=== PATIENT | male | born 1965 | race Caucasian/White ===

== ENCOUNTER 2023-07-11 14:38 | Inpatient (IN) | payer MEDICAID, SELFPAY ==
[2023-07-11] VITALS (12 sets, daily range): BP systolic 117–169; BP diastolic 73–94; BMI 22.8; BMI 22.2
--- NOTE | 2023-07-11 11:27 | ED.GENMED ---
History of Present Illness
General
Chief Complaint: Seizure
Time Seen by Provider: 07/11/23 11:26
Travel History
Have you had any contact with someone who has COVID-19?: No
Do you have any symptoms of coronavirus? Fever > 100 degrees, chills, cough, shortness of breath, sore throat, loss of taste or smell, muscle aches, or headache?: No
History of Present Illness
History of Present Illness:
HPI: The patient presents with a witnessed seizure. He came in by ambulance. He does have a history of seizure and has had left MCA stroke in the past. He is currently a very unreliable historian. I am told by the ER nurse who spoke to EMS that
the patient's white found him to have a grand mal seizure for 1 to 2 minutes.
EXAM:
GENERAL: The patient appears confused/postictal
HEENT: Moist oral mucosa
CARDIOVASCULAR: No murmurs, tachycardic heart rate with regular rhythm, No chest wall tenderness
PULMONARY: No respiratory distress, breath sounds are clear and equal
ABDOMEN: Soft with no peritoneal signs, no tenderness
NEUROLOGIC: Good strength all extremities, mild tremor noted, mild coordination deficits noted
PSYCHIATRIC: The patient appears confused with limited insight and judgment and appears to be an unreliable historian, he does not know that he is at [facility]
EXTREMITIES: Nontender, no edema, moves all extremities equally
SKIN: No rash, no lesions
ED COURSE:
11:35 AM: I initially evaluated patient; I called the listed phone number for the but there was no answer at 11:40 AM
NUMBER AND COMPLEXITY OF PROBLEMS ADDRESSED AT THE ENCOUNTER
� Chronic conditions affecting care: Factor V Leiden, left MCA stroke, seizures, Warnicke Korsakoff syndrome, has had intracranial bleed in the past, alcohol use disorder
� Acute Exacerbation and/or Progression of Chronic Illness: This is an acute exacerbation of chronic seizure disorder
� Differential Diagnosis includes: Recurrent seizure, alcohol withdrawal seizure, medication noncompliance, intracranial hemorrhage from possible trauma
AMOUNT AND/OR COMPLEXITY OF DATA TO BE REVIEWED AND ANALYZED
� I performed an independent evaluation of and my interpretation is:
EKG:
CT: CT brain personally viewed and shows no acute abnormality
X-rays:
Laboratory Studies: CBC, chemistries, B12 unremarkable. Head CT is unremarkable
Other:
� Review of other/old records: The patient was admitted here with seizures last month and stayed for over 3 weeks. Seizures were likely related to alcohol withdrawal and was initially admitted to ICU. There were no beds
available for inpatient alcohol rehab
� Clinical information was obtained by an independent historian: I tried calling the twice but there was no answer, I did speak to the brother who was not aware that the patient was here
� Prescriptions/Medications Considered but not given:
� Further testing considered but not performed:
RISK OF COMPLICATIONS AND/OR MORBIDITY OR MORTALITY OF PATIENT MANAGEMENT
� Social determinants of health affecting care: Lives at home with
� Discussion with other providers: Hospitalist for admission at 1:45 PM
� Escalation of care including admission/observation vs risk of discharge considered: The patient appears encephalopathic but based on the records from last admission this does not appear to be new. The patient had a seizure
reportedly earlier today. The patient has been seizure-free in the ED however I did give him a dose of 2 g of IV Keppra as patient states that he did not take his meds this morning. However, the patient appears fairly unreliable. I do not feel
that he can be at this time.
Past History
Past History
ED Past Medical History: CVA, HTN, Seizures, Other (subarachnoid hemorrhage 2004), Other (gout; alcohol abuse with alcohol withdrawal seizures, alcohol withdrawal delirium) and Other (factor V Leiden; chronic anemia; abnormal head imaging with left
temporal encephalomalacia)
ED Past Surgical History: Orthopedic (left knee arthroscopy)
Social History
Tobacco: Former smoker
Alcohol: Chronic alcoholic
Drug: None
Personal:
Living: with family
Employment: Other
Family History
Family History: Other (He has a father and a brother that had strokes)
Phy Exam
Physical Exam
Physical Exam:
See HPI
Course
Orders/Labs/Results
Orders:
Orders
07/11/23 11:40
CT Head W/o Iv Contrast Urgent
Comment:
Reason For Exam: seizure confused ?head trauma; on DAPT
Levetiracetam Injectable [Keppra] 2,000 mg IV NOW STA
07/11/23 11:41
Alcohol Urgent
Complete Blood Count/With Diff Urgent
Comprehensive Metabolic Panel Urgent
Vitamin B12 Urgent
Abnormal Lab Results
07/11/23
11:41
RBC 4.05 L 10^6/uL
(4.70-6.10)
MCV 98.0 H fL
(80.0-94.0)
MCH 34.3 H pg
(27.0-31.0)
07/11/23 11:41
07/11/23 11:41
Vital Signs
Initial and Last Documented VS:
Initial Vital Signs
Pulse Resp BP Pulse Ox
87 15 141/94 94
07/11/23 10:57 07/11/23 10:57 07/11/23 10:57 07/11/23 10:57
Last Documented Vital Signs
Temp Pulse Resp BP Pulse Ox
98.6 F 70 19 129/83 100
07/11/23 11:02 07/11/23 13:30 07/11/23 13:30 07/11/23 13:22 07/11/23 11:33
*Critical Care Note
Total Time (30-74mins, 75-104mins- exclusive of procedures): Not Applicable
ED Attending Note
-
Portions of this chart may have been created with voice recognition software.� Occasional wrong word or��sound alike� substitutions may have occurred due to the inherent limitations of voice recognition software.
Discharge Plan
Departure
Patient Disposition: Admit
Date of Disposition: 07/11/23
Time of Disposition: 13:24
Presentation/result/management discussed w/ accepting MD/DO: Hospitalist
Discharge Problem:
Seizure
Prescriptions:
No Action
thiamine HCl (vitamin B1) 100 mg Tablet
100 mg PO DAILY
clopidogrel 75 mg Tablet
75 mg PO DAILY
diltiazem HCl 120 mg Capsule,Extended Release 24 Hr
120 mg PO DAILY
levetiracetam 1,000 mg Tablet
2,000 mg PO BID
Referrals:
UNKNOWN - PT DOES,NOT KNOW [Family Provider] -
Interventions
Interventions:
*Risk Screen - Suicide Last Done: 07/11/23 11:02
*General Assessment Last Done: 07/11/23 11:02
*Neglect/Abuse Screening Last Done: 07/11/23 11:02
ED- Fall Risk Assessment Last Done: 07/11/23 11:33
*ED COVID-19 Vaccine History Last Done: 07/11/23 11:02
ED- Cardiac Assessment Last Done: 07/11/23 11:33
ED- Neurological Assessment Last Done: 07/11/23 11:33
ED- Pulmonary Assessment Last Done: 07/11/23 11:33
--- NOTE | 2023-07-11 11:30 | EDRN ---
Received patient from home s/p witnessed grand mal seizure by . told EMS that the seizure lasted about 1-2 minutes. Patient lethargic on arrival. Aroused easily to touch and sound. Patient with confused conversation. Patient denies any ETOH
use.
[2023-07-11] MEDS: KEPPRA 2000 MG IV (11:48)
[2023-07-11 12:03] LABS: % Basophils 0.4 % (0-2); % Eosinophils 0.8 % (0-6); % Lymphocytes 34.7 % (20.5-51.1); % Monocytes 6.7 % (1.7-9.3); % Neutrophils 57.4 % (42.2-75.2); Absolute Lymphocytes 1.7 10^3/uL (1.2-3.4); Absolute Monocytes 0.3 10^3/uL (0.1-0.6); Absolute Neutrophils 2.8 10^3/uL (1.4-6.5); Hematocrit 39.7 % (39.0-52.0); Hemoglobin 13.9 g/dL (13.0-18.0); Mean Corpuscular Hgb 34.3 pg (27.0-31.0); Mean Platelet Volume 9.7 fL (7.4-10.4); Nucleated Red Blood Cells % 0 % (-); Platelet Count 277 10^3/uL (130-400); Red Blood Cell Count 4.05 10^6/uL (4.70-6.10); Red Cell Dist. Width 12.4 % (11.5-14.5); White Blood Cell Count 4.8 10^3/uL (4.8-10.8)
[2023-07-11 12:36] LABS: ALT (SGPT) 33 U/L (0-50); AST (SGOT) 44 U/L (17-59); Albumin 4.7 g/dl (3.5-5.0); Alcohol 218 mg/dl; Alkaline Phosphatase 73 U/L (38-126); Blood Urea Nitrogen 11 mg/dl (9-20); Calcium 8.8 mg/dl (8.4-10.2); Carbon Dioxide 24 mmol/L (22-30); Chloride 106 mmol/L (98-107); Estimated Creatinine Clearance 99 ml/min; Glucose 89 mg/dl (70-99); Potassium 3.9 mmol/L (3.5-5.1); Sodium 142 mmol/L (135-145); Total Bilirubin 0.5 mg/dl (0.2-1.3); Total Protein 8.2 g/dl (6.3-8.2); eGFR > 60.00
[2023-07-11 13:13] LABS: Vitamin B12 308 pg/ml (239-931)
--- NOTE | 2023-07-11 13:53 | HPS.HSE ---
Addendum entered and electronically signed by Omar Matias MD 07/11/23 15:45:
Seen and examined by me independently in collaboration with the nurse practitioner Layla.
Past medical history/social history/medication/allergies reviewed.
Lab data and imaging data reviewed.
Patient with longstanding history of alcohol abuse including dependence and withdrawal seizures presents with a 1 to 2 minutes of grand mal seizure witnessed by the . He has a seizure when he is intoxicated with alcohol. His levels were 218
when he presented to the hospital. Further discussion with the patient about complaints of Keppra suggest that he was not taking his Keppra. He forgets about medication when he is intoxicated with alcohol.
Currently alert and oriented. No signs of alcohol withdrawal.
Lab work is okay.
I suspect this is more seizure from noncompliance with Keppra.
Patient received Keppra in the ER.
Admit the to observe for any recurrent seizure. Continue with his Keppra. Hydrated with fluids to help with his increased alcohol levels.
Patient is declining any help with alcohol withdrawal programs
Continue the diet. If no further seizures we will discharge him in a.m.
Original Note:
Family Physician
-
Family Physician: NOT KNOW UNKNOWN - PT DOES
Chief Complaint
-
Seizure, confusion, alcohol intoxication
History of Present Illness
58-year-old male arrives by ambulance whose reported to EMS she found him having a grand mal seizure lasting approximately 1 to 2 minutes. Has history of alcohol withdrawal seizures and prior history of a left MCA stroke. In the ER he is
confused. The patient is currently awake and alert does not have current memory of the past couple days. He reports this happens after he has a seizure. He does state that he remembers going to an AA meeting with his brother Son but he has
been drinking wine approximately 1.5 L daily since his discharge 11 days ago. He does not recall whether or not he has been taking his Keppra as when he gets intoxicated he forgets. He lives with his who is also an alcoholic. He is not
interested in inpatient treatment as he states he was denied in the past due to his history of seizures and CVA. He denies current headache, fever, chills, chest pain, palpitations, shortness of breath, cough, abdominal pain, nausea, vomiting,
diarrhea
He was recently admitted 06/10-07/03/2023 for alcohol intoxication/withdrawal seizure, TME, COVID-19 he developed during his admission he refused antiviral treatment at that time. He was waiting for an inpatient alcohol drug rehab for many days but
there were no beds available and he was recommended to go home with outpatient rehab. His other past medical history includes factor V Leiden, anemia, intracranial bleed left MCA /CVA 2004, TIA, HLD, gout, alcohol abuse, alcohol withdrawal
seizures, Paroxysmal A-fib/SVT, hypomagnesemia.
Medical History
Past Medical History
Past Medical History: Reports Other
Additional Past Medical History:
COVID-19 infection June 2023
ASCVD with Prior CVA
History of seizures
Subarachnoid hemorrhage in 2004
Essential hypertension
Gout
Alcohol use disorder with withdrawal seizures and withdrawal delirium
Factor V Leiden deficiency
Anemia of chronic disease
Past Surgical History: Reports Other
Additional Past Surgical History:
Knee Arthroscopy
Colonoscopy age 40s normal
Social History
Tobacco: Former Smoker (Per record. Unsure of total use / quit date.)
Alcohol: Daily
Personal:
Living: With Family ()
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
Family History
Family History: Other (Mother colon cancer, 1 brother colon cancer, father and multiple brothers alcohol abuse)
Allergies / Home Medications
Allergies reflects when Allergies were last updated in [email or web address].
Home Medications with original date entered in [email or web address]
Allergy/Medication List:
Allergies
Allergy/AdvReac Type Severity Reaction Status Date / Time
erythromycin base Allergy Unknown Verified 07/11/23 11:07
[Erythromycin Base]
diazepam AdvReac paradoxical Verified 07/11/23 11:07
rxn/agitation,
required
upgrade
IMU>ICU
03/27/22
lorazepam [From Ativan] AdvReac Agitation Verified 07/11/23 11:07
phenytoin sodium AdvReac Unknown- Verified 07/11/23 11:07
[From Dilantin] tolerated
phenobarbital
Home Medications
clopidogrel 75 mg tablet 75 mg PO DAILY 07/11/23
diltiazem HCl 120 mg capsule,24 hr,extended release 120 mg PO DAILY 07/11/23
levetiracetam 1,000 mg tablet 2,000 mg PO BID 07/11/23
thiamine HCl (vitamin B1) 100 mg tablet 100 mg PO DAILY 07/11/23
Review of Systems
-
History Source: Patient
Constitutional: Reports Other (Slight confusion/recall of recent events); Denies Fever
EENT: Denies Sore Throat or Runny Nose
Respiratory: Denies Cough or Trouble Breathing
Cardiac: Denies Chest Pain, Diaphoresis, Palpitations or Syncope
Abdomen/GI: Denies Abdominal Pain, Nausea, Vomiting, Diarrhea, Constipated, Bloody Stools or Black Stools
: Denies Dysuria, Frequency, Flank Pain, Incontinence or Difficulty Voiding
Musculoskeletal: Denies Joint Pain or Edema
Skin: Denies Itching or Rash
Neurological: Denies Dizzy, Headache or Weakness
Endocrine: Reports No Symptoms
Hematologic/Lymphatic: Reports No Symptoms
Psych: Reports Calm
Physical Exam
Vital Signs
Vital Signs
Temp Pulse Resp BP Pulse Ox
98.6 F 70 19 129/83 100
07/11/23 11:02 07/11/23 13:30 07/11/23 13:30 07/11/23 13:22 07/11/23 11:33
Physical Exam
General: Comfortable, Conversant and Other (Intoxicated slight impairment in recall of recent events over the past several days unsure if taking Keppra unsure last alcoholic drink)
HEENT: NormoCephalic, Anicteric, Moist mucous membranes, Atraumatic, PERRLA, [place] Conjunctivae and No Ptosis
Respiratory: Clear; No Wheezes, Rales or Rhonchi
Cardiac: S1/S2 and Regular Rhythm; No Murmur, Rub, Gallop or Peripheral Edema
Breast: Deferred by me
GI: Soft, Non Tender, Non Distended, Normal Bowel Sounds and No Hepatosplenomegaly
Rectal: Deferred by Provider
Genito-urinary: Deferred by me
Musculoskeletal: No Clubbing, No Cyanosis and No Edema
Skin: Warm and Dry; No Rash
Neuro: AO x 3 (Impairment in recent events as far as last alcoholic drink last dose of Keppra), Cranial Nerves Intact and No Sensory Deficits; No Slurred Speech, Facial Droop or Tremors
Psych: Calm
Laboratory Results
-
07/11/23 11:41
07/11/23 11:41
Laboratory Results
Total Bilirubin 0.5 mg/dl (0.2-1.3) 07/11/23 11:41
AST 44 U/L (17-59) 07/11/23 11:41
ALT 33 U/L (0-50) 07/11/23 11:41
Alkaline Phosphatase 73 U/L (38-126) 07/11/23 11:41
Impression/Plan
-
Impression/plan:
Admit to IMU
#Seizure likely missed Keppra dose due to alcohol intoxication
-Resume Keppra 2000 mg twice daily
-neurology May consult if ongoing persistent seizures with keppra and phenobarb
-Seizure precautions
-PT/OT/case management eval
Patient refused inpatient rehab
#TME 2/2 Alcohol intoxication
EtOH 218
MSAs screen with protocol
NO Ativan, Valium due to history of agitation
-IV thiamine, IV folate
-Phenobarb for alcohol withdrawal
-IV NSS
CT head: No intracranial abnormality. Encephalomalacia left temporal lobe unchanged. Mild volume loss
#Paroxysmal A-fib
-Check EKG
cont -Diltiazem 120 mg daily
#Hx TIA multiple
-Continue Plavix
#Hx left MCA infarct/hemorrhage subarachnoid 2004
#HTN�benign
129/83
#Factor V Leiden Hx
#Gout
-No current medication
DVT prophylaxis
SCDs
Full code
[2023-07-11] MEDS: PHENOBARBITAL 104 MG IV (16:55)
[2023-07-11 17:10] LABS: INR 0.98; PT 12.8 Sec (11.4-14.6)
[2023-07-11 17:11] LABS: APTT 26.4 Sec (23.4-35.0)
[2023-07-11] MEDS: NSS 1000 IV (17:26)
[2023-07-11] MEDS: THIAMINE INJECTION 200 MG IV ×2 (17:26→23:20)
[2023-07-11 17:28] LABS: GGTP 50 U/L (15-73); Magnesium 1.4 mg/dl (1.6-2.3); Phosphorus 4.4 mg/dl (2.5-4.5)
[2023-07-11 17:35] LABS: B-Hydroxybutyrate 0.24 mmol/L (0.02-0.27)
[2023-07-11] MEDS: KEPPRA 2000 MG PO (19:51)
[2023-07-11] MEDS: LUMINAL 97.2000000000000028 MG PO (21:31)
[2023-07-11 21:58] LABS: Urine Albumin Negative (Neg - Trace); Urine Bilirubin Negative (Negative); Urine Character Clear (Clear); Urine Color Yellow; Urine Glucose Negative (Negative); Urine Ketone Negative (Negative); Urine Leukocyte Negative (Negative); Urine Nitrite Negative (Negative); Urine Occult Blood Negative (Negative); Urine Specific Gravity 1.015 (<1.030); Urine Urobilinogen Negative (Neg - 1+)
[2023-07-11 22:06] LABS: Amphetamines Negative (Negative); Barbiturates Positive (Negative); Benzodiazepines Negative (Negative); Buprenorphine Negative (Negative); Cocaine Negative (Negative); Marijuana Negative (Negative); Methadone Negative (Negative); Methamphetamines Negative (Negative); Opiates Negative (Negative); Phencyclidine Negative (Negative); Tricyclic Antidepressants Negative (Negative)
[2023-07-12 03:41] VITALS: BP 110/77
[2023-07-12] MEDS: NSS 1000 IV (05:29)
[2023-07-12 06:00] VITALS: BMI 22.2
[2023-07-12 07:00] VITALS: BP 137/79
[2023-07-12] MEDS: CARDIZEM CD 120 MG PO (08:17)
[2023-07-12] MEDS: KEPPRA 2000 MG PO (08:17)
[2023-07-12] MEDS: FOLVITE 1 MG PO (08:18)
[2023-07-12] MEDS: THIAMINE INJECTION 200 MG IV (08:18)
[2023-07-12] MEDS: PLAVIX 75 MG PO (08:18)
[2023-07-12] MEDS: LUMINAL 97.2000000000000028 MG PO ×2 (08:18→15:52)
[2023-07-12 08:29] LABS: % Basophils 0.7 % (0-2); % Eosinophils 0.7 % (0-6); % Immature Granulocytes 0.2 % (0-0.5); % Lymphocytes 33.6 % (20.5-51.1); % Monocytes 11.8 % (1.7-9.3); Absolute Lymphocytes 1.4 10^3/uL (1.2-3.4); Absolute Monocytes 0.5 10^3/uL (0.1-0.6); Absolute Neutrophils 2.2 10^3/uL (1.4-6.5); Hematocrit 34.5 % (39.0-52.0); Hemoglobin 12.4 g/dL (13.0-18.0); Mean Corp Hgb Conc. 35.9 g/dL (33.0-37.0); Mean Corpuscular Hgb 34.5 pg (27.0-31.0); Mean Corpuscular Volume 96.1 fL (80.0-94.0); Nucleated Red Blood Cells % 0 % (-); Red Blood Cell Count 3.59 10^6/uL (4.70-6.10); Red Cell Dist. Width 12.1 % (11.5-14.5); White Blood Cell Count 4.1 10^3/uL (4.8-10.8)
[2023-07-12 08:46] LABS: Blood Urea Nitrogen 13 mg/dl (9-20); Calcium 8.6 mg/dl (8.4-10.2); Carbon Dioxide 22 mmol/L (22-30); Chloride 102 mmol/L (98-107); Estimated Creatinine Clearance 108 ml/min; Glucose 82 mg/dl (70-99); Potassium 4.6 mmol/L (3.5-5.1); Sodium 137 mmol/L (135-145); eGFR > 60.00
[2023-07-12 09:01] LABS: Mean Platelet Volume 10.3 fL (7.4-10.4); Platelet Count 194 10^3/uL (130-400)
--- NOTE | 2023-07-12 09:47 | W.PN.HOSP.TC ---
Today's Communication/Plan
-
dc
Assessment / Plan
Assessment / Plan
# Breakthrough seizure likely missed Keppra dose due to alcohol intoxication
-Resumed Keppra 2000 mg twice daily
-No further seizures
-Stressed again importance of Keppra compliance to prevent seizures and also alcohol abstinence to help with his seizure. He knows its importance.
#TME� 2/2 Alcohol intoxication
EtOH 218
Currently no encephalopathy
Alert and oriented without overt sympathetic activity withdrawal.
# Alcohol use disorder with prior history of alcohol withdrawal including seizures.
This a.m. no signs of overt sympathetic activity or alcohol withdrawal symptoms.
NO Ativan, Valium due to history of agitation
He tells me today that he is keen to stay away from alcohol and has no plans to go home and drink again. In view of his plans for abstinence viral discharge him on phenobarb taper .
He wants to see case management prior to discharge regarding alcohol rehab programs
# Hypomagnesemia-replete
� ���
#Paroxysmal A-fib
In SR on monitor
�cont -Diltiazem 120 mg daily
#Hx TIA multiple
-Continue Plavix
#Hx left MCA infarct/hemorrhage subarachnoid 2004
#HTN�benign
stable
DVT prophylaxis
SCDs
Full code
DC home after IV magnesium infusion and seen by case management
Anticipated Discharge: Today
Subjective/Interval History
-
Date of Service: July 12, 2023
Slept okay. No further seizures.
Today denies feeling anxious or tremulous. No nausea vomiting. Tolerating diet.
He wants to see case management regarding alcohol rehab programs.
He is having difficulty to abstain from alcohol and one of the factor he attributes to is his also drinks at home. He was recently here with alcohol withdrawal syndrome and initially was planned to go to inpatient rehab which did not work out
so was referred to outpatient rehab and he states he is doing it daily along with his brother but still had high alcohol levels in blood on admission.
He does admit to missing Keppra. He was again stressed the importance of being on Keppra to prevent any breakthrough seizures. He was also advised abstinence of alcohol would help his seizure issues as well.
Objective Data
-
Labs:
Laboratory Results
07/12/23
07:45
WBC 4.1 L
Hgb 12.4 L
Hct 34.5 L
Plt Count 194 D
Sodium 137
Potassium 4.6
Chloride 102
Carbon Dioxide 22
BUN 13
Creatinine 0.8
Glucose 82
Calcium 8.6
Vital Signs:
Vital Signs
Temp Pulse Resp BP Pulse Ox
98.2 F 68 18 137/79 100
07/12/23 07:00 07/12/23 07:00 07/12/23 07:00 07/12/23 08:17 07/12/23 07:00
I&O
07/11/23 07/12/23 07/13/23
06:59 06:59 06:59
Intake Total 0 / 1920
Output Total 700 / 700
Balance 1220 / 1220
Review of Systems
-
Constitutional: Denies Fever
EENT: Denies Sore Throat
Respiratory: Denies Cough or Trouble Breathing
Cardiac: Denies Chest Pain
Abdomen/GI: Denies Abdominal Pain, Nausea or Vomiting
Neuro: Denies Dizzy
Physical Exam
-
General: No Apparent Distress
HEENT: Moist Mucous Membranes
Respiratory: Clear to Auscultation
Cardiac: Regular Rhythm and S1/S2; Negative Tachycardic
GI: Soft
Neuro: AO x 3 and No Motor Deficits; Negative Tremors
Psych: Calm; Negative Confused or Agitated
Data Reviewed
-
Labs: Labs Reviewed by me
[2023-07-12] MEDS: MAGNESIUM SULFATE 102 GRAMS IV (09:54)
[2023-07-12 10:15] VITALS: BP 167/94; PULSE 103; O2SAT 99
[2023-07-12 10:16] VITALS: BP 167/94; PULSE 103; O2SAT 99
--- NOTE | 2023-07-12 10:24 | PTOTSP ---
Patient with good insight into safety and demonstrates independence with transfers, ambulation and elevations.
Does not demonstrate continued need for skilled therapy and will be discharged at this time. If needs change, please re-consult.
[2023-07-12 11:00] VITALS: BP 134/77
--- NOTE | 2023-07-12 14:29 | CM ---
CM following re: d/c planning
Chart reviewed
CM met with the patient at bedside; IA completed
Pt has had several hospitalizations over the past few months and is also familiar with [facility] secondary to ETOH abuse
Pt sates he resides with his spouse in a 3SH with 1STE
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
Pt has no past hx of VN/SNF/DME however has been to inpatient tx facilities r/t to ETOH abuse
Pt does confirm prescription coverage and rx's are filled at [facility] on [address] [place]
Pt PCP-Shivam Hernadez
CM called and spoke with Xuan at [facility] who states she too will speak with patient prior to d/c to see if there are any additional resources to provide to the patient
Pt states his spouse or brother will transport him home at time of d/c
Pt informed this bond writer that he attends AA meetings, [facility] meetings on Mondays at [facility] tx in [place]
Pt is medically stable for d/c and disposition goal is to continue with outpatient treatment
No additional d/c needs noted
PLAN; d/c home with outpatient ETOH tx
--- NOTE | 2023-07-12 14:32 | W.DS.TRANS ---
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
-
Discharge Instructions:
Discharge Diagnosis/Procedures Breakthrough seizures; alcohol use disorder
Diet Regular
Activity As tolerated
Driving Restrictions No driving
Bathing Restrictions None
Instructions:
Stand-Alone Forms:
Changes to Home Medications: Yes
Discharge Medications:
DC Medications w/original date entered in [facility]
clopidogrel 75 mg tablet 75 mg PO DAILY Blood Clot Prevention/Tx 07/11/23
diltiazem HCl 120 mg capsule,24 hr,extended release 120 mg PO DAILY Heart Disease/Condition 07/11/23
levetiracetam 1,000 mg tablet 2,000 mg PO BID Seizures 07/11/23
thiamine HCl (vitamin B1) 100 mg tablet 100 mg PO DAILY Supplement 07/11/23
folic acid 1 mg tablet 1 mg PO DAILY #30 tabs 07/12/23
phenobarbital 32.4 mg tablet 32.4 mg PO TID #6 tabs 07/12/23
phenobarbital 64.8 mg tablet 64.8 mg PO TID #6 tabs 07/12/23
thiamine HCl (vitamin B1) 100 mg tablet 100 mg PO BID #60 tabs 07/12/23
Home Medication Changes
New medication - Phenobarb taper , thiamine hcl, folic acid
Pending Results: No
--- NOTE | 2023-07-12 14:34 | W.DCSUMMARY ---
Discharge Summary
Discharge Data
Date of Admission: 07/11/23
Date of Discharge: 07/12/23
-
Pending Results: No
Hospital Course
Primary diagnosis:
Breakthrough seizures
Alcohol use disorder
Secondary diagnosis:
History of paroxysmal atrial fibrillation
History of intracranial hemorrhage
Seizure disorder
Hospital course:
Patient with alcohol use disorder and ongoing alcohol abuse was noted to have a brief tonic-clonic seizure witnessed by the lasting 1 to 2 minutes. He was elaborated with alcohol level of 218 on presentation. He claims that he is going to AA
meetings every day in fact on the day of admission 2. He did admit to missing Keppra doses. He was loaded with Keppra. No new neurological symptoms. He was advised with complaints of Keppra and discharged home back on Keppra.
With regards to alcohol use disorder ,saw case management and agrees to see [facility]. He also agrees to continue with outpatient alcohol rehab program as before. He stated to me that he was going to go sober so he was discharged home on a phenobarb
taper after initial loading. He is aware not to mix with alcohol. Is not currently driving because of seizure disorder
Discharge Plan
-
Patient Disposition: Home (Routine Discharge)
Discharge Diagnosis/Procedures: Breakthrough seizures; alcohol use disorder
Diet: Regular
Activity: As tolerated
Driving Restrictions: No driving
Bathing Restrictions: None
Referrals:
Shivam Hernadez MD [Family Provider] - in less than 1 week
Prescriptions:
New
folic acid 1 mg Tablet
1 mg PO DAILY Qty: 30 0RF
phenobarbital 32.4 mg Tablet
32.4 mg PO TID Qty: 6 0RF
Rx Instructions:
start after your done with 64.8 mg dose. Dont drink alcohol while on this mediciation.
thiamine HCl (vitamin B1) 100 mg Tablet
100 mg PO BID Qty: 60 0RF
phenobarbital 64.8 mg tablet
64.8 mg PO TID Qty: 6 0RF
Rx Instructions:
starting tomorrow. dont use alcohol while on it
Continued
thiamine HCl (vitamin B1) 100 mg Tablet
100 mg PO DAILY
clopidogrel 75 mg Tablet
75 mg PO DAILY
diltiazem HCl 120 mg Capsule,Extended Release 24 Hr
120 mg PO DAILY
levetiracetam 1,000 mg Tablet
2,000 mg PO BID
Discharge Orders:
Discharge Patient (As Directed); Ordered 07/12/23
Ordered By: Omar Matias
== END 2023-07-12 17:15 | disposition home or self-care (01) | DRG 101 ==
LOC: 4 EAST ACU 14:38
PROVIDERS: Clinical Nurse Specialist Family Health; ADMITTING PHYSICIAN Internal Medicine; EMERGENCY PHYSICIAN Emergency Medicine; FAMILY PHYSICIAN Family Medicine
DX: G40.409 Other generalized epilepsy and epileptic syndromes, not intractable, without status epilepticus (principal); F10.231 Alcohol dependence with withdrawal delirium; D68.51 Activated protein C resistance; Z86.73 Personal history of transient ischemic attack (TIA), and cerebral infarction without residual deficits; Z87.891 Personal history of nicotine dependence; Y90.7 Blood alcohol level of 200-239 mg/100 ml; F10.229 Alcohol dependence with intoxication, unspecified; Z91.148 Patient's other noncompliance with medication regimen for other reason; I25.10 Atherosclerotic heart disease of native coronary artery without angina pectoris; I10 Essential (primary) hypertension; M10.9 Gout, unspecified; D63.8 Anemia in other chronic diseases classified elsewhere; I48.0 Paroxysmal atrial fibrillation; G93.89 Other specified disorders of brain; E83.42 Hypomagnesemia
CPT/HCPCS: 70450; 80048; 80053; 80306; 81003; 82010; 82077; 82607; 82977; 83735; 84100; 85025; 85610; 85730; 96365; 97116; 97162; 97166; 99285

== ENCOUNTER 2023-08-27 03:34 | Inpatient (IN) | payer OTHER, SELFPAY ==
[2023-08-27] VITALS (15 sets, daily range): BP systolic 107–160; BP diastolic 72–97; BMI 23.3
[2023-08-27] MEDS: KEPPRA 500 MG IV (00:05)
[2023-08-27] MEDS: ATIVAN 1 MG IV (00:06)
[2023-08-27 00:10] LABS: Glucose - Point of Care 131 mg/dl (70-99)
--- NOTE | 2023-08-27 00:12 | ED.GENMED ---
History of Present Illness
General
Chief Complaint: Seizure
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
Exam Limitations: altered mental status
Time Seen by Provider: 08/26/23 23:56
Nursing documentation reviewed up to this point in time: agreed with
Travel History
Have you had any contact with someone who has COVID-19?: No
Do you have any symptoms of coronavirus? Fever > 100 degrees, chills, cough, shortness of breath, sore throat, loss of taste or smell, muscle aches, or headache?: No
History of Present Illness
History of Present Illness:
This is a 58-year-old gentleman with longstanding history of alcohol abuse, history of alcohol withdrawal seizures with multiple previous hospitalizations here for recurrent seizures, most recently July of this year.
He is chronically maintained on Keppra 2000 mg twice daily but there has been issues with medication compliance.
called 911 tonight after witnessing a tonic-clonic seizure. There was no report of injury.
According to EMS and report from patient stopped heavy drinking perhaps 3 to 4 days ago.
He was initially quite obtunded appeared to be in postictal state, slowly improving during transport to the ED. Initial EKG showed atrial fibrillation with rapid ventricular response. He has reportedly remained hemodynamically stable throughout
transport.
Prior records reveal previous episodes of PAF and patient is chronically maintained on diltiazem 120 mg daily.
He has prior history of hyperlipidemia, seizures, gout, factor V Leyden deficiency, anemia, history of spontaneous subarachnoid hemorrhage thus not on systemic anticoagulation however has previously been prescribed aspirin and Plavix due to PAF and
previous concern for TIA.
Upon arrival to the ED patient awake, very minimally drowsy, following some simple commands but then noted to briefly grind his teeth which progressed to tonic-clonic grand mal seizure that lasted approximately 60 seconds and resolved just as 1 mg
IV Ativan was administered.
Due to concern for poor compliance with Keppra, an IV dose of Keppra 500 mg has been ordered.
Patient is now drowsy.
Past History
Past History
ED Past Medical History: Arrthythmia (Paroxysmal atrial fibrillation), CVA (Possible TIA), HTN, Hypercholesterolemia, Seizures, Other (Spontaneous subarachnoid hemorrhage 2004), Other (gout; alcohol abuse with alcohol withdrawal seizures, alcohol
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
ED Past Surgical History: Orthopedic (left knee arthroscopy)
Social History
Tobacco: Former smoker
Alcohol: Chronic alcoholic
Drug: None
Personal:
Living: with family
Employment: Not employed
Family History
Family History: Other (He has a father and a brother that had strokes)
Phy Exam
Physical Exam
Physical Exam:
GENERAL: 58-year-old gentleman appears older than stated age, after 1 minute tonic-clonic seizure he is now significantly drowsy. He does briefly look to the examiner but is nonverbal.
EYE: pupils equal and reactive. anicteric
NECK: Supple, nontender, no meningismus, no significant adenopathy.
ENT: posterior pharynx is clear, oral mucosa is moist. No tongue abrasion, no bleeding. TM clear b/l, nares patent.
CARDIAC: Irregularly irregular, tachycardic, no murmur.
LUNGS: Clear breath sounds bilaterally, no acute respiratory distress, no wheezes/rales/rhonchi
ABDOMEN: Soft, nondistended, without focal tenderness, no r/g, no cvat. normoactive BS.
NEUROLOGICAL: Obtunded, opens eyes briefly to verbal stimuli. No focal neuro deficits.
SKIN: Warm and dry, normal color, skin intact. No rash.
MUSCULOSKELETAL: No C/C/E. peripheral pulses are full and equal b/l. No palpable tenderness.
PSYCH: Obtunded.
Course
Orders/Labs/Results
Orders:
Orders
08/26/23 23:49
EKG [Electrocardiogram (*1)] Urgent
Reason for Study: Tachycardia
EKG- Treatment ONCE
08/26/23 23:54
Cardiac Monitoring- Treatment ONCE
Alcohol Urgent
CMP [Comprehensive Metabolic Panel] Urgent
Complete Blood Count/With Diff Urgent
08/26/23 23:57
Lorazepam [Ativan] 2 mg .ROUTE .STK-MED ONE
08/27/23 00:04
CPK [Creatine Phosphokinase] Urgent
Magnesium Urgent
Levetiracetam Injectable [Keppra] 500 mg IV NOW STA
08/27/23 00:05
Lorazepam [Ativan] 1 mg IV NOW STA
08/27/23 00:07
Keppra (Levetiracetam) [S] Urgent
08/27/23 00:11
EKG [Electrocardiogram (*1)] Urgent
Reason for Study: Tachycardia
08/27/23 00:12
EKG- Treatment ONCE
08/27/23 00:30
CT Head W/o Iv Contrast Urgent
Comment:
Reason For Exam: recurrent seizures, confusion, (?)trauma
CR Chest - 2 Views Urgent
Comment:
Reason For Exam: recurrent seizures, cough
08/27/23 01:00
0.9% Sodium Chloride 1000 ml [Nss] 1,000 ml Mvi, Adult [Multivitamin] 10 ml Thiamine Injection 100 mg IV 1,000 mls/hr
08/27/23 01:06
CR Chest Portable - 1 View Urgent
Comment:
Reason For Exam: recurrent seizures, episode of vomiting
Reason Study Needs to be Portable: Patient Unstable
08/27/23 01:11
0.9% Sodium Chloride 1000 ml [Nss] 1,000 ml IV BOLUS
08/27/23 01:14
Ondansetron Injectable [Zofran] 4 mg .ROUTE .STK-MED ONE
Pantoprazole [Protonix IV] 40 mg .ROUTE .STK-MED ONE
08/27/23 01:19
Ondansetron Injectable [Zofran] 4 mg IV NOW STA
08/27/23 01:21
Pantoprazole [Protonix IV] 40 mg IV NOW STA
Abnormal Lab Results
08/27/23 08/27/23
00:04 00:08
RBC 3.93 L 10^6/uL
(4.70-6.10)
Hct 37.3 L %
(39.0-52.0)
MCV 94.9 H fL
(80.0-94.0)
MCH 33.3 H pg
(27.0-31.0)
Abs Immat Gran (auto) 0.1 H 10^3/uL
(0-0.05)
Absolute Lymphs (auto) 0.9 L 10^3/uL
(1.2-3.4)
Immature Gran % 0.7 H %
(0-0.5)
Neutrophils % 77.5 H %
(42.2-75.2)
Lymphocytes % 11.0 L %
(20.5-51.1)
Sodium 134 L mmol/L
(135-145)
Chloride 97 L mmol/L
(98-107)
Carbon Dioxide 12 L* mmol/L
(22-30)
Glucose 140 H mg/dl
(70-99)
AST 65 H U/L
(17-59)
Creatine Kinase 396 H U/L
(55-170)
Albumin 5.1 H g/dl
(3.5-5.0)
POC Glucose 131 H mg/dl
(70-99)
08/27/23 00:04
08/27/23 00:04
Vital Signs
Initial and Last Documented VS:
Initial Vital Signs
Temp Pulse Resp Pulse Ox
97.9 F 159 20 95
08/26/23 23:50 08/26/23 23:50 08/26/23 23:50 08/26/23 23:50
Last Documented Vital Signs
Temp Pulse Resp BP Pulse Ox
97.9 F 108 11 139/90 97
08/26/23 23:50 08/27/23 01:07 08/27/23 01:07 08/27/23 01:00 08/27/23 01:07
MDM/Problems Addressed
Differential Diagnosis Includes:
Patient has suffered to brief seizures tonight with longstanding history of seizure disorder generated related to alcohol withdrawal as well as poor compliance with Keppra.
He has been given an IV dose of Ativan as well as an IV dose of Keppra 500 mg.
Initial EKG shows A-fib with rapid ventricular response.
Shortly after seizure subsided atrial fibrillation has spontaneously converted to sinus tachycardia.
Repeat EKG shows sinus tachycardia at 130.
Labs are pending including alcohol level. Will check CPK, magnesium.
Will send Keppra level.
Records reviewed. Patient has prior history of increased agitation with Ativan thus will try to avoid further benzodiazepines and if recurrent seizures occur we will trial IV phenobarbital.
Due to significant risk for recurrent seizures, along with risk of aspiration, cardiac instability, patient will require hospitalization
*Radiology
Radiology exam reviewed: radiology read reviewed (CT of the head shows no acute intracranial abnormalities and unchanged from previous July 11, 2023. Encephalomalacia anterior left temporal lobe, mild volume loss.)
*Pulse Oximetry
Patient hypoxic: no
*EKG
Interpreted by ED Provider?: Yes
Interpretation: abnormal
Comparison EKG: changes noted (Atrial fibrillation with rapid ventricular response is new compared to previous EKG June showing sinus tachycardia)
Rate: tachycardiac
Rhythm: a-fib
[place]: normal axis
Interval: normal QT interval
QRS Pattern: normal QRS
Ischemia: non-specific ST changes
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
Rate: tachycardiac
Interpretation: abnormal
Rhythm: a-fib
*Critical Care Note
Total Time (30-74mins, 75-104mins- exclusive of procedures): 30
comment:
Critical care statement: A total of 30 minutes of critical care time was provided for this patient. This includes management of unstable vital signs, evaluation of the patient at bedside, reviewing the patient's pertinent medical records, discussion
with consultants, review of old EKGs and review of pertinent medical records. This time with separate from time utilized to perform the aforementioned documented procedures
Update Note
Update Note:
08/27/2023 0111 AM
Patient is now awake and alert. He states he has been compliant with Keppra but only takes this once a day. According to our records it is prescribed twice a day.
He does admit to moderate daily alcohol consumption but stopped at least 2 days ago.
Labs show moderate metabolic acidosis likely related to seizure and alcohol use. Mildly elevated CPK of 396.
Alcohol level of 19.
He remains in sinus rhythm initially sinus tachycardia at 130, slowly improving, currently at 108. He remains hemodynamically stable.
IV banana bag infusing and will add IV normal saline.
ED Attending Note
-
Portions of this chart may have been created with voice recognition software.� Occasional wrong word or��sound alike� substitutions may have occurred due to the inherent limitations of voice recognition software.
Discharge Plan
Departure
Patient Disposition: Admit
Date of Disposition: 08/27/23
Time of Disposition: 01:09
Admit to: ICU
Admit to doctor: Alverto
Presentation/result/management discussed w/ accepting MD/DO: Hospitalist
Condition: Serious
Discharge Problem:
Recurrent seizures, Alcohol withdrawal seizure, Metabolic acidosis, PAF (paroxysmal atrial fibrillation)
Prescriptions:
No Action
thiamine HCl (vitamin B1) 100 mg Tablet
100 mg PO DAILY
clopidogrel 75 mg Tablet
75 mg PO DAILY
diltiazem HCl 120 mg Capsule,Extended Release 24 Hr
120 mg PO DAILY
levetiracetam 1,000 mg Tablet
2,000 mg PO BID
folic acid 1 mg Tablet
1 mg PO DAILY Qty: 30 0RF
phenobarbital 32.4 mg Tablet
32.4 mg PO TID Qty: 6 0RF
Rx Instructions:
start after your done with 64.8 mg dose. Dont drink alcohol while on this mediciation.
thiamine HCl (vitamin B1) 100 mg Tablet
100 mg PO BID Qty: 60 0RF
phenobarbital 64.8 mg tablet
64.8 mg PO TID Qty: 6 0RF
Rx Instructions:
starting tomorrow. dont use alcohol while on it
Referrals:
UNKNOWN - PT NOT,INTERVIEWE [Family Provider] -
Interventions
Interventions:
*Risk Screen - Suicide Last Done: 08/26/23 23:50
*General Assessment Last Done: 08/26/23 23:50
*Neglect/Abuse Screening Last Done: 08/26/23 23:50
ED- Cardiac Assessment Last Done: 08/27/23 00:07
ED- Neurological Assessment Last Done: 08/27/23 00:07
ED- Pulmonary Assessment Last Done: 08/27/23 00:07
[2023-08-27 00:13] LABS: % Basophils 0.4 % (0-2); % Eosinophils 3.7 % (0-6); % Immature Granulocytes 0.7 % (0-0.5); % Monocytes 6.7 % (1.7-9.3); % Neutrophils 77.5 % (42.2-75.2); Absolute Eosinophils 0.3 10^3/uL (0-0.7); Absolute Immature Granulocytes 0.1 10^3/uL (0-0.05); Absolute Lymphocytes 0.9 10^3/uL (1.2-3.4); Absolute Monocytes 0.5 10^3/uL (0.1-0.6); Absolute Neutrophils 6.2 10^3/uL (1.4-6.5); Hematocrit 37.3 % (39.0-52.0); Hemoglobin 13.1 g/dL (13.0-18.0); Mean Corp Hgb Conc. 35.1 g/dL (33.0-37.0); Mean Corpuscular Hgb 33.3 pg (27.0-31.0); Mean Corpuscular Volume 94.9 fL (80.0-94.0); Mean Platelet Volume 9.7 fL (7.4-10.4); Nucleated Red Blood Cells % 0 % (-); Platelet Count 260 10^3/uL (130-400); Red Blood Cell Count 3.93 10^6/uL (4.70-6.10); Red Cell Dist. Width 12.6 % (11.5-14.5)
--- NOTE | 2023-08-27 00:15 | EDRN ---
while being triaged patient had another seizure lasting approx 1 min-- Dr. Kidd at bedside --patient put on a non re-breather mask- post seizure patient placed on nasal canula on 4L sat 97%
--- NOTE | 2023-08-27 00:25 | EDRN ---
patient is slowly waking up -- postictal at this time -- still not answering questions appropriately. When he first arrived he knew where he was/year/and reason for coming just prior to second seizure starting
--- NOTE | 2023-08-27 00:31 | EDRN ---
patient not able to complete his med rec at this time -- states he does not remember if he did or did not take his medication today. He is now more awake and is answering orientation questions appropriately.
[2023-08-27] MEDS: MULTIVITAMIN 1011 MG IV (00:36)
[2023-08-27] MEDS: MULTIVITAMIN 1011 ML IV (00:36)
[2023-08-27 00:42] LABS: ALT (SGPT) 45 U/L (0-50); AST (SGOT) 65 U/L (17-59); Albumin 5.1 g/dl (3.5-5.0); Alcohol 19 mg/dl; Alkaline Phosphatase 90 U/L (38-126); Blood Urea Nitrogen 9 mg/dl (9-20); Calcium 9.2 mg/dl (8.4-10.2); Carbon Dioxide 12 mmol/L (22-30); Chloride 97 mmol/L (98-107); Creatine Phosphokinase 396 U/L (55-170); Estimated Creatinine Clearance 98 ml/min; Glucose 140 mg/dl (70-99); Magnesium 1.9 mg/dl (1.6-2.3); Potassium 3.7 mmol/L (3.5-5.1); Sodium 134 mmol/L (135-145); Total Bilirubin 0.7 mg/dl (0.2-1.3); Total Protein 8.2 g/dl (6.3-8.2); eGFR > 60.00
[2023-08-27] MEDS: ZOFRAN 4 MG IV (01:20)
[2023-08-27] MEDS: PROTONIX IV 40 MG IV ×2 (01:21→09:53)
[2023-08-27] MEDS: NSS 1000 IV ×3 (01:27→16:04)
[2023-08-27 02:11] LABS: Lactic Acid 8.5 mmol/L (0.7-2.0)
--- NOTE | 2023-08-27 02:47 | HPS.HSE ---
Family Physician
-
Family Physician: INTERVIEWE UNKNOWN - PT NOT
Chief Complaint
-
Seizure activity
History of Present Illness
Patient is a 58y M with PMH significant for alcohol use disorder, seizure disorder and prior CVA who presents to ED for evaluation after witnessed seizure disorder. Patient reportedly had witnessed seizure activity in bed by the . EMS was
called and patient transported to the ED for further evaluation. Patient had a second episode of witnessed seizure activity here in the ED. He has received 2mg of Ativan and 500mg IV Keppra and is currently awake and alert. He states that he
feels well. Patient has prior history of SAH (2004) and states that seizures are secondary to this. He also has history of alcohol use disorder which no doubt contributes to his issues.
Patient states that he is active in AA and notes that he is continuing to 'cut down'. He notes that his last drink was about 3 days ago. His alcohol level in the ED today is 19.
Patient indicates that he may not be 100% compliant with his Keppra and he suspects he has missed a few doses.
Patient denies any recent illness or issues. He denies any current complaints or concerns.
Patient had nausea and a few episodes of emesis here in the ED. Improved after ondansetron.
Medical History
Past Medical History
Past Medical History: Reports Other
Additional Past Medical History:
ASCVD with Prior CVA
History of seizures
Subarachnoid hemorrhage in 2004
Essential hypertension
Gout
Alcohol use disorder with withdrawal seizures and withdrawal delirium
Factor V Leiden deficiency
Anemia of chronic disease
Past Surgical History: Reports Other
Additional Past Surgical History:
Knee Arthroscopy
Social History
Tobacco: Former Smoker (Per record. Unsure of total use / quit date.)
Alcohol: Chronic Alcoholic (Patient reports intermittent alcohol use now. Last drink was 3-4 days ago.)
Personal:
Family History
Family History: Other (Mother colon cancer, 1 brother colon cancer, father and multiple brothers alcohol abuse)
Allergies / Home Medications
Allergies reflects when Allergies were last updated in [facility].
Home Medications with original date entered in [facility]
Allergy/Medication List:
Allergies
Allergy/AdvReac Type Severity Reaction Status Date / Time
erythromycin base Allergy Unknown Verified 08/26/23 23:56
[Erythromycin Base]
diazepam AdvReac paradoxical Verified 08/26/23 23:56
rxn/agitation,
required
upgrade
IMU>ICU
03/27/22
lorazepam [From Ativan] AdvReac Agitation Verified 08/26/23 23:56
phenytoin sodium AdvReac Unknown- Verified 08/26/23 23:56
[From Dilantin] tolerated
phenobarbital
Home Medications
clopidogrel 75 mg tablet 75 mg PO DAILY Blood Clot Prevention/Tx 07/11/23
diltiazem HCl 120 mg capsule,24 hr,extended release 120 mg PO DAILY Heart Disease/Condition 07/11/23
levetiracetam 1,000 mg tablet 2,000 mg PO BID Seizures 07/11/23
thiamine HCl (vitamin B1) 100 mg tablet 100 mg PO DAILY Supplement 07/11/23
folic acid 1 mg tablet 1 mg PO DAILY #30 tabs 07/12/23
phenobarbital 32.4 mg tablet 32.4 mg PO TID #6 tabs 07/12/23
phenobarbital 64.8 mg tablet 64.8 mg PO TID #6 tabs 07/12/23
thiamine HCl (vitamin B1) 100 mg tablet 100 mg PO BID #60 tabs 07/12/23
Review of Systems
-
History Source: Patient
A 12 point ROS was completed and negative except as noted: Yes
Constitutional: Denies Fever or Chills
Respiratory: Denies Cough or Trouble Breathing
Cardiac: Denies Chest Pain or Palpitations
Abdomen/GI: Reports Nausea and Vomiting; Denies Abdominal Pain, Diarrhea or Constipated
: Denies Dysuria or Frequency
Neurological: Reports Other (Seizures); Denies Dizzy or Headache
Psych: Denies Depression or Anxiety
Physical Exam
Vital Signs
Vital Signs
Temp Pulse Resp BP Pulse Ox
97.9 F 98 17 141/85 97
08/26/23 23:50 08/27/23 02:30 08/27/23 02:30 08/27/23 02:00 08/27/23 02:30
Physical Exam
General: Other (58y M in no acute distress.)
HEENT: Moist mucous membranes and PERRLA
Respiratory: Clear; No Wheezes, Rales or Rhonchi
Cardiac: S1/S2 and Regular Rhythm; No Murmur
GI: Soft, Non Tender, Non Distended and Normal Bowel Sounds
Musculoskeletal: No Clubbing, No Cyanosis and No Edema
Neuro: AO x 3 and Other (Positive asterixis. )
Laboratory Results
-
08/27/23 00:04
08/27/23 00:04
Laboratory Results
Lactic Acid 8.5 mmol/L (0.7-2.0) H* 08/27/23 01:30
Total Bilirubin 0.7 mg/dl (0.2-1.3) 08/27/23 00:04
AST 65 U/L (17-59) H 08/27/23 00:04
ALT 45 U/L (0-50) 08/27/23 00:04
Alkaline Phosphatase 90 U/L (38-126) 08/27/23 00:04
Impression/Plan
-
A/P: Patient is a 58y M with PMH significant for prior SAH, seizure disorder and chronic alcohol use disorder who presents to ED for evaluation after witnessed seizure activity.
Seizure
- Admit to IMU for further evaluation and treatment.
- Seizures are very likely multifactorial.
- Baseline seizure disorder s/p prior SAH and is maintained on Keppra - though ? compliance.
- Continued alcohol use / withdrawal certainly contributing to current presentation,.
- Continue Keppra 2000mg BID.
- Monitor for any further seizure activity.
- Ativan IV PRN for breakthrough seizures.
- Neuro evaluation for additional recommendations.
- Treat alcohol use / withdrawal as noted below.
Alcohol Use Disorder
Alcohol Withdrawal with Seizure
- Alcohol level today 19 and patient notes last drink 3-4 days ago.
- Suspect withdrawal prompted seizure activity.
- MSAS protocol with phenobarb taper given seizures / history of delirium.
- Monitor labs / lytes and replace as needed.
- Encourage formal treatment programs for sustained sobriety.
Lactic Acidosis
Anion Gap Metabolic Acidosis
- Likely secondary to seizure activity.
- Would expect rapid resolution. Repeat labs in AM.
- IVF support overnight.
Paroxysmal Atrial Fibrillation
- Stable. Noted to be in A-Fib with RVR per EMS.
- Converted to sinus rhythm here in the ED.
- Continue diltiazem for rate / rhythm control.
- Continue Plavix for stroke risk reduction (poor OAC candidate given prior SAH / seizures / etc)
- Monitor on telemetry.
DVT Prophylaxis: SCDs
Code Status: Full
[2023-08-27] MEDS: PHENOBARBITAL 104 MG IV (03:04)
[2023-08-27 06:20] LABS: Hematocrit 33.1 % (39.0-52.0); Hemoglobin 11.9 g/dL (13.0-18.0); Mean Corpuscular Hgb 33.6 pg (27.0-31.0); Mean Corpuscular Volume 93.5 fL (80.0-94.0); Mean Platelet Volume 9.5 fL (7.4-10.4); Platelet Count 210 10^3/uL (130-400); Red Blood Cell Count 3.54 10^6/uL (4.70-6.10); Red Cell Dist. Width 12.5 % (11.5-14.5); White Blood Cell Count 7.7 10^3/uL (4.8-10.8)
[2023-08-27 06:21] LABS: Urine Albumin Trace (Neg - Trace); Urine Bilirubin Negative (Negative); Urine Character Clear (Clear); Urine Color Yellow; Urine Glucose Negative (Negative); Urine Ketone 2+ (Negative); Urine Leukocyte Negative (Negative); Urine Nitrite Negative (Negative); Urine Occult Blood 2+ (Negative); Urine Specific Gravity 1.015 (<1.030); Urine Urobilinogen Negative (Neg - 1+)
[2023-08-27 06:38] LABS: Amphetamines Negative (Negative); Barbiturates Positive (Negative); Benzodiazepines Negative (Negative); Buprenorphine Negative (Negative); Lactic Acid 1.2 mmol/L (0.7-2.0); Urine Red Blood Cell 0-2 /HPF (0-2); Urine White Cell None Seen /HPF (0-5)
[2023-08-27 06:39] LABS: Cocaine Negative (Negative); Marijuana Negative (Negative); Methadone Negative (Negative); Methamphetamines Negative (Negative); Opiates Negative (Negative); Phencyclidine Negative (Negative); Tricyclic Antidepressants Negative (Negative)
[2023-08-27 06:44] LABS: ALT (SGPT) 41 U/L (0-50); AST (SGOT) 51 U/L (17-59); Albumin 4.2 g/dl (3.5-5.0); Alkaline Phosphatase 76 U/L (38-126); Blood Urea Nitrogen 10 mg/dl (9-20); Calcium 8.1 mg/dl (8.4-10.2); Carbon Dioxide 24 mmol/L (22-30); Chloride 97 mmol/L (98-107); Direct Bilirubin 0.1 mg/dl (0.0-0.4); Estimated Creatinine Clearance > 125 ml/min; Glucose 128 mg/dl (70-99); Phosphorus 3.6 mg/dl (2.5-4.5); Potassium 3.4 mmol/L (3.5-5.1); Sodium 134 mmol/L (135-145); Total Bilirubin 1.3 mg/dl (0.2-1.3); Total Protein 6.8 g/dl (6.3-8.2); eGFR > 60.00
[2023-08-27 06:51] LABS: Magnesium 1.6 mg/dl (1.6-2.3)
[2023-08-27] MEDS: TYLENOL 650 MG PO (07:03)
--- NOTE | 2023-08-27 08:08 | W.PN.HOSP.TC ---
Today's Communication/Plan
-
see A/P
Assessment / Plan
Assessment / Plan
58y M with PMH significant for alcohol use disorder, seizure disorder and prior CVA who presented to ED for evaluation after witnessed seizure disorder.� Patient reportedly had witnessed seizure activity in bed by the .� EMS was called and
patient transported to the ED for further evaluation.� Patient had a second episode of witnessed seizure activity in the ED.� He received 2mg of Ativan and 500mg IV Keppra and was awake and alert.�
Patient has prior history of SAH (2004) and states that seizures are secondary to this.� He also has history of alcohol use disorder which no doubt contributes to his issues.
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 His alcohol level in the ED was at 19.
Patient admits that he may not be 100% compliant with his Keppra and he suspects he has missed a few doses.
Patient denies any recent illness or issues. He denies any current complaints or concerns.
Patient had nausea and a few episodes of emesis in the ED.� Improved after ondansetron.
A/P:
# Seizure disorder, multifactorial.
Baseline seizure disorder s/p prior SAH and is maintained on Keppra - though ? compliance.
Continued alcohol use / withdrawal certainly contributing to current presentation,.
Continue Keppra 2000mg BID.
Monitor for any further seizure activity.
Ativan IV PRN for breakthrough seizures.
CT head: no acute intracranial process. Stable Encephalomalacia left temporal lobe
Neuro evaluation for additional recommendations.
Treat alcohol use / withdrawal as noted below.
Cont NPO for now, may consider starting diet if remain seizure free for another 24 hours
# Alcohol Use Disorder
# Alcohol Withdrawal with Seizure
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
Suspect withdrawal prompted seizure activity.
MSAS protocol with phenobarb taper given seizures / history of delirium.
Monitor labs / lytes and replace as needed.
Encourage formal treatment programs for sustained sobriety.
# Lactic Acidosis POA, resolved
# Anion Gap Metabolic Acidosis POA, resolved
Likely secondary to seizure activity.
rapid resolution after IVF
# Paroxysmal Atrial Fibrillation, Stable.�
Noted to be in A-Fib with RVR per EMS. Converted to sinus rhythm here in the ED.
Continue diltiazem for rate / rhythm control.
Continue Plavix for stroke risk reduction (poor OAC candidate given prior SAH / seizures / etc)
Monitor on telemetry.
# Fever noted on 08/26 , ddx include seizure d/o vs aspiration
Admission CXR looked unrevealing, follow formal report
Follow blood Cx
Empiric Zosyn started.
DVT Prophylaxis:� SCDs
Code Status:� Full
Anticipated Discharge: > 48 hours
Subjective/Interval History
-
Date of Service: August 27, 2023
Objective Data
-
Labs:
Laboratory Results
08/27/23 08/27/23
00:04 06:01
WBC 8.0 7.7
Hgb 13.1 11.9 L
Hct 37.3 L 33.1 L
Plt Count 260 210
Sodium 134 L 134 L
Potassium 3.7 3.4 L
Chloride 97 L 97 L
Carbon Dioxide 12 L* 24
BUN 9 10
Creatinine 0.9 0.7
Glucose 140 H 128 H
Calcium 9.2 8.1 L
Total Bilirubin 0.7 1.3
AST 65 H 51
ALT 45 41
Alkaline Phosphatase 90 76
Vital Signs:
Vital Signs
Temp Pulse Resp BP Pulse Ox
37.6 C 99 22 143/87 95
08/27/23 08:01 08/27/23 06:15 08/27/23 06:15 08/27/23 06:00 08/27/23 07:07
I&O
08/26/23 08/27/23 08/28/23
06:59 06:59 06:59
Output Total 625 / 625
Balance -625 / -625
Review of Systems
-
All other systems: Reviewed and negative
Physical Exam
-
General: Well Developed, Well Nourished, No Apparent Distress, Comfortable and Conversant
HEENT: Nose Appears Normal and Ears Appear Normal
Respiratory: Clear to Auscultation and Non Labored Respirations; Negative Accessory Resp Muscle Use
Cardiac: Regular Rhythm and S1/S2
GI: Soft, Nontender, Nondistended and Normal Bowel Sounds
Neuro: Awake and No Motor Deficits; Negative Tremors
Psych: Calm and Intact Judgement/Insight
Data Reviewed
-
Labs: Labs Reviewed by me
--- NOTE | 2023-08-27 09:05 | CON.NEURO ---
Consultation
Order
Date of Consultation: 08/27/23
Reason for Consult: seizure
HPI: This is a 58-year-old RH man who presented to [facility] on 08/26/2023 with fever and �witnessing a tonic-clonic seizure.
The patient reports no headaches, change in vision, strength. At base line the is ambulatory with no focal deficits
CT head wo contrast(08/27/2023)-chronic left temporal encephalomalacia; moderate diffuse cortical and cerebellar atrophy.
CXR-no acute cardiopulmonary process.
EKG-sinus tachycardia
Last seizure-June 2023
ER VS: 160/97,159, 39.0 C
PDMP: No recently prescribed medication
Labs: WBC normal WBCs, lactic acid�8.5, CO2�12, glucose�140, calcium�normal, AST�65, creatinine kinase�396, UA�positive for ketones, UA tox�positive for barbiturates, EtOH�20 mg/dL
�
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
PSH: L knee arthroscopy;
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
FH: one of 12 children; father-stroke;
All: Dilantin, lorazepam, erythromycin, diazepam
ROS: Positive for seizure, fever, negative for headache, chest pain, palpitations, new motor or sensory deficits
�
General: Well developed. Anxious, shivering
Cardio: irregular rate, tachy
Neuro:
Mental Status: Alert, follows complex request. Able to name all objects on stroke card.� Repetition and comprehension are intact No hemineglect.
Cranial Nerves:� Pupils are equally round and reactive to light.� EOMs full.� Visual durand full to confrontation.� No ptosis.� Face symmetric.� Normal hearing AU.� The palate elevated well.� SCMs and traps 5/5.� Tongue midline.� No dysarthria.
Motor:� � � � no PD or leg drift
Sensory: � Absent vibration at the toes and ankles and impaired at the knees
Coordination: No dysmetria
Gait: � � � � � deferred
Assessment and Plan:
I. Focal seizure, likely provoked. Recommend to base
II. History of R temporal hypertensive ICH(2004)
III. PA Fib
IV. 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 Likely etiology�toxic metabolic.
V. Vitamin B12 deficiency
�
-SIWA protocol
-D/c Plavix
-PT
-Please check vitamin B12, SPEP/IF
-Continue Keppra 2g BID IV
-Addiction psychiatry consult
-ID consult
-DVT prophylaxis.
-Please recall neurology services any questions or concerns
�
I personally reviewed all radiology and labs along with past medical records pertinent to current medical problems.
�
Thank you for allowing us to participate in the care of this patient. We will continue to follow.
Total time spent�60 minutes. Please do not hesitate to contact us with any questions or concerns.
�
Subjective/Objective
Subjective Data
Date of Service: August 27, 2023
Objective Data
Vital Signs
Temp Pulse Resp BP Pulse Ox
37.6 C 99 22 143/87 95
08/27/23 08:01 08/27/23 06:15 08/27/23 06:15 08/27/23 06:00 08/27/23 07:07
Lab Results
08/27/23 06:01
08/27/23 06:01
Sodium 134 mmol/L (135-145) L 08/27/23 06:01
Potassium 3.4 mmol/L (3.5-5.1) L 08/27/23 06:01
BUN 10 mg/dl (9-20) 08/27/23 06:01
Glucose 128 mg/dl (70-99) H 08/27/23 06:01
Calcium 8.1 mg/dl (8.4-10.2) L 08/27/23 06:01
Phosphorus 3.6 mg/dl (2.5-4.5) 08/27/23 06:01
Ur Buprenorphine Negative (Negative) 08/27/23 06:01
Patient Allergies
erythromycin base [Erythromycin Base] Allergy (Verified 08/26/23 23:56)
Unknown
diazepam Adverse Reaction (Verified 08/26/23 23:56)
paradoxical rxn/agitation, required upgrade IMU>ICU 03/27/22
lorazepam [From Ativan] Adverse Reaction (Verified 08/26/23 23:56)
Agitation
phenytoin sodium [From Dilantin] Adverse Reaction (Verified 08/26/23 23:56)
Unknown- tolerated phenobarbital
Medications
-
Active Medications
Generic Name Dose Route Start Last Admin
Trade Name Freq PRN Reason Stop Dose Admin
Acetaminophen 650 mg 08/27/23 03:36 08/27/23 07:03
Acetaminophen 325 Mg Tablet PO 09/24/23 03:35 650 mg
Q4HPRN PRN Administration
Mild Pain / Temp > 101
Clopidogrel Bisulfate 75 mg 08/27/23 08:00
Clopidogrel 75 Mg Tablet PO 09/24/23 07:59
DAILY ALEX
Diltiazem HCl 120 mg 08/27/23 08:00
Diltiazem 120 Mg Extended Release (24 H) Capsule PO 09/24/23 07:59
DAILY ALEX
Folic Acid 1 mg 08/27/23 08:00
Folic Acid 1 Mg Tablet PO 09/24/23 07:59
DAILY ALEX
Sodium Chloride 1,000 mls @ 125 mls/hr 08/27/23 03:36 08/27/23 04:10
Nss IV 1,000 mls
.Q8H ALEX Administration
Folic Acid 1 mg/ Sodium 50.2 mls @ 200.8 mls/hr 08/27/23 03:36
Chloride IV 09/24/23 03:35
DAILYPRN PRN
if NPO
Piperacillin Sod/Tazobactam Sod 3.375 gram in 50 mls @ 100 mls/hr 08/27/23 08:00
Zosyn IV
Q6H ALEX
Potassium Chloride 40 meq/ 270 mls @ 67.5 mls/hr 08/27/23 08:16
Dextrose IV 08/27/23 12:15
NOW STA
Magnesium Sulfate 2 gram in 50 mls @ 25 mls/hr 08/27/23 08:16
Magnesium Sulfate IV 08/27/23 10:15
NOW STA
Levetiracetam 2,000 mg 08/27/23 08:00
Levetiracetam 500 Mg Regular Release Tablet PO 09/24/23 07:59
BID ALEX
Lorazepam 1 mg 08/27/23 03:36
Lorazepam 1 Mg Tablet PO 09/24/23 03:35
Q2HPRN PRN
MSAS 5-7
Lorazepam 1 mg 08/27/23 03:36
Lorazepam 2 Mg/Ml Vial IV 09/24/23 03:35
Q1HPRN PRN
MSAS 8-11
Lorazepam 2 mg 08/27/23 03:36
Lorazepam 2 Mg/Ml Vial IV 09/24/23 03:35
Q1HPRN PRN
MSAS > 11
Ondansetron HCl 4 mg 08/27/23 03:36
Ondansetron 4 Mg/2 Ml Vial IV 09/24/23 03:35
Q6HPRN PRN
nausea and vomiting
Pantoprazole Sodium 40 mg 08/27/23 08:00
Pantoprazole Sodium 40 Mg/10 Ml Vial IV 09/24/23 07:59
DAILY ALEX
Phenobarbital Sodium 64.8 mg 08/29/23 08:00
Phenobarbital 32.4 Mg Tablet PO 08/30/23 22:01
TID ALEX
Phenobarbital Sodium 32.4 mg 08/31/23 08:00
Phenobarbital 32.4 Mg Tablet PO 09/01/23 22:01
TID ALEX
Phenobarbital Sodium 97.5 mg 08/27/23 08:00
Phenobarbital (65 Mg/Ml) 1 Ml Vial IV 08/28/23 22:01
TID ALEX
Sodium Chloride 0 ml 08/27/23 03:36
Sodium Chloride 0.9% (Preservative Free) 10 Ml Vial IV 09/24/23 03:35
PRN PRN
To dilute IV Ativan
Protocol
Sodium Chloride 0 flush 08/27/23 04:00
Sodium Chloride 0.9% (Flush) Syringe IV 09/24/23 03:59
PER PROTOCOL ALEX
Thiamine HCl 200 mg 08/27/23 08:00
Thiamine (100 Mg/Ml) 2 Ml Vial IV 08/30/23 00:01
Q8 ALEX
Thiamine HCl 100 mg 08/30/23 08:00
Thiamine 100 Mg Tablet PO 09/27/23 07:59
BID ALEX
Home Medications
Medication Instructions Recorded
clopidogrel 75 mg tablet 75 mg PO DAILY Blood Clot 07/11/23
Prevention/Tx
diltiazem HCl 120 mg capsule,24 120 mg PO DAILY Heart 07/11/23
hr,extended release Disease/Condition
levetiracetam 1,000 mg tablet 2,000 mg PO BID Seizures 07/11/23
thiamine HCl (vitamin B1) 100 mg 100 mg PO DAILY Supplement 07/11/23
tablet
folic acid 1 mg tablet 1 mg PO DAILY #30 tabs 07/12/23
phenobarbital 32.4 mg tablet 32.4 mg PO TID #6 tabs 07/12/23
phenobarbital 64.8 mg tablet 64.8 mg PO TID #6 tabs 07/12/23
thiamine HCl (vitamin B1) 100 mg 100 mg PO BID #60 tabs 07/12/23
tablet
Vital Signs and Labs
-
Vital Signs and Labs:
Vital Signs
Temp Pulse Resp BP Pulse Ox
37.6 C 99 22 143/87 95
08/27/23 08:01 08/27/23 06:15 08/27/23 06:15 08/27/23 06:00 08/27/23 07:07
Lab Results
08/27/23 06:01
08/27/23 06:01
Sodium 134 mmol/L (135-145) L 08/27/23 06:01
Potassium 3.4 mmol/L (3.5-5.1) L 08/27/23 06:01
BUN 10 mg/dl (9-20) 08/27/23 06:01
Glucose 128 mg/dl (70-99) H 08/27/23 06:01
Calcium 8.1 mg/dl (8.4-10.2) L 08/27/23 06:01
Phosphorus 3.6 mg/dl (2.5-4.5) 08/27/23 06:01
Ur Buprenorphine Negative (Negative) 08/27/23 06:01
Home Medications
-
Home Medications
clopidogrel 75 mg tablet 75 mg PO DAILY Blood Clot Prevention/Tx 07/11/23
diltiazem HCl 120 mg capsule,24 hr,extended release 120 mg PO DAILY Heart Disease/Condition 07/11/23
levetiracetam 1,000 mg tablet 2,000 mg PO BID Seizures 07/11/23
thiamine HCl (vitamin B1) 100 mg tablet 100 mg PO DAILY Supplement 07/11/23
folic acid 1 mg tablet 1 mg PO DAILY #30 tabs 07/12/23
phenobarbital 32.4 mg tablet 32.4 mg PO TID #6 tabs 07/12/23
phenobarbital 64.8 mg tablet 64.8 mg PO TID #6 tabs 07/12/23
thiamine HCl (vitamin B1) 100 mg tablet 100 mg PO BID #60 tabs 07/12/23
Medications
-
Medications:
Generic Name Dose Route Start Last Admin
Trade Name Freq PRN Reason Stop Dose Admin
Acetaminophen 650 mg 08/27/23 03:36 08/27/23 07:03
Acetaminophen 325 Mg Tablet PO 09/24/23 03:35 650 mg
Q4HPRN PRN Administration
Mild Pain / Temp > 101
Clopidogrel Bisulfate 75 mg 08/27/23 08:00
Clopidogrel 75 Mg Tablet PO 09/24/23 07:59
DAILY ALEX
Diltiazem HCl 120 mg 08/27/23 08:00
Diltiazem 120 Mg Extended Release (24 H) Capsule PO 09/24/23 07:59
DAILY ALEX
Folic Acid 1 mg 08/27/23 08:00
Folic Acid 1 Mg Tablet PO 09/24/23 07:59
DAILY ALEX
Sodium Chloride 1,000 mls @ 125 mls/hr 08/27/23 03:36 08/27/23 04:10
Nss IV 1,000 mls
.Q8H ALEX Administration
Folic Acid 1 mg/ Sodium 50.2 mls @ 200.8 mls/hr 08/27/23 03:36
Chloride IV 09/24/23 03:35
DAILYPRN PRN
if NPO
Piperacillin Sod/Tazobactam Sod 3.375 gram in 50 mls @ 100 mls/hr 08/27/23 08:00
Zosyn IV
Q6H ALEX
Potassium Chloride 40 meq/ 270 mls @ 67.5 mls/hr 08/27/23 08:16
Dextrose IV 08/27/23 12:15
NOW STA
Magnesium Sulfate 2 gram in 50 mls @ 25 mls/hr 08/27/23 08:16
Magnesium Sulfate IV 08/27/23 10:15
NOW STA
Levetiracetam 2,000 mg 08/27/23 08:00
Levetiracetam 500 Mg Regular Release Tablet PO 09/24/23 07:59
BID ALEX
Lorazepam 1 mg 08/27/23 03:36
Lorazepam 1 Mg Tablet PO 09/24/23 03:35
Q2HPRN PRN
MSAS 5-7
Lorazepam 1 mg 08/27/23 03:36
Lorazepam 2 Mg/Ml Vial IV 09/24/23 03:35
Q1HPRN PRN
MSAS 8-11
Lorazepam 2 mg 08/27/23 03:36
Lorazepam 2 Mg/Ml Vial IV 09/24/23 03:35
Q1HPRN PRN
MSAS > 11
Ondansetron HCl 4 mg 08/27/23 03:36
Ondansetron 4 Mg/2 Ml Vial IV 09/24/23 03:35
Q6HPRN PRN
nausea and vomiting
Pantoprazole Sodium 40 mg 08/27/23 08:00
Pantoprazole Sodium 40 Mg/10 Ml Vial IV 09/24/23 07:59
DAILY ALEX
Phenobarbital Sodium 64.8 mg 08/29/23 08:00
Phenobarbital 32.4 Mg Tablet PO 08/30/23 22:01
TID ALEX
Phenobarbital Sodium 32.4 mg 08/31/23 08:00
Phenobarbital 32.4 Mg Tablet PO 09/01/23 22:01
TID ALEX
Phenobarbital Sodium 97.5 mg 08/27/23 08:00
Phenobarbital (65 Mg/Ml) 1 Ml Vial IV 08/28/23 22:01
TID ALEX
Sodium Chloride 0 ml 08/27/23 03:36
Sodium Chloride 0.9% (Preservative Free) 10 Ml Vial IV 09/24/23 03:35
PRN PRN
To dilute IV Ativan
Protocol
Sodium Chloride 0 flush 08/27/23 04:00
Sodium Chloride 0.9% (Flush) Syringe IV 09/24/23 03:59
PER PROTOCOL ALEX
Thiamine HCl 200 mg 08/27/23 08:00
Thiamine (100 Mg/Ml) 2 Ml Vial IV 08/30/23 00:01
Q8 ALEX
Thiamine HCl 100 mg 08/30/23 08:00
Thiamine 100 Mg Tablet PO 09/27/23 07:59
BID ALEX
[2023-08-27] MEDS: MAGNESIUM SULFATE 50 IV (09:44)
[2023-08-27] MEDS: KEPPRA 2000 MG PO ×2 (09:48→21:06)
[2023-08-27] MEDS: CARDIZEM CD 120 MG PO (09:48)
[2023-08-27] MEDS: PLAVIX 75 MG PO (09:48)
[2023-08-27] MEDS: FOLVITE 1 MG PO (09:48)
[2023-08-27] MEDS: THIAMINE INJECTION 200 MG IV ×3 (09:53→23:09)
[2023-08-27] MEDS: PHENOBARBITAL 97.5 MG IV ×3 (09:53→21:53)
[2023-08-27] MEDS: KCL 270 MEQ IV (11:37)
[2023-08-27] MEDS: ZOSYN 50 IV ×3 (11:37→21:52)
--- NOTE | 2023-08-27 14:04 | CM ---
CM reviewed medical records. CM met with patient in room. Patient denies history of VN or SNF. No DME in the home. Patient is active with his PCP. Patient uses [facility] for medication services.
CM spoke with patient about [facility]. Patient is interested in [facility] resources. CM spoke with Juan at [facility]. He will follow up with patient on 08/27 to offered resources. Patient does report going to AA meetings Primarily in [place], [place]. He
does attend meetings at other locations. He reports at times going to meeting 3-4 times per week. He does not have a sponsor at this time. Patient is receptive to assistance.
PLAN: [facility] to follow up.
[2023-08-27 16:46] LABS: Vitamin B12 380 pg/ml (239-931)
[2023-08-28] VITALS (16 sets, daily range): BP systolic 104–144; BP diastolic 58–91; PULSE 93–94; O2SAT 96; BMI 23.8; BMI 23.9
[2023-08-28] MEDS: NSS 1000 IV (00:16)
[2023-08-28] MEDS: ZOSYN 50 IV ×2 (02:03→09:40)
[2023-08-28 05:35] LABS: % Basophils 0.3 % (0-2); % Eosinophils 0.3 % (0-6); % Immature Granulocytes 0.2 % (0-0.5); % Lymphocytes 12.9 % (20.5-51.1); % Monocytes 6.4 % (1.7-9.3); % Neutrophils 79.9 % (42.2-75.2); Absolute Lymphocytes 0.8 10^3/uL (1.2-3.4); Absolute Monocytes 0.4 10^3/uL (0.1-0.6); Absolute Neutrophils 4.8 10^3/uL (1.4-6.5); Hematocrit 32.1 % (39.0-52.0); Hemoglobin 11.1 g/dL (13.0-18.0); Mean Corp Hgb Conc. 34.6 g/dL (33.0-37.0); Mean Corpuscular Hgb 33.5 pg (27.0-31.0); Mean Platelet Volume 9.7 fL (7.4-10.4); Nucleated Red Blood Cells % 0 % (-); Platelet Count 163 10^3/uL (130-400); Red Blood Cell Count 3.31 10^6/uL (4.70-6.10); Red Cell Dist. Width 12.5 % (11.5-14.5)
--- NOTE | 2023-08-28 05:46 | PTCARENOTE ---
Received Pt from previous shift. Pt alert to person, place, and time. MSAS's maintained Q2. Pt maintained a score of 1 throughout the night. Pt makes needs known. Pt calm and agreeable to care. Pt maintained on seizure precautions. Pts left forarm
IV had complaints of burning and tenderness. IV was removed by this RN. Please see full nursing shift assessment for head to toe. no new orders at this time.
[2023-08-28 06:07] LABS: Blood Urea Nitrogen 6 mg/dl (9-20); Calcium 8.1 mg/dl (8.4-10.2); Carbon Dioxide 23 mmol/L (22-30); Chloride 99 mmol/L (98-107); Estimated Creatinine Clearance 110 ml/min; Glucose 76 mg/dl (70-99); Magnesium 1.8 mg/dl (1.6-2.3); Potassium 3.4 mmol/L (3.5-5.1); Sodium 132 mmol/L (135-145); eGFR > 60.00
[2023-08-28] MEDS: PHENOBARBITAL 97.5 MG IV ×3 (09:43→22:24)
[2023-08-28] MEDS: KEPPRA 2000 MG PO ×2 (09:47→20:25)
[2023-08-28] MEDS: CARDIZEM CD 120 MG PO (09:47)
[2023-08-28] MEDS: PLAVIX 75 MG PO (09:47)
[2023-08-28] MEDS: FOLVITE 1 MG PO (09:47)
[2023-08-28] MEDS: PROTONIX IV 40 MG IV (09:49)
[2023-08-28] MEDS: THIAMINE INJECTION 200 MG IV ×3 (09:49→23:40)
[2023-08-28] MEDS: KCL 270 MEQ IV (09:50)
--- NOTE | 2023-08-28 12:45 | W.PN.HOSP.TC ---
Today's Communication/Plan
-
tx to tele
replete kcl
stop IVF
Start diet
Assessment / Plan
Assessment / Plan
58y M with PMH significant for alcohol use disorder, seizure disorder and prior CVA who presented to ED for evaluation after witnessed seizure disorder.� Patient reportedly had witnessed seizure activity in bed by the .� EMS was called and
patient transported to the ED for further evaluation.� Patient had a second episode of witnessed seizure activity in the ED.� He received 2mg of Ativan and 500mg IV Keppra and was awake and alert.�
Patient has prior history of SAH (2004) and states that seizures are secondary to this.� He also has history of alcohol use disorder which no doubt contributes to his issues.
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 His alcohol level in the ED was at 19.
Patient admits that he may not be 100% compliant with his Keppra and he suspects he has missed a few doses.
Patient denies any recent illness or issues. He denies any current complaints or concerns.
Patient had nausea and a few episodes of emesis in the ED.� Improved after ondansetron.
A/P:
# Seizure disorder, multifactorial.
Baseline seizure disorder s/p prior SAH and is maintained on Keppra -
Hx of non compliance.
Continued alcohol use / withdrawal certainly contributing to current presentation,.
Continue Keppra 2000mg BID.
Monitor for any further seizure activity.
Ativan IV PRN for breakthrough seizures.
CT head: no acute intracranial process. Stable Encephalomalacia left temporal lobe
Neuro evaluation for additional recommendations.
Treat alcohol use / withdrawal as noted below.
Ran out of ALL MEDS and has not aggressively f/u with PCP-
# Alcohol Use Disorder
# Alcohol Withdrawal with Seizure
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
Suspect withdrawal prompted seizure activity.
MSAS protocol with phenobarb taper given seizures / history of delirium.
Monitor labs / lytes and replace as needed.
Encourage formal treatment programs for sustained sobriety.
# Lactic Acidosis POA, resolved
# Anion Gap Metabolic Acidosis POA, resolved
Likely secondary to seizure activity.
rapid resolution after IVF
# Paroxysmal Atrial Fibrillation, Stable.�
Noted to be in A-Fib with RVR per EMS. Converted to sinus rhythm here in the ED.
Continue diltiazem for rate / rhythm control.
Continue Plavix for stroke risk reduction (poor OAC candidate given prior SAH / seizures / etc)
Monitor on telemetry.
# Fever noted on 08/26 , ddx include seizure d/o
CXR noted.
Follow blood Cx
monitor off abx
wbc wnl.
#Hypokalemia
-replete
#Mild hyponatremia
-monitor
DVT Propylaxis:� start lovenox
Code Status:� Full
Anticipated Discharge: Within 24 hours
Subjective/Interval History
-
Date of Service: August 28, 2023
feeling better
hungry
no cough
on room air
1 episode of fever. No further temp spike
Objective Data
-
Labs:
Laboratory Results
08/28/23
05:26
WBC 6.0
Hgb 11.1 L
Hct 32.1 L
Plt Count 163 D
Sodium 132 L
Potassium 3.4 L
Chloride 99
Carbon Dioxide 23
BUN 6 L
Creatinine 0.8
Glucose 76
Calcium 8.1 L
Vital Signs:
Vital Signs
Temp Pulse Resp BP Pulse Ox
98 F 60 14 104/58 99
08/28/23 11:23 08/28/23 09:00 08/28/23 09:00 08/28/23 08:00 08/28/23 09:00
I&O
08/27/23 08/28/23 08/29/23
06:59 06:59 06:59
Intake Total 2530 / 2530
Output Total 625 / 625 1550 / 1550 800 / 800
Balance -625 / -625 -1550 / -1550 1730 / 1730
Physical Exam
-
General: Well Developed and No Apparent Distress
HEENT: Normocephalic, Atraumatic and Moist Mucous Membranes
Respiratory: Clear to Auscultation
Cardiac: Regular Rhythm and S1/S2; Negative Murmur, Rub or Gallop
GI: Soft, Nontender, Nondistended and Normal Bowel Sounds; Negative Organomegaly
Rectal: Deferred by Provider
Musculoskeletal: No Clubbing, No Cyanosis and No Edema
Skin: Negative Rash
Neuro: Awake, Alert, Oriented, AO x 3, No Motor Deficits and Nonfocal/Grossly Intact
Psych: Calm
--- NOTE | 2023-08-28 15:16 | CM ---
Patient with Dx Seizure disorder, Alcohol Use Disorder, Alcohol Withdrawal with Seizure. Room air. [facility] Protocol. Receiving IV Phenobarb.
Spoke with ANA LAURA Martinez; he met with the patient today who agrees to [facility]. He requested clinical info be sent to his fax [phone]---> sent via [employer].
Plan follow up with ANA LAURA re; acceptance by [facility].
[2023-08-28 15:52] LABS: Keppra (Levetiracetam) 40 ug/mL (10-40)
[2023-08-28] MEDS: NSS IV (17:12)
[2023-08-28] MEDS: LOVENOX 40 MG SC (18:20)
--- NOTE | 2023-08-28 20:28 | PTCARENOTE ---
Assumed care of Pt from day RN. Pt AAOX3 with pleasant demeanor. Pt being transferred to 4th floor report given to RN by day RN.
--- NOTE | 2023-08-28 23:48 | VATNOTE ---
RS IV DOCUMENTED FOR A DIFFUSE PHLEBITIS IN RFA. NO PALPABLE CORD AND PT WITH ONLY MINIMAL C/O DISCOMFORT. AREA SLIGHTLY WARM TO THE TOUCH. PCN AWARE AND TO APPLY WARM COMPRESS. VAT TO FOLLOW.
[2023-08-29 03:00] VITALS: BP 141/84
--- NOTE | 2023-08-29 04:00 | PTCARENOTE ---
Pt was seen ambulating the halls at 03:15. 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 Patient stated that he saw shadows in his room and felt his roommate's 'guest' was a nuisance.
Roommate did not have any guest since his admission. Patient also hallucinated that his roommate was . Pt was led back to his room and offered PO Ativan, but refused.
[2023-08-29 06:00] VITALS: BMI 23.5
[2023-08-29 07:35] VITALS: BP 146/83
[2023-08-29] MEDS: PROTONIX IV 40 MG IV (07:37)
[2023-08-29] MEDS: NSS (PRESERVATIVE FREE) 10 ML IV (07:37)
[2023-08-29] MEDS: PLAVIX 75 MG PO (07:38)
[2023-08-29] MEDS: LUMINAL 64.7999999999999972 MG PO ×3 (07:38→21:22)
[2023-08-29] MEDS: CARDIZEM CD 120 MG PO (07:38)
[2023-08-29] MEDS: KEPPRA 2000 MG PO ×2 (07:38→20:08)
[2023-08-29] MEDS: FOLVITE 1 MG PO (07:39)
[2023-08-29] MEDS: THIAMINE INJECTION 200 MG IV ×3 (07:39→23:25)
[2023-08-29 09:36] LABS: Blood Urea Nitrogen 9 mg/dl (9-20); Calcium 8.8 mg/dl (8.4-10.2); Carbon Dioxide 24 mmol/L (22-30); Chloride 99 mmol/L (98-107); Estimated Creatinine Clearance 110 ml/min; Glucose 123 mg/dl (70-99); Magnesium 1.4 mg/dl (1.6-2.3); Potassium 3.5 mmol/L (3.5-5.1); Sodium 135 mmol/L (135-145); eGFR > 60.00
--- NOTE | 2023-08-29 10:37 | PTCARENOTE ---
Received patient awake and alert, some difficulty with word finding, Speech is slow at times . Has had no confused conversation so far this shift. Able to be redirected.
--- NOTE | 2023-08-29 10:45 | VATNOTE ---
Diffuse phlebitis to right forearm resolving. Client states it is less tender to touch. Continues to not have a palpable cord. Area now pink and slightly tender.
[2023-08-29 11:35] VITALS: BP 130/80
--- NOTE | 2023-08-29 11:46 | W.PN.HOSP.TC ---
Today's Communication/Plan
-
monitor mentation
cont taper regimen-phenobarb
cont keppra
Assessment / Plan
Assessment / Plan
58y M with PMH significant for alcohol use disorder, seizure disorder and prior CVA who presented to ED for evaluation after witnessed seizure disorder.� Patient reportedly had witnessed seizure activity in bed by the .� EMS was called and
patient transported to the ED for further evaluation.� Patient had a second episode of witnessed seizure activity in the ED.� He received 2mg of Ativan and 500mg IV Keppra and was awake and alert.�
Patient has prior history of SAH (2004) and states that seizures are secondary to this.� He also has history of alcohol use disorder which no doubt contributes to his issues.
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 His alcohol level in the ED was at 19.
Patient admits that he may not be 100% compliant with his Keppra and he suspects he has missed a few doses.
Patient denies any recent illness or issues. He denies any current complaints or concerns.
Patient had nausea and a few episodes of emesis in the ED.� Improved after ondansetron.
A/P:
# Seizure disorder, multifactorial.
Baseline seizure disorder s/p prior SAH and is maintained on Keppra -
Hx of non compliance.
Continued alcohol use / withdrawal certainly contributing to current presentation,.
Continue Keppra 2000mg BID.
Monitor for any further seizure activity.
Ativan IV PRN for breakthrough seizures.
CT head: no acute intracranial process. Stable Encephalomalacia left temporal lobe
Neuro evaluation for additional recommendations.
Treat alcohol use / withdrawal as noted below.
Ran out of ALL MEDS 07/27/23 and has not aggressively f/u with PCP-
# Alcohol Use Disorder
# Alcohol Withdrawal with Seizure
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
Suspect withdrawal prompted seizure activity.
MSAS protocol with phenobarb taper given seizures / history of delirium.
Can probably stop phenobarb on dc.
Monitor labs / lytes and replace as needed.
Encourage formal treatment programs for sustained sobriety. CM/Bcares.
# Lactic Acidosis POA, resolved
# Anion Gap Metabolic Acidosis POA, resolved
Likely secondary to seizure activity.
rapid resolution after IVF
# Paroxysmal Atrial Fibrillation, Stable.�
Noted to be in A-Fib with RVR per EMS. Converted to sinus rhythm here in the ED.
Continue diltiazem for rate / rhythm control.
Continue Plavix for stroke risk reduction (poor OAC candidate given prior SAH / seizures / etc)
Monitor on telemetry.
# Fever noted on 08/26 , ddx include seizure d/o
CXR noted.
Follow blood Cx negative so far
monitor off abx and remains afebrile.
wbc wnl.
#Hypokalemia/hypomagnesemia
-replete/monitor
#Mild hyponatremia
-monitor
DVT Propylaxis:� start lovenox
Code Status:� Full
Anticipated Discharge: Within 24 hours
Subjective/Interval History
-
Date of Service: August 29, 2023
Overnight events noted
Pt with visual hallucinations/ambulating to PT.
no agitation
Objective Data
-
Labs:
Laboratory Results
08/29/23
08:40
Sodium 135
Potassium 3.5
Chloride 99
Carbon Dioxide 24
BUN 9
Creatinine 0.8
Glucose 123 H
Calcium 8.8
Vital Signs:
Vital Signs
Temp Pulse Resp BP Pulse Ox
98.9 F 73 16 146/83 99
08/29/23 07:35 08/29/23 07:35 08/29/23 07:35 08/29/23 07:35 08/29/23 07:35
I&O
08/28/23 08/29/23 08/30/23
06:59 06:59 06:59
Intake Total 2530 / 2530
Output Total 1550 / 1550 1500 / 1500
Balance -1550 / -1550 1030 / 1030
Physical Exam
-
General: Well Developed and No Apparent Distress
HEENT: Normocephalic, Atraumatic and Moist Mucous Membranes
Respiratory: Clear to Auscultation
Cardiac: Regular Rhythm and S1/S2; Negative Murmur, Rub or Gallop
GI: Soft, Nontender, Nondistended and Normal Bowel Sounds; Negative Organomegaly
Rectal: Deferred by Provider
Musculoskeletal: No Clubbing, No Cyanosis and No Edema
Skin: Negative Rash
Neuro: Awake, Alert, Oriented, AO x 3, No Motor Deficits and Nonfocal/Grossly Intact
Psych: Calm
[2023-08-29] MEDS: MAGNESIUM SULFATE 100 IV (12:43)
--- NOTE | 2023-08-29 14:26 | CM ---
Spoke with patient bedside.
Per patient possible inpatient ETOH tomorrow.
Chart reviewed
TC to Juan from [facility] [phone], possible bed at [facility].
Need additional info faxed to [phone] and [phone].
Clinicals faxed.
Juan will get back to today or tomorrow am.
Plan: ETOH rehab when medically stable.
[2023-08-29 15:50] VITALS: BP 144/84
[2023-08-29] MEDS: LOVENOX 40 MG SC (17:58)
[2023-08-29 20:27] VITALS: BP 139/87
[2023-08-29 23:52] VITALS: BP 138/84
--- NOTE | 2023-08-30 03:33 | DOWNTIME ---
There was a [employer] Client Electrocardiographic Technician Downtime on 08/30/2023 from 0100 to 08/30/2023 at 0322. Downtime documentation of patient's care, including medication administrations, has been reconciled in the electronic record per guidelines. Refer to the
patient's paper chart under the miscellaneous tab to see printed paper medication records and downtime forms.
[2023-08-30 03:38] VITALS: BP 131/81
[2023-08-30 05:42] VITALS: BMI 22.9
[2023-08-30 07:00] VITALS: BP 129/83
[2023-08-30] MEDS: CARDIZEM CD 120 MG PO (08:17)
[2023-08-30] MEDS: KEPPRA 2000 MG PO ×2 (08:17→20:53)
[2023-08-30] MEDS: FOLVITE 1 MG PO (08:17)
[2023-08-30] MEDS: VITAMIN B1 100 MG PO ×2 (08:18→20:53)
[2023-08-30] MEDS: PLAVIX 75 MG PO (08:18)
[2023-08-30] MEDS: LUMINAL 64.7999999999999972 MG PO ×3 (08:18→22:22)
[2023-08-30] MEDS: PROTONIX IV IV ×2 (08:18→09:10)
[2023-08-30] MEDS: NSS (PRESERVATIVE FREE) IV ×2 (08:18→09:10)
[2023-08-30 08:26] LABS: Blood Urea Nitrogen 7 mg/dl (9-20); Calcium 8.9 mg/dl (8.4-10.2); Carbon Dioxide 24 mmol/L (22-30); Chloride 104 mmol/L (98-107); Estimated Creatinine Clearance 109 ml/min; Glucose 93 mg/dl (70-99); Potassium 3.5 mmol/L (3.5-5.1); Sodium 135 mmol/L (135-145); eGFR > 60.00
[2023-08-30 08:34] LABS: Magnesium 1.8 mg/dl (1.6-2.3); Phosphorus 5.4 mg/dl (2.5-4.5)
[2023-08-30 08:45] VITALS: BP 150/95; BP 152/94; PULSE 80
--- NOTE | 2023-08-30 08:54 | VATNOTE ---
Patient with reported previous phlebitis of right forearm. Area remains red and warm to touch, tender to palpation per patient. No drainage, swelling, or cord noted. Patient reports using warm compresses at site.
--- NOTE | 2023-08-30 09:45 | CM ---
Addendum entered by Racquel Nazario 08/30/23 14:41:
CM spoke with Juan from [facility], [facility] can accept patient tomorrow. Patient seen, updated that [facility] can accept patient, patient very thankful. Hospitalist updated through TT. CM will continue to follow for discharge planning needs.
Plan; discharge tomorrow to [facility]
Addendum entered by Racquel Nazario 08/30/23 11:14:
CM faxed clinicals to [facility]put and [facility].
Original Note:
CM received call from Juan from [facility], [facility] and [facility] have denied patient. Juan will be meeting with patient this morning to complete a phone assessment for [facility], referral also sent to [place]. CM will continue to follow
for discharge planning needs.
Plan; inpatient rehab once bed found.
--- NOTE | 2023-08-30 10:48 | W.PN.HOSP.TC ---
Today's Communication/Plan
-
await placement
po ppi
Assessment / Plan
Assessment / Plan
58y M with PMH significant for alcohol use disorder, seizure disorder and prior CVA who presented to ED for evaluation after witnessed seizure disorder.� Patient reportedly had witnessed seizure activity in bed by the .� EMS was called and
patient transported to the ED for further evaluation.� Patient had a second episode of witnessed seizure activity in the ED.� He received 2mg of Ativan and 500mg IV Keppra and was awake and alert.�
Patient has prior history of SAH (2004) and states that seizures are secondary to this.� He also has history of alcohol use disorder which no doubt contributes to his issues.
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 His alcohol level in the ED was at 19.
Patient admits that he may not be 100% compliant with his Keppra and he suspects he has missed a few doses.
Patient denies any recent illness or issues. He denies any current complaints or concerns.
Patient had nausea and a few episodes of emesis in the ED.� Improved after ondansetron.
A/P:
# Seizure disorder, multifactorial.
Baseline seizure disorder s/p prior SAH and is maintained on Keppra -
Hx of non compliance.
Continued alcohol use / withdrawal certainly contributing to current presentation,.
Continue Keppra 2000mg BID.
Monitor for any further seizure activity.
Ativan IV PRN for breakthrough seizures.
CT head: no acute intracranial process. Stable Encephalomalacia left temporal lobe
Neuro evaluation for additional recommendations.
Treat alcohol use / withdrawal as noted below.
Ran out of [facility] 07/27/23 and has not aggressively f/u with PCP-
# Alcohol Use Disorder
# Alcohol Withdrawal with Seizure
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
Suspect withdrawal prompted seizure activity.
MSAS protocol with phenobarb taper given seizures / history of delirium.
Can probably stop phenobarb on dc.
Monitor labs / lytes and replace as needed.
Encourage formal treatment programs for sustained sobriety. CM/[facility].
# Lactic Acidosis POA, resolved
# Anion Gap Metabolic Acidosis POA, resolved
Likely secondary to seizure activity.
rapid resolution after IVF
# Paroxysmal Atrial Fibrillation, Stable.�
Noted to be in A-Fib with RVR per EMS. Converted to sinus rhythm here in the ED.
Continue diltiazem for rate / rhythm control.
Continue Plavix for stroke risk reduction (poor OAC candidate given prior SAH / seizures / etc)
Monitor on telemetry.
# Fever noted on 08/26 , ddx include seizure d/o
CXR noted.
Follow blood Cx negative so far
monitor off abx and remains afebrile.
wbc wnl.
#Hypokalemia/hypomagnesemia
-replete/monitor
#Mild hyponatremia
-monitor
DVT Propylaxis:� start lovenox
Code Status:� Full
CM/[facility] ongoing dispo efforts for inpatient detox rehab.
Anticipated Discharge: Within 24 hours
Subjective/Interval History
-
Date of Service: August 30, 2023
No overnight events
tolerating diet
no hallucinations
Objective Data
-
Labs:
Laboratory Results
08/30/23
07:11
Sodium 135
Potassium 3.5
Chloride 104
Carbon Dioxide 24
BUN 7 L
Creatinine 0.8
Glucose 93
Calcium 8.9
Vital Signs:
Vital Signs
Temp Pulse Resp BP Pulse Ox
98.7 F 76 18 129/83 98
08/30/23 07:00 08/30/23 07:00 08/30/23 07:00 08/30/23 07:00 08/30/23 08:35
I&O
08/29/23 08/30/23 08/31/23
06:59 06:59 06:59
Intake Total 2530 / 2530 1080 / 1080
Output Total 1500 / 1500
Balance 1030 / 1030 1080 / 1080
Physical Exam
-
General: Well Developed and No Apparent Distress
HEENT: Normocephalic, Atraumatic and Moist Mucous Membranes
Respiratory: Clear to Auscultation
Cardiac: Regular Rhythm and S1/S2; Negative Murmur, Rub or Gallop
GI: Soft, Nontender, Nondistended and Normal Bowel Sounds; Negative Organomegaly
Rectal: Deferred by Provider
Musculoskeletal: No Clubbing, No Cyanosis and No Edema
Skin: Negative Rash
Neuro: Awake, Alert, Oriented, AO x 3, No Motor Deficits and Nonfocal/Grossly Intact
Psych: Calm
[2023-08-30] MEDS: PROTONIX 40 MG PO (11:05)
[2023-08-30 15:00] VITALS: BP 118/74
[2023-08-30] MEDS: LOVENOX 40 MG SC (17:03)
[2023-08-30 23:00] VITALS: BP 134/88
[2023-08-31 05:24] VITALS: BMI 23.3
[2023-08-31] MEDS: CARDIZEM CD 120 MG PO (07:49)
[2023-08-31] MEDS: LUMINAL 32.3999999999999986 MG PO (07:50)
[2023-08-31] MEDS: KEPPRA 2000 MG PO (07:50)
[2023-08-31] MEDS: FOLVITE 1 MG PO (07:50)
[2023-08-31] MEDS: VITAMIN B1 100 MG PO (07:51)
[2023-08-31] MEDS: PLAVIX 75 MG PO (07:51)
[2023-08-31] MEDS: PROTONIX 40 MG PO (07:51)
[2023-08-31 07:52] VITALS: BP 133/89
[2023-08-31 08:33] LABS: Blood Urea Nitrogen 14 mg/dl (9-20); Carbon Dioxide 25 mmol/L (22-30); Chloride 103 mmol/L (98-107); Estimated Creatinine Clearance > 125 ml/min; Glucose 92 mg/dl (70-99); Potassium 3.8 mmol/L (3.5-5.1); Sodium 136 mmol/L (135-145); eGFR > 60.00
--- NOTE | 2023-08-31 11:14 | W.PN.HOSP.TC ---
Today's Communication/Plan
-
dc to detox rehab.
counseled on compliance
Assessment / Plan
Assessment / Plan
58y M with PMH significant for alcohol use disorder, seizure disorder and prior CVA who presented to ED for evaluation after witnessed seizure disorder.� Patient reportedly had witnessed seizure activity in bed by the .� EMS was called and
patient transported to the ED for further evaluation.� Patient had a second episode of witnessed seizure activity in the ED.� He received 2mg of Ativan and 500mg IV Keppra and was awake and alert.�
Patient has prior history of SAH (2004) and states that seizures are secondary to this.� He also has history of alcohol use disorder which no doubt contributes to his issues.
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 His alcohol level in the ED was at 19.
Patient admits that he may not be 100% compliant with his Keppra and he suspects he has missed a few doses.
Patient denies any recent illness or issues. He denies any current complaints or concerns.
Patient had nausea and a few episodes of emesis in the ED.� Improved after ondansetron.
A/P:
# Seizure disorder, multifactorial.
Baseline seizure disorder s/p prior SAH and is maintained on Keppra -
Hx of non compliance.
Continued alcohol use / withdrawal certainly contributing to current presentation,.
Continue Keppra 2000mg BID.
Monitor for any further seizure activity.
Ativan IV PRN for breakthrough seizures.
CT head: no acute intracranial process. Stable Encephalomalacia left temporal lobe
Neuro evaluation for additional recommendations.
Treat alcohol use / withdrawal as noted below.
Ran out of [facility] 2 and has not aggressively f/u with PCP-
# Alcohol Use Disorder
# Alcohol Withdrawal with Seizure
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
Suspect withdrawal prompted seizure activity.
MSAS protocol with phenobarb taper given seizures / history of delirium.
Can probably stop phenobarb on dc.
Monitor labs / lytes and replace as needed.
Encourage formal treatment programs for sustained sobriety. CM/[facility].
# Lactic Acidosis POA, resolved
# Anion Gap Metabolic Acidosis POA, resolved
Likely secondary to seizure activity.
rapid resolution after IVF
# Paroxysmal Atrial Fibrillation, Stable.�
Noted to be in A-Fib with RVR per EMS. Converted to sinus rhythm here in the ED.
Continue diltiazem for rate / rhythm control.
Continue Plavix for stroke risk reduction (poor OAC candidate given prior SAH / seizures / etc)
Monitor on telemetry.
# Fever noted on 08/26 , ddx include seizure d/o
CXR noted.
Follow blood Cx negative so far
monitor off abx and remains afebrile.
wbc wnl.
#Hypokalemia/hypomagnesemia
-replete/monitor
#Mild hyponatremia
-monitor
DVT Propylaxis:� start lovenox
Code Status:� Full
[facility] ongoing dispo efforts for inpatient detox rehab-[facility] today.
More than 30 minutes spent in discharge including
Final examination of the patient
Summarizing hospital stay
Instructions for continuing care to all relevant caregivers
Preparation of discharge records, prescriptions, and referral forms
Total time spent (in minutes): 45
Anticipated Discharge: Today
Subjective/Interval History
-
Date of Service: August 31, 2023
feeling better
tolerating diet
Objective Data
-
Labs:
Laboratory Results
08/31/23
07:16
Sodium 136
Potassium 3.8
Chloride 103
Carbon Dioxide 25
BUN 14
Creatinine 0.7
Glucose 92
Calcium 9.0
Vital Signs:
Vital Signs
Temp Pulse Resp BP Pulse Ox
98.0 F 68 17 133/89 97
08/31/23 07:52 08/31/23 07:52 08/31/23 07:52 08/31/23 07:52 08/31/23 07:55
I&O
08/30/23 08/31/23 09/01/23
06:59 06:59 06:59
Intake Total 1080 / 1080 1080 / 1080
Balance 1080 / 1080 1080 / 1080
Physical Exam
-
General: Well Developed and No Apparent Distress
HEENT: Normocephalic, Atraumatic and Moist Mucous Membranes
Respiratory: Clear to Auscultation
Cardiac: Regular Rhythm and S1/S2; Negative Murmur, Rub or Gallop
GI: Soft, Nontender, Nondistended and Normal Bowel Sounds; Negative Organomegaly
Rectal: Deferred by Provider
Musculoskeletal: No Clubbing, No Cyanosis and No Edema
Skin: Negative Rash
Neuro: Awake, Alert, Oriented, AO x 3, No Motor Deficits and Nonfocal/Grossly Intact
Psych: Calm
--- NOTE | 2023-08-31 11:17 | W.DCSUMMARY ---
Discharge Summary
Discharge Data
Date of Admission: 08/27/23
Date of Discharge: 08/31/23
-
Pending Results: No
Hospital Course
58y M with PMH significant for alcohol use disorder, seizure disorder and prior CVA who presented to ED for evaluation after witnessed seizure disorder.� Patient reportedly had witnessed seizure activity in bed by the .� EMS was called and
patient transported to the ED for further evaluation.� Patient had a second episode of witnessed seizure activity in the ED.�Patient has prior history of SAH (2004) and states that seizures are secondary to this.� He also has history of alcohol use
disorder which no doubt contributes to his issues. Patient also was not compliant with his Keppra and all his medication. Patient is a manage medication July 27 and since then has not been taking any medications. Patient was admitted to
medical IMU. CT of the head with no acute normality. Neurology was consulted and recommended acute alcohol withdrawal protocol. Patient finished course of phenobarbital taper. Patient was restarted on Keppra and no further seizure activity was
noted. Patient was tolerating diet. Patient with lactic acidosis and anion gap metabolic acidosis was resolved with IV fluid resuscitation. Patient was tolerating diet. Patient was counseled multiple times for complete alcohol cessation and to
be compliant with medication and to follow-up with primary doctor appropriately and regularly. Patient was eval by ANA LAURA with transition to inpatient detox rehab.
Discharge Plan
-
Patient Disposition: Other
Discharge Diagnosis/Procedures: Acute alcohol use disorder
Alcohol withdrawal with seizure
Seizure disorder
Noncompliance
Lactic acidosis
metabolic acidosis
fever likely central 2/2 seizures
Condition: Fair
Diet: Regular
Activity: With assistance and As tolerated
Driving Restrictions: No driving
Instructions: Alcohol Withdrawal (DC), Alcohol Use Disorder (DC)
Referrals:
UNKNOWN - PT NOT,INTERVIEWE [Family Provider] - in less than 1 week
Prescriptions:
Continued
thiamine HCl (vitamin B1) 100 mg Tablet
100 mg PO BID 30 Days Qty: 60 0RF
clopidogrel 75 mg Tablet
75 mg PO DAILY 30 Days Qty: 30 0RF
diltiazem HCl 120 mg Capsule,Extended Release 24 Hr
120 mg PO DAILY 30 Days Qty: 30 0RF
folic acid 1 mg Tablet
1 mg PO DAILY 30 Days Qty: 30 0RF
levetiracetam 1,000 mg Tablet
2,000 mg PO BID 30 Days Qty: 120 0RF
Discontinued
thiamine HCl (vitamin B1) 100 mg Tablet
100 mg PO DAILY
phenobarbital 32.4 mg Tablet
32.4 mg PO TID Qty: 6 0RF
Rx Instructions:
start after your done with 64.8 mg dose. Dont drink alcohol while on this mediciation.
phenobarbital 64.8 mg tablet
64.8 mg PO TID Qty: 6 0RF
Rx Instructions:
starting tomorrow. dont use alcohol while on it
Discharge Orders:
Discharge Patient (As Directed); Ordered 08/31/23
Ordered By: Dieter Llamas
Discharge Date and Time
Print Language: SWEDISH
[2023-08-31 13:00] VITALS: BP 124/83
--- NOTE | 2023-08-31 13:20 | CM ---
spoke with hay from [facility].patient has been accepted at [facility] and will transport via uber at 2pm.hay will obtain auth.tt sent to attending who confirmed patient could be dc today at 2pm.spoke with floor nurse vijay chacon to let her know
about transport.hay to call back with vehicle to [facility] patient.
patient to dc to [facility] today.
== END 2023-08-31 13:43 | disposition other institution (70) | DRG 101 ==
LOC: 4 WEST ACU 03:34
PROVIDERS: Internal Medicine; ADMITTING PHYSICIAN Hospitalist; ATTENDING PHYSICIAN Hospitalist; CONSULT PHYSICIAN Psychiatry & Neurology Neurology; EMERGENCY PHYSICIAN Emergency Medicine
DX: R56.9 Unspecified convulsions (principal); F10.239 Alcohol dependence with withdrawal, unspecified; E87.20 Acidosis, unspecified; E87.1 Hypo-osmolality and hyponatremia; Z87.891 Personal history of nicotine dependence; I48.0 Paroxysmal atrial fibrillation; F10.26 Alcohol dependence with alcohol-induced persisting amnestic disorder; Z79.02 Long term (current) use of antithrombotics/antiplatelets; E87.6 Hypokalemia; G62.9 Polyneuropathy, unspecified; I10 Essential (primary) hypertension; E53.8 Deficiency of other specified B group vitamins
CPT/HCPCS: 70450; 71045; 71046; 80048; 80053; 80177; 80306; 81003; 81015; 82077; 82248; 82550; 82607; 82962; 83605; 83735; 84100; 85025; 85027; 87040; 93005; 96361; 96365; 96375; 97116; 97163; 97166; 99291

== ENCOUNTER 2023-11-27 05:27 | Inpatient (IN) | payer OTHER, SELFPAY ==
[2023-11-27] VITALS (22 sets, daily range): BP systolic 124–149; BP diastolic 77–113; BMI 23.2; BMI 22.5
[2023-11-27 03:11] LABS: % Basophils 0.7 % (0-2); % Eosinophils 0.2 % (0-6); % Immature Granulocytes 0.2 % (0-0.5); % Lymphocytes 27.6 % (20.5-51.1); % Monocytes 8.3 % (1.7-9.3); Absolute Lymphocytes 1.2 10^3/uL (1.2-3.4); Absolute Monocytes 0.4 10^3/uL (0.1-0.6); Absolute Neutrophils 2.7 10^3/uL (1.4-6.5); Hemoglobin 14.3 g/dL (13.0-18.0); Mean Corp Hgb Conc. 36.7 g/dL (33.0-37.0); Mean Corpuscular Hgb 33.4 pg (27.0-31.0); Mean Corpuscular Volume 91.1 fL (80.0-94.0); Mean Platelet Volume 9.9 fL (7.4-10.4); Nucleated Red Blood Cells % 0 % (-); Platelet Count 117 10^3/uL (130-400); Red Blood Cell Count 4.28 10^6/uL (4.70-6.10); Red Cell Dist. Width 12.9 % (11.5-14.5); White Blood Cell Count 4.2 10^3/uL (4.8-10.8)
[2023-11-27 03:27] LABS: ALT (SGPT) 168 U/L (0-50); AST (SGOT) 274 U/L (17-59); Alkaline Phosphatase 76 U/L (38-126); Blood Urea Nitrogen 9 mg/dl (9-20); Calcium 9.1 mg/dl (8.4-10.2); Carbon Dioxide 22 mmol/L (22-30); Chloride 89 mmol/L (98-107); Estimated Creatinine Clearance > 125 ml/min; Glucose 90 mg/dl (70-99); Potassium 3.7 mmol/L (3.5-5.1); Sodium 132 mmol/L (135-145); Total Bilirubin 1.6 mg/dl (0.2-1.3); Total Protein 8.3 g/dl (6.3-8.2); eGFR > 60.00
--- NOTE | 2023-11-27 04:41 | ED.GENMED ---
History of Present Illness
General
Chief Complaint: Seizure
Source: patient and ambulance crew
Exam Limitations: none
Time Seen by Provider: 11/27/23 04:15
Nursing documentation reviewed up to this point in time: agreed with
History of Present Illness
History of Present Illness:
Pleasant 58-year-old male presents with seizures. Patient has been having seizures since 2004. He had a left MCA infarct at that time. He states that he typically has 1 or 2 seizures every couple of months. Patient states that his noted
that the last seizure was approximately 2 minutes in length. Patient has been getting seizures when he stops drinking alcohol. He does report trying to cut back. His last alcoholic beverage was 2 days ago. He states that he typically has
seizures on day 2 or day 3 after cessation of drinking. He came into the emergency department after called 911. Patient has a past medical history significant for seizures, stroke, anemia, gout, hyperlipidemia, factor V Leiden. Patient is
maintained on Keppra, though he has a history of noncompliance with that medication. Patient has a history of paroxysmal atrial fibrillation and is on diltiazem.
Past History
Past History
ED Past Medical History: Arrthythmia (Paroxysmal atrial fibrillation), CVA (Possible TIA), HTN, Hypercholesterolemia, Seizures, Other (Spontaneous subarachnoid hemorrhage 2004), Other (gout; alcohol abuse with alcohol withdrawal seizures, alcohol
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
ED Past Surgical History: Orthopedic (left knee arthroscopy)
Social History
Tobacco: Former smoker
Alcohol: Chronic alcoholic
Drug: None
Personal:
Living: with family
Employment: Not employed
Family History
Family History: Other (He has a father and a brother that had strokes)
Review of Systems
Review of Systems
Allergies reviewed?: Yes
All Other Systems: ROS reviewed and negative except as documented in HPI and ROS
Constitutional: Reports no symptoms
EENT: Reports no symptoms
Respiratory: Reports no symptoms
Cardiac: Reports no symptoms
ABD/GI: Reports no symptoms
: Reports no symptoms
Musculoskeletal: Reports no symptoms
Skin: Reports no symptoms
Neurological: Reports other (Seizure)
Endocrine: Reports no symptoms
Hematologic/Lymphatic: Reports no symptoms
Psychiatric: Reports anxiety
Phy Exam
General Physical Exam
General Presentation: well appearing and no apparent distress
General Skin: warm and dry
General Habitus: normal
General Mental: alert
General Hydration: appears well hydrated
ENT Exam
ENT Exam: EOMI, pharynx normal, neck supple and normocephalic
Eye Exam
Eye Exam: PERRL, cornea clear and conjunctiva normal
Cardiovascular Exam
Cardiovascular Exam: regular rate/rhythm, no edema, no murmur and normal peripheral pulses
Pulmonary Exam
Pulmonary Exam: lungs clear, no respiratory distress, no rales, no crackles, no rhonchi, no stridor, no wheezing and no cough
Gastrointestinal Exam
Gastrointestinal Exam: normal bowel sounds, non tender, soft, no organomegaly, no pulsatile mass and non distended
Neurological Exam
Neurological Exam: alert, oriented x3, no motor deficits and speech normal
Musculoskeletal Exam
Musculoskeletal Exam: full ROM and no edema
Skin Exam
Skin Exam: normal color, warm/dry, no rash and no petechia
Psychiatric Exam
Psychiatric Exam: normal mood/affect
Course
Orders/Labs/Results
Orders:
Orders
11/27/23 02:57
IV Insert/Care/Rem.- Treatment PRN
11/27/23 02:59
Alcohol Urgent
Complete Blood Count/With Diff Urgent
Comprehensive Metabolic Panel Urgent
Keppra (Levetiracetam) [S] Urgent
11/27/23 04:38
Levetiracetam Injectable [Keppra] 1,000 mg IV NOW STA
11/27/23 04:54
Add On- LAB Urgent
Tests Added?: alcohol level
11/27/23 04:57
Electrocardiogram (*1) Urgent
Reason for Study: QTc Monitoring
EKG- Treatment ONCE
11/27/23 05:00
0.9% Sodium Chloride 1000 ml [Nss] 1,000 ml Mvi, Adult [Multivitamin] 10 ml Thiamine Injection 100 mg IV 250 mls/hr
11/27/23 05:11
Admit/Transfer Patient As Directed
Co-Sign Provider:
Level of Care: Inpatient admission
Assign to:: IMU- Intermediate Care
Physician / Group: [email or web address]
Diagnosis: ETOH WD Sz
Reason for Hospitalization: ETOH WD Sz
Expected length of stay greater than two midnights?: Yes
ELOS- Estimated Length of Stay in days: 5
I certify the patient meets the requirements for IP care: Yes
11/27/23 05:14
Phenobarbital Sodium [Phenobarbital] 260 mg 0.9% Sodium Chloride 100 ml [Nss] 100 ml IV NOW
11/27/23 05:27
Phenobarbital Sodium [Phenobarbital] 260 mg 0.9% Sodium Chloride 100 ml [Nss] 100 ml IV NOW
11/27/23 06:00
Flush (0.9% Sodium Chloride) [Flush (Nss)] See Dose Instructions IV PER PROTOCOL
11/27/23 08:48
0.9% Sodium Chloride [Nss (Preservative Free)] See Protocol IV PRN PRN
FOLic ACID [Folvite] 1 mg PO DAILY
FOLic ACID [Folvite] 1 mg 0.9% Sodium Chloride 50 ml [Nss] 50 ml IV DAILYPRN
Thiamine Injection 200 mg IV Q8
11/27/23 08:48
Case Management Consult Once
Case Management Consult: Other
Comment: Substance abuse counseling
Consult Notification Routine
Specialty to Notify: Neurology
Date consulting provider notified: 11/27/23
Time consulting provider notified: 09:00
Notified:: Provider
Consult Notification Routine
Specialty to Notify: Psychiatry
Date consulting provider notified: 11/27/23
Time consulting provider notified: 09:14
Notified:: Provider
DIETARY CONSULT Routine
Reason for Consult: Nutrition support, possible refeeding guidelines
NEUROLOGY CONSULT Routine
Consulting Provider: Giorgio Wallace
Was physician already notified: No
Reason for consult: ETOH WD Sz, acute ETOH WDS
PSYCHIATRY CONSULT Routine
Consulting Provider: Cailin Madera
Was physician already notified: No
Reason for consult: ETOH WD Sz, acute ETOH WDS
Compression Sleeves [Pneumatic Compression Sleeves] As Directed
Type: Knee high
MSAS SCORE As Directed
MSAS Score 0-4: Repeat MSAS every 2 hours until 0-4 for three consecutive assessments, then every 4 hours x 48
hours.
MSAS Score 5-7: For MILD withdrawl symptoms. Repeat MSAS and RASS every 2 hours
MSAS Score 8-11: For MODERATE withdrawal symptoms. Repeat MSAS and RASS every 1 hour. Consider ICU or IMU
level of care.
MSAS Score > 11: For SEVERE withdrawal symptoms. Repeat MSAS and RASS every 1 hour. Notify provider, consider
ICU level of care.
MSAS Additional Instructions: If no improvement or no decrease in score from severe to moderate within 12
hours, consult psychiatry
MSAS Notify Provider: Notify provider if patient requires more than 10 mg of Lorazepam in eight hour period.
DX Deep Vein Thrombosis Video Routine
11/27/23 10:00
Levetiracetam [Keppra] 2,000 mg PO BID
11/27/23 16:00
Phenobarbital [Luminal] 97.2 mg PO TID
11/27/23 16:27
Urinalysis Routine
Date Specimen was Collected: 11/27/23
Time Specimen was Collected: 16:25
Urine Drug Abuse Screen Routine
Date Specimen was Collected: 11/27/23
Time Specimen was Collected: 16:25
11/29/23 16:00
Phenobarbital [Luminal] 64.8 mg PO TID
11/30/23 08:00
Thiamine HCl [Vitamin B1] 100 mg PO BID
12/01/23 16:00
Phenobarbital [Luminal] 32.4 mg PO TID
Abnormal Lab Results
11/27/23
02:59
WBC 4.2 L 10^3/uL
(4.8-10.8)
RBC 4.28 L 10^6/uL
(4.70-6.10)
MCH 33.4 H pg
(27.0-31.0)
Plt Count 117 L 10^3/uL
(130-400)
Sodium 132 L mmol/L
(135-145)
Chloride 89 L mmol/L
(98-107)
Total Bilirubin 1.6 H mg/dl
(0.2-1.3)
AST 274 H U/L
(17-59)
ALT 168 H U/L
(0-50)
Total Protein 8.3 H g/dl
(6.3-8.2)
Levetiracetam 129 H ug/mL
(10-40)
11/27/23 02:59
11/27/23 02:59
Vital Signs
Initial and Last Documented VS:
Initial Vital Signs
Temp Pulse Resp BP Pulse Ox
97.8 F 95 18 149/90 98
11/27/23 02:37 11/27/23 02:37 11/27/23 02:37 11/27/23 02:37 11/27/23 02:37
Last Documented Vital Signs
Temp Pulse Resp BP Pulse Ox
98.4 F 78 16 138/98 97
11/28/23 19:10 11/28/23 18:00 11/28/23 18:00 11/28/23 18:00 11/28/23 17:21
MDM/Problems Addressed
Differential Diagnosis Includes:
Alcohol withdrawal seizures. Grand mal seizures
MDM/Problems Addressed:
58-year-old male with seizures 2 days after alcohol sensation. Has a history of alcohol withdrawal seizures. Admits to drinking heavily.
*Critical Care Note
Total Time (30-74mins, 75-104mins- exclusive of procedures): Not Applicable
ED Attending Note
-
Portions of this chart may have been created with voice recognition software.� Occasional wrong word or��sound alike� substitutions may have occurred due to the inherent limitations of voice recognition software.
Discharge Plan
Departure
Patient Disposition: Admit
Date of Disposition: 11/27/23
Time of Disposition: 04:57
Admit to: Telemetry
Presentation/result/management discussed w/ accepting MD/DO: Hospitalist
Condition: Good
Discharge Problem:
Alcohol withdrawal seizure, History of CVA (cerebrovascular accident), Seizure
Interventions
Interventions:
*Risk Screen - Suicide Last Done: 11/27/23 09:00
*General Assessment Last Done: 11/27/23 02:37
*Neglect/Abuse Screening Last Done: 11/27/23 02:37
ED- Fall Risk Assessment Last Done: 11/27/23 02:37
*ED COVID-19 Vaccine History Last Done: 11/27/23 02:37
*Nursing Disposition Last Done: 11/27/23 07:48
ED- Cardiac Assessment Last Done: 11/27/23 02:46
ED- Neurological Assessment Last Done: 11/27/23 02:46
ED- Pulmonary Assessment Last Done: 11/27/23 02:46
Discharge Date and Time
Discharge Date/Time: 11/27/23 08:42
[2023-11-27] MEDS: KEPPRA 1000 MG IV (04:47)
--- NOTE | 2023-11-27 05:07 | HPS.HSE ---
Addendum entered and electronically signed by Ronnie Clinton MD 11/27/23 05:17:
Consult: Neuro and Psych
Original Note:
Family Physician
-
Family Physician: Shivam Hernadez
Chief Complaint
-
recurrent Sz
History of Present Illness
I could not get any information from the patient is pos ictal
Information gathered by chart review and speaking with the ER staff.
58M HX Prx AF on Diltiazem, Not on AC , HX SAH, seizure disorder and chronic ETOH use disorder, HX non compliance with meds, many admissions in the past with ETOH WD Szs was [facility] 911 called for Sz;
Recurrent Szs
- Current episode of Sz lasted 2 Mins
- He is cutting back ETOH in last few days
- Known HX ETOH WD Sz if he stop drinking for 2 - 3days
- Typically 1- 2 Sz every couple on months
At ER:
Received IV Keppra 1 gm
Medical History
Past Medical History
Past Medical History: Reports Other
Additional Past Medical History:
ASCVD with Prior CVA
History of seizures
Subarachnoid hemorrhage in 2004
Essential hypertension
Gout
Alcohol use disorder with withdrawal seizures and withdrawal delirium
Factor V Leiden deficiency
Anemia of chronic disease
Past Surgical History: Reports Other
Additional Past Surgical History:
Knee Arthroscopy
Social History
Tobacco: Former Smoker (Per record. Unsure of total use / quit date.)
Alcohol: Chronic Alcoholic (Patient reports intermittent alcohol use now. Last drink was 3-4 days ago.)
Personal:
Family History
Family History: Not pertinent and Other (Mother colon cancer, 1 brother colon cancer, father and multiple brothers alcohol abuse)
Allergies / Home Medications
Allergies reflects when Allergies were last updated in [facility].
Home Medications with original date entered in [facility]
Allergy/Medication List:
Allergies
Allergy/AdvReac Type Severity Reaction Status Date / Time
erythromycin base Allergy Unknown Verified 08/26/23 23:56
[Erythromycin Base]
diazepam AdvReac paradoxical Verified 08/26/23 23:56
rxn/agitation,
required
upgrade
IMU>ICU
03/27/22
lorazepam [From Ativan] AdvReac Agitation Verified 08/26/23 23:56
phenytoin sodium AdvReac Unknown- Verified 08/26/23 23:56
[From Dilantin] tolerated
phenobarbital
Home Medications
clopidogrel 75 mg tablet 75 mg PO DAILY Blood Clot Prevention/Tx 07/11/23
diltiazem HCl 120 mg capsule,24 hr,extended release 120 mg PO DAILY Heart Disease/Condition 07/11/23
levetiracetam 1,000 mg tablet 2,000 mg PO BID Seizures 07/11/23
thiamine HCl (vitamin B1) 100 mg tablet 100 mg PO DAILY Supplement 07/11/23
folic acid 1 mg tablet 1 mg PO DAILY #30 tabs 07/12/23
phenobarbital 32.4 mg tablet 32.4 mg PO TID #6 tabs 07/12/23
phenobarbital 64.8 mg tablet 64.8 mg PO TID #6 tabs 07/12/23
thiamine HCl (vitamin B1) 100 mg tablet 100 mg PO BID #60 tabs 07/12/23
Review of Systems
-
History Source: Patient
A 12 point ROS was completed and negative except as noted: Yes
Constitutional: Denies Fever or Chills
Respiratory: Denies Cough or Trouble Breathing
Cardiac: Denies Chest Pain or Palpitations
Abdomen/GI: Reports Nausea and Vomiting; Denies Abdominal Pain, Diarrhea or Constipated
: Denies Dysuria or Frequency
Neurological: Reports Other (Seizures); Denies Dizzy or Headache
Psych: Denies Depression or Anxiety
Physical Exam
Vital Signs
Vital Signs
Temp Pulse Resp BP Pulse Ox
97.8 F 95 18 149/90 96
11/27/23 02:37 11/27/23 02:37 11/27/23 02:37 11/27/23 02:37 11/27/23 02:46
Physical Exam
General: Other (58y M in no acute distress.)
HEENT: Moist mucous membranes and PERRLA
Respiratory: Clear; No Wheezes, Rales or Rhonchi
Cardiac: S1/S2 and Regular Rhythm; No Murmur
GI: Soft, Non Tender, Non Distended and Normal Bowel Sounds
Musculoskeletal: No Clubbing, No Cyanosis and No Edema
Neuro: AO x 3
Laboratory Results
-
11/27/23 02:59
11/27/23 02:59
Laboratory Results
Total Bilirubin 1.6 mg/dl (0.2-1.3) H 11/27/23 02:59
AST 274 U/L (17-59) H 11/27/23 02:59
ALT 168 U/L (0-50) H 11/27/23 02:59
Alkaline Phosphatase 76 U/L (38-126) 11/27/23 02:59
Data Reviewed
-
Lab Data: Labs Reviewed by me
Old Records: Reviewed
Impression/Plan
-
Reviewed VS: unremarkable
Data
WCC 4.2
Plt 117
Na 132
Cl 89
TB 1.6
ASI 274
ALT 168
Pending ETOH level
Pending Levetiracetam level
Last hospitalist admission: 08/26- 08/31/23
ETOH use disorder
Alcohol withdrawal with seizure
Noncompliance
Lactic acidosis
metabolic acidosis
fever likely central 2/2 seizures
ASSESSMENT & PLAN
Pending Rx reconciliation
Recurrent Seizure
- suspect multifactorial : Non compliance with Keppra, ETOH WD Sz
- cont EEG TECH Keppra 2000mg BID.
- Ativan IV PRN for breakthrough seizures.
- To treat alcohol use / withdrawal as noted below.
- Neuro consult
ETOH Use Disorder
ETOH Withdrawal with Seizure
Associated ETOH induced abn LFts
- Pending ETOH level .
- MSAS protocol with Phenobarb taper given seizures / history of delirium.
- Trend LFts
Paroxysmal AF
- Stable
- cont. diltiazem for rate / rhythm control.
- poor OAC candidate given prior SAH / seizures / etc)
DVT Px: SCDs
Code: Full
IMU
[2023-11-27 05:33] LABS: Alcohol None Detected
[2023-11-27] MEDS: FLUSH (NSS) 1 FLUSH IV (05:35)
[2023-11-27] MEDS: MULTIVITAMIN 1011 ML IV (05:37)
[2023-11-27] MEDS: MULTIVITAMIN 1011 MG IV (05:37)
[2023-11-27] MEDS: PHENOBARBITAL 104 MG IV (05:40)
--- NOTE | 2023-11-27 05:43 | EDRN ---
Approximately 10-15 minutes ago, this RN heard noise coming from pt's room - found pt having grand mal seizure, arms pulled up to chest whole body shaking. Dr Steve called to bedside. Pt placed on 15 lpm O2 via NRB by this RN. Seizure
activity lasted approximately 1-2 minutes after which pt had garbled, confused speech, diaphoresis. Second IV access obtained and pharmacy was called for phenobarbital infusion stat. Oxygen decreased to 10 lpm via NRB. Pt unable to follow
commands at this time.
--- NOTE | 2023-11-27 05:56 | EDRN ---
Pt continues to be confused. Pt states that he is fine but does know date and is telling this RN his parents name and then just numbers. Pt can not follow commands. Pt was not incont. of urine.
--- NOTE | 2023-11-27 06:14 | EDRN ---
Pt clear at present. Knows name and place. Follows simple commands.
--- NOTE | 2023-11-27 07:17 | EDRN ---
the pt was received from previous shift supervisor rn RN, the pt is resting in stretcher in the lowest position, side rails up x2, call reina within reach, HOB elevated, no s/s of distress, currently, VS WNL, NSR in the 80's, palpable pulses, no edema
present, no c/o chest pain, no c/o SOB, last BP 137/83
(100), the pt is currently on RA Sp02 96%, the pt is on fall risk, seizure precautions, and MSAS protocol which Dr. Steve has been notified of, will continue to monitor the pt closely
--- NOTE | 2023-11-27 09:26 | PTCARENOTE ---
0900 admitted from ED Admission DX ETOH WD Sz; Arrived via stretcher . Able to transfer himself from stretcher to bed. AAO x3 MSAS 6; RASS: 0; BP via left upper arm: 146/86 MAP 101; SR 79; RR 14; POX 97RA. Denies pain/discomfort . Neuro check WNL.
Tongue bite left side noted. Seizures pad in place . No edema pedal pulses present to palpation Abdomen soft non tender . call reina within reach. bed alarm activated for saferty
--- NOTE | 2023-11-27 09:56 | CON.NEURO4 ---
Consultation - Neurology 4
-
CONSULTING PHYSICIAN: Damaris Wallace
REFERRING PHYSICIAN: Hospitalist
DICTATED BY: Damaris Wallace
DATE/TIME OF REQUEST: 11/27/23
DATE/TIME OF CONSULTATION: 11/27/23
Reason for Consultation: Seizures, alcohol withdrawal
History of Present Illness:
Patient is a 58 year old man with history of multiple seizures, alcohol abuse, hemorrhagic stroke, hypertension, factor 5 leiden who presented to hospital with seizures. Patient reports he did bite his tongue and lose consciousness. Reports his
last alcohol use was 5 days ago, has been attempting to cut down. He has been very compliant with 2000 mg Levetiracetam BID with no side effects, denies any mood issues or irritability or agitation as new issue with the medication. Denies any
headache currently. No recent illnesses no fever chills nausea/vomiting cough abdominal pain diarrhea or vomiting.
Past Medical History: � Left-sided hemorrhagic stroke September 2004, seizure disorder, HTN, HLD, alcoholism, gout, anemia, Factor V Leiden, nocturia
Surgical History:� L knee arthroscopy
Family History: Non-contributory no family history of seizure
Social History: Lives at home, , no tobacco, last alcohol use about 5 days ago, denies recreational drugs
Review of Symptoms:
Patient denies any fever, headache, chest pain, shortness of breath, GI or symptoms.
Physical Exam:
Well appearing middle aged man, mildly tremulous, no head trauma, left tongue laceration, heart rate regular, breathing unlabored, abdomen soft non tender
Neurologic Examination:
The patient is awake, alert and oriented x 3. He is able to follow commands and answer questions appropriately. There is no aphasia or dysarthria. On cranial nerve assessment, pupils are 3 mm bilateral, round and reactive to light and
accommodation. Visual durand are full. Extraocular movements are intact. Facial sensations are intact and bilaterally symmetrical, there is no facial asymmetry. Hearing is intact bilaterally to normal conversation volume. Tongue palate and uvula
are midline. Sternocleidomastoid strengths are full bilaterally. Motor strengths are 5/5 bilateral upper and lower extremities on medical research [place] scale. There is no drift or involuntary movement noted. Deep tendon reflexes are 2+ bilateral
upper and lower extremities and Babinski is absent bilaterally. Intact to light touch bilaterally. There was no extinction noted on double simultaneous stimulation. Coordination is intact by finger to nose bilaterally.
Impressions
1. Alcohol withdrawal and associated seizures
2. History previous hemorrhagic stroke
3. Some indications of adverse reaction to benzodiazepines
Recommendations:
1. No indication for EEG given normal mental status currently
2. Given some indications of adverse reaction to Lorazepam reasonable to use Phenobarbital, could also use Gabapentin protocol as well
3. Neurologic checks, monitor for seizures
Call with questions and concerns
Discussed patient care with: Patient
[2023-11-27] MEDS: THIAMINE INJECTION 200 MG IV ×2 (10:39→16:53)
[2023-11-27] MEDS: FOLVITE 1 MG PO (10:39)
[2023-11-27] MEDS: KEPPRA 2000 MG PO ×2 (10:39→20:22)
--- NOTE | 2023-11-27 13:50 | CS.PSYCHR ---
Consult Summary - Psychiatry
-
Pt is 58 yo male with hx of seizure disorder and chronic ETOH use disorder, many prior admissions for alcohol w/d seizure, brought in by EMS for alcohol w/d seizure. Pt was reportedly cutting back on alcohol for the past few days. Alcohol not
detected on admission. Pt was given IV Keppra and started on Phenobarb taper. Today, pt sitting up in bed, in apparent distress, states he feels okay, offers no complaints. Pt denies any mental health issues, other than alcohol use. Pt presents
as in previous Psychiatry consult Jun 2023; denies any psychiatric history, is not on any medications as outpatient.
PMH: parox Afib, Hx SAH, hx of seizures- typically 1 to 2 seizures every 2 months, hx of poor med compliance
Psych hx: denied, none noted
SH: alcohol use, cut back the past few days
Imp/Rec: Alcohol Use d/o, with alcohol withdrawal seizure
Agree with Phenobarb protocol; consider alcohol rehab when medically cleared
Psychiatry will sign off; please re-consult for any new concerns
--- NOTE | 2023-11-27 13:58 | W.PN.HOSP.TC ---
Today's Communication/Plan
-
Seizure precautions per
Keppra.
Phenobarbital.
Advance diet
Home med rec.
Assessment / Plan
Assessment / Plan
Impression:
Generalized seizure.
Alcohol use disorder
At risk for DT.
Alcoholic hepatitis.
Hyponatremia, mild
Conditions prior to admission:
Seizure disorder
Alcohol use disorder
Paroxysmal atrial fibrillation not on anticoagulation due to fall risk.
History of CVA.
Plan:
Seizure disorder with breakthrough generalized seizure, likely multifactorial in the settings of alcohol withdrawal (patient with attempt to quit alcohol with last drink reported 3 to 4 days prior to presentation). Alcohol undetectable on admission.
Patient reported to be compliant with Keppra at home.
Mental status cleared and back to baseline.
Neurology input appreciated.
No indication for EEG or additional brain imaging.
Resumed on Keppra 2 g twice a day
Continue seizure precautions.
No clinical evidence for aspiration.
Diet has been advanced
Alcohol use disorder.
At risk for DT.
Prior reaction to benzodiazepines
Initiated on MSAS protocol with phenobarbital taper
Continue thiamine repletion
Paroxysmal atrial fibrillation
Currently in normal sinus rhythm
Need to confirm preadmission medications, previously on Cardizem
Not on anticoagulation due to fall risk and noncompliance.
History of CVA.
Currently no focal findings on exam.
Mild hyponatremia appears to be euvolemic on exam. Continue monitoring.
Anticipated Discharge: 24 - 48 hours
Subjective/Interval History
-
Date of Service: November 27, 2023
Objective Data
-
Labs:
Laboratory Results
11/27/23
02:59
WBC 4.2 L
Hgb 14.3
Hct 39.0
Plt Count 117 L
Sodium 132 L
Potassium 3.7
Chloride 89 L
Carbon Dioxide 22
BUN 9
Creatinine 0.7
Glucose 90
Calcium 9.1
Total Bilirubin 1.6 H
AST 274 H
ALT 168 H
Alkaline Phosphatase 76
Vital Signs:
Vital Signs
Temp Pulse Resp BP Pulse Ox
98.9 F 79 14 125/77 96
11/27/23 11:00 11/27/23 13:30 11/27/23 13:30 11/27/23 13:22 11/27/23 13:30
I&O
11/26/23 11/27/23 11/28/23
06:59 06:59 06:59
Intake Total 480 / 480
Balance 480 / 480
Physical Exam
-
General: Well Developed and No Apparent Distress
HEENT: Normocephalic, Atraumatic and Moist Mucous Membranes
Respiratory: Clear to Auscultation
Cardiac: Regular Rhythm and S1/S2; Negative Murmur, Rub or Gallop
GI: Soft, Nontender, Nondistended and Normal Bowel Sounds; Negative Organomegaly
Rectal: Deferred by Provider
Musculoskeletal: No Clubbing, No Cyanosis and No Edema
Skin: Negative Rash
Neuro: Awake, Alert, Oriented, AO x 3, No Motor Deficits and Nonfocal/Grossly Intact
Psych: Calm
[2023-11-27 16:46] LABS: Urine Albumin Trace (Neg - Trace); Urine Bilirubin Negative (Negative); Urine Character Clear (Clear); Urine Color Yellow; Urine Glucose Negative (Negative); Urine Ketone 3+ (Negative); Urine Leukocyte Negative (Negative); Urine Nitrite Negative (Negative); Urine Occult Blood Negative (Negative); Urine Specific Gravity 1.005 (<1.030); Urine Urobilinogen Negative (Neg - 1+)
[2023-11-27] MEDS: LUMINAL 97.2000000000000028 MG PO ×2 (16:53→21:54)
[2023-11-27 17:07] LABS: Amphetamines Negative (Negative); Barbiturates Positive (Negative); Benzodiazepines Negative (Negative); Buprenorphine Negative (Negative); Cocaine Negative (Negative); Marijuana Negative (Negative); Methadone Negative (Negative); Methamphetamines Negative (Negative); Opiates Negative (Negative); Phencyclidine Negative (Negative); Tricyclic Antidepressants Negative (Negative)
[2023-11-27 17:16] LABS: Magnesium 1.6 mg/dl (1.6-2.3)
--- NOTE | 2023-11-27 17:40 | PTCARENOTE ---
Patient transfer from room 3359 ICU to IMU 3341 via bed . report given prior to transfer . All personal belonging transfer with patient. At time of transfer pt AAO x3 MSAS 6 due to visible tremors. SR 70's VSS. Multime loose stools. Voiding in a
urinal clear naomi urine . Urine sample send to lab+Mg and Phose level results pending. Appetite good . Bed alarm activated , call reina within reach. pt able to use call reina for assistance appropriately
--- NOTE | 2023-11-27 18:15 | PTCARENOTE ---
Received patient from ICU bed. Patient AAOX3. Seizure pads on bed. SR on monitor with HR 70's. MSAS score of 3. Oriented patient to room.
[2023-11-28] VITALS (12 sets, daily range): BP systolic 117–148; BP diastolic 71–100
[2023-11-28] MEDS: THIAMINE INJECTION 200 MG IV ×4 (00:20→23:02)
[2023-11-28 05:07] LABS: ALT (SGPT) 147 U/L (0-50); AST (SGOT) 197 U/L (17-59); Alkaline Phosphatase 70 U/L (38-126); Blood Urea Nitrogen 7 mg/dl (9-20); Calcium 9.5 mg/dl (8.4-10.2); Carbon Dioxide 20 mmol/L (22-30); Chloride 94 mmol/L (98-107); Estimated Creatinine Clearance > 125 ml/min; Glucose 84 mg/dl (70-99); Potassium 3.6 mmol/L (3.5-5.1); Sodium 132 mmol/L (135-145); Total Bilirubin 1.6 mg/dl (0.2-1.3); Total Protein 8.1 g/dl (6.3-8.2); eGFR > 60.00
[2023-11-28 05:38] LABS: % Basophils 0.6 % (0-2); % Eosinophils 0.3 % (0-6); % Immature Granulocytes 0.6 % (0-0.5); % Lymphocytes 22.1 % (20.5-51.1); % Monocytes 9.8 % (1.7-9.3); % Neutrophils 66.6 % (42.2-75.2); Absolute Lymphocytes 0.8 10^3/uL (1.2-3.4); Absolute Monocytes 0.3 10^3/uL (0.1-0.6); Absolute Neutrophils 2.3 10^3/uL (1.4-6.5); Hematocrit 38.6 % (39.0-52.0); Hemoglobin 14.5 g/dL (13.0-18.0); Mean Corp Hgb Conc. 37.6 g/dL (33.0-37.0); Mean Corpuscular Hgb 33.6 pg (27.0-31.0); Mean Corpuscular Volume 89.4 fL (80.0-94.0); Mean Platelet Volume 11.1 fL (7.4-10.4); Nucleated Red Blood Cells % 0 % (-); Platelet Count 68 10^3/uL (130-400); Red Blood Cell Count 4.32 10^6/uL (4.70-6.10); Red Cell Dist. Width 12.7 % (11.5-14.5); White Blood Cell Count 3.5 10^3/uL (4.8-10.8)
--- NOTE | 2023-11-28 06:33 | PTCARENOTE ---
Cared for pt overnight. aaox3, forgetful at times when he would wake up and have to use the BR. BA was on. A little unsteady on his feet. MSAS all 0-4, no major sign of withdrawing. NSR/ST. RA. NO seizure activities. WIll monitor.
[2023-11-28] MEDS: KEPPRA 2000 MG PO ×2 (08:42→20:03)
[2023-11-28] MEDS: LUMINAL 97.2000000000000028 MG PO ×3 (08:43→22:25)
[2023-11-28] MEDS: FOLVITE 1 MG PO (08:45)
--- NOTE | 2023-11-28 11:16 | CM ---
CM met with pt bedside
Pt AxO 3x and in good spirits
Pt resides with his spouse in a multi-story home with [address]
Full flight to 2nd floor
Pt is independent with his ADLs
Denies use of DMEs and hx with Vn/SNF
Pt with frequent admissions due to alcohol and seizures
Pt is well known to [facility] and has attended inpatient tx at [facility]
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
PCP- Shivam Hernadez
Rx- [facility]
Referral made
Discharge Disposition- [facility] outpt vs inpt tx
[2023-11-28 15:07] LABS: Keppra (Levetiracetam) 129 ug/mL (10-40)
[2023-11-28] MEDS: FLUSH (NSS) 1 FLUSH IV (15:07)
--- NOTE | 2023-11-28 15:25 | W.PN.HOSP.TC ---
Today's Communication/Plan
-
Continue phenobarbital
Continue Keppra
Monitor mental status
Assessment / Plan
Assessment / Plan
Impression:
Generalized seizure.
Alcohol use disorder
At risk for DT.
Alcoholic hepatitis.
Hyponatremia, mild
Neutropenia
Thrombocytopenia
Conditions prior to admission:
Seizure disorder
Alcohol use disorder
Paroxysmal atrial fibrillation not on anticoagulation due to fall risk.
History of CVA.
Plan:
Seizure disorder with breakthrough generalized seizure, likely multifactorial in the settings of alcohol withdrawal (patient with attempt to quit alcohol with last drink reported 3 to 4 days prior to presentation). Alcohol undetectable on admission.
Patient reported to be compliant with Keppra at home.
Mental status cleared and back to baseline.
Neurology input appreciated.
No indication for EEG or additional brain imaging.
Resumed on Keppra 2 g twice a day
Continue seizure precautions.
No clinical evidence for aspiration.
Diet has been advanced
Alcohol use disorder.
At risk for DT.
Prior reaction to benzodiazepines
Initiated on MSAS protocol with phenobarbital taper
Continue thiamine repletion
Paroxysmal atrial fibrillation
Currently in normal sinus rhythm
Need to confirm preadmission medications, previously on Cardizem
Not on anticoagulation due to fall risk and noncompliance.
History of CVA.
Currently no focal findings on exam.
Mild hyponatremia appears to be euvolemic on exam. Continue monitoring.
Neutropenia/thrombocytopenia with normal hemoglobin. Likely due to alcohol.
Monitor CBC.
Anticipated Discharge: 24 - 48 hours
Subjective/Interval History
-
Date of Service: November 28, 2023
Objective Data
-
Labs:
Laboratory Results
11/28/23 11/28/23
04:34 05:29
WBC Cancelled 3.5 L
Hgb Cancelled 14.5
Hct Cancelled 38.6 L
Plt Count Cancelled 68 L D
Sodium 132 L
Potassium 3.6
Chloride 94 L
Carbon Dioxide 20 L
BUN 7 L
Creatinine 0.6 L
Glucose 84
Calcium 9.5
Total Bilirubin 1.6 H
AST 197 H
ALT 147 H
Alkaline Phosphatase 70
Vital Signs:
Vital Signs
Temp Pulse Resp BP Pulse Ox
97.5 F 81 16 139/100 100
11/28/23 07:00 11/28/23 08:00 11/28/23 08:00 11/28/23 08:00 11/28/23 07:26
I&O
11/27/23 11/28/23 11/29/23
06:59 06:59 06:59
Intake Total 1200 / 1200 800 / 800
Output Total 2000 / 2000 410 / 410
Balance -800 / -800 390 / 390
Physical Exam
-
General: Well Developed and No Apparent Distress
HEENT: Normocephalic, Atraumatic and Moist Mucous Membranes
Respiratory: Clear to Auscultation
Cardiac: Regular Rhythm and S1/S2; Negative Murmur, Rub or Gallop
GI: Soft, Nontender, Nondistended and Normal Bowel Sounds; Negative Organomegaly
Rectal: Deferred by Provider
Musculoskeletal: No Clubbing, No Cyanosis and No Edema
Skin: Negative Rash
Neuro: Awake, Alert, Oriented, AO x 3, No Motor Deficits and Nonfocal/Grossly Intact
Psych: Calm
--- NOTE | 2023-11-28 17:24 | PTCARENOTE ---
Patient's MSAS sores have been 2 -3. Patient can be slightly forgetful at times. BA on bed. Assist x1 to bathroom. Vital signs stable. Seizure pads on bed.
[2023-11-29] VITALS (11 sets, daily range): BP systolic 102–142; BP diastolic 80–89
[2023-11-29 03:52] LABS: ALT (SGPT) 159 U/L (0-50); AST (SGOT) 197 U/L (17-59); Alkaline Phosphatase 80 U/L (38-126); Blood Urea Nitrogen 8 mg/dl (9-20); Calcium 9.6 mg/dl (8.4-10.2); Carbon Dioxide 19 mmol/L (22-30); Chloride 97 mmol/L (98-107); Estimated Creatinine Clearance 123 ml/min; Glucose 92 mg/dl (70-99); Potassium 4.1 mmol/L (3.5-5.1); Sodium 134 mmol/L (135-145); Total Bilirubin 1.6 mg/dl (0.2-1.3); Total Protein 8.4 g/dl (6.3-8.2); eGFR > 60.00
[2023-11-29 04:50] LABS: % Basophils 0.7 % (0-2); % Lymphocytes 27.2 % (20.5-51.1); % Monocytes 13.9 % (1.7-9.3); % Neutrophils 56.2 % (42.2-75.2); Absolute Lymphocytes 0.8 10^3/uL (1.2-3.4); Absolute Monocytes 0.4 10^3/uL (0.1-0.6); Absolute Neutrophils 1.6 10^3/uL (1.4-6.5); Hematocrit 43.1 % (39.0-52.0); Hemoglobin 15.4 g/dL (13.0-18.0); Mean Corp Hgb Conc. 35.7 g/dL (33.0-37.0); Mean Corpuscular Hgb 33.7 pg (27.0-31.0); Mean Corpuscular Volume 94.3 fL (80.0-94.0); Nucleated Red Blood Cells % 0 % (-); Red Blood Cell Count 4.57 10^6/uL (4.70-6.10); Red Cell Dist. Width 12.8 % (11.5-14.5); White Blood Cell Count 2.9 10^3/uL (4.8-10.8)
[2023-11-29 05:32] LABS: Mean Platelet Volume 11.5 fL (7.4-10.4); Platelet Count 80 10^3/uL (130-400)
[2023-11-29] MEDS: KEPPRA 2000 MG PO ×2 (08:07→21:02)
[2023-11-29] MEDS: LUMINAL 97.2000000000000028 MG PO (08:07)
[2023-11-29] MEDS: FOLVITE 1 MG PO (08:08)
[2023-11-29] MEDS: THIAMINE INJECTION 200 MG IV ×3 (08:08→23:07)
--- NOTE | 2023-11-29 10:16 | PN.CDI ---
CDI
- -
CDI:
Physician Documentation Request
Admit Date: 11/27/23 05:27
Dear Doctor Margarita,
Clinical Indicators:
Patient admitted with seizure disorder with breakthrough generalized seizure.
11/27 PN, 'Neutropenia/thrombocytopenia with normal hemoglobin. Likely due to alcohol. Monitor CBC.'
WBC, RBC, Plt trend:
11/27/23 11/28/23 11/29/23
02:59 05:29 04:15
WBC 4.2 L 3.5 L 2.9 L
RBC 4.28 L 4.32 L 4.57 L
Plt Count 117 L 68 L D 80 L
Based on the above, could you clarify in the progress notes, the appropriate diagnosis, if significant, that supports the above abnormalities and additional evaluation, monitoring and/or treatment rendered:
Pancytopenia
Neutropenia/thrombocytopenia only
Other, please specify
Use of terms such as suspected, likely, concern for, or probable (associated with a specific diagnosis that is being evaluated, monitored, or treated as if it exists) are acceptable and can be coded in the inpatient setting, when documented at the
time of discharge.
Thank you,
YELENA Mathis RN
CDI Specialist
available via tiger text
Please use your independent medical judgment in providing your response.
--- NOTE | 2023-11-29 11:52 | PTCARENOTE ---
Assumed care of patient at beginning of this shift from mini shifter RN. Patient awake, oriented x3 but occasionally forgetful; pleasant and cooperative. MSAS continues Q4h; patient scored a 2 this morning. OOB to bathroom and sat up in chair for
breakfast; he rings appropriately. See worklist for full assessment and vital signs.
--- NOTE | 2023-11-29 13:35 | CM ---
Patient with Dx Seizure disorder with breakthrough generalized seizure, alcohol withdrawal. Room air. MSAS Protocol. Receiving IV Folic Acid & Thiamine. Per nurse assessment; A/Ox3 but occasionally forgetful, activity assist of 1, ambulatory in
room.
Spoke with ANA LAURA Martinez; he met with the patient yesterday. The patient declined an Inpatient Etoh program however agreed to [facility]. Juan also suggested AA. The patient went to [facility] Inpatient program in Aug 2023, and shared
with ANA LAURA that he began drinking Etoh again a day or 2 after he returned home from that program. The patient lives with his who also drinks. Juan will stop by and see the patient again today.
Plan home with [facility].
--- NOTE | 2023-11-29 14:26 | W.PN.HOSP.TC ---
Today's Communication/Plan
-
Continue Keppra
Continue phenobarbital taper
Patient reports extremities erythema, although on exam has no evidence of rash.
Monitor closely for possible drug reaction to phenobarbital.
Assessment / Plan
Assessment / Plan
Impression:
Generalized seizure.
Alcohol use disorder
At risk for DT.
Alcoholic hepatitis.
Hyponatremia, mild
Neutropenia
Thrombocytopenia
Conditions prior to admission:
Seizure disorder
Alcohol use disorder
Paroxysmal atrial fibrillation not on anticoagulation due to fall risk.
History of CVA.
Plan:
Seizure disorder with breakthrough generalized seizure, likely multifactorial in the settings of alcohol withdrawal (patient with attempt to quit alcohol with last drink reported 3 to 4 days prior to presentation). Alcohol undetectable on admission.
Patient reported to be compliant with Keppra at home.
Mental status cleared and back to baseline.
Neurology input appreciated.
No indication for EEG or additional brain imaging.
Resumed on Keppra 2 g twice a day
Continue seizure precautions.
No clinical evidence for aspiration.
Diet has been advanced
Alcohol use disorder.
At risk for DT.
Prior reaction to benzodiazepines
Initiated on MSAS protocol with phenobarbital taper
Continue thiamine repletion
Paroxysmal atrial fibrillation
Currently in normal sinus rhythm
Need to confirm preadmission medications, previously on Cardizem
Not on anticoagulation due to fall risk and noncompliance.
History of CVA.
Currently no focal findings on exam.
Mild hyponatremia appears to be euvolemic on exam. Continue monitoring.
Neutropenia/thrombocytopenia with normal hemoglobin. Likely due to alcohol.
Monitor CBC.
Anticipated Discharge: 24 - 48 hours
Subjective/Interval History
-
Date of Service: November 29, 2023
Objective Data
-
Labs:
Laboratory Results
11/29/23 11/29/23
03:16 04:15
WBC Cancelled 2.9 L
Hgb Cancelled 15.4
Hct Cancelled 43.1
Plt Count Cancelled 80 L
Sodium 134 L
Potassium 4.1
Chloride 97 L
Carbon Dioxide 19 L
BUN 8 L
Creatinine 0.7
Glucose 92
Calcium 9.6
Total Bilirubin 1.6 H
AST 197 H
ALT 159 H
Alkaline Phosphatase 80
Vital Signs:
Vital Signs
Temp Pulse Resp BP Pulse Ox
98.6 F 73 11 129/83 98
11/29/23 11:05 11/29/23 12:00 11/29/23 12:00 11/29/23 12:00 11/29/23 08:20
I&O
11/28/23 11/29/23 11/30/23
06:59 06:59 06:59
Intake Total 1200 / 1200 1280 / 1280
Output Total 1999 / 1999 1810 / 1810
Balance -800 / -800 -530 / -530
Physical Exam
-
General: Well Developed and No Apparent Distress
HEENT: Normocephalic, Atraumatic and Moist Mucous Membranes
Respiratory: Clear to Auscultation
Cardiac: Regular Rhythm and S1/S2; Negative Murmur, Rub or Gallop
GI: Soft, Nontender, Nondistended and Normal Bowel Sounds; Negative Organomegaly
Rectal: Deferred by Provider
Musculoskeletal: No Clubbing, No Cyanosis and No Edema
Skin: Negative Rash
Neuro: Nonfocal/Grossly Intact
[2023-11-29] MEDS: LUMINAL 64.7999999999999972 MG PO ×2 (15:54→21:02)
[2023-11-30] VITALS (14 sets, daily range): BP systolic 111–145; BP diastolic 70–95; PULSE 76
--- NOTE | 2023-11-30 03:15 | PTCARENOTE ---
Pt AAOx3, presents with stutter at times. Pt denies complaints at this time, resting comfortably in bed. Assessment as documented.
[2023-11-30 05:50] LABS: % Basophils 0.5 % (0-2); % Eosinophils 0.7 % (0-6); % Immature Granulocytes 0.2 % (0-0.5); % Lymphocytes 15.5 % (20.5-51.1); % Monocytes 10.8 % (1.7-9.3); % Neutrophils 72.3 % (42.2-75.2); Absolute Lymphocytes 0.6 10^3/uL (1.2-3.4); Absolute Monocytes 0.4 10^3/uL (0.1-0.6); Absolute Neutrophils 2.9 10^3/uL (1.4-6.5); Hematocrit 42.9 % (39.0-52.0); Hemoglobin 15.3 g/dL (13.0-18.0); Mean Corp Hgb Conc. 35.7 g/dL (33.0-37.0); Mean Corpuscular Hgb 33.5 pg (27.0-31.0); Mean Corpuscular Volume 93.9 fL (80.0-94.0); Mean Platelet Volume 10.9 fL (7.4-10.4); Nucleated Red Blood Cells % 0 % (-); Platelet Count 128 10^3/uL (130-400); Red Blood Cell Count 4.57 10^6/uL (4.70-6.10); Red Cell Dist. Width 13.2 % (11.5-14.5); White Blood Cell Count 4.1 10^3/uL (4.8-10.8)
[2023-11-30 06:28] LABS: ALT (SGPT) 174 U/L (0-50); AST (SGOT) 188 U/L (17-59); Albumin 5.2 g/dl (3.5-5.0); Alkaline Phosphatase 64 U/L (38-126); Blood Urea Nitrogen 12 mg/dl (9-20); Calcium 9.7 mg/dl (8.4-10.2); Carbon Dioxide 25 mmol/L (22-30); Chloride 95 mmol/L (98-107); Estimated Creatinine Clearance 107 ml/min; Glucose 99 mg/dl (70-99); Potassium 3.6 mmol/L (3.5-5.1); Sodium 135 mmol/L (135-145); Total Bilirubin 1.3 mg/dl (0.2-1.3); Total Protein 8.9 g/dl (6.3-8.2); eGFR > 60.00
[2023-11-30] MEDS: KEPPRA 2000 MG PO ×2 (08:44→19:58)
[2023-11-30] MEDS: VITAMIN B1 100 MG PO ×2 (08:44→19:58)
[2023-11-30] MEDS: FOLVITE 1 MG PO (08:44)
[2023-11-30] MEDS: LUMINAL 64.7999999999999972 MG PO ×3 (08:44→21:27)
--- NOTE | 2023-11-30 14:09 | W.PN.HOSP.TC ---
Today's Communication/Plan
-
Doing well with what looks like aborted DT and no recurrent seizure episodes since admission
Continue phenobarbital taper.
Continue Keppra.
Increase activity with PT assessment.
Discharge planning.
Assessment / Plan
Assessment / Plan
Impression:
Generalized seizure.
Alcohol use disorder
At risk for DT.
Alcoholic hepatitis.
Hyponatremia, mild
Neutropenia
Thrombocytopenia
Conditions prior to admission:
Seizure disorder
Alcohol use disorder
Paroxysmal atrial fibrillation not on anticoagulation due to fall risk.
History of CVA.
Plan:
Seizure disorder with breakthrough generalized seizure, likely multifactorial in the settings of alcohol withdrawal (patient with attempt to quit alcohol with last drink reported 3 to 4 days prior to presentation). Alcohol undetectable on admission.
Patient reported to be compliant with Keppra at home.
Mental status cleared and back to baseline.
Neurology input appreciated.
No indication for EEG or additional brain imaging.
Resumed on Keppra 2 g twice a day
Continue seizure precautions.
No clinical evidence for aspiration.
Diet has been advanced
Alcohol use disorder.
At risk for DT.
Prior reaction to benzodiazepines
Initiated on MSAS protocol with phenobarbital taper
Continue thiamine repletion
Paroxysmal atrial fibrillation
Currently in normal sinus rhythm
Need to confirm preadmission medications, previously on Cardizem
Not on anticoagulation due to fall risk and noncompliance.
History of CVA.
Currently no focal findings on exam.
Mild hyponatremia appears to be euvolemic on exam. Continue monitoring.
Neutropenia/thrombocytopenia with normal hemoglobin. Likely due to alcohol.
Monitor CBC.
Anticipated Discharge: 24 - 48 hours
Subjective/Interval History
-
Date of Service: November 30, 2023
Objective Data
-
Labs:
Laboratory Results
11/30/23
05:37
WBC 4.1 L
Hgb 15.3
Hct 42.9
Plt Count 128 L D
Sodium 135
Potassium 3.6
Chloride 95 L
Carbon Dioxide 25
BUN 12
Creatinine 0.8
Glucose 99
Calcium 9.7
Total Bilirubin 1.3
AST 188 H
ALT 174 H
Alkaline Phosphatase 64
Vital Signs:
Vital Signs
Temp Pulse Resp BP Pulse Ox
98.7 F 83 24 125/85 98
11/30/23 11:15 11/30/23 10:00 11/30/23 10:00 11/30/23 10:00 11/29/23 20:23
I&O
11/29/23 11/30/23 12/01/23
06:59 06:59 06:59
Intake Total 1280 / 1280
Output Total 1810 / 1810 700 / 700
Balance -530 / -530 -700 / -700
Physical Exam
-
General: Well Developed and No Apparent Distress
HEENT: Normocephalic, Atraumatic and Moist Mucous Membranes
Respiratory: Clear to Auscultation
Cardiac: Regular Rhythm and S1/S2; Negative Murmur, Rub or Gallop
GI: Soft, Nontender, Nondistended and Normal Bowel Sounds; Negative Organomegaly
Rectal: Deferred by Provider
Musculoskeletal: No Clubbing, No Cyanosis and No Edema
Skin: Negative Rash
Neuro: Nonfocal/Grossly Intact
--- NOTE | 2023-11-30 16:12 | PTCARENOTE ---
Patient has been alert and calm. No seizure activity noted. MSAS scores have been 1 or 2. Patient out of bed to chair for a few hours. Calling for nurse appropriately. SR on monitor HR 60-80. VS stable.
[2023-12-01] VITALS (12 sets, daily range): BP systolic 84–141; BP diastolic 55–88
[2023-12-01] MEDS: FOLVITE 1 MG PO (08:37)
[2023-12-01] MEDS: KEPPRA 2000 MG PO ×2 (08:37→19:13)
[2023-12-01] MEDS: LUMINAL 64.7999999999999972 MG PO (08:38)
[2023-12-01] MEDS: VITAMIN B1 100 MG PO ×2 (08:38→19:13)
--- NOTE | 2023-12-01 14:54 | W.PN.HOSP.TC ---
Today's Communication/Plan
-
He has no recurrent seizures since admission.
He remains on phenobarbital taper with overall improved mentation and decreased tremors.
Able to tolerate physical therapy today.
Stable oral intake.
Will need another 24 to 48 hours to complete phenobarbital taper.
Patient motivated to stop alcohol drinking, although some social factors including spouse with alcohol use disorder could affect his decisions.
Assessment / Plan
Assessment / Plan
Impression:
Generalized seizure.
Alcohol use disorder
At risk for DT.
Alcoholic hepatitis.
Hyponatremia, mild
Neutropenia
Thrombocytopenia
Conditions prior to admission:
Seizure disorder
Alcohol use disorder
Paroxysmal atrial fibrillation not on anticoagulation due to fall risk.
History of CVA.
Plan:
Seizure disorder with breakthrough generalized seizure, likely multifactorial in the settings of alcohol withdrawal (patient with attempt to quit alcohol with last drink reported 3 to 4 days prior to presentation). Alcohol undetectable on admission.
Patient reported to be compliant with Keppra at home.
Mental status cleared and back to baseline.
Neurology input appreciated.
No indication for EEG or additional brain imaging.
Resumed on Keppra 2 g twice a day
Continue seizure precautions.
No clinical evidence for aspiration.
Diet has been advanced
Alcohol use disorder.
At risk for DT.
Prior reaction to benzodiazepines
Initiated on MSAS protocol with phenobarbital taper
Continue thiamine repletion
Paroxysmal atrial fibrillation
Currently in normal sinus rhythm
Need to confirm preadmission medications, previously on Cardizem
Not on anticoagulation due to fall risk and noncompliance.
History of CVA.
Currently no focal findings on exam.
Mild hyponatremia appears to be euvolemic on exam. Continue monitoring.
Neutropenia/thrombocytopenia with normal hemoglobin. Likely due to alcohol.
Monitor CBC.
Anticipated Discharge: 24 - 48 hours
Subjective/Interval History
-
Date of Service: December 01, 2023
Objective Data
-
Vital Signs:
Vital Signs
Temp Pulse Resp BP Pulse Ox
98.1 F 61 21 118/81 97
12/01/23 11:02 12/01/23 12:00 12/01/23 12:00 12/01/23 12:00 11/30/23 19:51
I&O
11/30/23 12/01/23 12/02/23
06:59 06:59 06:59
Intake Total 1690 / 1690
Output Total 700 / 700
Balance 990 / 990
Physical Exam
-
General: Well Developed and No Apparent Distress
HEENT: Normocephalic, Atraumatic and Moist Mucous Membranes
Respiratory: Clear to Auscultation
Cardiac: Regular Rhythm and S1/S2; Negative Murmur, Rub or Gallop
GI: Soft, Nontender, Nondistended and Normal Bowel Sounds; Negative Organomegaly
Rectal: Deferred by Provider
Musculoskeletal: No Clubbing, No Cyanosis and No Edema
Skin: Negative Rash
Neuro: Awake, Alert, Oriented, AO x 3, Tremors (Mild and intentional tremor.) and Nonfocal/Grossly Intact
--- NOTE | 2023-12-01 16:07 | PTCARENOTE ---
Assumed care of pt from previous RN. Pt has been Elizabeth, SR on the monitor. Calm and cooperative. No signs of alcohol withdrawal or seizure activity noted. Ambulatory in room. Pt able to make needs known appropriatly. Call reina within reach.
[2023-12-01] MEDS: LUMINAL 32.3999999999999986 MG PO ×2 (16:13→21:24)
--- NOTE | 2023-12-01 17:31 | CM ---
Patient with Dx Seizure disorder with breakthrough generalized seizure, alcohol withdrawal. Room air. On phenobarb taper. MSAS 0.
See prior CM notes re; [facility] - The patient declined an [facility] program however agreed to [facility].
Plan home with [facility].
--- NOTE | 2023-12-01 20:17 | PTCARENOTE ---
Pt received at beginning of shift resting in bed. AAOx3. No tremors noted. Denies any pain or discomfort. VSS. Afebrile. SR on CM Afebrile. Rest of assessment as documented. Currently shaving self in bathroom. Call reina within each at bed. Will
continue to monitor.
[2023-12-02] VITALS: BP 105/77
[2023-12-02 02:02] VITALS: BP 107/79
[2023-12-02 04:00] VITALS: BP 109/81
[2023-12-02 06:00] VITALS: BP 115/76
[2023-12-02 08:00] VITALS: BP 112/76
[2023-12-02] MEDS: KEPPRA 2000 MG PO (08:57)
[2023-12-02] MEDS: VITAMIN B1 100 MG PO (08:58)
[2023-12-02] MEDS: FOLVITE 1 MG PO (08:58)
[2023-12-02] MEDS: LUMINAL 32.3999999999999986 MG PO (08:59)
--- NOTE | 2023-12-02 09:09 | W.PN.HOSP.TC ---
Today's Communication/Plan
-
Discharge
Assessment / Plan
Assessment / Plan
Gen-AAOx3, NAD
HEENT-NC, AT, anicteric, clear oral mm
Neck-supple
CV-reg, no M, +S1/S2
Lungs-clear B/L
Abd-soft, NT, ND
Ext-no edema
Musculoskeletal-no cyanosis, clubbing
Skin-warm and dry
Neuro-grossly non-focal, no tremors
Psych-calm, cooperative
Impression:
Generalized seizure.
Alcohol use disorder
At risk for DT.
Alcoholic hepatitis.
Hyponatremia, mild
Neutropenia
Thrombocytopenia
Conditions prior to admission:
Seizure disorder
Alcohol use disorder
Paroxysmal atrial fibrillation not on anticoagulation due to fall risk.
History of CVA.
Plan:
Seizure disorder with breakthrough generalized seizure, likely multifactorial in the settings of alcohol withdrawal (patient with attempt to quit alcohol with last drink reported 3 to 4 days prior to presentation). Alcohol undetectable on admission.
Patient reported to be compliant with Keppra at home.
Mental status cleared and back to baseline.
Neurology input appreciated.
No indication for EEG or additional brain imaging.
Resumed on Keppra 2 g twice a day
Continue seizure precautions.
No clinical evidence for aspiration.
Diet has been advanced
Alcohol use disorder.
At risk for DT.
Prior reaction to benzodiazepines
Initiated on MSAS protocol with phenobarbital taper
Continue thiamine repletion
Paroxysmal atrial fibrillation
Currently in normal sinus rhythm
Need to confirm preadmission medications, previously on Cardizem
Not on anticoagulation due to fall risk and noncompliance.
History of CVA.
Currently no focal findings on exam.
Mild hyponatremia appears to be euvolemic on exam. Continue monitoring.
Neutropenia/thrombocytopenia with normal hemoglobin. Likely due to alcohol.
Monitor CBC.
Patient willing and agreeable to finish phenobarbital taper at home. He is requesting discharge. Appears medically stable for discharge. Follow-up as outpatient. He does not drive. Informed him that he should not drink any alcohol with
phenobarbital in his system. Do not operate heavy machinery.
He has a plan to attend AA meetings.
32 minutes spent in discharge process.
Anticipated Discharge: Today
Subjective/Interval History
-
Date of Service: December 02, 2023
Patient seen and examined. No complaints.
Objective Data
-
Vital Signs:
Vital Signs
Temp Pulse Resp BP Pulse Ox
98.5 F 58 13 109/81 96
12/02/23 07:50 12/02/23 04:00 12/02/23 04:00 12/02/23 04:00 12/01/23 19:25
I&O
12/01/23 12/02/23 12/03/23
06:59 06:59 06:59
Intake Total 1690 / 1690 240 / 240
Output Total 700 / 700
Balance 990 / 990 240 / 240
Review of Systems
-
History Source: Patient
All other systems: Reviewed and negative
--- NOTE | 2023-12-02 09:15 | W.DS.TRANS ---
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
-
Discharge Instructions:
Discharge Diagnosis/Procedures Alcohol withdrawal seizures, alcohol use
disorder
Diet Regular
Activity As tolerated
Driving Restrictions No driving
Bathing Restrictions None
Instructions:
Stand-Alone Forms:
Changes to Home Medications: No
Discharge Medications:
DC Medications w/original date entered in [employer]
levetiracetam 1,000 mg tablet 2,000 mg (2 x 1,000 mg) PO BID Seizures 30 days #120 tabs 08/31/23
folic acid 1 mg tablet 1 mg PO DAILY #30 tabs 12/02/23
phenobarbital 32.4 mg tablet 32.4 mg PO TID #3 tabs 12/02/23
thiamine HCl (vitamin B1) 100 mg tablet 100 mg PO BID #60 tabs 12/02/23
Home Medication Changes
Pending Results: No
--- NOTE | 2023-12-02 12:55 | PTCARENOTE ---
pt discharged. left w/ brother. all belongings w/ pt. Discharge instructions reviewed w/ patient. medications reviewed. Pt understating of all restrictions/instructions. INT removed. VSS.
== END 2023-12-02 12:43 | disposition home or self-care (01) | DRG 897 ==
LOC: IMU 05:27
PROVIDERS: Internal Medicine; ADMITTING PHYSICIAN Internal Medicine; ATTENDING PHYSICIAN Hospitalist; CONSULT PHYSICIAN Student in an Organized Health Care Education/Training Program; EMERGENCY PHYSICIAN Student in an Organized Health Care Education/Training Program; FAMILY PHYSICIAN Family Medicine; OTHER PHYSICIAN Psychiatry & Neurology Psychiatry
DX: F10.239 Alcohol dependence with withdrawal, unspecified (principal); G40.89 Other seizures; D68.51 Activated protein C resistance; E87.1 Hypo-osmolality and hyponatremia; I48.0 Paroxysmal atrial fibrillation; G40.909 Epilepsy, unspecified, not intractable, without status epilepticus; I10 Essential (primary) hypertension; M10.9 Gout, unspecified; D63.8 Anemia in other chronic diseases classified elsewhere; E78.00 Pure hypercholesterolemia, unspecified; K70.10 Alcoholic hepatitis without ascites; D69.6 Thrombocytopenia, unspecified; D70.9 Neutropenia, unspecified; Z91.148 Patient's other noncompliance with medication regimen for other reason; Z86.73 Personal history of transient ischemic attack (TIA), and cerebral infarction without residual deficits; Z87.891 Personal history of nicotine dependence
CPT/HCPCS: 80053; 80177; 80306; 81003; 82077; 83735; 84100; 85025; 93005; 96374; 97162; 99285

== ENCOUNTER 2024-01-07 11:19 | Inpatient (IN) | payer OTHER, SELFPAY ==
[2024-01-07] VITALS (22 sets, daily range): BP systolic 124–157; BP diastolic 77–95; BMI 22.1; BMI 21.7
--- NOTE | 2024-01-07 06:59 | ED.GENMED ---
History of Present Illness
General
Chief Complaint: Seizure
Source: patient, records and family
Exam Limitations: none
Time Seen by Provider: 01/07/24 06:46
Nursing documentation reviewed up to this point in time: agreed with
History of Present Illness
History of Present Illness:
58-year-old male with a past medical history of prior hemorrhagic stroke, epilepsy, hypertension, hyperlipidemia, alcohol abuse who presents to the emergency department for evaluation after witnessed seizure. Patient reports that he was in bed,
witnessed a generalized tonic-clonic seizure that apparently lasted for few minutes and ceased without intervention. Brought to the emergency room for assessment. Awake and alert on arrival, patient reports that he has had some shakiness
since the seizure but denies any other complaints. He denies any headache, neck pain. Denies any chest pain or abdominal pain. Denies feeling nauseated. He denies feeling anxious. He denies any other complaints. He was apparently in bed and
there was no secondary fall or trauma. Patient was recently admitted in late November for seizures related to alcohol withdrawal. Patient admits to still drinking but says that he has 'cut back since I was in the hospital.' He says that whereas
previously he was a daily drinker he claims that he is now only drinking 'about 2 glasses of wine on the weekends only' (notably today is Monday and he claims that his last drink was 4 days ago which would be Monday). He is on Keppra for primary
seizure disorder and reports compliance although he did not have his morning dose today�he takes Keppra 2000 mg twice daily.
Past History
Past History
ED Past Medical History: Arrthythmia (Paroxysmal atrial fibrillation), CVA (Possible TIA), HTN, Hypercholesterolemia, Seizures, Other (Spontaneous subarachnoid hemorrhage 2004), Other (gout; alcohol abuse with alcohol withdrawal seizures, alcohol
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
ED Past Surgical History: Orthopedic (left knee arthroscopy)
Social History
Tobacco: Former smoker
Alcohol: Chronic alcoholic
Drug: None
Personal:
Living: with family
Employment: Not employed
Family History
Family History: Other (He has a father and a brother that had strokes)
Review of Systems
Review of Systems
All Other Systems: ROS reviewed and negative except as documented in HPI and ROS
Constitutional: Denies fever
Respiratory: Denies cough or trouble breathing
Cardiac: Denies chest pain or palpitations
ABD/GI: Denies abdominal pain, nausea or vomiting
: Denies flank pain
Musculoskeletal: Denies neck pain or back pain
Neurological: Reports other (Seizure; tremulous); Denies dizzy, headache, weakness or numbness
Phy Exam
Physical Exam
Physical Exam:
Vitals: Hypertensive, tachycardic; afebrile, respiratory rate and pulse ox acceptable on room air
General: Awake, alert, appears mildly anxious and has a visible resting tremor
Head: Normocephalic, atraumatic
Eyes: Conjunctiva normal, EOMI, pupils equal round and reactive to light bilaterally
Throat: Airway intact, handling secretions; tongue appears atraumatic
Neck: Trachea midline, supple without meningismus
Lungs: Clear to auscultation bilaterally, no wheezing, rales, rhonchi
Heart: Regular rate and rhythm, no murmurs, gallops, or rubs
Abd: Soft, non distended, nontender
Neuro: Cranial nerves intact, speech is fluid with no dysarthria, motor and sensory function intact upper and lower extremities; he has a visible resting tremor
Skin: no rash
Extremities: Atraumatic, no edema, warm and well-perfused
Scores
Heart Failure Risk
Heart Failure Risk Score: Not Applicable
Heart Score for Chest Pain Patients
STEMI patient?: Not applicable
Withdrawal Assessment of Alcohol
Withdrawal Assessment Completed?: Yes
Nausea and Vomiting: No nausea and no vomiting
Tactile Disturbances: None
Tremor: Moderate, with patient's arms extended
Auditory Disturbances: Not present
Paroxysmal Sweats: No sweat visible
Visual Disturbances: Not present
Anxiety: Mild anxiety
Headache, Fullness in Head: Not present
Agitation: Normal activity
Orientation and clouding of sensorium: Cannot do serial additions or is uncertain about date
Total CIWA Score: 6
Alcohol Withdrawal Medication Recommendation: Equal to MSAS Score 0-4. Monitor & re-assess q2hrs, NO MEDICATION NEEDED
Course
Orders/Labs/Results
Orders:
Orders
01/07/24 06:44
IV Insert/Care/Rem.- Treatment PRN
01/07/24 06:48
Drug Screen, Urine [Urine Drug Abuse Screen] Urgent
0.9% Sodium Chloride 500 ml [Nss] 500 ml IV BOLUS
FOLic ACID [Folvite] 1 mg 0.9% Sodium Chloride 50 ml [Nss] 50 ml IV ONCE
Thiamine Injection 100 mg IV NOW STA
01/07/24 06:54
Alcohol Urgent
Basic Metabolic Panel Urgent
CPK [Creatine Phosphokinase] Urgent
Complete Blood Count/With Diff Urgent
01/07/24 06:56
Electrocardiogram (*1) Urgent
Reason for Study: Other
Other Reason for Exam: seizure
EKG- Treatment ONCE
Levetiracetam [Keppra] 2,000 mg PO NOW STA
01/07/24 09:11
Keppra (Levetiracetam) [S] Urgent
01/07/24 09:37
Electrocardiogram (*1) Urgent
Reason for Study: Bradycardia / Tachycardia
EKG- Treatment ONCE
01/07/24 09:38
Lorazepam [Ativan] 2 mg .ROUTE .STK-MED ONE
01/07/24 09:43
Phenobarbital Sodium [Phenobarbital] 260 mg 0.9% Sodium Chloride 100 ml [Nss] 100 ml IV NOW
01/07/24 09:46
CT Head W/o Iv Contrast Urgent
Comment:
Reason For Exam: seizure, change in mentation
Abnormal Lab Results
01/07/24
06:54
WBC 4.2 L 10^3/uL
(4.8-10.8)
RBC 4.09 L 10^6/uL
(4.70-6.10)
Hct 37.6 L %
(39.0-52.0)
MCH 34.0 H pg
(27.0-31.0)
Absolute Lymphs (auto) 1.0 L 10^3/uL
(1.2-3.4)
Monocytes % 10.0 H %
(1.7-9.3)
Sodium 132 L mmol/L
(135-145)
Chloride 94 L mmol/L
(98-107)
Carbon Dioxide 17 L mmol/L
(22-30)
Glucose 120 H mg/dl
(70-99)
Creatine Kinase 204 H U/L
(55-170)
01/07/24 06:54
01/07/24 06:54
Vital Signs
Initial and Last Documented VS:
Initial Vital Signs
Temp Pulse Resp BP Pulse Ox
37.1 C 101 18 153/95 95
01/07/24 06:34 01/07/24 06:34 01/07/24 06:34 01/07/24 06:34 01/07/24 06:34
Last Documented Vital Signs
Temp Pulse Resp BP Pulse Ox
37.2 C 102 14 155/95 95
01/07/24 07:47 01/07/24 10:26 01/07/24 10:26 01/07/24 10:18 01/07/24 10:26
MDM/Problems Addressed
Differential Diagnosis Includes:
Alcohol withdrawal seizure versus breakthrough seizure/primary seizure disorder
MDM/Problems Addressed:
58-year-old male presents after witnessed seizure by his as described above. Recent admission for alcohol withdrawal seizures but he also is a primary seizure disorder since a hemorrhagic stroke in 2004. He is maintained on Keppra 2000 mg
twice daily and reports compliance although did not have his dose this morning yet. He claims that he has 'cut back' on his drinking since his recent hospitalization although his reported intake is somewhat dubious and inconsistent. He says his
last drink was 4 days ago. He does not believe that he is in alcohol withdrawal but appears anxious is hypertensive, tachycardic and has a visible tremor. Rest of exam as above. Will plan to place an IV and send basic labs including a CBC and
CMP, CPK. Will check alcohol level and UDS. Will treat with thiamine and folate, provide home dose of Keppra. Will give him a dose of Ativan as well as 1 mg IV for suspected alcohol withdrawal. Monitor closely and reassess after the above.
Patient allergic to Ativan and so this was not ordered; heart rate improved with fluids, patient still with some tremulousness continue to monitor.
Patient having increasing tachycardia and confusion, now diaphoretic appears to be in acute withdrawal. With his prior allergy to Ativan and will dose with phenobarbital IV. Initially no CT scan as he was awake and alert with no neurologic
deficits now he is acutely confused and babbling suspect likely due to severe alcohol withdrawal given prior history of hemorrhagic stroke will send for CT head. Will require admission to the hospital�I did discuss the case with neurology.
CT head negative for any acute pathology. Patient less confused after IV phenobarbital. Will admit for acute alcohol withdrawal with seizures and now confusion concern for possible DTs. Case discussed with hospitalist.
Chronic conditions affecting care:
Alcohol abuse, primary seizure disorder
Acute Exacerbation and/or Progression of Chronic Illness:
Acutely hypertensive suspect in the setting of alcohol withdrawal�treat withdrawal but no antihypertensive indicated at present
Acute Exacerbation and/or Progression of Chronic Illness: HTN
*Radiology
Radiology exam reviewed: radiology read reviewed
*Pulse Oximetry
Patient hypoxic: no
*EKG
Interpreted by ED Provider?: Yes
Heart Rate: 96
Rate: normal
Rhythm: sinus
[place]: normal axis
Interval: normal interval
QRS Pattern: normal QRS
Ischemia: no ischemia
*Critical Care Note
Total Time (30-74mins, 75-104mins- exclusive of procedures): Not Applicable
Data Reviewed
Review of Other/Old Records Reveals: Labs, Records and Discharge Summary
Source: patient, records and family
Further Testing Considered But Not Given:
Considered need for CT head but with patient awake alert and at baseline with no neurologic deficit, no secondary trauma, known history of seizure disorder no indication for emergent head imaging at this point
ED Attending Note
-
Portions of this chart may have been created with voice recognition software.� Occasional wrong word or��sound alike� substitutions may have occurred due to the inherent limitations of voice recognition software.
Discharge Plan
Departure
Patient Disposition: Admit
Date of Disposition: 01/07/24
Time of Disposition: 10:32
Admit to doctor: Tushar
Presentation/result/management discussed w/ accepting MD/DO: Hospitalist
Discharge Problem:
Alcohol withdrawal seizure
Prescriptions:
No Action
levetiracetam 1,000 mg Tablet
2,000 mg PO BID 30 Days Qty: 120 0RF
thiamine HCl (vitamin B1) 100 mg Tablet
100 mg PO BID Qty: 60 0RF
folic acid 1 mg Tablet
1 mg PO DAILY Qty: 30 0RF
phenobarbital 32.4 mg Tablet
32.4 mg PO TID Qty: 3 0RF
Referrals:
Shivam Hernadez MD [Family Provider] -
Interventions
Interventions:
*Risk Screen - Suicide Last Done: 01/07/24 06:34
*General Assessment Last Done: 01/07/24 06:34
*Neglect/Abuse Screening Last Done: 01/07/24 06:34
*ED COVID-19 Vaccine History Last Done: 01/07/24 10:27
ED- Cardiac Assessment Last Done: 01/07/24 06:39
ED- Neurological Assessment Last Done: 01/07/24 06:39
ED- Pulmonary Assessment Last Done: 01/07/24 06:39
Discharge Date and Time
Print Language: [email or web address]
[2024-01-07 07:14] LABS: % Basophils 0.5 % (0-2); % Eosinophils 0.2 % (0-6); % Immature Granulocytes 0.5 % (0-0.5); % Lymphocytes 22.7 % (20.5-51.1); % Neutrophils 66.1 % (42.2-75.2); Absolute Monocytes 0.4 10^3/uL (0.1-0.6); Absolute Neutrophils 2.8 10^3/uL (1.4-6.5); Hematocrit 37.6 % (39.0-52.0); Hemoglobin 13.9 g/dL (13.0-18.0); Mean Corpuscular Volume 91.9 fL (80.0-94.0); Mean Platelet Volume 9.9 fL (7.4-10.4); Nucleated Red Blood Cells % 0.7 % (-); Platelet Count 208 10^3/uL (130-400); Red Blood Cell Count 4.09 10^6/uL (4.70-6.10); Red Cell Dist. Width 13.3 % (11.5-14.5); White Blood Cell Count 4.2 10^3/uL (4.8-10.8)
[2024-01-07 07:32] LABS: Blood Urea Nitrogen 9 mg/dl (9-20); Carbon Dioxide 17 mmol/L (22-30); Chloride 94 mmol/L (98-107); Estimated Creatinine Clearance 120 ml/min; Glucose 120 mg/dl (70-99); Sodium 132 mmol/L (135-145); eGFR > 60.00
[2024-01-07 07:33] LABS: Calcium 9.2 mg/dl (8.4-10.2)
[2024-01-07] MEDS: NSS 500 IV (07:37)
[2024-01-07] MEDS: THIAMINE INJECTION 100 MG IV (07:40)
[2024-01-07] MEDS: KEPPRA 2000 MG PO (07:40)
[2024-01-07 08:35] LABS: Alcohol None Detected; Creatine Phosphokinase 204 U/L (55-170)
[2024-01-07] MEDS: FOLVITE 50.2 MG IV (09:10)
[2024-01-07] MEDS: PHENOBARBITAL 104 MG IV (10:14)
--- NOTE | 2024-01-07 11:06 | HPS.HSE ---
Addendum entered and electronically signed by Dieter Llamas MD 01/07/24 13:06:
Per neurology, Dr. Crow nothing new to offer-continue with current management.
Original Note:
Family Physician
-
Family Physician: Shivam Hernadez
Chief Complaint
-
seizure
History of Present Illness
58-year-old male past medical history of alcohol abuse, multiple hospitalization for alcohol withdrawal and delirium tremens is presenting from home with seizures. Patient stated he was in bed when he had episode of seizures. State he had 3
episode of seizure that lasted approximately 2 or 3 minutes. Denies tongue biting or urinary or fecal incontinence. States he ran out of his Keppra medication and last dose was 48 hours ago. States he used to drink alcohol on a daily basis and
now has cut down to 2 or 3 times weekly. Last drink was 4 days ago. States he is trying to cut down completely. Denies any headache or nausea or vomiting or diarrhea. Denies any abdominal pain. Denies any chest pain or shortness of breath.
Denies any recent sick contact. Tolerating diet. Denies any diarrhea. Denies any dysuria or hematuria.
Medical History
Past Medical History
Past Medical History: Reports Other
Additional Past Medical History:
Seizures
Alcohol use disorder
History of DTs
Alcoholic hepatitis
Paroxysmal atrial fibrillation not on anticoagulation due to fall risk
History of CVA
Past Surgical History: Reports Orthopedic (Knee Arthroscopy)
Social History
Alcohol: Daily
Personal:
Living: With Family
Family History
Family History: Not pertinent
Allergies / Home Medications
Allergies reflects when Allergies were last updated in [facility].
Home Medications with original date entered in [facility]
Allergy/Medication List:
Allergies
Allergy/AdvReac Type Severity Reaction Status Date / Time
erythromycin base Allergy Unknown Verified 01/07/24 06:33
[Erythromycin Base]
diazepam AdvReac paradoxical Verified 01/07/24 06:33
rxn/agitation,
required
upgrade
IMU>ICU
03/27/22
lorazepam [From Ativan] AdvReac Agitation Verified 01/07/24 06:33
phenytoin sodium AdvReac Unknown- Verified 01/07/24 06:33
[From Dilantin] tolerated
phenobarbital
Home Medications
levetiracetam 1,000 mg tablet 2,000 mg (2 x 1,000 mg) PO BID Seizures 30 days #120 tabs 08/31/23
phenobarbital 32.4 mg tablet 32.4 mg PO TID #3 tabs 12/02/23
Review of Systems
-
History Source: Patient
A 12 point ROS was completed and negative except as noted: Yes
Physical Exam
Vital Signs
Vital Signs
Temp Pulse Resp BP Pulse Ox
98.9 F 102 14 155/95 95
01/07/24 07:47 01/07/24 10:26 01/07/24 10:26 01/07/24 10:18 01/07/24 10:26
Physical Exam
General: Well Developed, Well Nourished and No Apparent Distress
HEENT: NormoCephalic, Moist mucous membranes and Atraumatic
Respiratory: Clear
Cardiac: S1/S2 and Regular Rhythm; No Murmur or Rub
GI: Soft, Non Tender, Non Distended and Normal Bowel Sounds; No Organomegaly
Rectal: Deferred by Provider
Musculoskeletal: No Clubbing and No Cyanosis
Skin: No Rash
Neuro: Awake, Nonfocal/grossly intact, Slurred Speech and Other (tremors )
Psych: Anxious
Laboratory Results
-
01/07/24 06:54
01/07/24 06:54
Laboratory Results
Total Bilirubin Cancelled 01/07/24 06:54
AST Cancelled 01/07/24 06:54
ALT Cancelled 01/07/24 06:54
Alkaline Phosphatase Cancelled 01/07/24 06:54
Impression/Plan
-
Generalized seizure
Alcohol use disorder/daily alcohol usage
At risk for DT.
Alcoholic hepatitis.
-Status post 2 g of Keppra IV in the ER
-Continue with Keppra 2 g IV for now
-Also started on phenobarbital taper regimen as adverse event with benzodiazepine
-Initiated on MSAS protocol with phenobarbital taper. Continue thiamine repletion
-Continue to drink alcohol. Counseled once again for complete cessation.
-Per patient last drink was 4 days ago. Also ran out of antiseizure medication last dose was Monday.
-In the past has required multiple medication including Precedex and phenobarbital for withdrawal symptoms.
-Monitor closely in the ICU
-Continue seizure precautions.
-Will defer EEG to neurology. Further antiepileptic medication adjustment per neurology.
-Start patient gentle IV fluids.
Leukopenia
History of thrombocytopenia
-Likely secondary pulmonary suppression secondary to alcohol abuse
-Trend CBC.
-Hemoglobin stable. Platelets stable
Paroxysmal atrial fibrillation not on anticoagulation due to fall risk.
-Monitor on telemetry.
-Not on anticoagulation due to fall risk and noncompliance
History of CVA.
Chronic hyponatremia likely secondary to alcohol abuse 2/2 ?beer potomania
-trend bmp for now. Na at 132 not too far from his baseline
DVT ppx-lovenox
Discussed with dental laboratory supervisor
Total Critical Care Time 45 minutes. I was immediately available to the patient and staff. I personally examined, reviewed labs, diagnostic images/reports, interpretations, treatment plans, discussed patient care with other providers and family
or caregivers (if patient is unable to make decisions), entered orders as appropriate and documented the medical record.
[2024-01-07] MEDS: ZOFRAN 4 MG IV (11:31)
--- NOTE | 2024-01-07 12:25 | CON.INTV ---
Consultation
Consultation Request
Date/Time Consultation Requested: 01/07/2024 - 1154
Date/Time Consultation Performed: 01/07/2024 - 1219
Requesting Provider: Dr. Llamas
Performing Provider: Dr. Seymour
Reason for Consultation: Seizures
Medical History
-
Chief Complaint: Seizure
History of Present Illness:
58-year-old male with a past medical history of seizure disorder, alcoholism, history of hemorrhagic stroke, hyperlipidemia, hypertension, history of DVT with history of factor V Leiden mutation, history of A-fib not on AC due to fall risk, and gout
who presents from home with seizure. Patient reportedly had 2�3 seizures prior to arrival with 2 seizures yesterday and 1 early this morning. He also was a chronic alcoholic with last drink about 4-5 days ago; he says he drinks 2 glasses of wine
daily. He also reports that he takes Keppra for his seizures and he ran out yesterday. His last dose of Keppra was 2 days ago. He says that his seizures lasted about 2-3 minutes each. In the ER, heart rate was 101, BP 153/95, SpO2 95% on room
air, breathing 18/min and he was afebrile to 98.7 �F. It is reported that he may have had another seizure in the ER as well. Labs showed leukopenia with WBC 4.2, Hb 13.9, sodium 132, serum bicarbonate 17, glucose 120, CK 204, urinalysis negative
for UTI with +3 urine ketones and elevated beta hydroxybutyrate. CT head showed no acute intracranial abnormality. He was given Keppra in the ER, IV fluids with NS 0.9% at 500cc, folic acid, thiamine and phenobarbital. Patient admitted to the ICU
with neurology consulted, and critical care services now consulted for additional management/recommendations.
When I saw the patient he was in bed, awake, alert answer my questions appropriately and in no acute distress. He admits that he has not been eating well for several days, that he has no appetite. BP 148/92, heart rate 85 and saturating 96% on
room air.
PMHx: Seizure disorder, alcoholism, history of hemorrhagic stroke, hyperlipidemia, renal insufficiency, hypertension, DVT with history of factor V Leiden mutation, anemia, gout, history of A-fib not on AC due to fall risk
PSHx: Knee arthroscopy
Past Medical History
Past Medical History: Other (Above as per HPI)
Past Surgical History: Other (Above as per HPI)
Social History
Tobacco: Non-smoker
Alcohol: Chronic Alcoholic
Drug: None
Personal:
Living: With Family
Family History
Family History: CAD (Sibling: History of [place], hemochromatosis, A-fib, history of stroke, history of mitral valve prolapse, rheumatic fever, colon cancer), Cancer (Father: Renal cancer; mother: Colon cancer) and Hypertension (Father)
Allergies / Home Medications
Allergies
Allergy/AdvReac Type Severity Reaction Status Date / Time
erythromycin base Allergy Unknown Verified 01/07/24 06:33
[Erythromycin Base]
diazepam AdvReac paradoxical Verified 01/07/24 06:33
rxn/agitation,
required
upgrade
IMU>ICU
03/27/22
lorazepam [From Ativan] AdvReac Agitation Verified 01/07/24 06:33
phenytoin sodium AdvReac Unknown- Verified 01/07/24 06:33
[From Dilantin] tolerated
phenobarbital
Home Medications
�Medication �Instructions �Recorded �Confirmed �Last Taken �Type
levetiracetam 1,000 mg tablet 2,000 mg (2 x 1,000 mg) PO BID 08/31/23 01/07/24 01/07/24 Rx
Seizures 30 days #120 tabs
phenobarbital 32.4 mg tablet 32.4 mg PO TID #3 tabs 12/02/23 01/07/24 3 Weeks Ago Rx
~12/17/23
Review of Systems
-
History Source: Patient
All other systems: Negative unless noted (12 point ROS performed and is negative unless mentioned above.)
Vitals / Labs / Diagnostic Testing
Vital Signs
Temp Pulse Resp BP Pulse Ox
100.3 F 80 15 135/92 95
01/07/24 12:33 01/07/24 13:00 01/07/24 13:00 01/07/24 13:00 01/07/24 13:00
Lab Data
01/07/24 06:54
01/07/24 06:54
Laboratory Results
01/07/24
13:45
PT 13.8
INR 1.07
APTT 26.2
Diagnostic Testing:
Physical Exam
-
HEENT: Normocephalic and Anicteric
Cardiovascular: S1/S2, Murmur (Negative) and Peripheral Edema (Negative)
Respiratory: Wheeze (Negative), Rales (Negative), Rhonchi (Negative) and Non-Labored Respirations
GI: Soft, Non Distended, Non Tender and Normal Bowel Sounds
Neurology: AO x 3 and Tremors (Negative)
Skin: Warm and Dry
General: Respiratory Distress (Negative), Comfortable, Fever (Negative) and Chills (Negative)
Assessment
-
Assessment: 58-year-old male with a past medical history of seizure disorder, alcoholism, history of hemorrhagic stroke, hyperlipidemia, hypertension, history of DVT with history of factor V Leiden mutation, history of A-fib not on AC due to fall
risk, and gout who presents from home with seizure. Patient reportedly had 2�3 seizures prior to arrival with 2 seizures yesterday and 1 early this morning. He also was a chronic alcoholic with last drink about 4-5 days ago; he says he drinks 2
glasses of wine daily. He also reports that he takes Keppra for his seizures and he ran out yesterday. His last dose of Keppra was 2 days ago. He says that his seizures lasted about 2-3 minutes each. In the ER, heart rate was 101, BP 153/95,
SpO2 95% on room air, breathing 18/min and he was afebrile to 98.7 �F. It is reported that he may have had another seizure in the ER as well. Labs showed leukopenia with WBC 4.2, Hb 13.9, sodium 132, serum bicarbonate 17, glucose 120, CK 204,
urinalysis negative for UTI with +3 urine ketones and elevated beta hydroxybutyrate. CT head showed no acute intracranial abnormality. He was given Keppra in the ER, IV fluids with NS 0.9% at 500cc, folic acid, thiamine and phenobarbital. Patient
admitted to the ICU with neurology consulted, and critical care services now consulted for additional management/recommendations.
Chronic conditions CLINICAL COUNSELOR: Seizure disorder, alcoholism, history of hemorrhagic stroke, hyperlipidemia, renal insufficiency, hypertension, DVT with history of factor V Leiden mutation, anemia, gout, history of A-fib not on AC due to fall risk
Impression:
#Multiple seizures likely due to missed doses of levetiracetam
#Starvation ketoacidosis with AG 21, +3 urine ketones and elevated BOHB - patient admits to poor appetite and not eating much of anything for several days
#Hypomagnesemia
#Leukopenia (baseline WBC: 3.5�6)
#Chronic alcoholism
#Hypertension
#History of A-fib not on AC due to fall risk
Plan:
- Restart Keppra 2000 mg IV q12hr
- Neurology consulted
- Neurochecks q1hr
- Aspiration precautions
- Maintain SpO2 >90-94%
- prn nebulized bronchodilators
- MSAS
- He apparently has an allergy to ativan; would use prn versed or librium instead
- Thiamine, folate and MVN
- Have [facility] speak to the pt tomorrow about EtOH cessation
- Considering his labs are consistent with starvation ketoacidosis, would continue with IV fluids with isotonic crystalloids (already on NS @ 100cc/hr) & start D5 1/2NS which should improve his metabolic acidosis and ketosis
- trend serum HCO3 level
- Dietary consult
- Maintain MAP>65 with BP<140/90mmHg
- Replete electrolytes with K>4, Mg>2
- Maintain euglycemia with goal BG 140-180
- Incentive spirometer encouraged
- DVT ppx
Continue ICU level care for this patient who has high risk of recurrent seizure and requires q1hr neurochecks.
Critical care statement: A total of 40 minutes of critical care time was provided for this patient today. This includes management of unstable vital signs, evaluation of the patient at bedside, reviewing the patient's pertinent medical records
including radiographs, microbiology, laboratory evaluations, and discussion with primary team, consultants, pharmacy, nutrition, physical therapy, case management, charge nurse, critical care nursing, and respiratory therapy.
Data:
CT head without contrast 01/07/2024:
No acute intracranial abnormality noted.
Encephalomalacia within the anterior left temporal lobe, unchanged.
Sequelae of mild chronic small vessel ischemic disease, similar to prior.
CXR 01/07/2024:
Unremarkable exam
--- NOTE | 2024-01-07 13:00 | PTCARENOTE ---
Rec'd pt at 1200 from the ED via stretcher. Rec'd pt awake, alert and overall oriented. Is sl forgetful to the events of the last 24 hrs and whether they occured here or at home. Had 3 seizures at home- all in bed according to pt and then per the ED
RN one here in the ED. Currently no seizure activity noted. Seizure pads placed on bed. Pt also relayed that he had run out of his Keppra and missed yesterdays doses. AV at 3mm. Denies headache or dizziness. Relays his last drink was 4 or 5 days
ago and was 2 glasses of white wine. MERCER. Does have hand tremors. Speech is clear.MSAS is a 4. SKin is pale pink and warm. Was intially a little sweaty on arrival that has subsided. Has some goosebumps on arrival but pt states he was chilly. Temp
on admission was 100.3. Respirs are unlabored on RA with sats of 94-96%. BS are clear. Monitor SR. + pulses. No edema. VS as documented. Abd is soft with + BS. Denies further nausea. Voided yellow urine in the urinal- UA studies sent. Capped ints
intact L wrist and R hand- sites wnl. Attempted labs but unable to obtain. Will have phebotomy obtain. Call reina in reach. Plan of care reviewed with pt.
[2024-01-07] MEDS: NSS 1000 IV (13:22)
[2024-01-07 13:24] LABS: Urine Albumin 1+ (Neg - Trace); Urine Bilirubin Negative (Negative); Urine Character Clear (Clear); Urine Color Yellow; Urine Glucose Negative (Negative); Urine Ketone 3+ (Negative); Urine Leukocyte Negative (Negative); Urine Nitrite Negative (Negative); Urine Occult Blood 1+ (Negative); Urine Urobilinogen Negative (Neg - 1+)
[2024-01-07 13:53] LABS: Amphetamines Negative (Negative); Barbiturates Positive (Negative); Benzodiazepines Negative (Negative); Buprenorphine Negative (Negative); Cocaine Negative (Negative); Marijuana Negative (Negative); Methadone Negative (Negative); Methamphetamines Negative (Negative); Opiates Negative (Negative); Phencyclidine Negative (Negative); Tricyclic Antidepressants Negative (Negative)
--- NOTE | 2024-01-07 14:00 | PTCARENOTE ---
Pt resting. MSAS is a 5 but pt is calm and cooperative. Admits to just being tired. He is overall oriented just sl forgetful as to some events. Phlebotomy in and labs sent. Call reina in reach. Taking po liquids without difficulty. Does have sl
tremors but no seizure activity noted
[2024-01-07 14:15] LABS: GGTP 317 U/L (15-73); INR 1.07; Magnesium 1.5 mg/dl (1.6-2.3); PT 13.8 Sec (11.4-14.6); Phosphorus 2.5 mg/dl (2.5-4.5)
[2024-01-07 14:16] LABS: APTT 26.2 Sec (23.4-35.0)
[2024-01-07 14:17] LABS: Urine Red Blood Cell 0-2 /HPF (0-2); Urine Squamous Cell 0-2 /LPF (Few); Urine White Cell 0-2 /HPF (0-5)
[2024-01-07 14:18] LABS: Urine Hyaline Cast 0-2 /LPF (0-2)
[2024-01-07 14:22] LABS: B-Hydroxybutyrate 4.29 mmol/L (0.02-0.27)
--- NOTE | 2024-01-07 14:31 | CM ---
CM following re: discharge planning.
Reviewed pt's chart, met with pt.
Pt is a 58 year old male, admitted with primary dx of Seizure.
Pt reports he lives with spouse in a 2SH, 2 steps to enter, has no children. Pt reports he is second of 12 children, has 11 siblings. 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
, does not drive due to h/o seizures.
Pt admitted to h/o alcohol abuse, used to drink daily, now drinking 2-3 times per week, Pt reports he went to [place] inpatient D&A rehab, [facility] inpatient D&A rehab, outpatient D&A rehab at [facility] and goes to AA meetings. Pt
reports his drinks and it's triggered his drinking. Pt expressed his agreement to meet with [facility] team and he is open to go to inpatient D&A rehab. A referral to [facility] made.
PCP: Shivam Hernadez
Pharmacy: [facility]
D/C plan: Inpatient D&A rehab. Pt agrees today. [facility] following.
CM will follow with discharge plan updates as hospitalization progresses
[2024-01-07] MEDS: MAGNESIUM SULFATE 100 IV (14:59)
[2024-01-07] MEDS: TYLENOL 650 MG PO (15:06)
[2024-01-07] MEDS: PHENOBARBITAL 97.5 MG IV ×2 (15:07→21:50)
[2024-01-07] MEDS: THIAMINE INJECTION 200 MG IV ×2 (15:08→23:38)
[2024-01-07] MEDS: FLUSH (NSS) 2 FLUSH IV (15:10)
[2024-01-07] MEDS: D5/0.45%NACL 1000 IV (15:15)
--- NOTE | 2024-01-07 15:15 | PTCARENOTE ---
Pt resting. Dozing intermittently or watching TV when not disturbed. Denies discomfort. Temp 101.3 but room warm and pt with several blankets on. Tylenol 650 mg po given. Mag 4 gm rider hung via R hand IV site at 25 ml/hr . IV fluids changed to D5
1/2 NS at 75 ml/hr. Call reina within reach. Dr. Seymour updated
--- NOTE | 2024-01-07 17:00 | PTCARENOTE ---
Temp down to 99.6 post Tylenol. Pt eating dinner. Mag rider infusing. MSAS is a 3. Still with very mild tremor but only seen when pt is moving or doing an activity, not at rest. Denies discomfort. States he is feeling better. No seizure activity
noted.
[2024-01-07] MEDS: LOVENOX 40 MG SC (17:44)
--- NOTE | 2024-01-07 18:30 | PTCARENOTE ---
Good appetite for dinner. States he feels better. No changes in assessment
--- NOTE | 2024-01-07 20:00 | PTCARENOTE ---
Rec'd pt resting in bed, assisted to bsc - had loose brown stool, back to bed, bed alarm on, forgetful, oriented, msas done, hands tremulous, SR, bp stable, weak distal pulses, no edema, skin warm/dry, RA, lungs decr in bases, sat 98, + bowel
sounds, abd soft, no n/v, prem fluids, voiding in urinal, transferred to [id number] to be closer to nurses station
[2024-01-07] MEDS: KEPPRA 2000 MG IV (20:13)
[2024-01-08] VITALS (17 sets, daily range): BP systolic 109–142; BP diastolic 82–95; BMI 21.4
--- NOTE | 2024-01-08 00:13 | PTCARENOTE ---
sys reviewed, assisted to BSC - had loose brown bm, back to bed, CHG bath done, linens changed
--- NOTE | 2024-01-08 04:12 | PTCARENOTE ---
sys reviewed, tylenol 650mg po given for left shoulder ache
[2024-01-08 04:22] LABS: % Basophils 0.5 % (0-2); % Eosinophils 0.3 % (0-6); % Immature Granulocytes 0.3 % (0-0.5); % Lymphocytes 16.9 % (20.5-51.1); % Monocytes 12.3 % (1.7-9.3); % Neutrophils 69.7 % (42.2-75.2); Absolute Lymphocytes 0.7 10^3/uL (1.2-3.4); Absolute Monocytes 0.5 10^3/uL (0.1-0.6); Absolute Neutrophils 2.7 10^3/uL (1.4-6.5); Hematocrit 34.5 % (39.0-52.0); Hemoglobin 12.9 g/dL (13.0-18.0); Mean Corp Hgb Conc. 37.4 g/dL (33.0-37.0); Mean Corpuscular Hgb 34.2 pg (27.0-31.0); Mean Corpuscular Volume 91.5 fL (80.0-94.0); Mean Platelet Volume 9.7 fL (7.4-10.4); Nucleated Red Blood Cells % 0 % (-); Platelet Count 157 10^3/uL (130-400); Red Blood Cell Count 3.77 10^6/uL (4.70-6.10); Red Cell Dist. Width 13.2 % (11.5-14.5); White Blood Cell Count 3.9 10^3/uL (4.8-10.8)
[2024-01-08 04:45] LABS: ALT (SGPT) 87 U/L (0-50); AST (SGOT) 111 U/L (17-59); Albumin 3.6 g/dl (3.5-5.0); Alkaline Phosphatase 57 U/L (38-126); Blood Urea Nitrogen 3 mg/dl (9-20); Calcium 7.2 mg/dl (8.4-10.2); Carbon Dioxide 23 mmol/L (22-30); Chloride 102 mmol/L (98-107); Estimated Creatinine Clearance > 125 ml/min; Glucose 150 mg/dl (70-99); Magnesium 1.6 mg/dl (1.6-2.3); Potassium 3.4 mmol/L (3.5-5.1); Sodium 134 mmol/L (135-145); Total Protein 6.1 g/dl (6.3-8.2); eGFR > 60.00
[2024-01-08] MEDS: KCL 20 MEQ PO (05:07)
[2024-01-08] MEDS: MAGNESIUM SULFATE 50 IV (05:07)
[2024-01-08] MEDS: D5/0.45%NACL 1000 IV (05:07)
--- NOTE | 2024-01-08 05:11 | PTCARENOTE ---
20 meq kcl po given for k-3.4, 2 gm mag sulfate hung over 2hr for mag 1.6
[2024-01-08] MEDS: KEPPRA 2000 MG IV ×2 (08:00→20:06)
[2024-01-08] MEDS: FOLVITE 1 MG PO (08:00)
--- NOTE | 2024-01-08 08:03 | W.PN.HOSP.TC ---
Today's Communication/Plan
-
see bold
Assessment / Plan
Assessment / Plan
Gen: NAD, AAOx3.
Eyes: EOMI, PERRLA, no scleral icterus.
Neck: supple.
CV: RRR, +S1/S2, no m/r/g.
Resp: CTAB, no rales, wheezes, or rhonchi.
Abd: +BS, soft, NT, ND
Skin: No rashes.
Neuro: CN 2-12 intact, non-focal, mild tremor.
Psych: Normal mood and affect.
CT brain: No acute intracranial abnormality noted. Encephalomalacia within the anterior left temporal lobe, unchanged. Sequelae of mild chronic small vessel ischemic disease, similar to prior.
CXR: Unremarkable exam.
Generalized seizure and alcoholic hepatitis due to alcohol use disorder/daily alcohol usage and cessation of AEDs:
-last drink 4 days [employer], also ran out of AED 01/05/24
-at risk for DTs
-In the past has required multiple medication including Precedex and phenobarbital for withdrawal symptoms.
-s/p 2g IV Keppra in ER, cont Keppra 2g IV Q12H
-Cont phenobarbital taper (h/o adverse event with benzodiazepine)
-cont MSAS protocol (thiamine/folate)
-cont D5 1/2NS
-Continues to drink alcohol. Patient is been counseled multiple times on alcohol cessation. Due to failure to cease alcohol abuse the patient's prognosis is extremely poor.
-Per patient last drink was 4 days ago. Also ran out of antiseizure medication last dose was Monday.
-c/s neurology
Leukopenia
History of thrombocytopenia
-Likely secondary bone marrow suppression suppression secondary to alcohol abuse
-Trend CBC.
-Hemoglobin stable. Platelets stable
Other problems:
Paroxysmal atrial fibrillation: Not on anticoagulation due to fall risk and noncompliance
h/o CVA
Chronic hyponatremia likely secondary to alcohol abuse 2/2 likely beer potomania: Na 134
FULL/Lovenox
Transfer to IMU.
Total time spent on today's encounter was 50 minutes which included time spent in counseling the patient/family regarding diagnosis and treatment plan as listed above, goals of care, and symptom management. Case was discussed with nursing staff,
specialists, and care coordinators/case management. All labs and imaging personally reviewed by me. Remainder the time spent in detailed review of previous records, lab data, imaging, and other medical provider documentation.
Anticipated Discharge: Within 24 hours
Subjective/Interval History
-
Date of Service: January 08, 2024
'I feel better.' Denies hallucinations, anxiety, withdrawal symptoms.
Objective Data
-
Labs:
Laboratory Results
01/08/24
04:02
WBC 3.9 L
Hgb 12.9 L
Hct 34.5 L
Plt Count 157 D
Sodium 134 L
Potassium 3.4 L
Chloride 102
Carbon Dioxide 23
BUN 3 L
Creatinine 0.6 L
Glucose 150 H
Calcium 7.2 L D
Total Bilirubin 1.0
AST 111 H
ALT 87 H
Alkaline Phosphatase 57
Vital Signs:
Vital Signs
Temp Pulse Resp BP Pulse Ox
99 F 68 14 137/84 97
01/08/24 07:12 01/08/24 07:00 01/08/24 07:00 01/08/24 07:00 01/08/24 07:00
I&O
01/07/24 01/08/24 01/09/24
06:59 06:59 06:59
Intake Total 3590 / 3690 100 / 100
Output Total 3700 / 3700
Balance -110 / -10 100 / 100
[2024-01-08] MEDS: PHENOBARBITAL 97.5 MG IV ×3 (08:07→21:27)
[2024-01-08] MEDS: THIAMINE INJECTION 200 MG IV ×3 (08:09→23:41)
--- NOTE | 2024-01-08 08:38 | W.PN.INTV ---
Today's Communication / Plan
Recommendations
MSAS with phenobarbital protocol
Keppra
Up OOB as tolerated
K>4, Mg>2
Be Cares; pt is interested in starting back up with AA once back home
Patient is stable for downgrade to IMU level care. Scanner Supervisor/Pulmonary service will now sign off. Please reconsult if there are any additional questions/concerns, or if patient's respiratory status deteriorates.
Assessment
-
Assessment: 58-year-old male with a past medical history of seizure disorder, alcoholism, history of hemorrhagic stroke, hyperlipidemia, hypertension, history of DVT with history of factor V Leiden mutation, history of A-fib not on AC due to fall
risk, and gout who presents from home with seizure. Patient reportedly had 2�3 seizures prior to arrival with 2 seizures yesterday and 1 early this morning. He also was a chronic alcoholic with last drink about 4-5 days ago; he says he drinks 2
glasses of wine daily. He also reports that he takes Keppra for his seizures and he ran out yesterday. His last dose of Keppra was 2 days ago. He says that his seizures lasted about 2-3 minutes each. In the ER, heart rate was 101, BP 153/95,
SpO2 95% on room air, breathing 18/min and he was afebrile to 98.7 �F. It is reported that he may have had another seizure in the ER as well. Labs showed leukopenia with WBC 4.2, Hb 13.9, sodium 132, serum bicarbonate 17, glucose 120, CK 204,
urinalysis negative for UTI with +3 urine ketones and elevated beta hydroxybutyrate. CT head showed no acute intracranial abnormality. He was given Keppra in the ER, IV fluids with NS 0.9% at 500cc, folic acid, thiamine and phenobarbital. Patient
admitted to the ICU with neurology consulted, and critical care services now consulted for additional management/recommendations.
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
Impression:
#Multiple seizures likely due to missed doses of levetiracetam
#Starvation ketoacidosis with AG 21, +3 urine ketones and elevated BOHB - patient admits to poor appetite and not eating much of anything for several days --> ketoacidosis now resolved
#Hypomagnesemia
#Leukopenia (baseline WBC: 3.5�6)
#Chronic alcoholism - Per my discussion with the patient today, he is interested in quitting and restarting AA
#Hypertension
#History of A-fib not on AC due to fall risk
Plan:
- Continue Keppra 2000 mg IV q12hr
- Neurology consulted - recommendations appreciated
- Neurochecks can now be q4hr
- Aspiration precautions
- Maintain SpO2 >90-94%
- prn nebulized bronchodilators
- MSAS
- He apparently has an allergy to Ativan
- Continue phenobarbital protocol
- Use prn versed or Librium instead
- Thiamine, folate and MVN
- Have Be Cares speak to the pt about EtOH cessation
- Considering his labs are consistent with starvation ketoacidosis, I continued with IV fluids with isotonic crystalloids (already on NS @ 100cc/hr) & on 01/06 I started D5 1/2NS
- His acidosis has now resolved
- Ok to stop D5 gtt now, anyi as regular diet is ordered
- trend serum HCO3 level
- Dietary consult
- Maintain MAP>65 with BP<140/90mmHg
- Replete electrolytes with K>4, Mg>2
- Maintain euglycemia with goal BG 140-180
- Incentive spirometer encouraged
- DVT ppx
Patient is stable for downgrade to IMU level care. Scanner Supervisor/Pulmonary service will now sign off. Thank you for allowing us to be involved in the care of this patient. Please reconsult if there are any additional questions/concerns, or if
patient's respiratory status deteriorates.
Total time spent today was 55 minutes for this encounter. Time includes reviewing laboratory test/imaging results, reviewing pertinent medical records, obtaining and reviewing medical history, performing an appropriate exam, ordering medications,
tests and procedures. Time also includes documentation of this encounter, coordinating patient care and communicating with other healthcare professionals. Total time does not include separately billed tests performed on this date of service.
Data:
CT head without contrast 01/07/2024:
No acute intracranial abnormality noted.
Encephalomalacia within the anterior left temporal lobe, unchanged.
Sequelae of mild chronic small vessel ischemic disease, similar to prior.
CXR 01/07/2024:
Unremarkable exam
Subjective Dataa
Subjective Data
Date of Service:
Date of Service: January 08, 2024
Chief Complaint: Scanner Supervisor Follow Up
Subjective:
Seen and evaluated today at bedside. On room air saturating 98%. Heart rate 77, BP 142/91. He does not feel shaky, denies headache, chest pain, fevers or chills. Eager to go home.
Review of Systems
General: Other (Negative unless mentioned above)
Objective Data
Data Reviewed
Vital Signs / I&O / Oxygen:
Vital Signs
Temp Pulse Resp BP Pulse Ox
99 F 68 14 137/84 97
01/08/24 07:12 01/08/24 07:00 01/08/24 07:00 01/08/24 07:00 01/08/24 07:00
Intake and Output
01/07/24 01/08/24 01/09/24
06:59 06:59 06:59
Intake Total 3590 / 3690 500 / 500
Output Total 3700 / 3700
Balance -110 / -10 500 / 500
SaO2 97
Physical Exam
General: Respiratory Distress (Negative) and Comfortable
HEENT: Normocephalic and Anicteric
Cardiovascular: S1-S2 and Peripheral Edema (Negative)
Respiratory: Clear, Wheeze (Negative), Crackles (Negative), Rhonchi (Negative) and Non-Labored Respirations
GI: Soft, Non Distended, Non Tender and Normal Bowel Sounds
Neurology: AO x 3 and Tremors (Negative)
Skin: Warm, Dry and Jaundice (Negative)
Labs/Micro/Reports
Lab Data
01/08/24 04:02
01/08/24 04:02
Laboratory Results
01/07/24
13:45
PT 13.8
INR 1.07
APTT 26.2
[2024-01-08] MEDS: KCL 40 MEQ PO (09:30)
--- NOTE | 2024-01-08 10:13 | PTCARENOTE ---
Complete assessment done. Pt oriented and cooperative, following all commands appropriately, MERCER bilat. + sl visible bilat hand tremors noted. HR SR, BP stable. Pt on R/A, lobes clear, O2 sat=98%. MSAS done= 3. Pt with one person assist to bathroom.
Had soft brown BM. Voiding in urinal. Pt ate 80% of his breakfast, swallowing without difficulty. No seizure activity noted. Pt seen by Dr Garrett, and status changed to IMU. Call bed at pt's side, and comfortable.
--- NOTE | 2024-01-08 13:09 | CON.NEURO4 ---
Consultation - Neurology 4
-
CONSULTING PHYSICIAN: Shad Alvares MD (Neurology)
REFERRING PHYSICIAN: Hospitalist
DICTATED BY: Shad Alvares MD
DATE/TIME OF REQUEST: January 08, 2024
DATE/TIME OF CONSULTATION: January 08, 2024
Reason for Consultation: Seizure disorder
History of Present Illness:
This is a 58 year old right handed male who has presented to the hospital with chief complaint of seizures. He gives a history of chronic alcoholism with delirium tremens, left temporal lobe bleed, hypertension hyperlipidemia gout anemia factor V
Leiden insufficiency who has had seizures secondary to left temporal lobe bleed and alcohol-related
His last drink was 3 to 4 days ago. Patient had multiple seizures prior to admission and in the emergency room. He was on Keppra 2000 mg twice a day. He ran out of his medications 1 week ago and has not refilled it.
His medication gets refilled by his primary physician. He has not seen his neurologist for 1 year
Following admission he was given Keppra 2000 mg IV and started on maintenance Keppra 2000 mg twice a day
Following admission patient has had no further seizures
Past Medical History: Alcoholism left temporal lobe bleed
Surgical History: Left knee surgery
Family History: Noncontributory
Social History: Lives at home has been drinking wine on a daily basis for the last 30 years
Allergies: Theramycin diazepam Ativan Dilantin
Home Medications:
Review of Symptoms:
Patient denies any fever, headache, chest pain, shortness of breath, GI or symptoms.
�
Vital Signs:
The patient has a Temp 36.9 C Pulse 79 Resp 16 BP 132/85 Pulse Ox 98
Physical Exam:
The patient is afebrile, heart sounds S1 and S2 are regular , and chest is clear to auscultation bilaterally. Poor oral hygiene with advanced dental disease
Neurologic Examination:
The patient is awake, alert and oriented x person place and time. He is able to follow commands and answer questions appropriately. There is no aphasia or dysarthria. He is able to register but has poor recall
On cranial nerve assessment, pupils are 3 mm bilateral, round and reactive to light and accommodation. Visual durand are full. Extraocular movements are intact. Facial sensations are intact and bilaterally symmetrical, there is no facial asymmetry.
Hearing is intact bilaterally to normal conversation volume. Tongue palate and uvula are midline. Sternocleidomastoid strengths are full bilaterally.
Motor strengths are 5/5 bilateral upper and lower extremities on medical research [place] scale. There is no drift or involuntary movement noted.
Deep tendon reflexes are + bilateral upper and lower extremities and Babinski is absent bilaterally. Sensations of pain, touch, temperature and vibration are intact and bilaterally symmetrical.
There was no extinction noted on double simultaneous stimulation. Coordination is intact by finger to nose bilaterally. Romberg's unsteady gait assisted
Lab Results: Addendum
Neuro Imaging: Atrophy left temporal lobe encephalomalacia small vessel disease and ventriculomegaly
Impression:
Mr. PARAMJIT GOODMAN is a 58 year old M who has presented to the hospital with chief complaint) of seizures secondary to noncompliance
Differentials for the patient's presentation include:
1. Seizure disorder multifactorial
2. Wernicke's Korsakoff syndrome
Recommendations:
1. Keppra 2000 mg twice daily
2. Vimpat 50 mg twice daily
3. EEG
4. CIWA protocol
5. Thiamine/multivitamin
6. Phenobarb as per hospitalist protocol
Discussed patient care with: Hospitalist
Vital Signs and Labs
-
Vital Signs and Labs:
Vital Signs
Temp Pulse Resp BP Pulse Ox
36.9 C 79 16 132/85 98
01/08/24 11:01 01/08/24 10:00 01/08/24 10:00 01/08/24 09:00 01/08/24 10:04
Lab Results
01/08/24 04:02
01/08/24 04:02
PT 13.8 Sec (11.4-14.6) 01/07/24 13:45
INR 1.07 01/07/24 13:45
APTT 26.2 Sec (23.4-35.0) 01/07/24 13:45
Sodium 134 mmol/L (135-145) L 01/08/24 04:02
Potassium 3.4 mmol/L (3.5-5.1) L 01/08/24 04:02
BUN 3 mg/dl (9-20) L 01/08/24 04:02
Glucose 150 mg/dl (70-99) H 01/08/24 04:02
Calcium 7.2 mg/dl (8.4-10.2) L D 01/08/24 04:02
Phosphorus 2.5 mg/dl (2.5-4.5) 01/07/24 13:45
Ur Buprenorphine Cancelled 01/07/24 12:52
Ur Buprenorphine Negative (Negative) 01/07/24 12:52
Allergies
-
Allergies
Allergy/AdvReac Type Severity Reaction Status Date / Time
erythromycin base Allergy Unknown Verified 01/07/24 06:33
[Erythromycin Base]
diazepam AdvReac paradoxical Verified 01/07/24 06:33
rxn/agitation,
required
upgrade
IMU>ICU
03/27/22
lorazepam [From Ativan] AdvReac Agitation Verified 01/07/24 06:33
phenytoin sodium AdvReac Unknown- Verified 01/07/24 06:33
[From Dilantin] tolerated
phenobarbital
Medications
-
Active Medications
Generic Name Dose Route Start Last Admin
Trade Name Freq PRN Reason Stop Dose Admin
Acetaminophen 650 mg 01/07/24 11:55 01/07/24 15:06
Acetaminophen 325 Mg Tablet PO 02/04/24 11:54 650 mg
Q4HPRN PRN Administration
mild pain/BRYANT/temp> 100.4F
Bisacodyl 10 mg 01/07/24 11:55
Bisacodyl 10 Mg Rectal Suppository RECTAL 02/04/24 11:54
[id number] PRN
constipation
Enoxaparin Sodium 40 mg 01/07/24 18:00 01/07/24 17:44
Enoxaparin Sodium 40 Mg/0.4 Ml Syringe SC 02/04/24 17:59 40 mg
QPM ALEX Administration
Folic Acid 1 mg 01/08/24 08:00 01/08/24 08:00
Folic Acid 1 Mg Tablet PO 02/05/24 07:59 1 mg
DAILY ALEX Administration
Folic Acid 1 mg/ Sodium 50.2 mls @ 200.8 mls/hr 01/08/24 08:00
Chloride IV 02/05/24 07:59
DAILYPRN PRN
if NPO
Dextrose/Sodium Chloride 1,000 mls @ 75 mls/hr 01/07/24 15:00 01/08/24 05:07
D5/0.45%Nacl IV 01/08/24 14:59 1,000 mls
.[id number] ALEX Administration
Levetiracetam 2,000 mg 01/07/24 20:00 01/08/24 08:00
Levetiracetam (100 Mg/Ml) 500 Mg/5 Ml Vial IV 02/04/24 19:59 2,000 mg
Q12 ALEX Administration
Ondansetron HCl 4 mg 01/07/24 11:27 01/07/24 11:31
Ondansetron 4 Mg/2 Ml Vial IV 02/04/24 11:26 4 mg
Q8HPRN PRN Administration
nausea/vomiting
Phenobarbital Sodium 97.5 mg 01/07/24 16:00 01/08/24 08:07
Phenobarbital (65 Mg/Ml) 1 Ml Vial IV 01/09/24 08:01 97.5 mg
TID ALEX Administration
Phenobarbital Sodium 64.8 mg 01/09/24 16:00
Phenobarbital 32.4 Mg Tablet PO 01/11/24 08:01
TID ALEX
Phenobarbital Sodium 32.4 mg 01/11/24 16:00
Phenobarbital 32.4 Mg Tablet PO 01/13/24 08:01
TID ALEX
Polyethylene Glycol 17 grams 01/07/24 11:55
Polyethylene Glycol Powder 17 Grams Packet PO 02/04/24 11:54
DAILYPRN PRN
constipation
Senna/Docusate Sodium 1 tablet 01/07/24 11:55
Docusate W/Senna (Mai-Colace) Tablet PO 02/04/24 11:54
BIDPRN PRN
constipation
Sodium Chloride 0 flush 01/07/24 12:00 01/07/24 15:10
Sodium Chloride 0.9% (Flush) Syringe IV 02/04/24 11:59 2 flush
PER PROTOCOL ALEX Administration
Thiamine HCl 200 mg 01/07/24 16:00 01/08/24 08:09
Thiamine (100 Mg/Ml) 2 Ml Vial IV 01/10/24 08:01 200 mg
Q8 ALEX Administration
Thiamine HCl 100 mg 01/10/24 20:00
Thiamine 100 Mg Tablet PO 02/07/24 19:59
BID ALEX
Home Medications
�Medication �Instructions �Recorded
levetiracetam 1,000 mg tablet 2,000 mg (2 x 1,000 mg) PO BID 08/31/23
Seizures 30 days #120 tabs
phenobarbital 32.4 mg tablet 32.4 mg PO TID #3 tabs 12/02/23
--- NOTE | 2024-01-08 14:11 | EEG.RPT ---
Electroencephalogram Report
Recording
Date of EE01/08/24
Type of EEG: Routine
Length of EEG recordin minutes
Done with Video Recording: Yes
Patient Status: Inpatient
Recording Conditions: Awake and Drowsy
Hyperventilation Performed: No
Photic Stimulation Performed: Yes
Report
LESS THAN 1 HOUR EEG REPORT
LESS THAN 1 HOUR EEG INTERPRETATION:
Minimally abnormal EEG for age due to diffuse bihemispheric slowing
CLINICAL CORRELATION:
This study was suggestive of minimal diffuse cortical dysfunction without focal abnormality. No seizures were recorded.
Clinical correlation is advised.
METHODS:
A 21 channel digitized electroencephalogram (EEG) was performed at the bedside. The 10/20 international system of electrode placement was used with ECG and lateral/vertical eye movements recorded. Persyst QEEG monitoring was performed.
QUALITY OF STUDY:
Fair due to muscle artifact
ELECTROENCEPHALOGRAPHER IMPRESSION(S):
Background
There was a low to medium amplitude fairly well organized at times anterior-posterior voltage gradient of theta frequency
There were no significant asymmetries of background activity noted.
Sleep
Drowsiness present
Photic Stimulation
Failed to activate the record.
ECG
Normal sinus rhythm
[2024-01-08] MEDS: THERAGRAN 1 TABLET PO (14:22)
--- NOTE | 2024-01-08 14:22 | PTCARENOTE ---
MSAS=2. EEG done at bedside.
--- NOTE | 2024-01-08 14:48 | CM ---
CM following re: discharge planning.
Reviewed pt's chart, met with pt. Per rounds meeting, continue phenobarbital protocol, continue supportive care.
CM spoke to [facility] Juan and he stated he was not able to meet with pt today and he will meet with the pt tomorrow morning at 9:00 a.m. Pt verbalized her plan top return back home with resumptions of AA meetings.
D/C plan: most likely home with outpatient D&A program/AA meetings and [facility] team to follow.
CM will follow with discharge plan updates as hospitalization progresses
[2024-01-08] MEDS: LOVENOX 40 MG SC (17:50)
--- NOTE | 2024-01-08 20:00 | PTCARENOTE ---
Rec'd pt resting in bed, cooperative, forgetful, bed alarm on, SR, + pulses, no edema, skin warm/dry, no seizures, RA, lungs clear, sat 98, + bowel sounds, no bm, abd soft, no n/v, prem diet, voiding w/o difficulty
[2024-01-08 21:44] LABS: Keppra (Levetiracetam) 25 ug/mL (10-40)
--- NOTE | 2024-01-08 21:45 | PTCARENOTE ---
msas 6, agitated, hallucinating, cursing, P SIMON Agarwal aware, phenobarb 97mg iv given as ordered at 2200, pt also called and stated that he was hallucinating
[2024-01-08] MEDS: PHENOBARBITAL 97 MG IV (22:00)
--- NOTE | 2024-01-08 23:51 | PTCARENOTE ---
pt impulsive, assisted to bathroom to void, back to bed, bed alarm on, oriented to place at this time, cont to curse
[2024-01-09] VITALS (10 sets, daily range): BP systolic 110–157; BP diastolic 78–109; BMI 21.2
--- NOTE | 2024-01-09 06:11 | PTCARENOTE ---
pt cooperative, oriented, no hallucinations,apologizing about his behavior last night
[2024-01-09 06:42] LABS: ALT (SGPT) 98 U/L (0-50); AST (SGOT) 118 U/L (17-59); Albumin 4.5 g/dl (3.5-5.0); Alkaline Phosphatase 66 U/L (38-126); Blood Urea Nitrogen 3 mg/dl (9-20); Calcium 8.9 mg/dl (8.4-10.2); Carbon Dioxide 20 mmol/L (22-30); Chloride 102 mmol/L (98-107); Estimated Creatinine Clearance > 125 ml/min; Glucose 96 mg/dl (70-99); Magnesium 1.5 mg/dl (1.6-2.3); Potassium 3.9 mmol/L (3.5-5.1); Sodium 135 mmol/L (135-145); Total Bilirubin 1.2 mg/dl (0.2-1.3); Total Protein 7.3 g/dl (6.3-8.2); eGFR > 60.00
[2024-01-09 07:01] LABS: Hematocrit 37.4 % (39.0-52.0); Mean Corp Hgb Conc. 37.4 g/dL (33.0-37.0); Mean Corpuscular Hgb 34.9 pg (27.0-31.0); Mean Corpuscular Volume 93.3 fL (80.0-94.0); Red Blood Cell Count 4.01 10^6/uL (4.70-6.10); White Blood Cell Count 3.8 10^3/uL (4.8-10.8)
[2024-01-09 07:18] LABS: Mean Platelet Volume 11.2 fL (7.4-10.4)
[2024-01-09 07:19] LABS: Platelet Count 107 10^3/uL (130-400)
--- NOTE | 2024-01-09 07:52 | W.PN.HOSP.TC ---
Today's Communication/Plan
-
see bold
Assessment / Plan
Assessment / Plan
Gen: NAD, AAOx3.
Eyes: EOMI, PERRLA, no scleral icterus.
Neck: supple.
CV: remains RRR, +S1/S2, no m/r/g.
Resp: remains CTAB, no rales, wheezes, or rhonchi.
Abd: +BS, soft, NT, ND
Skin: No rashes.
Neuro: CN 2-12 intact, non-focal, mild tremor.
Psych: slightly anxious
CT brain: No acute intracranial abnormality noted. Encephalomalacia within the anterior left temporal lobe, unchanged. Sequelae of mild chronic small vessel ischemic disease, similar to prior.
CXR: Unremarkable exam.
Generalized seizure and alcoholic hepatitis due to alcohol use disorder/daily alcohol usage and cessation of AEDs:
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
-at risk for DTs
-In the past has required multiple medication including Precedex and phenobarbital for withdrawal symptoms.
-s/p 2g IV Keppra in ER, cont Keppra 2g IV Q12H
-Cont phenobarbital taper (h/o adverse event with benzodiazepine). Extra dose of Phenobarbital IV last night noted.
-cont MSAS protocol (thiamine/folate)
-cont D5 1/2NS
-Continues to drink alcohol. Patient is been counseled multiple times on alcohol cessation. Due to failure to cease alcohol abuse the patient's prognosis is extremely poor.
-EEG without seizure activity
-neurology following
Leukopenia
History of thrombocytopenia
-Likely secondary bone marrow suppression suppression secondary to alcohol abuse
-Trend CBC.
-Hemoglobin stable. Platelets stable
Other problems:
Paroxysmal atrial fibrillation: Not on anticoagulation due to fall risk and noncompliance
h/o CVA
Chronic hyponatremia likely secondary to alcohol abuse 2/2 likely beer potomania
Hypokalemia, resolved
Hypomagnesemia: 2g IV Mg
FULL/Lovenox
Transfer to IMU.
Total time spent on today's encounter was 51 minutes which included time spent in counseling the patient/family regarding diagnosis and treatment plan as listed above, goals of care, and symptom management. Case was discussed with nursing staff,
specialists, and care coordinators/case management. All labs and imaging personally reviewed by me. Remainder the time spent in detailed review of previous records, lab data, imaging, and other medical provider documentation.
Anticipated Discharge: > 48 hours
Subjective/Interval History
-
Date of Service: January 09, 2024
Visual hallucinations overnight. Pt required and extra dose of IV Phenobarbital.
Objective Data
-
Labs:
Laboratory Results
01/09/24
06:10
WBC 3.8 L
Hgb 14.0
Hct 37.4 L
Plt Count 107 L D
Sodium 135
Potassium 3.9
Chloride 102
Carbon Dioxide 20 L
BUN 3 L
Creatinine 0.6 L
Glucose 96
Calcium 8.9 D
Total Bilirubin 1.2
AST 118 H
ALT 98 H
Alkaline Phosphatase 66
Vital Signs:
Vital Signs
Temp Pulse Resp BP Pulse Ox
98.8 F 65 12 131/88 98
01/09/24 06:00 01/09/24 06:02 01/09/24 06:02 01/09/24 06:02 01/08/24 23:52
I&O
01/08/24 01/09/24 01/10/24
06:59 06:59 06:59
Intake Total 3590 / 3690 1965 / 1965
Output Total 3700 / 3700 3300 / 3300
Balance -110 / -10 -1335 / -1335
[2024-01-09] MEDS: THIAMINE INJECTION 200 MG IV ×3 (07:54→23:04)
[2024-01-09] MEDS: THERAGRAN 1 TABLET PO (07:54)
[2024-01-09] MEDS: FOLVITE 1 MG PO (07:54)
[2024-01-09] MEDS: PHENOBARBITAL 97.5 MG IV (07:55)
[2024-01-09] MEDS: KEPPRA 2000 MG IV ×2 (07:58→20:37)
--- NOTE | 2024-01-09 08:15 | PTCARENOTE ---
patient seen in bed. BP via left upper arm 148/109 MAP 122. SR 78; RR 16; AAO x3 Tremors MSAS 2. RASS 0; Denies pain . Denies nausea. Visible tremors . bed alarm activated for pt's safety . call reina within reach
[2024-01-09] MEDS: MAGNESIUM SULFATE 50 IV (10:10)
[2024-01-09] MEDS: LUMINAL 64.8 MG PO ×2 (16:31→23:01)
[2024-01-09] MEDS: LIBRIUM 25 MG PO (16:38)
[2024-01-09] MEDS: LOVENOX 40 MG SC (16:38)
--- NOTE | 2024-01-09 22:52 | PTCARENOTE ---
Cannot verify vitals prior to 1900.
--- NOTE | 2024-01-09 22:52 | PTCARENOTE ---
Received patient AAOx3, following commands, bed alarm on. Impulsive, but redirectable. Normal sinus, 70s-80s, BP stable 110s/80s, normothermic. No edema, 98% on room air. Abdomen soft, round, nondistended, positive bowel sounds. Ambulates to
bathroom. PIV patent, WNL. Call reina within reach.
[2024-01-10] VITALS (8 sets, daily range): BP systolic 121–149; BP diastolic 85–97; BMI 21.4
[2024-01-10 05:47] LABS: % Basophils 0.5 % (0-2); % Eosinophils 1.1 % (0-6); % Immature Granulocytes 0.5 % (0-0.5); % Lymphocytes 22.8 % (20.5-51.1); % Monocytes 13.6 % (1.7-9.3); % Neutrophils 61.5 % (42.2-75.2); Absolute Lymphocytes 0.8 10^3/uL (1.2-3.4); Absolute Monocytes 0.5 10^3/uL (0.1-0.6); Absolute Neutrophils 2.3 10^3/uL (1.4-6.5); Hematocrit 37.3 % (39.0-52.0); Hemoglobin 13.6 g/dL (13.0-18.0); Mean Corp Hgb Conc. 36.5 g/dL (33.0-37.0); Mean Corpuscular Hgb 34.8 pg (27.0-31.0); Mean Corpuscular Volume 95.4 fL (80.0-94.0); Nucleated Red Blood Cells % 0 % (-); Red Blood Cell Count 3.91 10^6/uL (4.70-6.10); Red Cell Dist. Width 13.3 % (11.5-14.5); White Blood Cell Count 3.7 10^3/uL (4.8-10.8)
[2024-01-10 06:13] LABS: Blood Urea Nitrogen 8 mg/dl (9-20); Calcium 9.1 mg/dl (8.4-10.2); Carbon Dioxide 21 mmol/L (22-30); Chloride 103 mmol/L (98-107); Estimated Creatinine Clearance 119 ml/min; Glucose 100 mg/dl (70-99); Magnesium 1.5 mg/dl (1.6-2.3); Sodium 134 mmol/L (135-145); eGFR > 60.00
--- NOTE | 2024-01-10 07:00 | PTCARENOTE ---
report received from previous RN. pt resting in bed, AAOX3- pleasant and cooperative with care. generalized weakness. standby assist OOB. SR on telemetry heart rate in 80s. pulses palpable. no edema. pt on room air, sat 98%. lung sounds clear.
tolerating diet. voiding in urinal or bathroom without difficulty. pt updated on plan of care. see worklist for full nursing assessment and interventions.
[2024-01-10] MEDS: LUMINAL 64.8 MG PO ×3 (07:42→21:42)
[2024-01-10] MEDS: FOLVITE 1 MG PO (07:42)
[2024-01-10] MEDS: THERAGRAN 1 TABLET PO (07:43)
--- NOTE | 2024-01-10 08:00 | W.PN.HOSP.TC ---
Today's Communication/Plan
-
see bold
Assessment / Plan
Assessment / Plan
Gen: NAD, AAOx3.
Eyes: EOMI, PERRLA, no scleral icterus.
Neck: supple.
CV: continues to remain RRR, +S1/S2, no m/r/g.
Resp: continues to remain CTAB, no rales, wheezes, or rhonchi.
Abd: +BS, soft, NT, ND
Skin: No rashes.
Neuro: CN 2-12 intact, non-focal, mild tremor.
Psych: normal mood and affect
CT brain: No acute intracranial abnormality noted. Encephalomalacia within the anterior left temporal lobe, unchanged. Sequelae of mild chronic small vessel ischemic disease, similar to prior.
CXR: Unremarkable exam.
Generalized seizure and alcoholic hepatitis due to alcohol use disorder/daily alcohol usage and cessation of AEDs:
-last drink 4 days [employer], also ran out of AED 01/05/24
-at risk for DTs
-In the past has required multiple medication including Precedex and phenobarbital for withdrawal symptoms.
-s/p 2g IV Keppra in ER, cont Keppra 2g IV Q12H
-Cont phenobarbital taper (h/o adverse event with benzodiazepine).
-cont MSAS protocol (thiamine/folate)
-was D5 1/2NS, now off
-Continues to drink alcohol. Patient is been counseled multiple times on alcohol cessation. Due to failure to cease alcohol abuse the patient's prognosis is extremely poor.
-EEG without seizure activity
-neurology following
-Librium PRN
Leukopenia
History of thrombocytopenia
-Likely secondary bone marrow suppression suppression secondary to alcohol abuse
-Trend CBC.
-Hemoglobin stable. Platelets stable
Other problems:
Paroxysmal atrial fibrillation: Not on anticoagulation due to fall risk and noncompliance
h/o CVA
Chronic hyponatremia likely secondary to alcohol abuse 2/2 likely beer potomania
Hypokalemia, resolved
Hypomagnesemia: 2g IV Mg
FULL/Lovenox/IMU
Total time spent on today's encounter was 50 minutes which included time spent in counseling the patient/family regarding diagnosis and treatment plan as listed above, goals of care, and symptom management. Case was discussed with nursing staff,
specialists, and care coordinators/case management. All labs and imaging personally reviewed by me. Remainder the time spent in detailed review of previous records, lab data, imaging, and other medical provider documentation.
Anticipated Discharge: 24 - 48 hours
Subjective/Interval History
-
Date of Service: January 10, 2024
No new complaints.
Objective Data
-
Labs:
Laboratory Results
01/10/24 01/10/24
05:23 05:24
WBC 3.7 L
Hgb 13.6
Hct 37.3 L
Plt Count
Sodium 134 L
Potassium 4.0
Chloride 103
Carbon Dioxide 21 L
BUN 8 L
Creatinine 0.7
Glucose 100 H
Calcium 9.1
Vital Signs:
Vital Signs
Temp Pulse Resp BP Pulse Ox
98.1 F 59 15 124/91 98
01/10/24 07:55 01/10/24 06:00 01/09/24 10:00 01/10/24 04:36 01/09/24 21:00
I&O
01/09/24 01/10/24 01/11/24
06:59 06:59 06:59
Intake Total 1965 / 1965 480 / 480
Output Total 3300 / 3300 400 / 400 600 / 600
Balance -1335 / -1335 -400 / -400 -120 / -120
[2024-01-10] MEDS: KEPPRA 2000 MG IV ×2 (09:06→19:45)
[2024-01-10] MEDS: THIAMINE INJECTION 200 MG IV (09:06)
[2024-01-10] MEDS: MAGNESIUM SULFATE 50 IV (09:22)
--- NOTE | 2024-01-10 10:19 | CM ---
CM following re: discharge planning.
Reviewed pt's chart, met with pt.
Pt reports he met with ANA LAURA Martinez yesterday and he is interested to return back home with [facility] outpatient D&A program and resumptions of AA meetings. Pt brought to me again that his spouse is a drinker and it's triggers his drinking
behavior. Pt confronted by this CM not to looking for excuses of his drinking behavior and pt encouraged to bring his dedication and motivation to strongly pursue ongoing process/commitment to his sobriety. Pt expressed his understanding.
D/C plan: home with outpatient D&A treatment programs with resumptions of AA meetings, [facility] to follow and family support.
CM will follow with discharge plan [id number] as hospitalization progresses
[2024-01-10] MEDS: LOVENOX 40 MG SC (17:50)
[2024-01-10] MEDS: VITAMIN B1 100 MG PO (19:45)
--- NOTE | 2024-01-10 22:28 | PTCARENOTE ---
Received patient AAOx3, impulsive, bed alarm on. Normal sinus, 60s, BP stable, normothermic. 98% on room air, lung sounds clear. Abdomen soft, round, nontender. Ambulates to bathroom. PIV patent, WNL. Call reina within reach.
[2024-01-11] VITALS: BP 109/79
[2024-01-11 04:00] VITALS: BP 111/81
--- NOTE | 2024-01-11 05:45 | PTCARENOTE ---
Patient transferred from ICU around 05:30 via wheelchair. Patient AAOX3 with some forgetfulness. No c/o pain or discomfort. No seizure activity noted. Pleasant and cooperative with care. Bed alarm and chair alarm placed for fall risk precautions.
Oriented to unit. Call reina within reach.
[2024-01-11 05:48] VITALS: BP 135/94
--- NOTE | 2024-01-11 07:07 | W.PN.HOSP.TC ---
Today's Communication/Plan
-
possible d/c later today
Assessment / Plan
Assessment / Plan
Gen: remains NAD, AAOx3.
Eyes: remains EOMI, PERRLA, no scleral icterus.
Neck: supple.
CV: RRR, +S1/S2, no m/r/g.
Resp: CTAB, no rales, wheezes, or rhonchi.
Abd: remains +BS, soft, NT, ND
Skin: No rashes.
Neuro: CN 2-12 intact, non-focal.
Psych: normal mood and affect
CT brain: No acute intracranial abnormality noted. Encephalomalacia within the anterior left temporal lobe, unchanged. Sequelae of mild chronic small vessel ischemic disease, similar to prior.
CXR: Unremarkable exam.
Generalized seizure and alcoholic hepatitis due to alcohol use disorder/daily alcohol usage and cessation of AEDs:
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
-at risk for DTs
-In the past has required multiple medication including Precedex and phenobarbital for withdrawal symptoms.
-s/p 2g IV Keppra in ER, cont Keppra 2g IV Q12H
-Cont phenobarbital taper (h/o adverse event with benzodiazepine).
-cont MSAS protocol (thiamine/folate)
-was D5 1/2NS, now off
-Continues to drink alcohol. Patient is been counseled multiple times on alcohol cessation. Due to failure to cease alcohol abuse the patient's prognosis is extremely poor.
-EEG without seizure activity
-neurology following
-Librium PRN
Leukopenia
History of thrombocytopenia
-Likely secondary bone marrow suppression suppression secondary to alcohol abuse
-Trend CBC.
-Hemoglobin stable. Platelets stable
Other problems:
Paroxysmal atrial fibrillation: Not on anticoagulation due to fall risk and noncompliance
h/o CVA
Chronic hyponatremia likely secondary to alcohol abuse 2/2 likely beer potomania
Hypokalemia, resolved
Hypomagnesemia: recheck Mg
FULL/Lovenox
Anticipated Discharge: Within 24 hours
Subjective/Interval History
-
Date of Service: January 11, 2024
No new complaints.
Objective Data
-
Vital Signs:
Vital Signs
Temp Pulse Resp BP Pulse Ox
98.1 F 86 18 135/94 100
01/11/24 05:48 01/11/24 05:48 01/11/24 05:48 01/11/24 05:48 01/11/24 05:48
I&O
01/10/24 01/11/24 01/12/24
06:59 06:59 06:59
Intake Total 960 / 960
Output Total 400 / 400 1250 / 1250
Balance -400 / -400 -290 / -290
[2024-01-11 07:25] VITALS: BP 133/91
[2024-01-11] MEDS: THERAGRAN 1 TABLET PO (08:31)
[2024-01-11] MEDS: VITAMIN B1 100 MG PO ×2 (08:31→21:00)
[2024-01-11] MEDS: LUMINAL 64.8 MG PO (08:32)
[2024-01-11] MEDS: FOLVITE 1 MG PO (08:32)
[2024-01-11] MEDS: KEPPRA 2000 MG IV ×2 (08:43→21:09)
[2024-01-11] MEDS: FLUSH (NSS) 2 FLUSH IV (08:47)
[2024-01-11 10:24] LABS: Blood Urea Nitrogen 10 mg/dl (9-20); Calcium 9.4 mg/dl (8.4-10.2); Carbon Dioxide 28 mmol/L (22-30); Chloride 99 mmol/L (98-107); Estimated Creatinine Clearance 104 ml/min; Glucose 92 mg/dl (70-99); Magnesium 1.6 mg/dl (1.6-2.3); Potassium 3.8 mmol/L (3.5-5.1); Sodium 134 mmol/L (135-145); eGFR > 60.00
[2024-01-11] MEDS: MAGNESIUM SULFATE 50 IV (11:10)
--- NOTE | 2024-01-11 13:02 | CM ---
Patient seen at bedside.
Patient to return home with outpatient D&A program at [facility] & meetings.
Plan: Discharge to home when stable, brother to transport
Outpatient D&A program at [facility] & meetings.
[2024-01-11 15:00] VITALS: BP 108/60
[2024-01-11] MEDS: LUMINAL 32.4 MG PO ×2 (16:38→21:08)
[2024-01-11] MEDS: LOVENOX 40 MG SC (16:38)
[2024-01-11 23:00] VITALS: BP 134/77
[2024-01-12 07:30] VITALS: BP 120/84
[2024-01-12] MEDS: KEPPRA 2000 MG IV (08:36)
[2024-01-12] MEDS: FOLVITE 1 MG PO (08:38)
[2024-01-12] MEDS: VITAMIN B1 100 MG PO (08:38)
[2024-01-12] MEDS: LUMINAL 32.4 MG PO ×2 (08:38→15:13)
[2024-01-12] MEDS: THERAGRAN 1 TABLET PO (08:38)
--- NOTE | 2024-01-12 10:41 | W.PN.HOSP.TC ---
Addendum entered and electronically signed by Heron Garrett MD 01/12/24 12:17:
Total time spent on d/c = 32 min. This included today's physical exam, progress note, review of laboratory and diagnostic data, preparation of discharge documents and prescriptions, and discussions about the pt's hospital course and discharge plan
with the patient and other medical massage therapist involved in the patient's care.
Original Note:
Today's Communication/Plan
-
d/c
Assessment / Plan
Assessment / Plan
Gen: continues to remain NAD, AAOx3.
Eyes: continues to remain EOMI, PERRLA, no scleral icterus.
Neck: supple.
CV: RRR, +S1/S2, no m/r/g.
Resp: CTAB, no rales, wheezes, or rhonchi.
Abd: continues to remain +BS, soft, NT, ND
Skin: No rashes.
Neuro: CN 2-12 intact, non-focal.
Psych: normal mood and affect
CT brain: No acute intracranial abnormality noted. Encephalomalacia within the anterior left temporal lobe, unchanged. Sequelae of mild chronic small vessel ischemic disease, similar to prior.
CXR: Unremarkable exam.
Generalized seizure and alcoholic hepatitis due to alcohol use disorder/daily alcohol usage and cessation of AEDs:
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
-at risk for DTs
-In the past has required multiple medication including Precedex and phenobarbital for withdrawal symptoms.
-s/p 2g IV Keppra in ER, cont Keppra 2g IV Q12H
-Cont phenobarbital taper (h/o adverse event with benzodiazepine).
-cont MSAS protocol (thiamine/folate)
-was D5 1/2NS, now off
-Continues to drink alcohol. Patient is been counseled multiple times on alcohol cessation. Due to failure to cease alcohol abuse the patient's prognosis is extremely poor.
-EEG without seizure activity
-neurology following
-Librium PRN
Leukopenia
History of thrombocytopenia
-Likely secondary bone marrow suppression suppression secondary to alcohol abuse
-Trend CBC.
-Hemoglobin stable. Platelets stable
Other problems:
Paroxysmal atrial fibrillation: Not on anticoagulation due to fall risk and noncompliance
h/o CVA
Chronic hyponatremia likely secondary to alcohol abuse 2/2 likely beer potomania
Hypokalemia, resolved
Hypomagnesemia: recheck Mg
FULL/Lovenox
Medically cleared for discharge, case management aware.
Anticipated Discharge: Today
Subjective/Interval History
-
Date of Service: January 12, 2024
No new complaints. Denies diaphoresis, hallucinations, tremor.
Objective Data
-
Labs:
Laboratory Results
01/12/24
06:00
Sodium Pending
Potassium Pending
Chloride Pending
Carbon Dioxide Pending
BUN Pending
Creatinine Pending
Glucose Pending
Calcium Pending
Vital Signs:
Vital Signs
Temp Pulse Resp BP Pulse Ox
97.9 F 74 19 120/84 100
01/12/24 07:30 01/12/24 07:30 01/12/24 07:30 01/12/24 07:30 01/12/24 07:30
I&O
01/11/24 01/12/24 01/13/24
06:59 06:59 06:59
Intake Total 960 / 960 530 / 530
Output Total 1250 / 1250
Balance -290 / -290 530 / 530
--- NOTE | 2024-01-12 12:13 | CM ---
Patient seen at bedside.
Patient to return home with outpatient D&A program at [facility] & AA meetings.
Plan: Discharge home with outpatient resources.
Brother will transport
--- NOTE | 2024-01-12 14:34 | W.DCSUMMARY ---
Discharge Summary
Discharge Data
Date of Admission: 01/07/24
Date of Discharge: 01/12/24
-
Pending Results: No
Hospital Course
Primary diagnoses:
Generalized seizure and alcoholic hepatitis due to alcohol use disorder/daily alcohol usage and cessation of antiepileptic drugs
Secondary diagnoses:
Paroxysmal atrial fibrillation
h/o cerebrovascular accident
Chronic hyponatremia likely secondary to alcohol abuse due to likely beer potomania
Hypokalemia
Hypomagnesemia
Leukopenia
Thrombocytopenia
Consults:
Neurology
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
Imaging:
CT brain: No acute intracranial abnormality noted. Encephalomalacia within the anterior left temporal lobe, unchanged. Sequelae of mild chronic small vessel ischemic disease, similar to prior.
CXR: Unremarkable exam.
58-year-old male who presented with chief complaint of seizures outlined in the H&P done on admission. Hospital course by problem list:
Generalized seizure and alcoholic hepatitis due to alcohol use disorder/daily alcohol usage and cessation of antiepileptic drugs: The patient's last drink was 4 days prior to admission. Prior to that he continued to drink alcohol and in the past
had been counseled multiple times on alcohol cessation. He also ran out of his antiepileptic drugs on 01/05/24. In the past the patent required multiple medication including Precedex and phenobarbital for withdrawal symptoms. He was given 2g IV Keppra
in ER and was continued on Keppra 2g IV Q12H. he was placed on phenobarbital which was tapered. He was placed on the MSAS protocol (thiamine/folate). He was given D5 1/2NS. He received Librium as needed. EEG was without acute seizure activity.
Due to the patient's failure to cease alcohol abuse the patient's prognosis is extremely poor. The patient was discharged in medically stable condition.
Discharge Plan
-
Patient Disposition: Home (Routine Discharge)
Discharge Diagnosis/Procedures: Generalized seizure and alcoholic hepatitis due to alcohol use disorder/daily alcohol usage and cessation of antiepileptic drugs
Condition: Good
Diet: No restrictions
Activity: As tolerated
Additional Activity: but may need assistance if he becomes unstable on his feet
Driving Restrictions: No driving
Bathing Restrictions: None
Referrals:
Shivam Hernadez MD [Family Provider] - in less than 1 week
Prescriptions:
New
thiamine HCl (vitamin B1) 100 mg Tablet
100 mg PO BID Qty: 0 0RF
folic acid 1 mg Tablet
1 mg PO DAILY Qty: 0 0RF
multivitamin with folic acid [Tab-A-Unique] 400 mcg Tablet
1 tab PO DAILY Qty: 0 0RF
Continued
levetiracetam 1,000 mg Tablet
2,000 mg PO BID 30 Days Qty: 120 0RF
phenobarbital 32.4 mg Tablet
32.4 mg PO TID Qty: 3 0RF
Discharge Orders:
Discharge Patient (As Directed); Ordered 01/12/24
Ordered By: Heron Garrett
Discharge Date and Time
Print Language: KAZAKH
[2024-01-12 15:27] VITALS: BP 134/85
== END 2024-01-12 15:32 | disposition home or self-care (01) | DRG 897 ==
LOC: 4 WEST ACU 11:19
PROVIDERS: Nurse Practitioner Family; Registered Nurse; ADMITTING PHYSICIAN Hospitalist; ATTENDING PHYSICIAN Internal Medicine; CONSULT PHYSICIAN Internal Medicine Critical Care Medicine; CONSULT PHYSICIAN Psychiatry & Neurology Neurology; EMERGENCY PHYSICIAN Emergency Medicine; FAMILY PHYSICIAN Family Medicine
DX: F10.239 Alcohol dependence with withdrawal, unspecified (principal); E87.1 Hypo-osmolality and hyponatremia; E87.29 Other acidosis; D68.51 Activated protein C resistance; R56.9 Unspecified convulsions; D69.6 Thrombocytopenia, unspecified; G93.89 Other specified disorders of brain; K70.10 Alcoholic hepatitis without ascites; I10 Essential (primary) hypertension; D72.819 Decreased white blood cell count, unspecified; I48.0 Paroxysmal atrial fibrillation; E83.42 Hypomagnesemia; E78.5 Hyperlipidemia, unspecified; E87.6 Hypokalemia; N28.9 Disorder of kidney and ureter, unspecified; T42.6X6A Underdosing of other antiepileptic and sedative-hypnotic drugs, initial encounter; Z91.148 Patient's other noncompliance with medication regimen for other reason; R00.1 Bradycardia, unspecified; R00.0 Tachycardia, unspecified; Z91.81 History of falling; Z79.899 Other long term (current) drug therapy; Z87.891 Personal history of nicotine dependence; Z86.79 Personal history of other diseases of the circulatory system; Z86.718 Personal history of other venous thrombosis and embolism; Z86.73 Personal history of transient ischemic attack (TIA), and cerebral infarction without residual deficits; Z88.1 Allergy status to other antibiotic agents; Z88.8 Allergy status to other drugs, medicaments and biological substances; Z82.49 Family history of ischemic heart disease and other diseases of the circulatory system
CPT/HCPCS: 70450; 71045; 80048; 80053; 80177; 80306; 81003; 81015; 82010; 82077; 82550; 82977; 83735; 84100; 85025; 85027; 85610; 85730; 93005; 95816; 96361; 96374; 96375; 99285

== ENCOUNTER 2024-01-25 14:36 | Emergency (ER) | payer OTHER, SELFPAY ==
[2024-01-25] VITALS (7 sets, daily range): BP systolic 122–170; BP diastolic 81–100; BMI 25.1
[2024-01-25 15:24] LABS: % Basophils 0.6 % (0-2); % Immature Granulocytes 0.6 % (0-0.5); % Neutrophils 55.8 % (42.2-75.2); Absolute Lymphocytes 1.8 10^3/uL (1.2-3.4); Absolute Monocytes 0.3 10^3/uL (0.1-0.6); Absolute Neutrophils 2.7 10^3/uL (1.4-6.5); Hematocrit 39.7 % (39.0-52.0); Hemoglobin 13.9 g/dL (13.0-18.0); Mean Corpuscular Hgb 33.7 pg (27.0-31.0); Mean Corpuscular Volume 96.1 fL (80.0-94.0); Mean Platelet Volume 9.2 fL (7.4-10.4); Nucleated Red Blood Cells % 0 % (-); Platelet Count 408 10^3/uL (130-400); Red Blood Cell Count 4.13 10^6/uL (4.70-6.10); Red Cell Dist. Width 13.4 % (11.5-14.5); White Blood Cell Count 4.8 10^3/uL (4.8-10.8)
[2024-01-25 15:43] LABS: ALT (SGPT) 81 U/L (0-50); AST (SGOT) 61 U/L (17-59); Albumin 4.8 g/dl (3.5-5.0); Alkaline Phosphatase 81 U/L (38-126); Blood Urea Nitrogen 13 mg/dl (9-20); Calcium 9.1 mg/dl (8.4-10.2); Carbon Dioxide 23 mmol/L (22-30); Chloride 99 mmol/L (98-107); Estimated Creatinine Clearance 104 ml/min; Glucose 144 mg/dl (70-99); Potassium 4.7 mmol/L (3.5-5.1); Sodium 143 mmol/L (135-145); Total Bilirubin 0.4 mg/dl (0.2-1.3); Total Protein 7.6 g/dl (6.3-8.2); eGFR > 60.00
[2024-01-25 16:57] LABS: Alcohol 351 mg/dl
--- NOTE | 2024-01-25 20:20 | ED.GENMED ---
History of Present Illness
General
Chief Complaint: Seizure
Source: patient, records and ambulance crew
Exam Limitations: clinical condition
Time Seen by Provider: 01/25/24 15:01
Nursing documentation reviewed up to this point in time: agreed with
History of Present Illness
History of Present Illness:
Patient is a 58-year-old male who presents to the emergency department after general seizure at home. Patient had a short postictal period. Patient is on Keppra and states he has been compliant. Patient has had alcohol withdrawal seizures in the
past. Patient denies any alcohol ingestion. Patient denies fever or chills. Patient denies any recent illnesses or injuries. Patient denies any neck or back pain. Patient denies chest pain or abdominal pain. Patient denies any nausea at this
time. Patient denies headache.
Past History
Past History
ED Past Medical History: Arrthythmia (Paroxysmal atrial fibrillation), CVA (Possible TIA), HTN, Hypercholesterolemia, Seizures, Other (Spontaneous subarachnoid hemorrhage 2004), Other (gout; alcohol abuse with alcohol withdrawal seizures, alcohol
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
ED Past Surgical History: Orthopedic (left knee arthroscopy)
Social History
Tobacco: Former smoker
Alcohol: Chronic alcoholic
Drug: None
Personal:
Living: with family
Employment: Not employed
Family History
Family History: Other (He has a father and a brother that had strokes)
Review of Systems
Review of Systems
All Other Systems: ROS reviewed and negative except as documented in HPI and ROS
Constitutional: Reports no symptoms
EENT: Reports no symptoms
Respiratory: Reports no symptoms
Cardiac: Reports no symptoms
ABD/GI: Reports no symptoms
: Reports no symptoms
Musculoskeletal: Reports no symptoms
Skin: Reports no symptoms
Neurological: Reports other (Generalized seizure); Denies dizzy, headache, weakness or numbness
Hematologic/Lymphatic: Reports no symptoms
Psychiatric: Reports no symptoms
Phy Exam
Physical Exam
Physical Exam:
Physical Exam
General: No apparent distress, alert and appropriate, well nourished, well hydrated
HENT: Normocephalic with 9 tenderness and minimal abrasion in the left temporal region, supple with no lymphadenopathy, no thyromegaly
Eyes: Clear sclera, conjuctiva without injection
Heart: Regular rhythm and rate. No S3, S4. No murmur. No NVD
Lungs: No respiratory distress, no stridor, lung sounds clear and equal bilaterally, chest wall symmetrical and nontender
Abdomen: Soft, nontender, no organomegaly, no CVA tenderness, BS good
Neuro: Alert and oriented x 3, CN II - XII intact, no motor focality, no cerebellar dysfunction
Skin: no rash
Psychiatric: well kept. interactive and cooperative
Extremities: No edema, cyanosis, tenderness, Good and equal peripheral pulses.
Course
Orders/Labs/Results
Orders:
Orders
01/25/24 14:44
Alcohol Urgent
CBC/With Diff [Complete Blood Count/With Diff] Urgent
CMP [Comprehensive Metabolic Panel] Urgent
Keppra (Levetiracetam) [S] Urgent
01/25/24 15:45
Add On- LAB Urgent
Tests Added?: alcohol
Abnormal Lab Results
01/25/24
14:44
RBC 4.13 L 10^6/uL
(4.70-6.10)
MCV 96.1 H fL
(80.0-94.0)
MCH 33.7 H pg
(27.0-31.0)
Plt Count 408 H 10^3/uL
(130-400)
Immature Gran % 0.6 H %
(0-0.5)
Glucose 144 H mg/dl
(70-99)
AST 61 H U/L
(17-59)
ALT 81 H U/L
(0-50)
01/25/24 14:44
01/25/24 14:44
Vital Signs
Initial and Last Documented VS:
Initial Vital Signs
Temp Pulse Resp Pulse Ox
98.0 F 79 20 97
01/25/24 14:40 01/25/24 14:40 01/25/24 14:40 01/25/24 14:40
Last Documented Vital Signs
Temp Pulse Resp BP Pulse Ox
98.0 F 72 15 139/100 97
01/25/24 14:40 01/25/24 16:00 01/25/24 16:00 01/25/24 14:49 01/25/24 14:40
*Radiology
Radiology exam reviewed: other (na)
*Pulse Oximetry
Patient hypoxic: no
*EKG
Interpreted by ED Provider?: NA
*Cook Frozen Dessert Interpretation
Rate: Cook Frozen Dessert- N/A
*Critical Care Note
Total Time (30-74mins, 75-104mins- exclusive of procedures): Not Applicable
Update Note
Update Note:
Not surprisingly the patient's alcohol level is 351. The rest of the patient's workup is essentially negative. Patient is more alert at this time. Patient will be discharged. Patient is already not driving
ED Attending Note
-
Portions of this chart may have been created with voice recognition software.� Occasional wrong word or��sound alike� substitutions may have occurred due to the inherent limitations of voice recognition software.
Discharge Plan
Departure
Patient Disposition: Home (Routine Discharge)
Date of Disposition: 01/25/24
Time of Disposition: 20:24
Patient with high blood pressure during this ER visit?: No
Condition: Fair
Covid-19: Not Applicable
Discharge Problem:
Seizure, Alcohol intoxication
Instructions: Seizures, Adult (DC), Alcohol Use Disorder (DC)
Prescriptions:
No Action
levetiracetam 1,000 mg Tablet
2,000 mg PO BID 30 Days Qty: 120 0RF
phenobarbital 32.4 mg Tablet
32.4 mg PO TID Qty: 3 0RF
thiamine HCl (vitamin B1) 100 mg Tablet
100 mg PO BID Qty: 0 0RF
folic acid 1 mg Tablet
1 mg PO DAILY Qty: 0 0RF
multivitamin with folic acid [Tab-A-Unique] 400 mcg Tablet
1 tab PO DAILY Qty: 0 0RF
Referrals:
UNKNOWN - PT DOES,NOT KNOW [Family Provider] -
Activity Restrictions/Additional Instructions:
Continue your present medications. You cannot drive. Follow-up with your physician in 4 to 5 days. Any problems please return. Absolutely no alcohol. This lowers your seizure threshold and can cause you to seize.
Interventions
Interventions:
*Risk Screen - Suicide Last Done: 01/25/24 14:40
*General Assessment Last Done: 01/25/24 14:40
*Neglect/Abuse Screening Last Done: 01/25/24 14:40
ED- Fall Risk Assessment Last Done: 01/25/24 15:26
ED- Cardiac Assessment Last Done: 01/25/24 15:26
ED- Neurological Assessment Last Done: 01/25/24 15:26
ED- Pulmonary Assessment Last Done: 01/25/24 15:26
Discharge Date and Time
Print Language: GAMBIAN
[2024-01-26] VITALS (8 sets, daily range): BP systolic 123–155; BP diastolic 79–92
[2024-01-28 00:10] LABS: Keppra (Levetiracetam) 274 ug/mL (10-40)
== END 2024-01-26 09:20 | disposition home or self-care (01) ==
LOC: EMR 14:36
PROVIDERS: EMERGENCY PHYSICIAN Emergency Medicine
DX: F10.229 Alcohol dependence with intoxication, unspecified (principal); Y90.8 Blood alcohol level of 240 mg/100 ml or more; R56.9 Unspecified convulsions; S00.91XA Abrasion of unspecified part of head, initial encounter; X58.XXXA Exposure to other specified factors, initial encounter; I48.0 Paroxysmal atrial fibrillation; Z86.73 Personal history of transient ischemic attack (TIA), and cerebral infarction without residual deficits; I10 Essential (primary) hypertension; E78.00 Pure hypercholesterolemia, unspecified; M10.9 Gout, unspecified; D68.51 Activated protein C resistance; Z87.891 Personal history of nicotine dependence
CPT/HCPCS: 99284; 70450; 80053; 80177; 82077; 85025

== ENCOUNTER 2024-04-20 23:21 | Emergency (ER) | payer OTHER, SELFPAY ==
[2024-04-20 23:24] VITALS: BP 162/88
[2024-04-20 23:30] VITALS: BMI 22.7
--- NOTE | 2024-04-20 23:35 | ED.GENMED ---
History of Present Illness
General
Chief Complaint: Change in Mental Status
Source: patient and other (Nursing staff)
Exam Limitations: none
Time Seen by Provider: 04/20/24 23:23
History of Present Illness
History of Present Illness:
This is a 59 year old male that comes in by EMS with c/o confusion. According to nursing patient was not answering questions that his was asking appropriately. Told that this was 4 hours ago. Patient thought that he had a seizure. Told that
patient did not have any seizures. Told that his last drink was yesterday. Patient Denies any fever, chills, chest pain, SOB, abd pain, nausea, vomiting, diarrhea, headache, dizziness, urinary burning.
Past History
Past History
ED Past Medical History: Arrthythmia (Paroxysmal atrial fibrillation), CVA (Possible TIA), HTN, Hypercholesterolemia, Seizures, Psychiatric (Anxiety), Other (Spontaneous subarachnoid hemorrhage 2005, Headaches, Back pain, DVT, C-diff, Factor 5
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
ED Past Surgical History: Orthopedic (left knee arthroscopy)
Social History
Tobacco: Former smoker
Alcohol: Chronic alcoholic
Drug: None
Personal:
Living: with family
Employment: Not employed
Family History
Family History: Other (He has a father and a brother that had strokes)
Review of Systems
Review of Systems
All Other Systems: ROS reviewed and negative except as documented in HPI and ROS
Constitutional: Reports no symptoms; Denies fever or chills
EENT: Reports no symptoms
Respiratory: Reports no symptoms; Denies cough or trouble breathing
Cardiac: Reports no symptoms; Denies chest pain
ABD/GI: Reports no symptoms; Denies abdominal pain, nausea, vomiting or diarrhea
: Reports no symptoms; Denies dysuria, frequency or urgency
Musculoskeletal: Reports no symptoms
Skin: Reports no symptoms
Neurological: Reports no symptoms; Denies dizzy or headache
Psychiatric: Reports no symptoms
Phy Exam
General Physical Exam
General Presentation: no apparent distress
General age: appears stated age
General Skin: warm and dry
General Habitus: normal
General Mental: alert (however first thought he was at [place] )
General Hydration: appears well hydrated
ENT Exam
ENT Exam: TM's normal, pharynx normal and neck supple
Eye Exam
Eye Exam: EOMI
Cardiovascular Exam
Cardiovascular Exam: regular rate/rhythm, no edema, no murmur and normal peripheral pulses
Pulmonary Exam
Pulmonary Exam: lungs clear, no respiratory distress, no rales, chest non tender, no crackles, no rhonchi, no wheezing and no cough
Gastrointestinal Exam
Gastrointestinal Exam: normal bowel sounds, non tender, soft, no organomegaly, no pulsatile mass and non distended
NIH Stroke Score
Level of Consciousness: 0 - Alert
LOC questions: 1-Answers one correctly
LOC Commands: 0-Performs both correctly
Best Gaze: 0-Normal
Visual He: 0=Normal, no visual loss
Facial palsy: 0=Normal, symmetrical
Motor - Right Arm: 0=No drift 10 seconds
Motor - Left Arm: 0=No drift 10 seconds
Motor - Right Le-No drift 5 seconds
Motor - Left Le-No drift 5 seconds
Limb Ataxia: 0-Absent
Sensation: 0-Normal
Best Language: 0-No aphasia
Dysarthria: 0-Normal
Extinction and Inattention: 0-No abnormality
Total Score:: 1
Musculoskeletal Exam
Musculoskeletal Exam: full ROM, no edema and other (Hand grasp and push pulls equal)
Skin Exam
Skin Exam: normal color, warm/dry, no rash and no petechia
Psychiatric Exam
Psychiatric Exam: normal mood/affect
Course
Orders/Labs/Results
Orders:
Orders
04/20/24 23:34
Urine Drug Abuse Screen Urgent
Date Specimen was Collected: 04/20/24
Time Specimen was Collected: 23:47
04/20/24 23:35
Electrocardiogram (*1) Urgent
Reason for Study: TIA/Stroke
EKG- Treatment ONCE
04/20/24 23:41
Alcohol Urgent
Complete Blood Count/With Diff Urgent
Comprehensive Metabolic Panel Urgent
Manual Differential Urgent
Prothrombin Time Urgent
Troponin I Urgent
04/21/24 00:53
0.9% Sodium Chloride 1000 ml [Nss] 1,000 ml IV BOLUS
04/21/24 01:05
CT Head W/o Iv Contrast Urgent
Comment: History of Prior stroke.
Reason For Exam: unable to answer question appropriately
Abnormal Lab Results
04/20/24
23:41
WBC 4.6 L 10^3/uL
(4.8-10.8)
RBC 4.36 L 10^6/uL
(4.70-6.10)
MCV 97.9 H fL
(80.0-94.0)
MCH 33.9 H pg
(27.0-31.0)
Segmented Neutrophils 31 L %
(42-75)
Lymphocytes (Manual) 56 H %
(20-51)
Glucose 100 H mg/dl
(70-99)
04/20/24 23:41
04/20/24 23:41
WBC slightly low. Anemia, glucose nonfasting. PT 12.7 with INR 0.92, Troponin <0.012, Alcohol 289, uRINE DRUG NEGATIVE.
Vital Signs
Initial and Last Documented VS:
Initial Vital Signs
Temp Pulse Resp BP Pulse Ox
98.2 F 112 17 162/88 97
04/20/24 23:24 04/20/24 23:24 04/20/24 23:24 04/20/24 23:24 04/20/24 23:24
Last Documented Vital Signs
Temp Pulse Resp BP Pulse Ox
98.2 F 94 22 142/95 100
04/20/24 23:24 04/21/24 00:15 04/21/24 00:15 04/21/24 00:00 04/20/24 23:36
MDM/Problems Addressed
Differential Diagnosis Includes:
TIA, Alcohol abuse,
MDM/Problems Addressed:
This is a 59 year old male that comes in with c/o confusion. states that 4 hours ago patient was unable to answer questions appropriately.
Will check labs. Alcohol, CT head. Patient states that he was at [facility] when asked and then corrected himself. Otherwise patient was able to answer questions appropriately.
back into see patient. Explained that his blood work shows some anemia and that his Alcohol level shows that he is intoxicated. CT of the head is normal. Patient is going to call his to pick him up. Got patient OOB and he is able to walk
steady on his feet without any help. Will discharge home.
Chronic conditions affecting care:
Alcohol abuse, Prior CVA
Acute Exacerbation and/or Progression of Chronic Illness:
NA
*Radiology
Radiology exam reviewed: radiology read reviewed (CT head night hawk- No acute intracranial findings. No evidence of intracranial hemorrhage, mass-effect, midline shift, or extra-axial fluid collection. Stable encephalomalacia from old infarct left
temporal lobe. Chronic microvascular ischemic disease. )
*Pulse Oximetry
Patient hypoxic: no
*Metal Sheet Roller Operator Interpretation
Rate: tachycardiac
Heart Rate: 108
Rhythm: sinus tachycardia
*Critical Care Note
Total Time (30-74mins, 75-104mins- exclusive of procedures): Not Applicable
ED Attending Note
-
Portions of this chart may have been created with voice recognition software.� Occasional wrong word or��sound alike� substitutions may have occurred due to the inherent limitations of voice recognition software.
Discharge Plan
Departure
Patient Disposition: Home (Routine Discharge)
Date of Disposition: 04/21/24
Time of Disposition: 02:42
Patient with high blood pressure during this ER visit?: Yes
Condition: Good
Covid-19: Not Applicable
Discharge Problem:
Alcohol intoxication
Instructions: Alcohol Use Disorder (DC), Alcohol Intoxication ED, BLOOD PRESSURE
Prescriptions:
No Action
levetiracetam 1,000 mg Tablet
2,000 mg PO BID 30 Days Qty: 120 0RF
phenobarbital 32.4 mg Tablet
32.4 mg PO TID Qty: 3 0RF
thiamine HCl (vitamin B1) 100 mg Tablet
100 mg PO BID Qty: 0 0RF
folic acid 1 mg Tablet
1 mg PO DAILY Qty: 0 0RF
multivitamin with folic acid [Tab-A-Unique] 400 mcg Tablet
1 tab PO DAILY Qty: 0 0RF
Referrals:
UNKNOWN - PT NOT,INTERVIEWE [Family Provider] -
Activity Restrictions/Additional Instructions:
As discussed, your blood work shows that you are a little anemia. Your CT of the head is negative for any acute process. You are intoxicated as your alcohol level is 289. Please decrease your alcohol intake and increase your water intake to 8-8oz
glasses daily. Follow up with the family doctor for recheck. IF YOU HAVE ANY OTHER CONCERNS PLEASE RETURN TO THE EMERGENCY ROOM. .
Interventions
Interventions:
*Risk Screen - Suicide Last Done: 04/20/24 23:36
*General Assessment Last Done: 04/20/24 23:30
*Neglect/Abuse Screening Last Done: 04/20/24 23:36
ED- Fall Risk Assessment Last Done: 04/20/24 23:36
*ED COVID-19 Vaccine History Last Done: 04/20/24 23:30
ED- Pulmonary Assessment Last Done: 04/20/24 23:36
ED-Psychological Assessment Last Done: 04/20/24 23:36
ED- Neurological Assessment Last Done: 04/20/24 23:36
ED- Cardiac Assessment Last Done: 04/20/24 23:36
ED Swallowing Screen Last Done: 04/20/24 23:36
Discharge Date and Time
Print Language: KOREAN
[2024-04-21] VITALS: BP 142/95
[2024-04-21 00:01] LABS: ALT (SGPT) 26 U/L (0-50); AST (SGOT) 50 U/L (17-59); Alcohol 289 mg/dl; Alkaline Phosphatase 65 U/L (38-126); Blood Urea Nitrogen 9 mg/dl (9-20); Carbon Dioxide 23 mmol/L (22-30); Chloride 99 mmol/L (98-107); Estimated Creatinine Clearance 107 ml/min; Glucose 100 mg/dl (70-99); Potassium 4.4 mmol/L (3.5-5.1); Sodium 143 mmol/L (135-145); Total Bilirubin 0.4 mg/dl (0.2-1.3); eGFR > 60.00
[2024-04-21 00:10] LABS: INR 0.92; PT 12.7 Sec (11.4-14.6)
[2024-04-21 00:23] LABS: Troponin I < 0.012 ng/ml
[2024-04-21 00:26] LABS: Lymphocytes 56 % (20-51); Segmented Neutrophils 31 % (42-75)
[2024-04-21 00:27] LABS: Atypical Lymphocytes 8 %; Monocytes 5 % (2-9)
[2024-04-21 00:28] LABS: Hematocrit 42.7 % (39.0-52.0); Hemoglobin 14.8 g/dL (13.0-18.0); Macrocytosis 3+; Mean Corp Hgb Conc. 34.7 g/dL (33.0-37.0); Mean Corpuscular Hgb 33.9 pg (27.0-31.0); Mean Corpuscular Volume 97.9 fL (80.0-94.0); Mean Platelet Volume 9.1 fL (7.4-10.4); Normal RBC Morphology No; Platelet Count 236 10^3/uL (130-400); Platelets Checked Yes; Red Blood Cell Count 4.36 10^6/uL (4.70-6.10); Red Cell Dist. Width 12.7 % (11.5-14.5); White Blood Cell Count 4.6 10^3/uL (4.8-10.8)
[2024-04-21 00:29] LABS: Total Cells Counted 100
[2024-04-21] MEDS: NSS 1000 IV (00:45)
[2024-04-21 01:00] VITALS: BP 133/86
[2024-04-21 02:05] VITALS: BP 147/80
[2024-04-21 02:34] LABS: Amphetamines Negative (Negative); Barbiturates Negative (Negative); Benzodiazepines Negative (Negative); Buprenorphine Negative (Negative); Cocaine Negative (Negative); Marijuana Negative (Negative); Methadone Negative (Negative); Methamphetamines Negative (Negative); Opiates Negative (Negative); Phencyclidine Negative (Negative); Tricyclic Antidepressants Negative (Negative)
== END 2024-04-21 03:26 | disposition home or self-care (01) ==
LOC: EMR 23:21
PROVIDERS: Clinical Nurse Specialist Family Health; EMERGENCY PHYSICIAN Emergency Medicine
DX: F10.129 Alcohol abuse with intoxication, unspecified (principal); I48.0 Paroxysmal atrial fibrillation; I10 Essential (primary) hypertension; E78.00 Pure hypercholesterolemia, unspecified; G40.909 Epilepsy, unspecified, not intractable, without status epilepticus; F41.9 Anxiety disorder, unspecified; D68.51 Activated protein C resistance; D64.9 Anemia, unspecified; Z82.3 Family history of stroke; Z86.718 Personal history of other venous thrombosis and embolism; Z86.73 Personal history of transient ischemic attack (TIA), and cerebral infarction without residual deficits; Z87.891 Personal history of nicotine dependence
CPT/HCPCS: 99284; 96360; 70450; 80053; 80306; 82077; 84484; 85025; 85610; 93005

== ENCOUNTER 2024-05-20 20:47 | Emergency (ER) | payer OTHER, SELFPAY ==
[2024-05-20 20:51] VITALS: BP 154/98; BMI 22.4
[2024-05-20 21:00] VITALS: BP 156/92
[2024-05-20] MEDS: NSS 1000 IV (21:03)
[2024-05-20 21:15] LABS: % Basophils 0.3 % (0-2); % Eosinophils 0.5 % (0-6); % Immature Granulocytes 0.2 % (0-0.5); % Lymphocytes 18.5 % (20.5-51.1); % Monocytes 10.7 % (1.7-9.3); % Neutrophils 69.8 % (42.2-75.2); Absolute Lymphocytes 1.2 10^3/uL (1.2-3.4); Absolute Monocytes 0.7 10^3/uL (0.1-0.6); Absolute Neutrophils 4.4 10^3/uL (1.4-6.5); Hematocrit 39.5 % (39.0-52.0); Hemoglobin 14.2 g/dL (13.0-18.0); Mean Corp Hgb Conc. 35.9 g/dL (33.0-37.0); Mean Corpuscular Hgb 34.3 pg (27.0-31.0); Mean Corpuscular Volume 95.4 fL (80.0-94.0); Mean Platelet Volume 9.5 fL (7.4-10.4); Nucleated Red Blood Cells % 0 % (-); Platelet Count 182 10^3/uL (130-400); Red Blood Cell Count 4.14 10^6/uL (4.70-6.10); Red Cell Dist. Width 13.2 % (11.5-14.5); White Blood Cell Count 6.3 10^3/uL (4.8-10.8)
--- NOTE | 2024-05-20 21:26 | ED.GENMED ---
History of Present Illness
General
Chief Complaint: Seizure
Source: patient and records
Exam Limitations: none
Time Seen by Provider: 05/20/24 20:49
Nursing documentation reviewed up to this point in time: agreed with
History of Present Illness
History of Present Illness:
Patient is a 59-year-old male who had a stroke in 2004 and seizure since. Patient takes Keppra and has been compliant with it. However the patient does imbibe in alcohol 2-3 times a week when he is not supposed to. Patient has not had any alcohol
for the past 3 days. Typically this is when he has a seizure. Patient denies any headaches, neck pain, back pain, extremity pain. Patient has had some chills. Patient denies nasal congestion, cough or sore throat. 2 to 3 days ago the patient
had an episode of vomiting but none since. Patient denies diarrhea, constipation, abdominal pain, melena or hematochezia. Patient denies any symptoms.
Past History
Past History
ED Past Medical History: Arrthythmia (Paroxysmal atrial fibrillation), CVA (Possible TIA), HTN, Hypercholesterolemia, Seizures, Psychiatric (Anxiety), Other (Spontaneous subarachnoid hemorrhage 2004, Headaches, Back pain, DVT, C-diff, Factor 5
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
ED Past Surgical History: Orthopedic (left knee arthroscopy)
Social History
Tobacco: Former smoker
Alcohol: Chronic alcoholic
Drug: None
Personal:
Living: with family
Employment: Not employed
Family History
Family History: Other (He has a father and a brother that had strokes)
Review of Systems
Review of Systems
All Other Systems: ROS reviewed and negative except as documented in HPI and ROS
Constitutional: Reports no symptoms
EENT: Reports no symptoms
Respiratory: Reports no symptoms
Cardiac: Reports no symptoms
ABD/GI: Reports no symptoms
: Reports no symptoms
Musculoskeletal: Reports no symptoms; Denies neck pain or back pain
Skin: Reports no symptoms
Neurological: Reports other (seizure); Denies dizzy, headache, weakness or numbness
Hematologic/Lymphatic: Reports no symptoms
Psychiatric: Reports no symptoms
Phy Exam
Physical Exam
Physical Exam:
Physical Exam
General: No apparent distress, alert and appropriate, well nourished, well hydrated
HENT: Normocephalic, supple with no lymphadenopathy, no thyromegaly. Contused lower lip
Eyes: Clear sclera, conjuctiva without injection
Heart: Regular rhythm and tachycardic rate. No S3, S4. No murmur. No NVD, bruit
Lungs: No respiratory distress, no stridor, lung sounds clear and equal bilaterally, chest wall symmetrical and nontender
Abdomen: Soft, nontender, no organomegaly, no CVA tenderness, BS good
Neuro: Alert and oriented x 3, CN II - XII intact, no motor focality, no cerebellar dysfunction. Mild tremor
Skin: no rash
Psychiatric: well kept. interactive and cooperative
Extremities: No edema, cyanosis, tenderness, Good and equal peripheral pulses.
Course
Orders/Labs/Results
Orders:
Orders
05/20/24 20:57
CMP [Comprehensive Metabolic Panel] Urgent
Complete Blood Count/With Diff Urgent
Keppra (Levetiracetam) [S] Urgent
05/20/24 21:02
0.9% Sodium Chloride 1000 ml [Nss] 1,000 ml IV BOLUS
05/20/24 21:24
diazePAM [Valium Injection] 2 mg IV NOW STA
05/20/24 21:25
Add On- LAB Urgent
Tests Added?: keppra level
Abnormal Lab Results
05/20/24
20:57
RBC 4.14 L 10^6/uL
(4.70-6.10)
MCV 95.4 H fL
(80.0-94.0)
MCH 34.3 H pg
(27.0-31.0)
Absolute Monos (auto) 0.7 H 10^3/uL
(0.1-0.6)
Lymphocytes % 18.5 L %
(20.5-51.1)
Monocytes % 10.7 H %
(1.7-9.3)
05/20/24 20:57
Vital Signs
Initial and Last Documented VS:
Initial Vital Signs
Temp Pulse Resp BP Pulse Ox
98.5 F 135 22 154/98 95
05/20/24 20:51 05/20/24 20:51 05/20/24 20:51 05/20/24 20:51 05/20/24 20:51
Last Documented Vital Signs
Temp Pulse Resp BP Pulse Ox
98.5 F 131 19 156/92 95
05/20/24 20:51 05/20/24 21:00 05/20/24 21:00 05/20/24 21:00 05/20/24 21:00
*Radiology
Radiology exam reviewed: other (na)
*Pulse Oximetry
Patient hypoxic: no
*EKG
Interpreted by ED Provider?: NA
*Certified Orthoptist Interpretation
Rate: tachycardiac
Interpretation: abnormal
Heart Rate: 110
Rhythm: sinus
*Critical Care Note
Total Time (30-74mins, 75-104mins- exclusive of procedures): Not Applicable
ED Attending Note
-
Portions of this chart may have been created with voice recognition software.� Occasional wrong word or��sound alike� substitutions may have occurred due to the inherent limitations of voice recognition software.
Discharge Plan
Departure
Prescriptions:
No Action
levetiracetam 1,000 mg Tablet
2,000 mg PO BID 30 Days Qty: 120 0RF
Referrals:
Shivam Hernadez MD [Family Provider] -
Interventions
Interventions:
*Risk Screen - Suicide Last Done: 05/20/24 20:51
*General Assessment Last Done: 05/20/24 20:51
*Neglect/Abuse Screening Last Done: 05/20/24 20:51
*ED COVID-19 Vaccine History Last Done: 05/20/24 20:51
Discharge Date and Time
Print Language: HUNGARIAN
[2024-05-20 21:36] LABS: AST (SGOT) 97 U/L (17-59); Albumin 5.4 g/dl (3.5-5.0); Alkaline Phosphatase 67 U/L (38-126); Blood Urea Nitrogen 16 mg/dl (9-20); Calcium 9.2 mg/dl (8.4-10.2); Carbon Dioxide 12 mmol/L (22-30); Chloride 87 mmol/L (98-107); Estimated Creatinine Clearance 96 ml/min; Glucose 176 mg/dl (70-99); Potassium 4.3 mmol/L (3.5-5.1); Sodium 128 mmol/L (135-145); Total Bilirubin 1.6 mg/dl (0.2-1.3); Total Protein 8.1 g/dl (6.3-8.2); eGFR > 60.00
[2024-05-20] MEDS: VALIUM INJECTION 2 MG IV (21:41)
[2024-05-20 21:45] LABS: ALT (SGPT) 85 U/L (0-50)
[2024-05-20] MEDS: THIAMINE INJECTION 100 MG IV (21:53)
[2024-05-20 22:00] VITALS: BP 140/84
[2024-05-20 23:00] VITALS: BP 153/95
[2024-05-23 04:01] LABS: Keppra (Levetiracetam) 73 ug/mL (10-40)
== END 2024-05-21 00:19 | disposition home or self-care (01) ==
LOC: EMR 20:47
PROVIDERS: EMERGENCY PHYSICIAN Emergency Medicine; FAMILY PHYSICIAN Family Medicine
DX: R56.9 Unspecified convulsions (principal); Z86.73 Personal history of transient ischemic attack (TIA), and cerebral infarction without residual deficits; Z87.891 Personal history of nicotine dependence
CPT/HCPCS: 99284; 96374; 96375; 96361; 80053; 80177; 85025

== ENCOUNTER 2024-09-18 04:59 | Observation (INO) | payer SELFPAY ==
[2024-09-17 22:49] VITALS: BP 152/88
[2024-09-17 22:52] VITALS: BP 152/88
[2024-09-17 22:58] VITALS: BMI 22.0
[2024-09-17 23:00] VITALS: BP 136/87
[2024-09-17] MEDS: KEPPRA 2000 MG PO (23:11)
[2024-09-17 23:54] LABS: % Basophils 0.7 % (0-2); % Eosinophils 0.7 % (0-6); % Immature Granulocytes 0.3 % (0-0.5); % Lymphocytes 36.4 % (20.5-51.1); % Monocytes 17.5 % (1.7-9.3); % Neutrophils 44.4 % (42.2-75.2); Absolute Lymphocytes 1.1 10^3/uL (1.2-3.4); Absolute Monocytes 0.5 10^3/uL (0.1-0.6); Absolute Neutrophils 1.3 10^3/uL (1.4-6.5); Hematocrit 35.9 % (39.0-52.0); Mean Corp Hgb Conc. 36.2 g/dL (33.0-37.0); Mean Corpuscular Hgb 34.4 pg (27.0-31.0); Mean Platelet Volume 10.1 fL (7.4-10.4); Nucleated Red Blood Cells % 0 % (-); Platelet Count 173 10^3/uL (130-400); Red Blood Cell Count 3.78 10^6/uL (4.70-6.10); Red Cell Dist. Width 12.8 % (11.5-14.5); White Blood Cell Count 2.9 10^3/uL (4.8-10.8)
[2024-09-17 23:58] LABS: COVID-19 Antigen Negative (Negative)
[2024-09-18] VITALS (16 sets, daily range): BP systolic 126–172; BP diastolic 76–99; BMI 22.5
[2024-09-18 00:08] LABS: Blood Urea Nitrogen 17 mg/dl (9-20); Calcium 8.6 mg/dl (8.4-10.2); Carbon Dioxide 18 mmol/L (22-30); Chloride 93 mmol/L (98-107); Creatine Phosphokinase 167 U/L (55-170); Estimated Creatinine Clearance 118 ml/min; Glucose 163 mg/dl (70-99); Sodium 132 mmol/L (135-145); eGFR > 60.00
--- NOTE | 2024-09-18 00:21 | ED.GENMED ---
History of Present Illness
General
Chief Complaint: Seizure
Source: patient
Exam Limitations: none
Time Seen by Provider: 09/17/24 23:39
Nursing documentation reviewed up to this point in time: agreed with
History of Present Illness
History of Present Illness:
59-year-old male presents with a tonic-clonic seizure. Patient has had a seizure disorder since 2004 when he had a subarachnoid he states he gets several seizures per year with his last one in May. Patient has not driven a vehicle since 2004.
Tonight he was getting in his car with his when he had a seizure. Patient states that he is already maxed out on Keppra. He takes 2000 mg twice a day. He did have his evening dose shortly before his seizure. Denies headache or any focal
deficits at this time. He states that he 'feels fine'. Patient is a recovering alcoholic but still admits to drinking 2-3 times per week. He states that it is tough because his also drinks alcohol frequently
Past History
Past History
ED Past Medical History: Arrthythmia (Paroxysmal atrial fibrillation), CVA (Possible TIA), HTN, Hypercholesterolemia, Seizures, Psychiatric (Anxiety), Other (Spontaneous subarachnoid hemorrhage 2004, Headaches, Back pain, DVT, C-diff, Factor 5
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
ED Past Surgical History: Orthopedic (left knee arthroscopy)
Social History
Tobacco: Former smoker
Alcohol: Chronic alcoholic
Drug: None
Personal:
Living: with family
Employment: Not employed
Family History
Family History: Other (He has a father and a brother that had strokes)
Phy Exam
General Physical Exam
General Presentation: well appearing and no apparent distress
General Skin: warm and dry
General Habitus: normal
General Mental: alert
General Hydration: appears well hydrated
ENT Exam
ENT Exam: EOMI, pharynx normal, neck supple and normocephalic
Eye Exam
Eye Exam: PERRL, cornea clear and conjunctiva normal
Cardiovascular Exam
Cardiovascular Exam: regular rate/rhythm, no edema, no murmur and normal peripheral pulses
Pulmonary Exam
Pulmonary Exam: lungs clear, no respiratory distress, no rales, no crackles, no rhonchi, no stridor, no wheezing and no cough
Gastrointestinal Exam
Gastrointestinal Exam: normal bowel sounds, non tender, soft, no organomegaly, no pulsatile mass and non distended
Neurological Exam
Neurological Exam: alert, oriented x3, no motor deficits and speech normal
Musculoskeletal Exam
Musculoskeletal Exam: full ROM and no edema
Skin Exam
Skin Exam: normal color, warm/dry, no rash and no petechia
Psychiatric Exam
Psychiatric Exam: normal mood/affect
Course
Orders/Labs/Results
Orders:
Orders
09/17/24 23:07
Levetiracetam [Keppra] 2,000 mg PO NOW STA
09/17/24 23:08
Electrocardiogram (*1) Urgent
Reason for Study: Syncope
EKG- Treatment ONCE
09/17/24 23:34
Basic Metabolic Panel Urgent
Comment: NO K
COVID-19 Antigen Urgent
Source: Nasal Swab
CPK [Creatine Phosphokinase] Urgent
Complete Blood Count/With Diff Urgent
Influenza A+B Rapid Molecular Urgent
YRN Source: Nasal Swab
Specimen Description:
09/18/24
CR Chest - 2 Views Urgent
Comment:
Reason For Exam: fever
09/18/24 02:10
Acetaminophen [Tylenol] 650 mg PO NOW STA
09/18/24 02:22
Ondansetron Injectable [Zofran] 4 mg IV NOW STA
09/18/24 02:26
Urinalysis Reflex To Culture Urgent
09/18/24 02:33
Comprehensive Metabolic Panel Urgent
09/18/24 02:44
Oxazepam [Serax] 10 mg PO NOW STA
09/18/24 02:49
Drug Screen, Urine [Urine Drug Abuse Screen] Urgent
09/18/24 02:50
Add On- LAB Urgent
Tests Added?: etoh
Abnormal Lab Results
09/17/24
23:34
WBC 2.9 L 10^3/uL
(4.8-10.8)
RBC 3.78 L 10^6/uL
(4.70-6.10)
Hct 35.9 L %
(39.0-52.0)
MCV 95.0 H fL
(80.0-94.0)
MCH 34.4 H pg
(27.0-31.0)
Absolute Neuts (auto) 1.3 L 10^3/uL
(1.4-6.5)
Absolute Lymphs (auto) 1.1 L 10^3/uL
(1.2-3.4)
Monocytes % 17.5 H %
(1.7-9.3)
Sodium 132 L mmol/L
(135-145)
Chloride 93 L mmol/L
(98-107)
Carbon Dioxide 18 L mmol/L
(22-30)
Glucose 163 H mg/dl
(70-99)
09/17/24 23:34
Vital Signs
Initial and Last Documented VS:
Initial Vital Signs
Temp Pulse Resp BP Pulse Ox
99.8 F 117 19 152/88 88
09/17/24 22:49 09/17/24 22:49 09/17/24 22:49 09/17/24 22:49 09/17/24 22:49
Last Documented Vital Signs
Temp Pulse Resp BP Pulse Ox
101.4 F H 96 21 172/99 97
09/18/24 02:04 09/18/24 02:00 09/18/24 02:00 09/18/24 02:00 09/18/24 02:00
*Pulse Oximetry
Patient hypoxic: no
*Critical Care Note
Total Time (30-74mins, 75-104mins- exclusive of procedures): 46 (Critical care statement: A total of 46 minutes of critical care time was provided for this patient. This time is separate from time utilized to perform the aforementioned documented
procedures. Aggregate critical care time includes only time during which I was engaged in work directl)
ED Attending Note
-
Portions of this chart may have been created with voice recognition software.� Occasional wrong word or��sound alike� substitutions may have occurred due to the inherent limitations of voice recognition software.
Discharge Plan
Departure
Patient Disposition: Admit
Date of Disposition: 09/18/24
Time of Disposition: 02:45
Presentation/result/management discussed w/ accepting MD/DO: Hospitalist
Discharge Problem:
Alcohol withdrawal, Alcohol withdrawal seizure
Prescriptions:
No Action
levetiracetam 1,000 mg Tablet
2,000 mg PO BID 30 Days Qty: 120 0RF
Referrals:
Shivam Hernadez MD [Family Provider] -
Interventions
Interventions:
*Risk Screen - Suicide Last Done: 09/17/24 22:49
*General Assessment Last Done: 09/17/24 22:49
*Neglect/Abuse Screening Last Done: 09/17/24 22:49
*ED- Fall Risk Assessment Last Done: 09/17/24 23:27
*ED COVID-19 Vaccine History Last Done: 09/17/24 23:27
ED- Cardiac Assessment Last Done: 09/17/24 22:58
ED- Neurological Assessment Last Done: 09/17/24 22:58
ED- Pulmonary Assessment Last Done: 09/17/24 22:58
Discharge Date and Time
Print Language: CHINESE
[2024-09-18] MEDS: TYLENOL 650 MG PO (02:13)
[2024-09-18] MEDS: ZOFRAN 4 MG IV (02:59)
[2024-09-18] MEDS: SERAX 10 MG PO (03:05)
[2024-09-18 03:19] LABS: ALT (SGPT) 39 U/L (0-50); AST (SGOT) 59 U/L (17-59); Alkaline Phosphatase 68 U/L (38-126); Blood Urea Nitrogen 17 mg/dl (9-20); Calcium 8.7 mg/dl (8.4-10.2); Carbon Dioxide 25 mmol/L (22-30); Chloride 90 mmol/L (98-107); Estimated Creatinine Clearance 118 ml/min; Glucose 123 mg/dl (70-99); Sodium 133 mmol/L (135-145); Total Bilirubin 0.8 mg/dl (0.2-1.3); Total Protein 8.2 g/dl (6.3-8.2); eGFR > 60.00
[2024-09-18 03:21] LABS: Urine Albumin 3+ (Neg - Trace); Urine Bilirubin Negative (Negative); Urine Character Clear (Clear); Urine Color Yellow; Urine Glucose Negative (Negative); Urine Ketone 3+ (Negative); Urine Leukocyte Negative (Negative); Urine Nitrite Negative (Negative); Urine Occult Blood 3+ (Negative); Urine Specific Gravity 1.015 (<1.030); Urine Urobilinogen Negative (Neg - 1+)
[2024-09-18 03:32] LABS: Amphetamines Negative (Negative); Barbiturates Negative (Negative); Benzodiazepines Negative (Negative); Buprenorphine Negative (Negative); Cocaine Negative (Negative); Marijuana Negative (Negative); Methadone Negative (Negative); Methamphetamines Negative (Negative); Opiates Negative (Negative); Phencyclidine Negative (Negative); Tricyclic Antidepressants Negative (Negative)
--- NOTE | 2024-09-18 03:44 | HPS.HSE ---
Family Physician
-
Family Physician: Shivam Hernadez
Chief Complaint
-
Seizure
History of Present Illness
This is a 59-year-old with history of alcohol dependence, alcohol abuse, alcohol withdrawal and withdrawal seizures, remote hemorrhagic stroke, history of factor V Leiden presenting to the emergency department following a seizure episode at home.
Patient reports ongoing alcohol use with last drink 3 days ago. Reported that he has been improving but is older sibling recently. He tells me he had 3 glasses of wine at that time. He said when he arose this morning he did have some
tremulousness and some palpitations. He otherwise did well throughout the day. He took his morning Keppra. He is unsure when I took his evening dose of Keppra given conflicting reports to the ED and myself. Ultimately at around 10 PM the patient
suffered a generalized seizure that lasted for about 2 minutes according to spouse. By time EMS arrived and patient was put into the van he was awake alert and no longer postictal. Continues to endorse some tremulousness.
In the emergency department was given 2 g of Keppra, he was found to be febrile to 101.4, blood pressure was 186/83 and was tachycardic to around 110. Oxygen saturation was 95%. ECG shows a normal sinus rhythm at a rate of 97. UA was negative and
drug screen negative. Chest x-ray was clear. CBC notable for a white count of 2.9 with an of 13 and a blood count of 173. Electrolytes BUN/creatinine were stable except for sodium of 133.
Medical History
Past Medical History
Past Medical History: Reports Other
Additional Past Medical History:
Seizures
Alcohol use disorder
History of DTs
Alcoholic hepatitis
Paroxysmal atrial fibrillation not on anticoagulation due to fall risk
History of CVA
Past Surgical History: Reports Orthopedic (Knee Arthroscopy)
Social History
Alcohol: Daily
Personal:
Living: With Family
Family History
Family History: Not pertinent
Allergies / Home Medications
Allergies reflects when Allergies were last updated in [facility].
Home Medications with original date entered in [facility]
Allergy/Medication List:
Allergies
Allergy/AdvReac Type Severity Reaction Status Date / Time
erythromycin base Allergy Unknown Verified 05/20/24 20:55
[Erythromycin Base]
lorazepam [From Ativan] AdvReac See Verified 05/20/24 20:55
comments
phenytoin sodium AdvReac Unknown- Verified 05/20/24 20:55
[From Dilantin] tolerated
phenobarbital
Home Medications
levetiracetam 1,000 mg tablet 2,000 mg (2 x 1,000 mg) PO BID Seizures 30 days #120 tabs 08/31/23
Review of Systems
-
History Source: Patient
Constitutional: Reports No Symptoms
EENT: Reports No Symptoms
Respiratory: Reports No Symptoms
Cardiac: Reports No Symptoms
Abdomen/GI: Reports No Symptoms
: Reports No Symptoms
Musculoskeletal: Reports No Symptoms
Skin: Reports No Symptoms
Neurological: Reports Dizzy
Endocrine: Reports No Symptoms
Hematologic/Lymphatic: Reports No Symptoms
Psych: Reports Anxiety
Physical Exam
Vital Signs
Vital Signs
Temp Pulse Resp BP Pulse Ox
101.4 F H 97 19 136/83 95
09/18/24 02:04 09/18/24 03:15 09/18/24 03:15 09/18/24 03:00 09/18/24 03:15
Physical Exam
General: Well Developed, Well Nourished, No Apparent Distress and Comfortable
HEENT: NormoCephalic, Anicteric, Moist mucous membranes and Atraumatic
Respiratory: Non Labored Respirations
Cardiac: S1/S2 and Tachycardia
Breast: Deferred by me
GI: Soft, Non Tender, Non Distended and Normal Bowel Sounds
Genito-urinary: Deferred by me
Musculoskeletal: No Clubbing, No Cyanosis and No Edema
Skin: Warm and Dry
Neuro: AO x 3, Nonfocal/grossly intact and Tremors
Hematologic/Lymphatic: No Lymphadenopathy
Psych: Calm
Laboratory Results
-
09/17/24 23:34
09/18/24 02:33
Laboratory Results
Total Bilirubin 0.8 mg/dl (0.2-1.3) 09/18/24 02:33
AST 59 U/L (17-59) 09/18/24 02:33
ALT 39 U/L (0-50) 09/18/24 02:33
Alkaline Phosphatase 68 U/L (38-126) 09/18/24 02:33
Data Reviewed
-
Diagnostic Radiology: Image Personally Visualized and interpreted
Medical Tests (Nuc Med, Echo, EKG etc): Image Personally Visualized and interpreted
Lab Data: Labs Reviewed by me
Old Records: Reviewed
Impression/Plan
-
IMPRESSION:
59 y.o with witnessed generalized seizure episode lasting about 2 minutes. Not currently post-ictal. H/O seizures s/p subarachnoid hemorrhage 2004. ETOH and withdrawal seizures in the past. Complies with Keppra. Still drinks 3 x week and
reports loss of sibling recently. Last drink was 3 days ago. He is tachycardic and tremulus. Denies headaches, nausea, clouded sensorium. Alert and oriented x 3. No hallucinations.
PLAN:
Seizure - Breakthrough seizure vs ETOH withdrawal.
- admit to IMU
- currently not post-ictal
- given 2g keppra in ED
- will continue with his usual keppra 2g bid for now
- no indication for imaging
- will hold off on neuro consult.
ETOH Withdrawal - Possible withdrawal seizure. Currently has CIWA = 4 currently, PAWS = 4, moderate risk for severe withdrawal.
- initiate phenobarbital taper
- due to reactions to lorazepam, will use diazepam with MSAS protocol
- folate, thiamine per protocol
- case management
DVT PPX - lovenox
Code status - full code
[2024-09-18 04:10] LABS: Urine White Cell 0-2 /HPF (0-5)
[2024-09-18 04:12] LABS: Urine Bacteria Moderate (Negative)
[2024-09-18] MEDS: PHENOBARBITAL 104 MG IV (05:33)
--- NOTE | 2024-09-18 05:58 | PTCARENOTE ---
Received patient from the ED. Seizure precautions in place. No noted seizures on arrival. Phenobarbital initiated.
[2024-09-18 06:11] LABS: Magnesium 1.5 mg/dl (1.6-2.3)
[2024-09-18 06:21] LABS: Hematocrit 34.3 % (39.0-52.0); Hemoglobin 12.4 g/dL (13.0-18.0); Mean Corp Hgb Conc. 36.2 g/dL (33.0-37.0); Mean Corpuscular Hgb 34.2 pg (27.0-31.0); Mean Corpuscular Volume 94.5 fL (80.0-94.0); Mean Platelet Volume 9.8 fL (7.4-10.4); Platelet Count 151 10^3/uL (130-400); Red Blood Cell Count 3.63 10^6/uL (4.70-6.10); Red Cell Dist. Width 12.4 % (11.5-14.5); White Blood Cell Count 5.5 10^3/uL (4.8-10.8)
[2024-09-18] MEDS: MAGNESIUM SULFATE 50 IV (06:34)
[2024-09-18 08:19] LABS: Alcohol None Detected
[2024-09-18] MEDS: FOLVITE 1 MG PO (08:54)
[2024-09-18] MEDS: KEPPRA 2000 MG PO ×2 (08:54→19:23)
[2024-09-18] MEDS: SODIUM PHOSPHATE 255 MEQ IV (08:54)
[2024-09-18] MEDS: THIAMINE INJECTION 200 MG IV ×2 (08:54→19:23)
[2024-09-18] MEDS: MUCINEX 1200 MG PO ×2 (10:06→19:22)
--- NOTE | 2024-09-18 12:55 | W.PN.HOSP.TC ---
Today's Communication/Plan
-
Continue phenobarbital taper
Assessment / Plan
Assessment / Plan
IMPRESSION:
59 y.o with witnessed generalized seizure episode lasting about 2 minutes. Not currently post-ictal. H/O seizures s/p subarachnoid hemorrhage 2004. ETOH and withdrawal seizures in the past. Complies with Keppra. Still drinks 3 x week and
reports loss of sibling recently. Last drink was 3 days ago. He is tachycardic and tremulus. Denies headaches, nausea, clouded sensorium. Alert and oriented x 3. No hallucinations.
Assessment/plan:
Seizure - Breakthrough seizure vs ETOH withdrawal.
Admitted to IMU
Patient is fully awake and oriented
Continue Keppra
Treat underlying alcohol withdrawal
ETOH Withdrawal
- Possible withdrawal seizure. Currently has CIWA = 4 currently, PAWS = 4, moderate risk for severe withdrawal.
- initiate phenobarbital taper
- due to reactions to lorazepam, will use diazepam with MSAS protocol
- folate, thiamine per protocol
- case management
Mild hyponatremia.
Continue tomorrow
Hypomagnesemia.
Replace and continue to monitor
CODE STATUS: Full code
DVT prophylaxis: Lovenox
Diet: Regular diet
Total time spent on today's encounter was 65 minutes which included time spent in counseling the patient/family regarding diagnosis and treatment plan as listed above, goals of care, and symptom management. Case was discussed with nursing staff,
specialists, and care coordinators/case management. All labs and imaging personally reviewed by me. Remainder the time spent in detailed review of previous records, lab data, imaging, and other medical provider documentation.
Anticipated Discharge: 24 - 48 hours
Subjective/Interval History
-
Date of Service: September 18, 2024
Patient seen and examined bedside, overall improved, still coughing, added Robitussin DM and Mucinex.
Chest x-ray negative for pneumonia, patient is allergic to Zithromax
Objective Data
-
Labs:
Laboratory Results
09/18/24 09/18/24
02:33 05:30
WBC 5.5
Hgb 12.4 L
Hct 34.3 L
Plt Count 151
Sodium 133 L
Potassium 4.0
Chloride 90 L
Carbon Dioxide 25
BUN 17
Creatinine 0.7
Glucose 123 H
Calcium 8.7
Total Bilirubin 0.8
AST 59
ALT 39
Alkaline Phosphatase 68
Vital Signs:
Vital Signs
Temp Pulse Resp BP Pulse Ox
99.4 F 106 22 148/96 94
09/18/24 11:27 09/18/24 10:00 09/18/24 10:00 09/18/24 10:00 09/18/24 10:16
I&O
09/17/24 09/18/24 09/19/24
06:59 06:59 06:59
Intake Total 480 / 480
Output Total 800 / 800
Balance -320 / -320
Physical Exam
-
General: Well Developed, Well Nourished, No Apparent Distress and Comfortable
HEENT: Normocephalic, Atraumatic, Moist Mucous Membranes, No Ptosis, PERRLA and Nose Appears Normal
Respiratory: Rales, Rhonchi and Non Labored Respirations
Cardiac: Regular Rhythm and S1/S2
Breast: Deferred by me
GI: Soft, Nontender, Nondistended and Normal Bowel Sounds
Genito-urinary: No Costovertebral Tender
Musculoskeletal: No Clubbing, No Cyanosis and No Edema
Skin: Warm
Neuro: Awake, Alert, Oriented, AO x 3 and No Motor Deficits
Psych: Calm
Data Reviewed
-
Diagnostic Radiology: Image personally visualized and interpreted and Report Reviewed by me
CT Scan: Image personally visualized and interpreted and Report Reviewed by me
Ultrasound: Image personally visualized and interpreted and Report Reviewed by me
MRI: Image personally visualized and interpreted and Report Reviewed by me
Medical Tests (Nuc Med, Echo etc): Image personally visualized and interpreted and Report Reviewed by me
Labs: Labs Reviewed by me
Old Records: Reviewed
--- NOTE | 2024-09-18 15:35 | PTCARENOTE ---
Assumed care of patient at beginning of this shift from previous RN; Ox3 and cooperative. MSAS score has been a 3 for low-grade temp and HR 80-100; fine tremors also felt but not seen. Seizure precautions maintained with pads on bed. Patient
tolerating regular diet. Mag rider ordered by Dr Bunch; TT sent to verify if needed as patient received this morning starting on prior shift. He cancelled order. See worklist for full assessment and vital signs.
--- NOTE | 2024-09-18 16:45 | CM ---
Patient with Dx Seizure, ETOH Withdrawal. Room air. Receiving IV Phenobarb. MSAS.
Met with patient who resides with his spouse in a 3 story house, 2 steps to enter.
The patient was independent in ADLs and ambulation.
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
The patient has no DME, no prior VN or SNF.
PCP - Shivam Hernadez
Pharmacy - [facility]
CM Consult: Substance Abuse
Patient states he is currently attending AA meetings and is in the [facility] outpatient program, 3 hrs/day.
He declined offered to meet with [facility].
CM Consult: Advanced Directive
Provided copy.
Patient was tearful and shared that his brother last week and he attended the .
Patient says he was close to his brother that passed.
He has 6 sisters and 5 brothers and only 1 other brother is left/still alive.
Phone call to plastic parts fabricator office; left message requesting they see this patient due to recent in the family.
Plan follow patient's mobility.
Plan home.
[2024-09-18] MEDS: LOVENOX 40 MG SC (17:00)
[2024-09-18] MEDS: PHENOBARBITAL 97.5 MG IV ×2 (17:01→21:14)
[2024-09-19] VITALS (9 sets, daily range): BP systolic 130–148; BP diastolic 86–115; PULSE 85; O2SAT 96
[2024-09-19 04:44] LABS: Hematocrit 37.5 % (39.0-52.0); Hemoglobin 13.6 g/dL (13.0-18.0); Mean Corp Hgb Conc. 36.3 g/dL (33.0-37.0); Mean Corpuscular Hgb 34.3 pg (27.0-31.0); Mean Corpuscular Volume 94.5 fL (80.0-94.0); Mean Platelet Volume 9.8 fL (7.4-10.4); Platelet Count 149 10^3/uL (130-400); Red Blood Cell Count 3.97 10^6/uL (4.70-6.10); Red Cell Dist. Width 12.4 % (11.5-14.5); White Blood Cell Count 6.1 10^3/uL (4.8-10.8)
[2024-09-19 04:55] LABS: Blood Urea Nitrogen 8 mg/dl (9-20); Calcium 8.5 mg/dl (8.4-10.2); Carbon Dioxide 23 mmol/L (22-30); Chloride 96 mmol/L (98-107); Estimated Creatinine Clearance 121 ml/min; Glucose 103 mg/dl (70-99); Magnesium 1.8 mg/dl (1.6-2.3); Potassium 3.2 mmol/L (3.5-5.1); Sodium 134 mmol/L (135-145); eGFR > 60.00
[2024-09-19] MEDS: KCL 40 MEQ PO (05:42)
--- NOTE | 2024-09-19 06:28 | PTCARENOTE ---
Addendum entered by Katherin Francis RN 09/19/24 06:30:
Am k 3.2. push button switch assembler provider made aware and ordered PO repletion.
Original Note:
No acute events overnight. Impulsive at times but easy to redirect. No witnessed seizures. Seizure precautions in place.
[2024-09-19] MEDS: KEPPRA 2000 MG PO (08:23)
[2024-09-19] MEDS: MUCINEX 1200 MG PO (08:23)
[2024-09-19] MEDS: FOLVITE 1 MG PO (08:23)
[2024-09-19] MEDS: PHENOBARBITAL 97.5 MG IV (08:24)
[2024-09-19] MEDS: THIAMINE INJECTION 200 MG IV (08:24)
--- NOTE | 2024-09-19 08:25 | CHAP ---
Referral received from CM. We will follow up with Mr. Gamble later today (either myself or a lay paint specialist volunteer) regarding grief over his brother's last week.
--- NOTE | 2024-09-19 10:13 | W.PN.HOSP.TC ---
Today's Communication/Plan
-
Discharge home today
Assessment / Plan
Assessment / Plan
IMPRESSION:
59 y.o with witnessed generalized seizure episode lasting about 2 minutes. Not currently post-ictal. H/O seizures s/p subarachnoid hemorrhage 2004. ETOH and withdrawal seizures in the past. Complies with Keppra. Still drinks 3 x week and
reports loss of sibling recently. Last drink was 3 days ago. He is tachycardic and tremulus. Denies headaches, nausea, clouded sensorium. Alert and oriented x 3. No hallucinations.
Symptoms improved, patient will be discharged home on gabapentin tapering.
Patient noted to have cough but negative x-ray for pneumonia we will treat as bronchitis.
Patient is allergic to erythromycin base will add doxycycline 100 mg twice daily for 5 days.
Patient cleared for discharge home today.
Assessment/plan:
Seizure - Breakthrough seizure vs ETOH withdrawal.
Admitted to IMU
Patient is fully awake and oriented
Continue Keppra
Treat underlying alcohol withdrawal
09/19
Continue Keppra as per home dose.
ETOH Withdrawal
- Possible withdrawal seizure. Currently has CIWA = 4 currently, PAWS = 4, moderate risk for severe withdrawal.
- initiate phenobarbital taper
- due to reactions to lorazepam, will use diazepam with MSAS protocol
- folate, thiamine per protocol
- case management
09/19
Will discharge on gabapentin taper
Mild hyponatremia.
Improved
Hypomagnesemia.
Replace and continue to monitor
CODE STATUS: Full code
DVT prophylaxis: Lovenox
Diet: Regular diet
Total time spent on today's encounter was 65 minutes which included time spent in counseling the patient/family regarding diagnosis and treatment plan as listed above, goals of care, and symptom management. Case was discussed with nursing staff,
specialists, and care coordinators/case management. All labs and imaging personally reviewed by me. Remainder the time spent in detailed review of previous records, lab data, imaging, and other medical provider documentation.
Anticipated Discharge: Today
Subjective/Interval History
-
Date of Service: September 19, 2024
Patient seen and examined at bedside, patient was out of bed to chair.
Improved withdrawal symptoms.
Plan to be discharged home on gabapentin to bring.
Still coughing, will add doxycycline on Dc
patient denies any chest pain or shortness of breath, no abdominal pain, no nausea, no vomiting, no diarrhea or constipation.
Objective Data
-
Labs:
Laboratory Results
09/19/24
04:13
WBC 6.1
Hgb 13.6
Hct 37.5 L
Plt Count 149
Sodium 134 L
Potassium 3.2 L
Chloride 96 L
Carbon Dioxide 23
BUN 8 L
Creatinine 0.7
Glucose 103 H
Calcium 8.5
Vital Signs:
Vital Signs
Temp Pulse Resp BP Pulse Ox
99.1 F 70 21 130/115 96
09/19/24 08:08 09/19/24 08:00 09/19/24 08:00 09/19/24 08:00 09/19/24 08:00
I&O
09/18/24 09/19/24 09/20/24
06:59 06:59 06:59
Intake Total 480 / 480
Output Total 1999 / 1999
Balance -1520 / -1520
Physical Exam
-
General: Well Developed, Well Nourished, No Apparent Distress and Comfortable
HEENT: Normocephalic, Atraumatic, Moist Mucous Membranes, No Ptosis, PERRLA and Nose Appears Normal
Respiratory: Rales, Rhonchi and Non Labored Respirations
Cardiac: Regular Rhythm and S1/S2
Breast: Deferred by me
GI: Soft, Nontender, Nondistended and Normal Bowel Sounds
Genito-urinary: No Costovertebral Tender
Musculoskeletal: No Clubbing, No Cyanosis and No Edema
Skin: Warm
Neuro: Awake, Alert, Oriented, AO x 3 and No Motor Deficits
Psych: Calm
Data Reviewed
-
Diagnostic Radiology: Image personally visualized and interpreted and Report Reviewed by me
CT Scan: Image personally visualized and interpreted and Report Reviewed by me
Ultrasound: Image personally visualized and interpreted and Report Reviewed by me
MRI: Image personally visualized and interpreted and Report Reviewed by me
Medical Tests (Nuc Med, Echo etc): Image personally visualized and interpreted and Report Reviewed by me
Labs: Labs Reviewed by me
Old Records: Reviewed
--- NOTE | 2024-09-19 10:21 | W.DCSUMMARY ---
Discharge Summary
Discharge Data
Date of Admission: 09/18/24
Date of Discharge: 09/19/24
-
Pending Results: No
Hospital Course
Hospital course
59 y.o with witnessed generalized seizure episode lasting about 2 minutes. Not currently post-ictal. H/O seizures s/p subarachnoid hemorrhage 2004. ETOH and withdrawal seizures in the past. Complies with Keppra. Still drinks 3 x week and
reports loss of sibling recently. Last drink was 3 days ago. He is tachycardic and tremulus. Denies headaches, nausea, clouded sensorium. Alert and oriented x 3. No hallucinations.
Symptoms improved, patient will be discharged home on gabapentin tapering.
Patient noted to have cough but negative x-ray for pneumonia we will treat as bronchitis.
Patient is allergic to erythromycin base will add doxycycline 100 mg twice daily for 5 days.
Patient cleared for discharge home today.
During hospitalization patient was treated from the [facility]
Seizure - Breakthrough seizure vs ETOH withdrawal.
Admitted to IMU
Patient is fully awake and oriented
Continue Keppra
Treat underlying alcohol withdrawal
09/19
Continue Keppra as per home dose.
ETOH Withdrawal
- Possible withdrawal seizure. Currently has CIWA = 4 currently, PAWS = 4, moderate risk for severe withdrawal.
- initiate phenobarbital taper
- due to reactions to lorazepam, will use diazepam with MSAS protocol
- folate, thiamine per protocol
- case management
09/19
Will discharge on gabapentin taper
Mild hyponatremia.
Improved
Hypomagnesemia.
Replace and continue to monitor
CODE STATUS: Full code
DVT prophylaxis: Lovenox
Diet: Regular diet
Total time spent on today's encounter was 40 minutes which included time spent in counseling the patient/family regarding diagnosis and treatment plan as listed above, goals of care, and symptom management. Case was discussed with nursing staff,
specialists, and care coordinators/case management. All labs and imaging personally reviewed by me. Remainder the time spent in detailed review of previous records, lab data, imaging, and other medical provider documentation.
Anticipated Discharge: Today
Discharge Plan
-
Patient Disposition: Home (Routine Discharge)
Discharge Diagnosis/Procedures: Breakthrough seizures.
Alcohol withdrawal.
Hyponatremia.
Acute bronchitis
Diet: As tolerated
Activity: As tolerated
Referrals:
Shivam Hernadez MD [Family Provider] -
Prescriptions:
New
doxycycline hyclate 100 mg Capsule
100 mg PO Q12 5 Days Qty: 10 0RF
dextromethorphan-guaifenesin 10-100 mg/5 mL Syrup
10 ml PO Q4HPRN PRN (Reason: cough) Qty: 0 0RF
folic acid 1 mg Tablet
1 mg PO DAILY Qty: 0 0RF
thiamine mononitrate (vit B1) 100 mg Tablet
100 mg PO DAILY Qty: 0 0RF
guaifenesin 600 mg Tablet Extended Release 12hr
1,200 mg PO Q12 10 Days Qty: 0 0RF
gabapentin 100 mg capsule
100 mg PO DIRECTED Qty: 30 0RF
Rx Instructions:
Take 1 capsule 3 times daily for 5 days then twice daily for 5 days then once daily for 5 days, then stop.
Continued
levetiracetam 1,000 mg Tablet
2,000 mg PO BID 30 Days Qty: 120 0RF
Discharge Orders:
Discharge Patient (As Directed); Ordered 09/19/24
Ordered By: Leyla Bunch
Discharge Date and Time
Print Language: URDU
[2024-09-19] MEDS: VIBRAMYCIN 100 MG PO (10:49)
--- NOTE | 2024-09-19 12:13 | PTCARENOTE ---
Addendum entered by Luis Fernando Vang RN 09/19/24 12:18:
Will have PT see patient before DC.
Original Note:
Reviewed DC paperwork with patient. All questions answered. VSS. Midline to be pulled by IV team. Awaiting his brother to pick him up and take him home.
--- NOTE | 2024-09-19 17:47 | CM ---
PT Eval; No skilled PT needed.
Spoke with patient and FRANCOIS Collins about his insurance. Patient states his insurance is called '[employer]' however his wallet with insurance card is at home. He states he has coverage for medical appointments to PCP and for his medications.
The patient says he feels ready for discharge home today. His brother or will provide a ride home.
No CM d/c needs identified.
Plan home today.
== END 2024-09-19 14:50 | disposition home or self-care (01) ==
LOC: IMU 04:59
PROVIDERS: Emergency Medicine; Student in an Organized Health Care Education/Training Program; ADMITTING PHYSICIAN Internal Medicine; ATTENDING PHYSICIAN General Practice; EMERGENCY PHYSICIAN Student in an Organized Health Care Education/Training Program; FAMILY PHYSICIAN Family Medicine
DX: F10.239 Alcohol dependence with withdrawal, unspecified (principal); G40.909 Epilepsy, unspecified, not intractable, without status epilepticus; Z87.891 Personal history of nicotine dependence; Z11.52 Encounter for screening for COVID-19; E87.1 Hypo-osmolality and hyponatremia; E83.42 Hypomagnesemia
CPT/HCPCS: 71046; 80048; 80053; 80306; 81003; 81015; 82077; 82550; 83735; 84100; 85025; 85027; 87086; 87502; 87811; 93005; 96374; 97162; 99291; G0378

== ENCOUNTER 2024-10-19 00:55 | Emergency (ER) | payer MEDICAID, SELFPAY ==
[2024-10-19 01:05] VITALS: BP 156/95
--- NOTE | 2024-10-19 02:16 | ED.GENMED ---
History of Present Illness
General
Chief Complaint: Hallucinations
Source: patient and spouse
Time Seen by Provider: 10/19/24 02:00
History of Present Illness
History of Present Illness:
This patient is a 59-year-old male with a history of alcohol use disorder who states that he has not had a drink of alcohol in approximately 3 days. He notes that he was feeling his usual self until approximately 7:30 PM when he started to have
visual and auditory hallucinations. He describes, along with his , seeing people that were outside and inside the house that were not actually there. He describes a woman that was wearing a mask. He also was hearing music that no one else
could hear and was becoming agitated when his did not believe him. This lasted a few hours and now resolved completely. He denies confusion, fever, chills, headache, neck pain, photophobia, abdominal pain, nausea, vomiting, chest pain,
shortness of breath, or other complaints. He denies any drug use.
Past History
Past History
ED Past Medical History: Arrthythmia (Paroxysmal atrial fibrillation), CVA (Possible TIA), HTN, Hypercholesterolemia, Seizures, Psychiatric (Anxiety), Other (Spontaneous subarachnoid hemorrhage 2005, Headaches, Back pain, DVT, C-diff, Factor 5
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
ED Past Surgical History: Orthopedic (left knee arthroscopy)
Social History
Tobacco: Former smoker
Alcohol: Chronic alcoholic
Drug: None
Personal:
Living: with family
Employment: Not employed
Family History
Family History: Other (He has a father and a brother that had strokes)
Phy Exam
Physical Exam
Physical Exam:
GENERAL: Alert , in no apparent distress
EYE: pupils equal and reactive, no photophobia, EOMI, fatigable right-sided lateral nystagmus
NECK: Supple, no significant adenopathy.
ENT: o/p clr, mmm.
CARDIAC: Regular rate and rhythm .
LUNGS: Clear breath sounds bilaterally, no acute respiratory distress, no wheezes/rales/rhonchi
ABDOMEN: Soft, without focal tenderness, no r/g, no cvat
NEUROLOGICAL: Alert and oriented, no focal neuro deficits, motor 5 out of 5, sensory intact, [id number] normal, cranial nerves II through XII intact
SKIN: Warm and dry, skin intact.
MUSCULOSKELETAL: No edema, well perfused.
PSYCH: Normal and appropriate interaction although slightly anxious.
Scores
Withdrawal Assessment of Alcohol
Nausea and Vomiting: No nausea and no vomiting
Tactile Disturbances: None
Tremor: No tremor
Auditory Disturbances: Not present
Paroxysmal Sweats: No sweat visible
Visual Disturbances: Not present
Anxiety: Mild anxiety
Headache, Fullness in Head: Not present
Agitation: Normal activity
Orientation and clouding of sensorium: Oriented and can do serial additions
Total CIWA Score: 1
Alcohol Withdrawal Medication Recommendation: Equal to MSAS Score 0-4. Monitor & re-assess q2hrs, NO MEDICATION NEEDED
Course
Orders/Labs/Results
Orders:
Orders
10/19/24 01:[address] [CT Head W/o Iv Contrast] Urgent
Comment:
Reason For Exam: hallucinations
10/19/24 02:23
diazePAM [Valium Injection] 2 mg IV NOW STA
10/19/24 02:31
Alcohol Urgent
Basic Metabolic Panel Urgent
Comment: NO K
Complete Blood Count/With Diff Urgent
10/19/24 03:39
Keppra (Levetiracetam) [S] Urgent
Comment: REDRAW FOR HEMOLYSIS
10/19/24 06:35
Urine Drug Abuse Screen Urgent
Date Specimen was Collected: 10/19/24
Time Specimen was Collected: 06:32
Abnormal Lab Results
10/19/24 10/19/24
02:31 06:35
WBC 3.4 L 10^3/uL
(4.8-10.8)
RBC 4.41 L 10^6/uL
(4.70-6.10)
MCV 94.3 H fL
(80.0-94.0)
MCH 34.2 H pg
(27.0-31.0)
Absolute Lymphs (auto) 1.0 L 10^3/uL
(1.2-3.4)
Monocytes % 10.1 H %
(1.7-9.3)
BUN 8 L mg/dl
(9-20)
Glucose 109 H mg/dl
(70-99)
Ur Barbiturates Screen Positive H
(Negative)
10/19/24 02:31
10/19/24 02:31
Vital Signs
Initial and Last Documented VS:
Initial Vital Signs
Temp Pulse Resp BP Pulse Ox
98.5 F 91 20 156/95 99
10/19/24 01:05 10/19/24 01:05 10/19/24 01:05 10/19/24 01:05 10/19/24 01:05
Last Documented Vital Signs
Temp Pulse Resp BP Pulse Ox
98.5 F 71 15 134/83 98
10/19/24 01:05 10/19/24 07:45 10/19/24 07:45 10/19/24 07:00 10/19/24 07:45
*Critical Care Note
Total Time (30-74mins, 75-104mins- exclusive of procedures): Not Applicable
Update Note
Update Note:
Patient presents to the Emergency Department with visual and auditory hallucinations
Number and Complexity of Problems Addressed at the Encounter
� Chronic conditions affecting care:
� Acute Exacerbation and/or Progression of Chronic Illness:
� Differential Diagnosis includes: But not limited to seizure, alcohol withdrawal, electrolyte disturbance, illicit drug use, meningitis, encephalitis, etc. etc.
Amount and/or Complexity of Data to be Reviewed and Analyzed
� I performed an independent evaluation of and my interpretation is:
EKG:
CT: Read by vision no acute hemorrhage herniation or hydrocephalus. Left anterior temporal encephalomalacia. Moderate periventricular hypodensities likely the sequela of small vessel ischemic disease.
Xrays:
Laboratory Studies:
Other:
� Review of other/old records reveals: Patient has had several admissions in the past related to seizures and alcohol withdrawal, discharge summaries reviewed
� Clinical information was obtained by an independent historian: who is at bedside
� Prescriptions/Medications Considered but not given: Consider giving Ativan however in reading his report that drug is to be avoided in this patient with diazepam as a reasonable alternative
� Further testing considered but not performed:
Risk of Complications and/or Morbidity or Mortality of Patient Management
� Social determinants of health affecting care:
� Discussion with other providers (PCP, Hospitalists, Consultants, etc):
� Escalation of care including admission/observation vs risk of discharge considered: 6:22 AM prolonged observation here in the emergency department, patient remains lucid, oriented, without signs of impending withdrawal such as
diaphoresis, nausea, vomiting, tremor, agitation, etc. It is unclear the etiology of his symptoms earlier, could be related to abstinence from alcohol although less likely given lack of assoc withdrawal signs/sxs. He does not have sepsis, hypoxia,
metabolic disturbance, electroly abnl, etc to explain these sxs. Sz could be a possibility. Pt does not psychotic sxs, no si/hi.
721AM Pt remains asx. Stable for d/c and close f/u.
ED Attending Note
-
Portions of this chart may have been created with voice recognition software.� Occasional wrong word or��sound alike� substitutions may have occurred due to the inherent limitations of voice recognition software.
Discharge Plan
Departure
Patient Disposition: Home (Routine Discharge)
Date of Disposition: 10/19/24
Time of Disposition: 07:21
Patient with high blood pressure during this ER visit?: Yes
Condition: Good
Discharge Problem:
Seizure disorder
Instructions: BLOOD PRESSURE
Prescriptions:
No Action
levetiracetam 1,000 mg Tablet
2,000 mg PO BID 30 Days Qty: 120 0RF
dextromethorphan-guaifenesin 10-100 mg/5 mL Syrup
10 ml PO Q4HPRN PRN (Reason: cough) Qty: 0 0RF
folic acid 1 mg Tablet
1 mg PO DAILY Qty: 0 0RF
thiamine mononitrate (vit B1) 100 mg Tablet
100 mg PO DAILY Qty: 0 0RF
guaifenesin 600 mg Tablet Extended Release 12hr
1,200 mg PO Q12 10 Days Qty: 0 0RF
gabapentin 100 mg capsule
100 mg PO DIRECTED Qty: 30 0RF
Rx Instructions:
Take 1 capsule 3 times daily for 5 days then twice daily for 5 days then once daily for 5 days, then stop.
Referrals:
UNKNOWN - PT DOES,NOT KNOW [Family Provider] -
Activity Restrictions/Additional Instructions:
IF YOU DEVELOP RECURRENT HALLUCINATIONS, ANY FEVER, HEADACHE, VOMITING, DIZZINESS, CHEST PAIN, TROUBLE BREATHING, OR OTHER WORRISOME SIGNS, GO TO THE ER IMMEDIATELy!
Interventions
Interventions:
*Risk Screen - Suicide Last Done: 10/19/24 01:05
*General Assessment Last Done: 10/19/24 02:13
*Neglect/Abuse Screening Last Done: 10/19/24 01:05
*ED- Fall Risk Assessment Last Done: 10/19/24 02:13
*ED COVID-19 Vaccine History Last Done: 10/19/24 02:13
*Nursing Disposition Last Done: 10/19/24 08:47
ED-Suicide Risk Assessment Last Done: 10/19/24 03:32
ED- Neurological Assessment Last Done: 10/19/24 03:32
ED-Psychological Assessment Last Done: 10/19/24 03:32
Discharge Date and Time
Discharge Date/Time: 10/19/24 07:45
Print Language: AMHARIC
[2024-10-19 02:49] LABS: % Basophils 0.6 % (0-2); % Eosinophils 0.3 % (0-6); % Immature Granulocytes 0.3 % (0-0.5); % Lymphocytes 30.8 % (20.5-51.1); % Monocytes 10.1 % (1.7-9.3); % Neutrophils 57.9 % (42.2-75.2); Absolute Monocytes 0.3 10^3/uL (0.1-0.6); Hematocrit 41.6 % (39.0-52.0); Hemoglobin 15.1 g/dL (13.0-18.0); Mean Corp Hgb Conc. 36.3 g/dL (33.0-37.0); Mean Corpuscular Hgb 34.2 pg (27.0-31.0); Mean Corpuscular Volume 94.3 fL (80.0-94.0); Mean Platelet Volume 10.4 fL (7.4-10.4); Nucleated Red Blood Cells % 0 % (-); Platelet Count 170 10^3/uL (130-400); Red Blood Cell Count 4.41 10^6/uL (4.70-6.10); Red Cell Dist. Width 12.1 % (11.5-14.5); White Blood Cell Count 3.4 10^3/uL (4.8-10.8)
[2024-10-19 03:00] VITALS: BP 133/99
[2024-10-19] MEDS: VALIUM INJECTION 2 MG IV (03:00)
[2024-10-19 03:19] LABS: Alcohol None Detected; Blood Urea Nitrogen 8 mg/dl (9-20); Calcium 9.8 mg/dl (8.4-10.2); Carbon Dioxide 26 mmol/L (22-30); Chloride 98 mmol/L (98-107); Estimated Creatinine Clearance 116 ml/min; Glucose 109 mg/dl (70-99); Sodium 136 mmol/L (135-145); eGFR > 60.00
[2024-10-19 04:00] VITALS: BP 140/123
[2024-10-19 05:00] VITALS: BP 129/87
[2024-10-19 06:00] VITALS: BP 138/89
[2024-10-19 07:00] VITALS: BP 134/83
[2024-10-19 07:31] LABS: Amphetamines Negative (Negative); Barbiturates Positive (Negative); Benzodiazepines Negative (Negative); Buprenorphine Negative (Negative); Cocaine Negative (Negative); Marijuana Negative (Negative); Methadone Negative (Negative); Methamphetamines Negative (Negative); Opiates Negative (Negative); Phencyclidine Negative (Negative); Tricyclic Antidepressants Negative (Negative)
[2024-10-21 00:40] LABS: Keppra (Levetiracetam) 75 ug/mL (10-40)
== END 2024-10-19 07:45 | disposition home or self-care (01) ==
LOC: EMR 00:55
PROVIDERS: EMERGENCY PHYSICIAN Emergency Medicine
DX: G40.909 Epilepsy, unspecified, not intractable, without status epilepticus (principal); F10.10 Alcohol abuse, uncomplicated; R44.0 Auditory hallucinations; R44.1 Visual hallucinations; I48.0 Paroxysmal atrial fibrillation; I10 Essential (primary) hypertension; M10.9 Gout, unspecified; E78.00 Pure hypercholesterolemia, unspecified; D68.51 Activated protein C resistance; D64.9 Anemia, unspecified; F41.9 Anxiety disorder, unspecified; Z86.73 Personal history of transient ischemic attack (TIA), and cerebral infarction without residual deficits; Z86.718 Personal history of other venous thrombosis and embolism; Z87.891 Personal history of nicotine dependence; Z88.1 Allergy status to other antibiotic agents; Z88.8 Allergy status to other drugs, medicaments and biological substances
CPT/HCPCS: 99284; 96374; 70450; 80048; 80177; 80306; 82077; 85025

== ENCOUNTER 2024-10-20 02:41 | Inpatient (IN) | payer OTHER, SELFPAY ==
[2024-10-19 22:32] VITALS: BP 131/90
[2024-10-19 22:51] LABS: Urine Albumin 1+ (Neg - Trace); Urine Bilirubin Negative (Negative); Urine Character Clear (Clear); Urine Color Yellow; Urine Glucose Negative (Negative); Urine Ketone Negative (Negative); Urine Leukocyte Negative (Negative); Urine Nitrite Negative (Negative); Urine Occult Blood 1+ (Negative); Urine Urobilinogen Negative (Neg - 1+)
[2024-10-19 23:03] LABS: Urine Bacteria Few (Negative); Urine Red Blood Cell 0-2 /HPF (0-2); Urine Squamous Cell 0-2 /LPF (Few); Urine White Cell 0-2 /HPF (0-5)
[2024-10-20] VITALS (10 sets, daily range): BP systolic 113–162; BP diastolic 82–96; BMI 21.0
--- NOTE | 2024-10-20 01:23 | ED.GENMED ---
History of Present Illness
General
Chief Complaint: Hallucinations
Source: patient and spouse
Time Seen by Provider: 10/20/24 00:51
History of Present Illness
History of Present Illness:
59-year-old male who I saw in the emergency department yesterday after having a approximately 2-hour episode of visual and auditory hallucinations. He had a prolonged observation period here in the emergency department when he was lucid. He went
home, and according to his he was acting his normal self earlier today. However, when she returned home tonight patient was again having auditory visual hallucinations. They describe patient hearing music that was not actually playing. He
started to talk about neighbors that were standing outside which his disputed with him, he then made reference to the fact that he felt like all the neighbors were lying. Patient states that he feels like these hallucinations wax and wane and
he is very conscious of it. He denies any physical complaints. He denies any ingestions.
Past History
Past History
ED Past Medical History: Arrthythmia (Paroxysmal atrial fibrillation), CVA (Possible TIA), HTN, Hypercholesterolemia, Seizures, Psychiatric (Anxiety), Other (Spontaneous subarachnoid hemorrhage 2005, Headaches, Back pain, DVT, C-diff, Factor 5
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
ED Past Surgical History: Orthopedic (left knee arthroscopy)
Social History
Tobacco: Former smoker
Alcohol: Chronic alcoholic
Drug: None
Personal:
Living: with family
Employment: Not employed
Family History
Family History: Other (He has a father and a brother that had strokes)
Phy Exam
Physical Exam
Physical Exam:
GENERAL: Alert , in no apparent distress
EYE: pupils equal and reactive
NECK: Supple, no significant adenopathy.
ENT: o/p clr, mmm.
CARDIAC: Regular rate and rhythm .
LUNGS: Clear breath sounds bilaterally, no acute respiratory distress, no wheezes/rales/rhonchi
ABDOMEN: Soft, without focal tenderness, no r/g, no cvat
NEUROLOGICAL: Alert and oriented, no focal neuro deficits, [id number] normal, motor 5 out of 5, sensory intact, cranial nerves II through XII intact
SKIN: Warm and dry, skin intact.
MUSCULOSKELETAL: No edema, well perfused.
PSYCH: Normal and appropriate interaction.
Course
Orders/Labs/Results
Orders:
Orders
10/19/24 22:43
Urinalysis Reflex To Culture Urgent
Date Specimen was Collected: 10/19/24
Time Specimen was Collected: 22:39
Urine Microscopic Reflex Cult Urgent
10/20/24 02:14
Alcohol Urgent
Complete Blood Count/No Diff Urgent
Comprehensive Metabolic Panel Urgent
10/20/24 02:23
Admit/Transfer Patient As Directed
Co-Sign Provider:
Level of Care: Inpatient admission
Assign to:: Telemetry
Physician / Group: Val
Diagnosis: Hallucinations
Reason for Telemetry: Arrhythmia
Date to Stop Telemetry: 10/23/24
Time to Stop Telemetry: 11:00
Reason for Hospitalization: Hallucinations
Expected length of stay greater than two midnights?: Yes
ELOS- Estimated Length of Stay in days: 2
I certify the patient meets the requirements for IP care: Yes
PRN Pain Medication Management As Directed
May give lesser potent ordered pain med per pt: Yes
preference::
Protocol:: Medication orders for pain may be administered in a
manner that supports deferring to patient preference
when the pt is:
- Requesting an ordered lesser potent pain medication.
Least to most potent pain medications are defined
as: acetaminophen < NSAID < tramadol < opioids
(morphine, oxycodone, hydromorphone).
- Requesting a lesser dose of the same medication IF
ORDERED.
- Requesting a less intrusive route of administration
if both routes are prescribed by the provider (PO <
IV).
10/20/24 02:24
Code Status As Directed
Resuscitation Status: Full Code
10/20/24 04:20
Acetaminophen [Tylenol] 650 mg PO Q4HPRN PRN
FOLic ACID [Folvite] 1 mg 0.9% Sodium Chloride 50 ml [Nss] 50 ml IV DAILYPRN
Lactated Ringers [Lr] 1,000 ml IV 80 mls/hr
diazePAM [Valium Injection] 2 mg IV Q1HPRN PRN
diazePAM [Valium Injection] 2 mg IV Q2HPRN PRN
diazePAM [Valium Injection] 5 mg IV Q1HPRN PRN
10/20/24 04:20
Case Management Consult Once
Case Management Consult: Other
Comment: Substance abuse counseling
Consult Notification Routine
Specialty to Notify: Neurology
Date consulting provider notified: 10/20/24
Time consulting provider notified: 07:22
Notified:: Provider
Comment: TOAN
DIETARY IP CONSULT Routine
Reason for Consult: Nutrition support, possible refeeding guidelines
NEUROLOGY CONSULT Routine
Consulting Provider: Denis Baer
Was physician already notified: No
Reason for consult: Hallucinations
Activity As Directed
Activity Level: Ambulate
With Assistance
EKG with chest pain [ECG as needed] As Directed
ECG as needed for:: Chest Pain
I/O [Intake/ Output] As Directed
Frequency: Per unit guidelines
MSAS SCORE As Directed
MSAS Score 0-4: Repeat MSAS every 2 hours until 0-4 for three consecutive assessments, then every 4 hours x 48
hours.
MSAS Score 5-7: For MILD withdrawl symptoms. Repeat MSAS and RASS every 2 hours
MSAS Score 8-11: For MODERATE withdrawal symptoms. Repeat MSAS and RASS every 1 hour. Consider ICU or IMU
level of care.
MSAS Score > 11: For SEVERE withdrawal symptoms. Repeat MSAS and RASS every 1 hour. Notify provider, consider
ICU level of care.
MSAS Additional Instructions: If no improvement or no decrease in score from severe to moderate within 12
hours, consult psychiatry
MSAS Notify Provider: Notify provider if patient requires more than 10 mg of Lorazepam in eight hour period.
MSAS SCORE As Directed
MSAS Score 0-4: Repeat MSAS every 2 hours until 0-4 for three consecutive assessments, then every 4 hours x 48
hours.
MSAS Score 5-7: For MILD withdrawl symptoms. Repeat MSAS and RASS every 2 hours
MSAS Score 8-11: For MODERATE withdrawal symptoms. Repeat MSAS and RASS every 1 hour. Consider ICU or IMU
level of care.
MSAS Score > 11: For SEVERE withdrawal symptoms. Repeat MSAS and RASS every 1 hour. Notify provider, consider
ICU level of care.
MSAS Additional Instructions: If no improvement or no decrease in score from severe to moderate within 12
hours, consult psychiatry
MSAS Notify Provider: Notify provider if patient requires more than 10 mg of Lorazepam in eight hour period.
Neurological Checks As Directed
Frequency: q4h
Pneumatic Compression Sleeves As Directed
Type: Knee high
Vital Signs As Directed
Frequency: Per unit guidelines
Oxygen Therapy [O2 Therapy] [RESP] Routine
Titrate/Wean O2 to maintain O2 sat greater than (%): 94
Speech Therapy Eval & Treat Routine
DX Deep Vein Thrombosis Video Routine
10/20/24 Breakfast
Regular
At Your Request: Full Participation
10/20/24 06:41
Urine Drug Abuse Screen Routine
Date Specimen was Collected: 10/20/24
Time Specimen was Collected: 06:37
10/20/24 06:56
Basic Metabolic Panel IN AM
Complete Blood Count/No Diff IN AM
Magnesium IN AM
Phosphorus IN AM
TSH Reflex To Free T4 Routine
10/20/24 08:00
FOLic ACID [Folvite] 1 mg PO DAILY
Levetiracetam [Keppra] 2,000 mg PO BID
Phenobarbital Sodium [Phenobarbital] 97.5 mg IV TID
Thiamine Injection 200 mg IV Q8
10/22/24 08:00
Phenobarbital [Luminal] 64.8 mg PO TID
10/23/24 08:00
Thiamine HCl [Vitamin B1] 100 mg PO BID
10/23/24 11:00
DC Protocol for Telemetry ONCE
10/24/24 08:00
Phenobarbital [Luminal] 32.4 mg PO TID
Abnormal Lab Results
10/19/24 10/20/24
22:43 02:14
WBC 4.1 L 10^3/uL
(4.8-10.8)
RBC 3.92 L 10^6/uL
(4.70-6.10)
Hct 38.0 L %
(39.0-52.0)
MCV 96.9 H fL
(80.0-94.0)
MCH 34.7 H pg
(27.0-31.0)
Potassium 3.3 L mmol/L
(3.5-5.1)
AST 111 H U/L
(17-59)
ALT 67 H U/L
(0-50)
Total Protein 8.3 H g/dl
(6.3-8.2)
Ur Occult Blood Reflex 1+ A
(Negative)
Urine Bacteria (Reflex) Few A
(Negative)
Urine Albumin (Reflex) 1+ A
(Neg - Trace)
10/20/24 02:14
10/20/24 02:14
Vital Signs
Initial and Last Documented VS:
Initial Vital Signs
Temp Pulse Resp BP Pulse Ox
97.7 F 92 16 131/90 99
10/19/24 22:32 10/19/24 22:32 10/19/24 22:32 10/19/24 22:32 10/19/24 22:32
Last Documented Vital Signs
Temp Pulse Resp BP Pulse Ox
98.0 F 75 18 123/74 99
10/22/24 11:05 10/22/24 11:05 10/22/24 11:05 10/22/24 11:05 10/22/24 11:05
*Critical Care Note
Total Time (30-74mins, 75-104mins- exclusive of procedures): Not Applicable
Update Note
Update Note:
Patient presents to the Emergency Department with __auditory visual hallucinations
Number and Complexity of Problems Addressed at the Encounter
� Chronic conditions affecting care:
� Acute Exacerbation and/or Progression of Chronic Illness:
� Differential Diagnosis includes: But not limited to psychiatric illness, atypical seizure, etc. etc.
Amount and/or Complexity of Data to be Reviewed and Analyzed
� I performed an independent evaluation of and my interpretation is:
EKG:
CT:
Xrays:
Laboratory Studies:
Other:
� Review of other/old records reveals:
� Clinical information was obtained by an independent historian: who is at bedside
� Prescriptions/Medications Considered but not given:
� Further testing considered but not performed:
Risk of Complications and/or Morbidity or Mortality of Patient Management
� Social determinants of health affecting care:
� Discussion with other providers (PCP, Hospitalists, Consultants, etc):
� Escalation of care including admission/observation vs risk of discharge considered: Case discussed with Dr. Hastings for admission, recommend neuro and psych consult. Patient is stable at this time and lucid.
ED Attending Note
-
Portions of this chart may have been created with voice recognition software.� Occasional wrong word or��sound alike� substitutions may have occurred due to the inherent limitations of voice recognition software.
Discharge Plan
Departure
Patient Disposition: Admit
Date of Disposition: 10/20/24
Time of Disposition: :25
Admit to doctor: val
Presentation/result/management discussed w/ accepting MD/DO: Hospitalist
Discharge Problem:
Hallucinations
Interventions
Interventions:
*Risk Screen - Suicide Last Done: 10/20/24 04:21
*General Assessment Last Done: 10/20/24 03:01
*Neglect/Abuse Screening Last Done: 10/19/24 22:32
*ED- Fall Risk Assessment Last Done: 10/20/24 03:01
*ED COVID-19 Vaccine History Last Done: 10/20/24 04:21
*Nursing Disposition Last Done: 10/20/24 04:12
ED-Suicide Risk Assessment Last Done: 10/20/24 03:01
ED- Neurological Assessment Last Done: 10/20/24 02:17
ED-Psychological Assessment Last Done: 10/20/24 02:17
Discharge Date and Time
Discharge Date/Time: 10/20/24 04:13
[2024-10-20 02:25] LABS: Hemoglobin 13.6 g/dL (13.0-18.0); Mean Corp Hgb Conc. 35.8 g/dL (33.0-37.0); Mean Corpuscular Hgb 34.7 pg (27.0-31.0); Mean Corpuscular Volume 96.9 fL (80.0-94.0); Mean Platelet Volume 9.9 fL (7.4-10.4); Platelet Count 168 10^3/uL (130-400); Red Blood Cell Count 3.92 10^6/uL (4.70-6.10); Red Cell Dist. Width 12.5 % (11.5-14.5); White Blood Cell Count 4.1 10^3/uL (4.8-10.8)
--- NOTE | 2024-10-20 02:31 | HPS.HSE ---
Family Physician
-
Family Physician: Shivam Hernadez
Chief Complaint
-
Hallucinations
History of Present Illness
Patient is a 59y M with PMH significant for chronic alcohol use disorder, prior ICH and seizure disorder who presents to ED for evaluation of hallucinations. History obtained from patient, and ED staff. Patient developed visual and
auditory hallucinations sometime Monday. He woke his in the night and reported seeing werewolves outside and seeing a man standing in their bedroom. He was also hearing music and people talking. Patient was brought to the ED for further
evaluation.
His work-up was essentially unremarkable including CT of the head and routine labs. He received a single dose of Valium and he seemed improved.
Today patient continued to see and hear things that were not present. He does not seem otherwise confused and is able to discuss his medical history in detail.
He does not have complaints of headache, N/V, chest pain, dyspnea, fevers / chills.
Patient denies taking any illicit drugs (UDS done 10/19 was positive for barbiturates?).
He states that his last drink was Monday.
Patient has prior history of alcohol withdrawal syndromes and seizures - but has not had any symptoms similar to this in the past.
Medical History
Past Medical History
Past Medical History: Reports Other
Additional Past Medical History:
ASCVD with Prior CVA
History of seizures
Subarachnoid hemorrhage in 2004
Essential hypertension
Gout
Alcohol use disorder with withdrawal seizures and withdrawal delirium
Factor V Leiden deficiency
Anemia of chronic disease
Past Surgical History: Reports Other
Additional Past Surgical History:
Knee Arthroscopy
Social History
Tobacco: Non-smoker (Per record. Unsure of total use / quit date.)
Alcohol: Chronic Alcoholic (Drinks 3-4 glasses of wine 4-5 days per week. Last drink 3 days ago.)
Personal:
Family History
Family History: Other (Mother colon cancer, 1 brother colon cancer, father and multiple brothers alcohol abuse)
Allergies / Home Medications
Allergies reflects when Allergies were last updated in [employer].
Home Medications with original date entered in [employer]
Allergy/Medication List:
Allergies
Allergy/AdvReac Type Severity Reaction Status Date / Time
erythromycin base Allergy Unknown Verified 10/19/24 22:32
[Erythromycin Base]
lorazepam [From Ativan] AdvReac See Verified 10/19/24 22:32
comments
phenytoin sodium AdvReac Unknown- Verified 10/19/24 22:32
[From Dilantin] tolerated
phenobarbital
Home Medications
levetiracetam 1,000 mg tablet 2,000 mg (2 x 1,000 mg) PO BID Seizures 30 days #120 tabs 08/31/23
folic acid 1 mg tablet 1 mg PO DAILY #0 tabs 09/19/24
thiamine mononitrate (vit B1) 100 mg tablet 100 mg PO DAILY #0 tabs 09/19/24
Review of Systems
-
History Source: Patient and Family
A 12 point ROS was completed and negative except as noted: Yes
Constitutional: Denies Fever or Chills
Respiratory: Denies Cough or Trouble Breathing
Cardiac: Denies Chest Pain or Palpitations
Abdomen/GI: Denies Abdominal Pain, Nausea, Vomiting or Diarrhea
: Denies Dysuria or Frequency
Musculoskeletal: Denies Joint Pain or Edema
Neurological: Denies Dizzy, Headache, Weakness or Numbness
Psych: Reports Audio or Visual Hallucinations
Physical Exam
Vital Signs
Vital Signs
Temp Pulse Resp BP Pulse Ox
97.7 F 72 14 113/83 99
10/19/24 22:32 10/20/24 02:16 10/20/24 02:15 10/20/24 02:00 10/20/24 02:00
Physical Exam
General: Other (59y M in no acute distress. Slight stuttering speech. Not markedly tremulous / anxious.)
HEENT: Moist mucous membranes
Respiratory: Clear; No Wheezes, Rales or Rhonchi
Cardiac: S1/S2 and Regular Rhythm; No Murmur
GI: Soft, Non Tender, Non Distended and Normal Bowel Sounds
Musculoskeletal: No Clubbing, No Cyanosis and No Edema
Neuro: AO x 3 and Other (Slight tremor of the L hand which patient states is chronic. No focal weakness.)
Laboratory Results
-
10/20/24 02:14
Impression/Plan
-
A/P: Patient is a 59y M with PMH significant for prior ICH, seizure disorder and chronic alcohol use disorder who presents to ED complaining of auditory and visual hallucinations for the past 2 days.
Hallucinations
Alcohol Use Disorder / Alcohol Withdrawal
- Admit for further evaluation and treatment.
- Given history, alcohol withdrawal seems most likely etiology of his symptoms.
- Patient denies prior h/o hallucinations however and has few additional signs / symptoms of active withdrawal at present.
- Time frame (48-72 hours since last drink) is consistent.
- Begin low dose phenobarb taper for now.
- MSAS protocol using IV diazepam in lieu of lorazepam given prior adverse response reported to lorazepam.
- Follow for clinical changes, changes in frequency / severity of hallucinations.
- Neurology evaluation for additional recommendations.
- ? sequelae of chronic / long-standing alcohol use as opposed to acute withdrawal syndrome.
- Note significant psychological stressors as well - brother suddenly / unexpectedly within the past month.
History of ICH
Seizure Disorder
- No evidence of active / recent seizure activity.
- Continue usual Keppra dosing.
- Seizure precautions.
Paroxysmal A-Fib
- Stable. Not on chronic OAC given prior ICH / bleeding risk.
- Not currently on any rate control agents, etc either.
- Monitor on telemetry.
History of DVT
DVT Prophylaxis
- SCDs
Code Status: Full
[2024-10-20 02:41] LABS: ALT (SGPT) 67 U/L (0-50); AST (SGOT) 111 U/L (17-59); Albumin 4.8 g/dl (3.5-5.0); Alkaline Phosphatase 51 U/L (38-126); Blood Urea Nitrogen 10 mg/dl (9-20); Calcium 9.4 mg/dl (8.4-10.2); Carbon Dioxide 28 mmol/L (22-30); Chloride 100 mmol/L (98-107); Glucose 98 mg/dl (70-99); Potassium 3.3 mmol/L (3.5-5.1); Sodium 137 mmol/L (135-145); Total Bilirubin 1.2 mg/dl (0.2-1.3); Total Protein 8.3 g/dl (6.3-8.2); eGFR > 60.00
[2024-10-20 02:43] LABS: Alcohol None Detected
[2024-10-20] MEDS: LR 1000 IV ×2 (04:55→23:33)
[2024-10-20 08:03] LABS: Hematocrit 38.4 % (39.0-52.0); Hemoglobin 14.1 g/dL (13.0-18.0); Mean Corp Hgb Conc. 36.7 g/dL (33.0-37.0); Mean Corpuscular Volume 95.3 fL (80.0-94.0); Mean Platelet Volume 10.9 fL (7.4-10.4); Platelet Count 151 10^3/uL (130-400); Red Blood Cell Count 4.03 10^6/uL (4.70-6.10); Red Cell Dist. Width 12.3 % (11.5-14.5); White Blood Cell Count 3.2 10^3/uL (4.8-10.8)
[2024-10-20 08:05] LABS: Amphetamines Negative (Negative); Barbiturates Negative (Negative); Benzodiazepines Negative (Negative); Buprenorphine Negative (Negative); Cocaine Negative (Negative); Marijuana Negative (Negative); Methadone Negative (Negative); Methamphetamines Negative (Negative); Opiates Negative (Negative); Phencyclidine Negative (Negative); Tricyclic Antidepressants Negative (Negative)
[2024-10-20] MEDS: PHENOBARBITAL 97.5 MG IV ×3 (08:15→21:10)
[2024-10-20] MEDS: FOLVITE 1 MG PO (08:15)
[2024-10-20] MEDS: KEPPRA 2000 MG PO ×2 (08:15→19:52)
[2024-10-20] MEDS: THIAMINE INJECTION 200 MG IV ×3 (08:16→23:31)
[2024-10-20 08:18] LABS: Blood Urea Nitrogen 9 mg/dl (9-20); Calcium 9.3 mg/dl (8.4-10.2); Carbon Dioxide 24 mmol/L (22-30); Chloride 102 mmol/L (98-107); Estimated Creatinine Clearance 116 ml/min; Glucose 82 mg/dl (70-99); Magnesium 1.4 mg/dl (1.6-2.3); Phosphorus 4.9 mg/dl (2.5-4.5); Potassium 3.6 mmol/L (3.5-5.1); Sodium 138 mmol/L (135-145); eGFR > 60.00
[2024-10-20 08:42] LABS: TSH Reflex To Free T4 2.71 uIU/ml (0.47-4.68)
[2024-10-20] MEDS: MAGNESIUM SULFATE 50 IV (10:53)
[2024-10-20 11:02] LABS: Vitamin B12 410 pg/ml (239-931)
--- NOTE | 2024-10-20 12:21 | CON.NEURO ---
Neuro Assessment/Plan
Assessment
Parkinson's disease with visual hallucinations - minimal parkinsonism. Start Azilect 0.5 daily. discussed other treatment options including Sinemet 0.5 tab TID, DBS, FUS given his relatively young age. with visual hallucinations early in the course,
concern for ?Lewy Body though no cognitive symptoms. Discussed Seroquel 25 mg for hallucinations - hold off for now
auditory hallucinations, probably grief? not typical of neuro conditions
h/o SAH
symptomatic epilepsy Keppra 1000 BID
Plan
Azilect 0.5 mg daily, d/c home
Consultation
Order
Date of Consultation: 10/20/24
Requesting Provider: Martha Finley
Reason for Consult: hallucinations
Subjective/Objective
Subjective Data
Date of Service: October 20, 2024
59 year old man h/o SAH 2004 followed by seizures. typical seizure is simple partial, olfactory/gustatory hallucinations ~30 seconds. 4 grand mal sz in his life. on Keppra 2000 BID.
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 he went outside into the rain, and saw all his neighbors. came home, nobody in the house, and the neighbors weren't actually there. They appeared
real to him, but his was able to convince him that they are hallucinations. 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
auditory hallucinations - hears music that his brother used to play; brother 1 month ago
today hallucinations are resolved
+resting tremors. no gait problems, no weakness/numbness
Objective Data
Vital Signs
Temp Pulse Resp BP Pulse Ox
36.4 C 74 16 143/96 100
10/20/24 11:10 10/20/24 11:10 10/20/24 11:10 10/20/24 11:10 10/20/24 11:10
Lab Results
10/20/24 06:56
10/20/24 06:56
Sodium 138 mmol/L (135-145) 10/20/24 06:56
Potassium 3.6 mmol/L (3.5-5.1) 10/20/24 06:56
BUN 9 mg/dl (9-20) 10/20/24 06:56
Glucose 82 mg/dl (70-99) 10/20/24 06:56
Calcium 9.3 mg/dl (8.4-10.2) 10/20/24 06:56
Phosphorus 4.9 mg/dl (2.5-4.5) H 10/20/24 06:56
Vitamin B12 410 pg/ml (239-931) 10/20/24 06:56
Ur Buprenorphine Negative (Negative) 10/20/24 06:41
Patient Allergies
erythromycin base [Erythromycin Base] Allergy (Verified 10/19/24 22:32)
Unknown
lorazepam [From Ativan] Adverse Reaction (Verified 10/19/24 22:32)
See comments
phenytoin sodium [From Dilantin] Adverse Reaction (Verified 10/19/24 22:32)
Unknown- tolerated phenobarbital
Physical Exam
-
AAOx3, speech clear, language intact
VFF, EOMI, face symmetric
full strength b/l UE/LE,
sensation intact to touch
rapid alt movements +mild bradykinesia and induce subtle oromandibular dyskinesias, +rest tremor, +cogwheel only with contralateral activation
Medications
-
Active Medications
Generic Name Dose Route Start Last Admin
Trade Name Freq PRN Reason Stop Dose Admin
Acetaminophen 650 mg 10/20/24 04:20
Acetaminophen 325 Mg Tablet PO 11/17/24 04:19
Q4HPRN PRN
Mild Pain / Temp > 101
Diazepam 2 mg 10/20/24 04:20
Diazepam 10 Mg/2 Ml Inj IV 11/17/24 04:19
Q2HPRN PRN
MSAS 5-7
Diazepam 2 mg 10/20/24 04:20
Diazepam 10 Mg/2 Ml Inj IV 11/17/24 04:19
Q1HPRN PRN
MSAS 8-11
Diazepam 5 mg 10/20/24 04:20
Diazepam 10 Mg/2 Ml Inj IV 11/17/24 04:19
Q1HPRN PRN
MSAS > 11
Folic Acid 1 mg 10/20/24 08:00 10/20/24 08:15
Folic Acid 1 Mg Tablet PO 11/17/24 07:59 1 mg
DAILY ALEX Administration
Lactated Ringer's 1,000 mls @ 80 mls/hr 10/20/24 04:20 10/20/24 04:55
Lr IV 1,000 mls
.[id number] ALEX Administration
Folic Acid 1 mg/ Sodium 50.2 mls @ 200.8 mls/hr 10/20/24 04:20
Chloride IV 11/17/24 04:19
DAILYPRN PRN
if NPO
Levetiracetam 2,000 mg 10/20/24 08:00 10/20/24 08:15
Levetiracetam 500 Mg Regular Release Tablet PO 11/17/24 07:59 2,000 mg
BID ALEX Administration
Phenobarbital Sodium 97.5 mg 10/20/24 08:00 10/20/24 08:15
Phenobarbital (65 Mg/Ml) 1 Ml Vial IV 10/21/24 22:01 97.5 mg
TID ALEX Administration
Phenobarbital Sodium 64.8 mg 10/22/24 08:00
Phenobarbital 32.4 Mg Tablet PO 10/23/24 22:01
TID ALEX
Phenobarbital Sodium 32.4 mg 10/24/24 08:00
Phenobarbital 32.4 Mg Tablet PO 10/25/24 22:01
TID ALEX
Sodium Chloride 0 flush 10/20/24 04:00
Sodium Chloride 0.9% (Flush) Syringe IV 11/17/24 03:59
PER PROTOCOL ALEX
Thiamine HCl 200 mg 10/20/24 08:00 10/20/24 08:16
Thiamine (100 Mg/Ml) 2 Ml Vial IV 10/23/24 00:01 200 mg
Q8 ALEX Administration
Thiamine HCl 100 mg 10/23/24 08:00
Thiamine 100 Mg Tablet PO 11/20/24 07:59
BID ALEX
Home Medications
�Medication �Instructions �Recorded
levetiracetam 1,000 mg tablet 2,000 mg (2 x 1,000 mg) PO BID 08/31/23
Seizures 30 days #120 tabs
folic acid 1 mg tablet 1 mg PO DAILY #0 tabs 09/19/24
thiamine mononitrate (vit B1) 100 100 mg PO DAILY #0 tabs 09/19/24
mg tablet
--- NOTE | 2024-10-20 15:14 | W.PN.HOSP.TC ---
Addendum entered and electronically signed by Martha Finley MD 10/20/24 15:18:
Discussed with neurology continue Keppra 2 g twice daily
Okay for Lovenox DVT prophylaxis-added
Original Note:
Today's Communication/Plan
-
I cannot reach patient's
Phenobarbital taper
Add Lovenox if Ok with Neuro
Assessment / Plan
Assessment / Plan
59-year-old male with hallucinations. History of alcohol use and history of prior intracranial hemorrhage and seizures presented with hallucinations. He had visual and auditory hallucinations .
CVS: S1-S2 normal
Chest: CTA B/L
Abdomen: Soft, NT / Bowel sounds present
Extremities: No edema
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 No motor deficits. Mild tremors
# Auditory and visual hallucinations
States his hallucinations are gone
History of heavy alcohol use longstanding
Reportedly last use was on Monday
Per discussion with neurology visual hallucinations likely from Parkinson's. Started rasagiline. Auditory hallucinations likely grief from patient's brother passing away recently. Possible some alcohol withdrawal too.
He said he does not want to go to inpatient rehab. Has been to [place] once before and he was only There for a day. He goes to AA meetings
MSAS protocol with IV Valium as needed
Head CT with no acute changes
Neurology evaluation appreciated
I will shorten the course of phenobarbital taper because his last use was on Monday and he now has a long half-life. Note that alcohol level was 0 on admission
# Hypomagnesemia-replace
# Hypokalemia-resolved
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
# History of intracranial hemorrhage left temporal -2004
# Seizure disorder-continue Keppra 2 g p.o. twice daily
# Paroxysmal atrial fibrillation-not on anticoagulation secondary to intracranial hemorrhage and bleeding risk secondary to alcohol use and fall risk
# Factor V Leyden
# Leukopenia-likely secondary to alcohol use
# Severe large fiber polyneuropathy
# History of DVT-DVT prophylaxis-use Lovenox if okay with neurology
# Full code
D/W RN at bed side
D/W Neuro
Called several times today, directly goes to message and mailbox is full.
Part of this note was created using voice recognition system. Occasional wrong word or��sound alike� substitutions may have inadvertently occurred due to the inherent limitations of voice recognition software. If noted kindly bring it to my
attention for correction.
Anticipated Discharge: 24 - 48 hours
Subjective/Interval History
-
Date of Service: October 20, 2024
Objective Data
-
Labs:
Laboratory Results
10/20/24
06:56
WBC 3.2 L
Hgb 14.1
Hct 38.4 L
Plt Count 151
Sodium 138
Potassium 3.6
Chloride 102
Carbon Dioxide 24
BUN 9
Creatinine 0.7
Glucose 82
Calcium 9.3
Vital Signs:
Vital Signs
Temp Pulse Resp BP Pulse Ox
97.6 F 74 16 143/96 100
10/20/24 11:10 10/20/24 11:10 10/20/24 11:10 10/20/24 11:10 10/20/24 11:10
I&O
10/19/24 10/20/24 10/21/24
06:59 06:59 06:59
Intake Total 480 / 480
Balance 480 / 480
--- NOTE | 2024-10-20 15:16 | PTOTSP ---
Speech Therapy Evaluation:
Swallow:
Pt with acute on chronic risk factors of dysphagia (seizure disorder, prior CVA, SAH, Parkinsons, ? Lewy Body). Despite this, he presents with oropharyngeal swallow that is grossly WFL at bedside. No s/sx of aspiration across PO trials. No imaging
completed thus far.
Speech:
Pt presents with dysfluent speech as characterized by frequent part-word repetitions, initial sound repetitions, false starts, and interjections. These dysfluencies frequently occurred across spontaneous speech. The type and frequency of
dysfluencies suggest a stuttering profile, though suspect this is chronic given dysfluent speech was also observed during bedside swallow evaluation in 2021.
Recommend:
1. Continue regular solids and thin liquids
2. Medications as tolerated
3. General aspiration precautions
4. [employer] to follow to monitor tolerance of diet and provide education as needed
--- NOTE | 2024-10-20 16:33 | CM ---
accounting office manager reviewed patient's chart and met with patient and patient reports he lives with his spouse in a multilevel home, is independent with adl's and ambulation, no dme, patient has been going to outpatient programs but maybe agreeable to a
referral to [facility], will need to follow up.
PCP: Dr Shivam Hernadez
Pharmacy [facility] in [place]
Plan; Referral to [facility]
[2024-10-20] MEDS: LOVENOX 40 MG SC (17:12)
[2024-10-21] VITALS (7 sets, daily range): BP systolic 117–138; BP diastolic 78–96; PULSE 70
[2024-10-21] MEDS: KEPPRA 2000 MG PO ×2 (08:25→20:37)
[2024-10-21] MEDS: FOLVITE 1 MG PO (08:25)
[2024-10-21] MEDS: THIAMINE INJECTION 200 MG IV ×3 (08:25→23:09)
[2024-10-21 10:22] LABS: Blood Urea Nitrogen 10 mg/dl (9-20); Carbon Dioxide 24 mmol/L (22-30); Chloride 105 mmol/L (98-107); Estimated Creatinine Clearance 116 ml/min; Glucose 106 mg/dl (70-99); Magnesium 1.5 mg/dl (1.6-2.3); Potassium 4.3 mmol/L (3.5-5.1); Sodium 139 mmol/L (135-145); eGFR > 60.00
[2024-10-21] MEDS: LUMINAL 64.8 MG PO (10:32)
[2024-10-21] MEDS: MAGNESIUM SULFATE 50 IV (11:20)
--- NOTE | 2024-10-21 12:29 | CM ---
CM reviewed chart, patient seen bedside. Per Bre [facility], patient seen, not interested in resources at this time. Patient confirms transportation upon discharge. CM will continue to follow for all discharge planning needs.
Plan; home no needs
[2024-10-21] MEDS: LR IV (14:39)
--- NOTE | 2024-10-21 15:16 | W.PN.HOSP.TC ---
Today's Communication/Plan
-
Stop phenobarbital taper
Replace magnesium
Left message for
Discharge planning
Assessment / Plan
Assessment / Plan
59-year-old male with hallucinations. History of alcohol use and history of prior intracranial hemorrhage and seizures presented with hallucinations. He had visual and auditory hallucinations .
CVS: S1-S2 normal
Chest: CTA B/L
Abdomen: Soft, NT / Bowel sounds present
Extremities: No edema
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 No motor deficits. Mild tremors
# Auditory and visual hallucinations
States his hallucinations are gone
History of heavy alcohol use longstanding
Reportedly last use was on Monday
Per discussion with neurology visual hallucinations likely from Parkinson's. Started rasagiline. Auditory hallucinations likely grief from patient's brother passing away recently. Possible some alcohol withdrawal too.
He said he does not want to go to inpatient rehab. Has been to [facility] once before and he was only There for a day. He goes to AA meetings
MSAS protocol with IV Valium as needed
Head CT with no acute changes
Neurology evaluation appreciated
Pt stable. Stop Pheno taper and watch
# Hypomagnesemia-replace
# Hypokalemia-resolved
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
# History of intracranial hemorrhage left temporal -2004
# Seizure disorder-continue Keppra 2 g p.o. twice daily
# Paroxysmal atrial fibrillation-not on anticoagulation secondary to intracranial hemorrhage and bleeding risk secondary to alcohol use and fall risk
# Factor V Leyden
# Leukopenia-likely secondary to alcohol use
# Severe large fiber polyneuropathy
# History of DVT-DVT prophylaxis-Lovenox
# Full code
Called on [phone] -number given by the patient. Went to message. Left message
Part of this note was created using voice recognition system. Occasional wrong word or��sound alike� substitutions may have inadvertently occurred due to the inherent limitations of voice recognition software. If noted kindly bring it to my
attention for correction.
Anticipated Discharge: Within 24 hours
Subjective/Interval History
-
Date of Service: October 21, 2024
Objective Data
-
Labs:
Laboratory Results
10/21/24
09:19
Sodium 139
Potassium 4.3
Chloride 105
Carbon Dioxide 24
BUN 10
Creatinine 0.7
Glucose 106 H
Calcium 9.0
Vital Signs:
Vital Signs
Temp Pulse Resp BP Pulse Ox
98.1 F 70 20 118/82 100
10/21/24 11:00 10/21/24 11:00 10/21/24 11:00 10/21/24 11:00 10/21/24 11:00
I&O
10/20/24 10/21/24 10/22/24
06:59 06:59 06:59
Intake Total 480 / 480 1480 / 1480
Balance 480 / 480 1480 / 1480
[2024-10-21] MEDS: LOVENOX 40 MG SC (17:23)
[2024-10-22 03:00] VITALS: BP 114/78
[2024-10-22 07:05] VITALS: BP 140/84
[2024-10-22] MEDS: KEPPRA 2000 MG PO (07:36)
[2024-10-22] MEDS: MAGNESIUM OXIDE 500 MG PO (07:37)
[2024-10-22] MEDS: THIAMINE INJECTION 200 MG IV (07:37)
[2024-10-22] MEDS: FOLVITE 1 MG PO (07:37)
[2024-10-22 08:14] LABS: Magnesium 1.7 mg/dl (1.6-2.3)
--- NOTE | 2024-10-22 10:13 | W.PN.HOSP.TC ---
Today's Communication/Plan
-
Discharge
Assessment / Plan
Assessment / Plan
59-year-old male with hallucinations. History of alcohol use and history of prior intracranial hemorrhage and seizures presented with hallucinations. He had visual and auditory hallucinations .
CVS: S1-S2 normal
Chest: CTA B/L
Abdomen: Soft, NT / Bowel sounds present
Extremities: No edema
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 No motor deficits. Mild tremors
No hallucinations again today.
# Auditory and visual hallucinations
States his hallucinations are gone, none since admission.
History of heavy alcohol use longstanding
Reportedly last use was on Monday
Per discussion with neurology visual hallucinations likely from Parkinson's. Started rasagiline. Auditory hallucinations likely grief from patient's brother passing away recently. Possible some alcohol withdrawal too.
He said he does not want to go to inpatient rehab. Has been to [facility] once before and he was only There for a day. He goes to AA meetings
MSAS protocol with IV Valium as needed
Head CT with no acute changes
Neurology evaluation appreciated
Pt stable. MSAS 0
# Hypomagnesemia-replace advised to take supplements daily.
# Hypokalemia-resolved
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
# History of intracranial hemorrhage left temporal -2004
# Seizure disorder-continue Keppra 2 g p.o. twice daily
# Paroxysmal atrial fibrillation-not on anticoagulation secondary to intracranial hemorrhage and bleeding risk secondary to alcohol use and fall risk
# Factor V Leyden
# Leukopenia-likely secondary to alcohol use
# Severe large fiber polyneuropathy
# History of DVT-DVT prophylaxis-Lovenox
# Full code
Called on [phone] -number given by the patient. Went to message. Left message. I did not hear back. Went to message again today.
Part of this note was created using voice recognition system. Occasional wrong word or��sound alike� substitutions may have inadvertently occurred due to the inherent limitations of voice recognition software. If noted kindly bring it to my
attention for correction.
More than 30 minutes spent in discharge including
Final examination of the patient
Summarizing hospital stay
Instructions for continuing care to all relevant caregivers
Preparation of discharge records, prescriptions, and referral forms
Total time spent (in minutes): 31 min
Anticipated Discharge: Today
Subjective/Interval History
-
Date of Service: October 22, 2024
Objective Data
-
Vital Signs:
Vital Signs
Temp Pulse Resp BP Pulse Ox
97.8 F 63 19 140/84 99
10/22/24 07:05 10/22/24 07:05 10/22/24 07:05 10/22/24 07:05 10/22/24 07:05
I&O
10/21/24 10/22/24 10/23/24
06:59 06:59 06:59
Intake Total 1480 / 1480 2099 / 2099
Balance 1480 / 1480 2099 / 2099
--- NOTE | 2024-10-22 10:17 | W.DS.TRANS ---
Addendum entered and electronically signed by Martha Finley MD 10/22/24 15:18:
Dictation - [id number]
Original Note:
DC Summary - Manager Helpdesk
-
Discharge Instructions:
Sleep Apnea Risk Intermediate
Discharge Diagnosis/Procedures Auditory and visual hallucinations
Hypokalemia
Hypomagnesemia
Alcohol induced liver injury
Seizures disorder
Paroxysmal atrial fibrillation
Diet As tolerated
Activity As tolerated
Driving Restrictions No driving
Instructions:
Stand-Alone Forms:
Changes to Home Medications: Yes
Discharge Medications:
DC Medications w/original date entered in [facility]
levetiracetam 1,000 mg tablet 2,000 mg (2 x 1,000 mg) PO BID Seizures 30 days #120 tabs 08/31/23
folic acid 1 mg tablet 1 mg PO DAILY #0 tabs 09/19/24
magnesium oxide 500 mg PO DAILY deficiency #0 tabs 10/21/24
thiamine mononitrate (vit B1) 100 mg tablet 100 mg PO DAILY Supplement #0 tabs 10/21/24
rasagiline 0.5 mg tablet (Azilect) 0.5 mg PO DAILY Parkinson #30 tabs 10/22/24
Home Medication Changes
new
rasagiline 0.5 mg tablet (Azilect) 0.5 mg PO DAILY parkinson #30 tabs 10/22/24
magnesium oxide 500 mg PO DAILY deficiency #0 tabs 10/21/24
Pending Results: No
[2024-10-22] MEDS: MAGNESIUM SULFATE 102 GRAMS IV (10:41)
[2024-10-22 11:05] VITALS: BP 123/74
--- NOTE | 2024-10-22 12:17 | CM ---
Addendum entered by Racquel Nazario 10/22/24 15:24:
Note provided by Hospitalist, will email to patient as patient has discharged from Hospital. Placed in patients chart.
Original Note:
CM reviewed chart, patient seen beside, for discharge today. Patient requesting note to provide PECO regarding multiple recent hospitalizations for assistance with bills, update to Physician. Patient confirms transportation home. CM will continue to
follow for all discharge planning needs.
Plan; home no needs.
== END 2024-10-22 13:41 | disposition home or self-care (01) | DRG 57 ==
LOC: 4 WEST ACU 02:41
PROVIDERS: Student in an Organized Health Care Education/Training Program; ADMITTING PHYSICIAN Hospitalist; ATTENDING PHYSICIAN Hospitalist; CONSULT PHYSICIAN Psychiatry & Neurology Clinical Neurophysiology; EMERGENCY PHYSICIAN Emergency Medicine; FAMILY PHYSICIAN Family Medicine
DX: G20.A1 Parkinson's disease without dyskinesia, without mention of fluctuations (principal); F10.139 Alcohol abuse with withdrawal, unspecified; D68.51 Activated protein C resistance; G40.909 Epilepsy, unspecified, not intractable, without status epilepticus; E83.42 Hypomagnesemia; E87.6 Hypokalemia; I48.0 Paroxysmal atrial fibrillation; Z86.718 Personal history of other venous thrombosis and embolism; I25.10 Atherosclerotic heart disease of native coronary artery without angina pectoris; Z86.73 Personal history of transient ischemic attack (TIA), and cerebral infarction without residual deficits; I10 Essential (primary) hypertension; D63.8 Anemia in other chronic diseases classified elsewhere; K70.9 Alcoholic liver disease, unspecified; Z63.4 Disappearance and death of family member; Z80.0 Family history of malignant neoplasm of digestive organs; Z81.1 Family history of alcohol abuse and dependence; Z87.891 Personal history of nicotine dependence
CPT/HCPCS: 80048; 80053; 80306; 81003; 81015; 82077; 82607; 83735; 84100; 84443; 85027; 92526; 92610; 93005; 97161; 99284

== ENCOUNTER 2025-03-16 03:59 | Observation (INO) | payer MEDICAID, SELFPAY ==
[2025-03-15 19:53] VITALS: BP 149/86
[2025-03-15 20:36] LABS: Urine Character Clear (Clear)
[2025-03-15 20:53] LABS: Urine Red Blood Cell None Seen /HPF (0-2); Urine White Cell 0-2 /HPF (0-5)
[2025-03-15 22:36] VITALS: BMI 20.8
[2025-03-15 22:39] VITALS: BP 150/105
--- NOTE | 2025-03-15 22:48 | ED.GENMED ---
History of Present Illness
General
Chief Complaint: Change in Mental Status
Time Seen by Provider: 03/15/25 22:48
Nursing documentation reviewed up to this point in time: agreed with
History of Present Illness
History of Present Illness:
59-year-old male presents to the ER for evaluation of seizures. Patient states that he has been having issues with seizures since previous stroke. He believes that his seizures have been triggered by his alcohol use. He states that he has
abstained from alcohol intake since Monday. He denies any seizures this week. had previously been in the emergency department to provide history-he has apparently been hallucinating and very confused this week. He is currently being treated
for Lewy body dementia and parkinsonism. He does have a prior significant history of alcohol use disorder.
Past History
Past History
ED Past Medical History: Arrthythmia (Paroxysmal atrial fibrillation), CVA (Possible TIA), HTN, Hypercholesterolemia, Seizures, Psychiatric (Anxiety), Other (Spontaneous subarachnoid hemorrhage 2005, Headaches, Back pain, DVT, C-diff, Factor 5
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
ED Past Surgical History: Orthopedic (left knee arthroscopy)
Social History
Tobacco: Former smoker
Alcohol: Chronic alcoholic
Drug: None
Personal:
Living: with family
Employment: Not employed
Family History
Family History: Other (He has a father and a brother that had strokes)
Phy Exam
Physical Exam
Physical Exam:
Patient is awake, alert, appears in no acute distress, generally tremulous, ruborous complexion, head is NCAT, PERRL, EOMI mucous membranes moist, conjunctiva pink, heart regular rate and rhythm without murmurs or ectopy, lungs are clear to
auscultation without wheezes rales or rhonchi, no JVD, abdomen is soft and nontender on palpation, extremities without edema, GCS is 15 no dysdiadochokinesia, no ataxia, no pronator drift
Course
Orders/Labs/Results
Orders:
Orders
03/15/25 20:14
Urinalysis Reflex To Culture Urgent
Date Specimen was Collected: 03/15/25
Time Specimen was Collected: 20:01
Urine Microscopic Reflex Cult Urgent
03/15/25 22:37
Alcohol Urgent
Complete Blood Count/With Diff Urgent
Comprehensive Metabolic Panel Urgent
03/15/25 22:48
Add On- LAB Urgent
Tests Added?: alcohol
03/15/25 22:49
CT Head W/o Iv Contrast Urgent
Comment:
Reason For Exam: hallucinations
03/15/25 23:29
Thiamine Injection 100 mg IV NOW STA
03/16/25 02:04
Add On- LAB Urgent
Tests Added?: ammonia
Ammonia Urgent
Abnormal Lab Results
03/15/25 03/15/25
20:14 22:37
RBC 4.04 L 10^6/uL
(4.70-6.10)
MCV 97.3 H fL
(80.0-94.0)
MCH 34.4 H pg
(27.0-31.0)
Plt Count 123 L 10^3/uL
(130-400)
Absolute Lymphs (auto) 0.6 L 10^3/uL
(1.2-3.4)
Neutrophils % 79.7 H %
(42.2-75.2)
Lymphocytes % 11.7 L %
(20.5-51.1)
Sodium 134 L mmol/L
(135-145)
Potassium 3.4 L mmol/L
(3.5-5.1)
Chloride 95 L mmol/L
(98-107)
BUN 8 L mg/dl
(9-20)
Glucose 108 H mg/dl
(70-99)
Total Bilirubin 1.5 H mg/dl
(0.2-1.3)
AST 157 H U/L
(17-59)
ALT 80 H U/L
(0-50)
Total Protein 8.8 H g/dl
(6.3-8.2)
Albumin 5.2 H g/dl
(3.5-5.0)
Urine Albumin (Reflex) 1+ A
(Neg - Trace)
03/15/25 22:37
03/15/25 22:37
CBC within normal limits. Electrolytes without significant dyscrasia, preserved kidney function. Alcohol negative
Vital Signs
Initial and Last Documented VS:
Initial Vital Signs
Temp Pulse Resp BP Pulse Ox
97.6 F 80 18 149/86 99
03/15/25 19:53 03/15/25 19:53 03/15/25 19:53 03/15/25 19:53 03/15/25 19:53
Last Documented Vital Signs
Temp Pulse Resp BP Pulse Ox
97.6 F 72 17 133/91 100
03/15/25 19:53 03/16/25 01:45 03/16/25 01:45 03/16/25 01:00 03/16/25 01:45
MDM/Problems Addressed
Differential Diagnosis Includes:
Differential diagnosis to consider but not limited to progression of dementia, occult infection, lecture light dyscrasia, alcohol use disorder, along with other etiologies considered
Chronic conditions affecting care:
Alcohol use disorder, parkinsonism, Lewy body dementia
*Radiology
Radiology exam reviewed: radiology read reviewed (No acute findings on CT head)
*Pulse Oximetry
SaO2: 99
Oxygen Mode of Delivery: Room air
Patient hypoxic: no
*Critical Care Note
Total Time (30-74mins, 75-104mins- exclusive of procedures): Not Applicable
Update Note
Update Note:
Patient given IV thiamine. Resting comfortably in no acute distress throughout time in the emergency department. No evidence for acute significant abnormality seen on labs. CT head within normal limits. Given worsening behaviors and
hallucinations at home, pt would benefit from further inpatient assessment. Patient presentation reviewed with hospitalist who accepts patient for admission
ED Attending Note
-
Portions of this chart may have been created with voice recognition software.� Occasional wrong word or��sound alike� substitutions may have occurred due to the inherent limitations of voice recognition software.
Discharge Plan
Departure
Patient Disposition: Admit
Date of Disposition: 03/16/25
Time of Disposition: 02:08
Presentation/result/management discussed w/ accepting MD/DO: Hospitalist
Discharge Problem:
Hallucination, Elevated LFTs
Prescriptions:
No Action
levetiracetam 1,000 mg Tablet
2,000 mg PO BID 30 Days Qty: 120 0RF
magnesium oxide 500 mg magnesium Tablet
500 mg PO DAILY Qty: 0 0RF
Referrals:
UNKNOWN - PT DOES,NOT KNOW [Family Provider]
Interventions
Interventions:
*Risk Screen - Suicide Last Done: 03/15/25 19:58
*General Assessment Last Done: 03/15/25 19:58
*Neglect/Abuse Screening Last Done: 03/15/25 22:36
*ED- Fall Risk Assessment Last Done: 03/15/25 22:36
*ED COVID-19 Vaccine History Last Done: 03/15/25 19:58
*ED Influenza Vaccine History Last Done: 03/15/25 19:58
ED- Neurological Assessment Last Done: 03/15/25 22:36
Discharge Date and Time
Print Language: MACEDONIAN
[2025-03-15 23:00] VITALS: BP 133/96
[2025-03-15 23:02] LABS: Hematocrit 39.3 % (39.0-52.0); Hemoglobin 13.9 g/dL (13.0-18.0); Mean Corp Hgb Conc. 35.4 g/dL (33.0-37.0); Mean Corpuscular Volume 97.3 fL (80.0-94.0); Nucleated Red Blood Cells % 0 % (-); Platelet Count 123 10^3/uL (130-400); Red Cell Dist. Width 14.2 % (11.5-14.5)
[2025-03-15 23:19] LABS: ALT (SGPT) 80 U/L (0-50); AST (SGOT) 157 U/L (17-59); Albumin 5.2 g/dl (3.5-5.0); Alkaline Phosphatase 52 U/L (38-126); Blood Urea Nitrogen 8 mg/dl (9-20); Calcium 9.5 mg/dl (8.4-10.2); Carbon Dioxide 23 mmol/L (22-30); Chloride 95 mmol/L (98-107); Estimated Creatinine Clearance 115 ml/min; Glucose 108 mg/dl (70-99); Potassium 3.4 mmol/L (3.5-5.1); Sodium 134 mmol/L (135-145); Total Protein 8.8 g/dl (6.3-8.2); eGFR > 60.00
[2025-03-15] MEDS: THIAMINE INJECTION 100 MG IV (23:49)
[2025-03-16] VITALS (13 sets, daily range): BP systolic 130–163; BP diastolic 66–95
--- NOTE | 2025-03-16 02:27 | HPS.HSE ---
Family Physician
-
Family Physician: NOT KNOW UNKNOWN - PT DOES
Chief Complaint
-
Hallucinations
History of Present Illness
This is a 59-year-old male who has a prior medical history significant for hemorrhagic stroke several years ago complicated by development of seizures, history of alcohol/substance abuse now free of dependence, was recently admitted in October for
hallucinations and was ultimately diagnosed with Parkinson's and loaded with body dementia now presents to the emergency department with recurrent episode of hallucinations.
Patient said he was brought to the emergency department due to his complaining about his behavior. He reports that recently he had an episode of hallucination where he was seen several people standing by the edge of his bed and pointing
towards him and discussing about him. 1 of these people came to sleep by his side on the bed. When he tried to question him he his hands went through. He said the images of the BP was sometimes fuzzy and he could tell that he was hallucinating.
He apparently became agitated and confused this week.
During his last admission he was prescribed rasagiline. However patient stated that when he tried to fill the prescription it was too expensive so he never started this medication. He has only been taking Keppra. He stated his last use of alcohol
was 2 weeks ago when he drank wine. Otherwise denies any other ingestions. He denies any drug use. He denies marijuana. He denies any chest abdominal or urinary symptoms. He denies having any headache.
Patient was able to provide a history of his last admission and described in detail his discussion with neurologist at that time. He described that he was told he had early forms of Parkinson's and Lewy body dementia and that when he discussed this
with family members they were concerned that the prognosis was a rapid decline. He is currently alert and oriented and appropriate. He has a chronic stutter which is unchanged from prior. He has no focal deficits.
He is currently without any hallucinations.
In the emergency department he was afebrile, blood pressure was 133/91 with a pulse rate of 72 and was satting 97% on room air.
CBC was unremarkable. His electrolytes BUN and creatinine were normal. He does have increased LFTs to 157 of AST and ALT of 80. History total bilirubin was 1.5. Ammonia level was undetectable. Alcohol level was undetectable. UA was
unremarkable. CT of the head showed chronic microvascular changes but no evidence of an acute or interval process.
Medical History
Past Medical History
Past Medical History: Reports Other
Additional Past Medical History:
ASCVD with Prior CVA
History of seizures
Subarachnoid hemorrhage in 2004
Essential hypertension
Gout
Alcohol use disorder with withdrawal seizures and withdrawal delirium
Factor V Leiden deficiency
Anemia of chronic disease
Past Surgical History: Reports Other
Additional Past Surgical History:
Knee Arthroscopy
Social History
Tobacco: Non-smoker (Per record. Unsure of total use / quit date.)
Alcohol: Chronic Alcoholic (Drinks 3-4 glasses of wine 4-5 days per week. Last drink 3 days ago.)
Personal:
Family History
Family History: Other (Mother colon cancer, 1 brother colon cancer, father and multiple brothers alcohol abuse)
Allergies / Home Medications
Allergies reflects when Allergies were last updated in [facility].
Home Medications with original date entered in [facility]
Allergy/Medication List:
Allergies
Allergy/AdvReac Type Severity Reaction Status Date / Time
erythromycin base Allergy Unknown Verified 10/19/24 22:32
[Erythromycin Base]
lorazepam [From Ativan] AdvReac See Verified 10/19/24 22:32
comments
phenytoin sodium AdvReac Unknown- Verified 10/19/24 22:32
[From Dilantin] tolerated
phenobarbital
Home Medications
levetiracetam 1,000 mg tablet 2,000 mg (2 x 1,000 mg) PO BID Seizures 30 days #120 tabs 08/31/23
folic acid 1 mg tablet 1 mg PO DAILY #0 tabs 09/19/24
thiamine mononitrate (vit B1) 100 mg tablet 100 mg PO DAILY #0 tabs 09/19/24
Review of Systems
-
History Source: Patient and Family
A 12 point ROS was completed and negative except as noted: Yes
Constitutional: Denies Fever or Chills
Respiratory: Denies Cough or Trouble Breathing
Cardiac: Denies Chest Pain or Palpitations
Abdomen/GI: Denies Abdominal Pain, Nausea, Vomiting or Diarrhea
: Denies Dysuria or Frequency
Musculoskeletal: Denies Joint Pain or Edema
Neurological: Denies Dizzy, Headache, Weakness or Numbness
Psych: Reports Audio or Visual Hallucinations
Physical Exam
Vital Signs
Vital Signs
Temp Pulse Resp BP Pulse Ox
97.6 F 72 17 133/91 100
03/15/25 19:53 03/16/25 01:45 03/16/25 01:45 03/16/25 01:00 03/16/25 01:45
Physical Exam
General: Well Developed, No Apparent Distress and Other (chronic stuttering)
HEENT: NormoCephalic, Anicteric, Moist mucous membranes and PERRLA
Respiratory: Clear; No Wheezes, Rales or Rhonchi
Cardiac: S1/S2 and Regular Rhythm; No Murmur
GI: Soft, Non Tender, Non Distended and Normal Bowel Sounds
Musculoskeletal: No Clubbing, No Cyanosis and No Edema
Neuro: AO x 3 and Other (Slight tremor of the L hand which patient states is chronic. No focal weakness.)
Hematologic/Lymphatic: No Lymphadenopathy
Psych: Calm
Laboratory Results
-
03/15/25 22:37
03/15/25 22:37
Laboratory Results
Total Bilirubin 1.5 mg/dl (0.2-1.3) H 03/15/25 22:37
AST 157 U/L (17-59) H 03/15/25 22:37
ALT 80 U/L (0-50) H 03/15/25 22:37
Alkaline Phosphatase 52 U/L (38-126) 03/15/25 22:37
Data Reviewed
-
CT Scan: Report Reviewed by me
Lab Data: Labs Reviewed by me
Old Records: Reviewed
Impression/Plan
-
IMPRESSION:
59 y.o male with h/o hemorrhagic stroke with residual seizure d/o, prior h/o etoh withdrawal seizure, presents with episode of hallucination and 's report of confusion this week. He is currently a&ox3, no focal deficits. He has insight and his
memory is intact enough for him to recall events from his last admission. Not hallucinating currently. The hallucinations were thought to be from recent loss of brother at that admisson in september due to parkinsons. He was recommended to
start rasagiline however patient did not fill this prescription. He did report use of alcohol (wine) about 2 weeks ago. Labs here notable for mild transaminitis only.
PLAN:
Hallucinations - Likely from lewy body dementia previously diagnosed and untreated parkinson
- admit to med/surg obs
- start rasagiline
- monitor mental status
- consider neurology consult
Transaminitis - Possibly from recent etoh intake on chronic liver disease. He denies daily etoh and last drin was 2 weeks ago. No withdrawal symptoms and unlikely delirium from withdrawal. No known cirrhosis.
- trend lfts
- RUQ u/s
- negative ammonia level
- continue thiamine/folate
- f/u with outpatient pmd or hepatology
Seizure d/o
- continue keppra
DVT PPX - SCD
Code status - Full Code
[2025-03-16 02:48] LABS: Ammonia < 9 umol/L (9-30)
[2025-03-16 06:13] LABS: ALT (SGPT) 68 U/L (0-50); AST (SGOT) 126 U/L (17-59); Albumin 4.6 g/dl (3.5-5.0); Alkaline Phosphatase 55 U/L (38-126); Blood Urea Nitrogen 6 mg/dl (9-20); Calcium 8.6 mg/dl (8.4-10.2); Carbon Dioxide 23 mmol/L (22-30); Chloride 97 mmol/L (98-107); Estimated Creatinine Clearance 115 ml/min; Glucose 85 mg/dl (70-99); Magnesium 1.2 mg/dl (1.6-2.3); Potassium 3.2 mmol/L (3.5-5.1); Sodium 140 mmol/L (135-145); Total Protein 7.5 g/dl (6.3-8.2); eGFR > 60.00
[2025-03-16] MEDS: MAGNESIUM OXIDE 400 MG PO (09:09)
[2025-03-16] MEDS: FOLVITE 1 MG PO (09:09)
[2025-03-16] MEDS: VITAMIN B1 100 MG PO (09:09)
[2025-03-16] MEDS: KEPPRA 2000 MG PO (09:09)
[2025-03-16] MEDS: MAGNESIUM SULFATE 100 IV (09:34)
[2025-03-16] MEDS: KCL 270 MEQ IV (09:34)
--- NOTE | 2025-03-16 09:37 | CM ---
Patient seen at bedside in ED. CM met with patient who resides with his spouse in a 3 story house, 2 steps to enter. The patient was independent in ADLs and ambulation. 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
Patient talked about his brother's who used to help with transportation and other supports. PCP is Dr. Hernadez and he uses the Pharmacy at [facility]. Patient has no DME or VN. CM reviewed OBS form and signed copy given to legal file clerk for
file, CM will continue to follow for discharge planning needs.
Plan; home with no needs watch for VN
--- NOTE | 2025-03-16 12:09 | W.PN.UPDATE ---
Update Note
Progress Note Update
Admitted 230 AM
patient without hallucinations at present
No new complaints
diagnosed with PD and possible LBD recently; has not seen outpatient Neurologist (Dr. Whiting) yet
Assessment:
Hallucinations - Likely from lewy body dementia previously diagnosed and untreated Parkinson disease
- UA, ammonia and labs otherwise unremarkable. CT head negative
- psych consulted; may need seroquel
Hx of PD
hx of Lewy body dementia
- PT/OT
- patient was to start rasagiline but could not afford
- no significant tremors or rigidity; d/w patient and and prefer to be evaluated by OP neurologist prior to starting regimen
- I suggested evaluation by PD specialist at [place] or [place]
Transaminitis
- Possibly from recent etoh intake on chronic liver disease. He denies daily etoh and last drin was 2 weeks ago. No withdrawal symptoms and unlikely delirium from withdrawal. No known cirrhosis.
- US: Increased echogenicity in the liver, compatible with underlying hepatocellular disease, which most commonly relates to fatty infiltration of the liver.
- continue thiamine/folate
- f/u with PCP
Seizure d/o
- continue Keppra
Hypokalemia
Hypomagnesemia
- replete and repeat AM labs
DVT ppx: SCDs
Code: Full
--- NOTE | 2025-03-16 14:13 | W.DCSUMMARY ---
Discharge Summary
Discharge Data
Date of Admission: 03/16/25
Date of Discharge: 03/16/25
-
Pending Results: No
Hospital Course
59 y/o M with recent diagnosis of PD and Lewy body dementia presented with hallucinations. Medical workup was unremarkable. CT head was unremarkable. Given patients mild hallucinations that are not disruptive; it was decided to avoid antipsychotics
such as seroquel until patient is evaluated by Neurology; he plans to see [facility] or [facility] disorders specialist. Patient was stable for discharge on 03/16/25.
Discharge Plan
-
Patient Disposition: Home (Routine Discharge)
Discharge Diagnosis/Procedures: hallucinations
Condition: Fair
Diet: Regular
Activity: As tolerated
Bathing Restrictions: None
Referrals:
Dawson Menchaca MD [Active, Neurology]
Referral Note: follow up with this neurologist or [facility] specialist
Prescriptions:
Continued
levetiracetam 1,000 mg Tablet
2,000 mg PO BID 30 Days Qty: 120 0RF
magnesium oxide 500 mg magnesium Tablet
500 mg PO DAILY Qty: 0 0RF
Discharge Orders:
Discharge Patient (As Directed); Ordered 03/16/25
Ordered By: Ronal Gordon
Discharge Date and Time
Print Language: WELSH
== END 2025-03-16 15:00 | disposition home or self-care (01) ==
LOC: ED 03:59
PROVIDERS: Emergency Medicine; ADMITTING PHYSICIAN Internal Medicine; ATTENDING PHYSICIAN Internal Medicine; EMERGENCY PHYSICIAN Emergency Medicine
DX: R44.3 Hallucinations, unspecified (principal); R41.82 Altered mental status, unspecified; G31.83 Neurocognitive disorder with Lewy bodies; F02.82 Dementia in other diseases classified elsewhere, unspecified severity, with psychotic disturbance; F02.811 Dementia in other diseases classified elsewhere, unspecified severity, with agitation; G20.C Parkinsonism, unspecified; E78.00 Pure hypercholesterolemia, unspecified; I10 Essential (primary) hypertension; I48.0 Paroxysmal atrial fibrillation; F41.9 Anxiety disorder, unspecified; D68.51 Activated protein C resistance; G40.909 Epilepsy, unspecified, not intractable, without status epilepticus; I25.10 Atherosclerotic heart disease of native coronary artery without angina pectoris; D63.8 Anemia in other chronic diseases classified elsewhere; R74.01 Elevation of levels of liver transaminase levels; E87.6 Hypokalemia; R18.8 Other ascites; K80.20 Calculus of gallbladder without cholecystitis without obstruction; E83.42 Hypomagnesemia; M10.9 Gout, unspecified; F10.10 Alcohol abuse, uncomplicated; Z87.891 Personal history of nicotine dependence; Z86.79 Personal history of other diseases of the circulatory system; Z86.718 Personal history of other venous thrombosis and embolism; Z82.3 Family history of stroke; R79.89 Other specified abnormal findings of blood chemistry; Z86.73 Personal history of transient ischemic attack (TIA), and cerebral infarction without residual deficits; Z80.0 Family history of malignant neoplasm of digestive organs; Z81.1 Family history of alcohol abuse and dependence; Z88.1 Allergy status to other antibiotic agents
CPT/HCPCS: 70450; 76700; 80048; 80053; 80076; 81003; 81015; 82077; 82140; 83735; 85025; 96365; 96366; 96375; 97162; 97165; 99285; G0378

== ENCOUNTER 2025-05-01 07:33 | Emergency (ER) | payer OTHER, SELFPAY ==
[2025-05-01 07:36] VITALS: BP 119/92
[2025-05-01 08:29] VITALS: BMI 19.8
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
[2025-05-01 09:15] LABS: Hematocrit 32.1 % (39.0-52.0); Hemoglobin 11.4 g/dL (13.0-18.0); Mean Corp Hgb Conc. 35.5 g/dL (33.0-37.0); Mean Corpuscular Volume 96.1 fL (80.0-94.0); Nucleated Red Blood Cells % 0 % (-); Platelet Count 193 10^3/uL (130-400); Red Cell Dist. Width 14.2 % (11.5-14.5)
[2025-05-01 09:22] VITALS: BP 154/85
[2025-05-01 09:32] LABS: ALT (SGPT) 25 U/L (0-50); AST (SGOT) 39 U/L (17-59); Albumin 4.0 g/dl (3.5-5.0); Alkaline Phosphatase 84 U/L (38-126); Blood Urea Nitrogen 6 mg/dl (9-20); Calcium 9.0 mg/dl (8.4-10.2); Carbon Dioxide 24 mmol/L (22-30); Chloride 94 mmol/L (98-107); Estimated Creatinine Clearance > 125 ml/min; Glucose 100 mg/dl (70-99); Potassium 3.2 mmol/L (3.5-5.1); Sodium 130 mmol/L (135-145); Total Protein 7.3 g/dl (6.3-8.2); eGFR > 60.00
[2025-05-01 10:03] VITALS: BP 154/86
[2025-05-01 10:34] LABS: Urine Character Clear (Clear)
[2025-05-01] MEDS: NSS 1000 IV (10:51)
[2025-05-01 11:00] VITALS: BP 133/80
[2025-05-01 11:21] LABS: Urine Squamous Cell 0-2 /LPF (Few)
[2025-05-01 11:22] LABS: Urine Red Blood Cell 0-2 /HPF (0-2)
[2025-05-01 12:00] VITALS: BP 140/81
== END 2025-05-01 13:30 | disposition home or self-care (01) ==
LOC: EMR 07:33
PROVIDERS: EMERGENCY PHYSICIAN Student in an Organized Health Care Education/Training Program
DX: R44.1 Visual hallucinations (principal); E87.1 Hypo-osmolality and hyponatremia; E87.6 Hypokalemia; I48.0 Paroxysmal atrial fibrillation; I10 Essential (primary) hypertension; E78.00 Pure hypercholesterolemia, unspecified; G40.909 Epilepsy, unspecified, not intractable, without status epilepticus; D68.51 Activated protein C resistance; F10.10 Alcohol abuse, uncomplicated; F41.9 Anxiety disorder, unspecified; M10.9 Gout, unspecified; T42.8X6A Underdosing of antiparkinsonism drugs and other central muscle-tone depressants, initial encounter; Z91.148 Patient's other noncompliance with medication regimen for other reason; Z91.199 Patient's noncompliance with other medical treatment and regimen due to unspecified reason; Z86.73 Personal history of transient ischemic attack (TIA), and cerebral infarction without residual deficits; Z86.718 Personal history of other venous thrombosis and embolism; Z86.19 Personal history of other infectious and parasitic diseases; Z87.891 Personal history of nicotine dependence; Z82.3 Family history of stroke
CPT/HCPCS: 99284; 96360; 70450; 80053; 81003; 81015; 82077; 85025; 93005